=== PATIENT | female | born 1985 | race Caucasian/White ===

== ENCOUNTER 2019-04-17 22:33 | Inpatient (IN) | payer OTHER ==
[2019-04-17] MEDS ORDERED: SODIUM CHLORIDE 0.9% 500 ML 500 ML IV STA (22:44)
[2019-04-17] MEDS ORDERED: DILTIAZEM DRIP BOLUS FROM BAG 1 MG SOLN IV ONE (22:44)
[2019-04-17] MEDS ORDERED: MAGNESIUM SULFATE-D5W PMX 1 GM in DEXTROSE/WATER 1 100ML.BAG IVPB STA (22:44)
[2019-04-17] MEDS ORDERED: DILTIAZEM 125 MG in SODIUM CHLORIDE 0.9% 100 ML IV SCH (22:45)
[2019-04-17 23:13] LABS: Basophils # (A) 0.1 k/uL (0-0.2); Basophils % (A) 1 %; Eosinophils # (A) 0.2 k/uL (0-0.7); Eosinophils % (A) 2 %; HCT 44.7 % (34.0-46.0); HGB 15.6 gm/dL (11.4-16.0); Lymphocytes # (A) 3.2 k/uL (1.0-4.8); Lymphocytes % (A) 26 %; MCH 30.8 pg (25.0-35.0); MCHC 34.9 g/dL (31.0-37.0); MCV 88.2 fL (80.0-100.0); Monocytes # (A) 0.4 k/uL (0-1.0); Monocytes % (A) 4 %; Neutrophils # (A) 8.1 k/uL (1.3-7.7); Neutrophils % (A) 66 %; Platelet Count 169 k/uL (150-450); RBC 5.07 m/uL (3.80-5.40); RDW 13.5 % (11.5-15.5); WBC 12.4 k/uL (3.8-10.6)
[2019-04-17 23:22] LABS: INR 1.1 (<1.2); Prothrombin Time 11.4 sec (9.0-12.0)
[2019-04-17 23:33] LABS: ALT 58 U/L (9-52); AST 38 U/L (14-36); African American GFR (CKD) >90 (>60 ml/min/1.73 sqM); Albumin 4.4 g/dL (3.5-5.0); Alkaline Phosphatase 144 U/L (38-126); Anion Gap 12 mmol/L; Blood Urea Nitrogen 20 mg/dL (7-17); Calcium 9.7 mg/dL (8.4-10.2); Carbon Dioxide 19 mmol/L (22-30); Chloride 109 mmol/L (98-107); Glucose 122 mg/dL (74-99); Non-African American GFR(CKD) >90 (>60 ml/min/1.73 sqM); Potassium 4.6 mmol/L (3.5-5.1); Sodium 140 mmol/L (137-145); Total Bilirubin 0.9 mg/dL (0.2-1.3); Total Protein 7.5 g/dL (6.3-8.2)
--- NOTE | 2019-04-17 23:42 | XR ---
EXAM: XR Chest, 2 Views CLINICAL HISTORY: dysrhythmia TECHNIQUE: Frontal and lateral views of the chest. COMPARISON: 03/31/2019 FINDINGS: Lungs: Unremarkable. No consolidation. Pleural space: No significant pleural effusions or pneumothorax. Heart: Stable enlarged cardiomediastinal silhouette. Mediastinum: See above. Bones/joints: No acute osseous abnormality. Tubes, lines and devices: Telemetry leads overlie the patient. IMPRESSION: Stable enlarged cardiomediastinal silhouette. No consolidation, significant pleural effusions, or pneumothorax.
[2019-04-18] MEDS ORDERED: SODIUM CHLORIDE 0.9% 500 ML 500 ML IV ONE (01:15)
[2019-04-18] MEDS: SODIUM CHLORIDE 0.9% 1,000 ML IV SCH ×2 (02:24→20:12)
--- NOTE | 2019-04-18 03:51 | ED ---
Arrhythmia/Palpitations HPI - General Chief Complaint: Arrhythmia/Palpitations Stated Complaint: Chest Pain Time Seen by Provider: 04/17/19 22:40 Source: patient, EMS Mode of arrival: EMS Limitations: no limitations - History of Present Illness Initial Comments: The patient is a 33-year-old female presents emergency room with reported chest palpitations. She was recently seen in the emergency room earlier this month. She was diagnosed with new onset A. fib with RVR. She was also diagnosed with hypertrophic cardiomyopathy. She is discharged home on Eliquis and Toprol. States she's been taking the medications as directed. She was told to follow up with a cylinder block hole reliner out of [facility]. States that the earliest that she can be seen as an June. Prior to hospital discharge she did convert to normal sinus rhythm. States she's been asymptomatic until just prior to hospital arrival. States that she was sitting down when she had sudden onset of palpitations which made her short of breath. She also felt extremely dizzy. EMS was called. They did find the patient have a heart rate close to 180s. She did appear to be in A. fib. She was provided with 324 mg of chewable aspirin. She denies ripping or tearing sensation to her back. Denies cough or hemoptysis. No abdominal pain. No nausea or vomiting. There are no alleviating, precipitating or modifying factors - Related Data Home Medications Medication Instructions Recorded Confirmed Ergocalciferol [Vitamin D2 50,000 unit PO MO 03/31/19 04/17/19 (DRISDOL)] Sertraline [Zoloft] 100 mg PO DAILY 03/31/19 04/17/19 Previous Rx's Medication Instructions Recorded Apixaban [Eliquis] 5 mg PO BID #60 tab 04/03/19 Amiodarone [Cordarone] 200 mg PO BID #180 tab 04/20/19 Metoprolol Tartrate [Lopressor] 25 mg PO BID #0 tab 04/20/19 Allergies Allergy/AdvReac Type Severity Reaction Status Date / Time No Known Allergies Allergy Verified 04/17/19 22:53 Review of Systems ROS Statement: Those systems with pertinent positive or pertinent negative responses have been documented in the HPI. ROS Other: All systems not noted in ROS Statement are negative. Past Medical History Past Medical History: Atrial Fibrillation Additional Past Medical History / Comment(s): Depression History of Any Multi-Drug Resistant Organisms: None Reported Past Surgical History: Cholecystectomy Additional Past Surgical History / Comment(s): csection Past Anesthesia/Blood Transfusion Reactions: No Reported Reaction Past Psychological History: Depression Smoking Status: Never smoker Past Alcohol Use History: Rare Past Drug Use History: None Reported - Past Family History Father Family Medical History: Cancer, Diabetes Mellitus Additional Family Medical History / Comment(s): "heart problems" possible murmur Mother Family Medical History: Cancer Additional Family Medical History / Comment(s): Allerigies Sister(s) Additional Family Medical History / Comment(s): orthopedic surgery, "heart problems" General Exam Limitations: no limitations General appearance: alert, in distress Head exam: Present: atraumatic, normocephalic, normal inspection Eye exam: Present: normal appearance, PERRL, EOMI. Absent: scleral icterus, conjunctival injection, periorbital swelling ENT exam: Present: normal exam, mucous membranes moist Neck exam: Present: normal inspection. Absent: tenderness, meningismus, lymphadenopathy Respiratory exam: Present: normal lung sounds bilaterally. Absent: respiratory distress, wheezes, rales, rhonchi, stridor Cardiovascular Exam: Present: tachycardia, irregular rhythm, normal heart sounds. Absent: systolic murmur, diastolic murmur, rubs, gallop, clicks GI/Abdominal exam: Present: soft, normal bowel sounds. Absent: distended, tenderness, guarding, rebound, rigid Extremities exam: Present: normal inspection, full ROM, normal capillary refill. Absent: tenderness, pedal edema, joint swelling, calf tenderness Back exam: Present: normal inspection Neurological exam: Present: alert, oriented X3, CN II-XII intact Psychiatric exam: Present: normal affect, normal mood Skin exam: Present: warm, intact, normal color, diaphoretic. Absent: rash Course Vital Signs 04/17/19 04/17/19 04/17/19 22:34 23:00 23:59 Temperature 98.3 F Pulse Rate 147 H 79 107 H Pulse Rate [ Right] Respiratory 20 16 16 Rate Blood Pressure 114/99 113/81 102/67 Blood Pressure [Right Arm] O2 Sat by Pulse 98 97 96 Oximetry 04/18/19 04/18/19 04/18/19 00:45 01:00 02:00 Temperature 97.6 F 97.6 F Pulse Rate 106 H 107 H 89 Pulse Rate [ Right] Respiratory 16 16 16 Rate Blood Pressure 97/70 103/91 115/94 Blood Pressure [Right Arm] O2 Sat by Pulse 98 98 98 Oximetry 04/18/19 04/18/19 04/18/19 03:00 03:30 04:35 Temperature Pulse Rate 109 H 96 115 H Pulse Rate [ Right] Respiratory 18 18 18 Rate Blood Pressure 100/60 107/60 99/86 Blood Pressure [Right Arm] O2 Sat by Pulse 98 96 98 Oximetry 04/18/19 04:49 Temperature 97.7 F Pulse Rate Pulse Rate [ 62 Right] Respiratory 16 Rate Blood Pressure Blood Pressure 97/70 [Right Arm] O2 Sat by Pulse 99 Oximetry EKG Findings - EKG Comments: EKG Findings:: EKG performed at 2302 demonstrate a flutter with a variable AV block. Rate of 102. QRS 86. QTC 456. There is associated diffuse ST depression. EKG meet criteria for LVH. EKG performed at 2:28 AM demonstrates a flutter rate of 142. CA interval 0 QRS 92. QTC 498. Voltage criteria for LVH. Continued ST depression. Medical Decision Making - Medical Decision Making Upon arrival the patient is immediately placed in trauma bay 1. She is hooked up to continuous pulse ox and cardiac monitoring. 12-lead EKG is performed on the patient which demonstrates an irregular rhythm with a heart rate that is variable between 100-160. The patient's blood pressure does remain stable around 100 systolic. Peripheral IV had been established by EMS. They did give her a 500 mL bolus. I did provide the patient with an additional 500 mL. Laboratory studies were conducted and the patient was sent for chest x-ray. I did initiate the patient on Cardizem drip. She was given a 10 mg bolus and started on 5 mg per hour. She is continuously reevaluated and does demonstrate improvement in her heart rate. Her blood pressure does flucctuate which require continuous observation and titration of the cardizem drip. I did call and discuss the case with Dr. erickson and whether she should be [facility] to [facility] for further care. He did feel that the patient could be admitted to [facility] with him to consult. I discussed this with the patient. She did remain in stable condition with a heart rate between 85 and 110. Bridging orders were placed. The patient remained in stable condition and was transported to the floor - Differential Diagnosis afib with RVR, LVH, presyncope - Lab Data Result diagrams: 04/19/19 07:04 04/19/19 07:04 Lab Results 04/17/19 04/17/19 04/17/19 Range/Units 22:50 22:50 22:50 WBC 12.4 H (3.8-10.6) k/uL RBC 5.07 (3.80-5.40) m/uL Hgb 15.6 (11.4-16.0) gm/dL Hct 44.7 (34.0-46.0) % MCV 88.2 (80.0-100.0) fL MCH 30.8 (25.0-35.0) pg MCHC 34.9 (31.0-37.0) g/dL RDW 13.5 (11.5-15.5) % Plt Count 169 (150-450) k/uL Neutrophils % 66 % Lymphocytes % 26 % Monocytes % 4 % Eosinophils % 2 % Basophils % 1 % Neutrophils # 8.1 H (1.3-7.7) k/uL Lymphocytes # 3.2 (1.0-4.8) k/uL Monocytes # 0.4 (0-1.0) k/uL Eosinophils # 0.2 (0-0.7) k/uL Basophils # 0.1 (0-0.2) k/uL PT 11.4 (9.0-12.0) sec INR 1.1 (<1.2) APTT 26.0 (22.0-30.0) sec Sodium 140 (137-145) mmol/L Potassium 4.6 (3.5-5.1) mmol/L Chloride 109 H (98-107) mmol/L Carbon Dioxide 19 L (22-30) mmol/L Anion Gap 12 mmol/L BUN 20 H (7-17) mg/dL Creatinine 0.71 (0.52-1.04) mg/dL Est GFR (CKD-EPI)AfAm >90 (>60 ml/min/1.73 sqM) Est GFR (CKD-EPI)NonAf >90 (>60 ml/min/1.73 sqM) Glucose 122 H (74-99) mg/dL Calcium 9.7 (8.4-10.2) mg/dL Magnesium 2.0 (1.6-2.3) mg/dL Total Bilirubin 0.9 (0.2-1.3) mg/dL AST 38 H (14-36) U/L ALT 58 H (9-52) U/L Alkaline Phosphatase 144 H (38-126) U/L Troponin I (0.000-0.034) ng/mL Total Protein 7.5 (6.3-8.2) g/dL Albumin 4.4 (3.5-5.0) g/dL TSH 4.260 (0.465-4.680) mIU/L Urine HCG, Qual (Not Detectd) 04/17/19 04/18/19 Range/Units 22:50 00:45 WBC (3.8-10.6) k/uL RBC (3.80-5.40) m/uL Hgb (11.4-16.0) gm/dL Hct (34.0-46.0) % MCV (80.0-100.0) fL MCH (25.0-35.0) pg MCHC (31.0-37.0) g/dL RDW (11.5-15.5) % Plt Count (150-450) k/uL Neutrophils % % Lymphocytes % % Monocytes % % Eosinophils % % Basophils % % Neutrophils # (1.3-7.7) k/uL Lymphocytes # (1.0-4.8) k/uL Monocytes # (0-1.0) k/uL Eosinophils # (0-0.7) k/uL Basophils # (0-0.2) k/uL PT (9.0-12.0) sec INR (<1.2) APTT (22.0-30.0) sec Sodium (137-145) mmol/L Potassium (3.5-5.1) mmol/L Chloride (98-107) mmol/L Carbon Dioxide (22-30) mmol/L Anion Gap mmol/L BUN (7-17) mg/dL Creatinine (0.52-1.04) mg/dL Est GFR (CKD-EPI)AfAm (>60 ml/min/1.73 sqM) Est GFR (CKD-EPI)NonAf (>60 ml/min/1.73 sqM) Glucose (74-99) mg/dL Calcium (8.4-10.2) mg/dL Magnesium (1.6-2.3) mg/dL Total Bilirubin (0.2-1.3) mg/dL AST (14-36) U/L ALT (9-52) U/L Alkaline Phosphatase (38-126) U/L Troponin I <0.012 (0.000-0.034) ng/mL Total Protein (6.3-8.2) g/dL Albumin (3.5-5.0) g/dL TSH (0.465-4.680) mIU/L Urine HCG, Qual Not Detected (Not Detectd) Critical Care Time Critical Care Time: Yes Total Critical Care Time: 35 (minutes) Disposition Clinical Impression: Atrial fibrillation, Hypertrophic cardiomyopathy Disposition: ADMITTED IP TO THIS [facility] Condition: Serious Is patient prescribed a controlled substance at d/c from ED?: No Decision to Admit Reason: Admit from EC Decision Date: 04/18/19 Decision Time: 03:50
[2019-04-18] MEDS ORDERED: NALOXONE 0.4 MG/ML 1 ML VIAL IV PRN (03:53)
[2019-04-18] MEDS: APIXABAN 5 MG TAB PO SCH ×2 (08:50→20:12)
[2019-04-18] MEDS ORDERED: PROPAFENONE 150 MG TAB PO STA (10:22)
[2019-04-18] MEDS: METOPROLOL TARTRATE 50 MG TAB PO SCH ×2 (11:00→22:42)
--- NOTE | 2019-04-18 13:40 | CONS ---
CONSULTATION Mrs. Johnson is a 33-year-old female who presented with symptoms of palpitations. The patient was here in the hospital earlier this month with episode of palpitation. At that time was noted to be in atrial flutter. She was evaluated by Dr. Dumont and underwent an echocardiogram that revealed a preserved left ventricular size with a concentric left ventricular hypertrophy and mild global impairment of left ventricular systolic function, ejection fraction 50% to 55% with mild mitral regurgitation. The initial plan was to proceed with cardioversion, but the patient converted spontaneously to sinus mechanism. Subsequently to that she was sent home, evaluated by Dr. Dumont as an outpatient last week and was doing well. Yesterday while watching TV she felt a fast heartbeat and because of that came into the emergency room. She felt dizzy, had a tightness in the chest. She is in atrial flutter with a rapid ventricular response on presentation. Her breathing is stable. She has no peripheral edema. No syncope. No clear PND nor orthopnea. The episode 2 weeks ago was her first event. Her coronary risk factors are negative for smoking. She is nondiabetic. No documented history of hypertension. MEDICATIONS: Her medication at home include metoprolol tartrate 25 mg 3 times a day, Drisdol, Eliquis 5 mg twice a day, and sertraline. REVIEW OF SYSTEMS: RESPIRATORY SYSTEM: She has no recent wheezing. No cough. No history of documented obstructive lung disease. GI SYSTEM: No recent GI bleed. No peptic ulcer disease. SYSTEM: No dysuria or hematuria. NERVOUS SYSTEM: No stroke or seizure. PHYSICAL EXAMINATION: A 33-year-old female, alert, oriented, in no apparent distress. Blood pressure running in the low 100s, high 90s with the heart rate in the 80s. On presentation, her heart rate was 147. HEAD: Normocephalic. EYES: Sclerae anicteric. NECK: Good carotid upstroke. No bruit. No jugular venous distention. LUNGS: Clear to auscultation. HEART: Irregular, irregular. S1, S2. No S3 with a systolic murmur heard at the base, ejection type. No diastolic murmur. No rub. No clear change with Valsalva maneuver. ABDOMEN: Soft, obese, nontender. Positive bowel sounds. No organomegaly EXTREMITIES: No edema. LAB DATA: BUN and creatinine 20 and 0.71. Troponin less than 0.012. AST of 38, ALT of 58, TSH 4.26. EKG revealed atrial flutter with variable AV block and a rate of [address]- T wave changes. Her chest x-ray showed no evidence of infiltrate. IMPRESSION: 1. Recurrent atrial flutter in a patient that presented with the symptoms for the first time early this month. 2. Severe left ventricular hypertrophy of unclear etiology with dilated left atrium on her most recent echocardiogram. RECOMMENDATION: From the cardiac standpoint, I will increase the dose of beta boubacar and stop the IV Cardizem. We will give her a dose of Rythmol 600 mg to see if we can restore sinus mechanism. We will obtain an evaluation by Dr. Gottlieb for possible ablation. Patient will need to be evaluated for the etiology of her left ventricular hypertrophy including possibly cardiac MRI. I have discussed those finding with the patient and her family. Depending on the progress, further recommendation will be made. Thank you for this consult. We will follow with you. MMODL / IJN: [id number] /
[2019-04-18] MEDS ORDERED: ONDANSETRON 4 MG/2 ML VIAL IVP PRN (20:45)
--- NOTE | 2019-04-18 23:01 | P.HPIM ---
History of Present Illness H&P Date: 04/18/19 Chief Complaint: Palpitations Lan hassan is a 33-year-old female with a known history of recently diagnosed HOCM, atrial fibrillation and depression came to ER with complaints of heart racing of fast and palpitations. Patient was recently diagnosed with hypertrophic cardiomyopathy and atrial fibrillation. Patient was converted to sinus rhythm in the hospital for discharge. Patient is being continued on Eliquis and Toprol-XL. Patient has been taking her medications. Patient is supposed to follow with [facility] in June.States she's been asymptomatic until just prior to hospital arrival. States that she was sitting down when she had sudden onset of palpitations which made her short of breath. She also felt extremely dizzy. EMS was called. They did find the patient have a heart rate close to 180s. She denies ripping or tearing sensation to her back. Denies cough or hemoptysis. No abdominal pain. No nausea or vomiting. There are no allevi ating, precipitating or modifying factors Currently patient is on Cardizem drip. Review of Systems Constitutional: Patient denies any fever or chills . No generalized weakness or weight loss. Abdomen: Patient denied nausea vomiting and diarrhea and abdominal pain. Cardiovascular: Patient denies any chest pain or short of breath . Positive palpitations. Respiratory: patient denied any cough is from production. No shortness of breath Neurologic: Patient denied any numbness or tingling headache. Musculoskeletal: Patient denies any complaints of joint swelling or deformity. Skin: Negative Psychiatric: Negative Endocrine: No heat or cold intolerance. No recent weight gain. Genitourinary: No dysuria or hematuria. All other 14 point ROS negative except the above Past Medical History Past Medical History: Atrial Fibrillation Additional Past Medical History / Comment(s): Depression History of Any Multi-Drug Resistant Organisms: None Reported Past Surgical History: Cholecystectomy Additional Past Surgical History / Comment(s): csection Past Anesthesia/Blood Transfusion Reactions: No Reported Reaction Past Psychological History: Depression Smoking Status: Never smoker Past Alcohol Use History: Rare Past Drug Use History: None Reported - Past Family History Father Family Medical History: Cancer, Diabetes Mellitus Additional Family Medical History / Comment(s): "heart problems" possible murmur Mother Family Medical History: Cancer Additional Family Medical History / Comment(s): Allerigies Sister(s) Additional Family Medical History / Comment(s): orthopedic surgery, "heart problems" Medications and Allergies Home Medications Medication Instructions Recorded Confirmed Type Ergocalciferol [Vitamin D2 50,000 unit PO MO 03/31/19 04/17/19 History (DRISDOL)] Sertraline [Zoloft] 100 mg PO DAILY 03/31/19 04/17/19 History Apixaban [Eliquis] 5 mg PO BID #60 tab 04/03/19 04/17/19 Rx Metoprolol Tartrate [Lopressor] 25 mg PO TID #90 tab 04/03/19 04/17/19 Rx Allergies Allergy/AdvReac Type Severity Reaction Status Date / Time No Known Allergies Allergy Verified 04/17/19 22:53 Physical Exam Vitals: Vital Signs Temp Pulse Pulse Resp BP BP Pulse Ox 04/18/19 08:00 98.0 F 85 16 93/70 97 04/18/19 04:49 97.7 F 62 16 97/70 99 04/18/19 04:35 115 H 18 99/86 98 04/18/19 03:30 96 18 107/60 96 04/18/19 03:00 109 H 18 100/60 98 04/18/19 02:00 89 16 115/94 98 04/18/19 01:00 97.6 F 107 H 16 103/91 98 04/18/19 00:45 97.6 F 106 H 16 97/70 98 04/17/19 23:59 107 H 16 102/67 96 04/17/19 23:00 79 16 113/81 97 04/17/19 22:34 98.3 F 147 H 20 114/99 98 Intake and Output 04/17/19 04/18/19 04/18/19 22:59 06:59 14:59 Intake Total 9.500 Balance 9.500 Intake: Intake, IV Titration 9.500 Amount Diltiazem 125 mg In 9.500 Sodium Chloride 0.9% 100 ml @ 5 MG/HR 5 mls/hr IV .Q24H [facility] Rx#:[id number] Other: # Voids 1 Weight 86.183 kg 87.9 kg PHYSICAL EXAMINATION: Patient is lying in the bed comfortably, no acute distress, awake alert and oriented.. HEENT: Normocephalic. Neck is supple. Pupils reactive. Nostrils clear. Oral cavity is moist. Ears reveal no drainage. Neck reveals no JVD, carotid bruits, or thyromegaly. CHEST EXAMINATION: Trachea is central. Symmetrical expansion. Lung cueva clear to auscultation and percussion. CARDIAC: Normal S1, S2 with no gallops. No murmurs ABDOMEN: Soft. Bowel sounds normal. No organomegaly. No abdominal bruits. Extremities: reveal no edema. No clubbing or cyanosis Neurologically awake, alert, oriented x3 with well-coordinated movements. No focal deficits noted Skin: No rash or skin lesions. Psychiatric: Coperative. Nonsuicidal Musculoskeletal: No joint swelling or deformity. Normal range of motion. Results CBC & Chem 7: 04/17/19 22:50 04/17/19 22:50 Labs: Abnormal Lab Results - Last 24 Hours (Table) 04/17/19 04/17/19 Range/Units 22:50 22:50 WBC 12.4 H (3.8-10.6) k/uL Neutrophils # 8.1 H (1.3-7.7) k/uL Chloride 109 H (98-107) mmol/L Carbon Dioxide 19 L (22-30) mmol/L BUN 20 H (7-17) mg/dL Glucose 122 H (74-99) mg/dL AST 38 H (14-36) U/L ALT 58 H (9-52) U/L Alkaline Phosphatase 144 H (38-126) U/L Thrombosis Risk Factor Assmnt - DVT/VTE Prophylaxis DVT/VTE Prophylaxis: Pharmacologic Prophylaxis ordered - Choose All That Apply Any of the Below Risk Factors Present?: No Other Risk Factors: No Other congenital or acquired thrombophilia - If yes, enter type in comment: No Thrombosis Risk Factor Assessment Level: Very Low Risk Assessment and Plan Assessment: Atrial fibrillation with rapid ventricular rate Palpitations and dizziness Recently diagnosed hypertrophic cardiomyopathy with left ventricle of hypertrophy and left atrial dilation. Obesity with BMI 33.3 Depression Plan: Patient was continued on Cardizem drip. Currently heart rate is controlled. Patient was seen by cardiology and increased metoprolol dose. Continue with anticoagulation. Continue the telemetry monitoring. Further recommendations based on the clinical course. EP evaluation for possible ablation. Time with Patient: Greater than 30
[2019-04-19 07:31] LABS: Basophils # (A) 0.1 k/uL (0-0.2); Basophils % (A) 1 %; Eosinophils # (A) 0.2 k/uL (0-0.7); Eosinophils % (A) 2 %; HGB 14.4 gm/dL (11.4-16.0); Lymphocytes # (A) 3.6 k/uL (1.0-4.8); Lymphocytes % (A) 35 %; MCHC 32.8 g/dL (31.0-37.0); MCV 91.5 fL (80.0-100.0); Mean Platelet Volume 10.8; Monocytes # (A) 0.4 k/uL (0-1.0); Monocytes % (A) 4 %; Neutrophils # (A) 5.8 k/uL (1.3-7.7); Neutrophils % (A) 56 %; Platelet Count 140 k/uL (150-450); RBC 4.81 m/uL (3.80-5.40); RDW 13.6 % (11.5-15.5); WBC 10.3 k/uL (3.8-10.6)
[2019-04-19 07:43] LABS: Albumin 3.8 g/dL (3.5-5.0); Magnesium 1.9 mg/dL (1.6-2.3); Potassium 4.8 mmol/L (3.5-5.1); Total Protein 6.5 g/dL (6.3-8.2)
--- NOTE | 2019-04-19 08:04 | P.CRDCN ---
History of Present Illness History of present illness: This is Dr. Gottlieb dictating a consult on this patient The patient was interviewed and examined by me IMPRESSION / ASSESSMENT: Symptomatic paroxysmal atrial fibrillation with RVR associated with presyncope Recurrent Severe left ventricular hypertrophy on 2-D echo and abnormal ECG with ST depression and T-wave inversions which is quite diffuse with QRS fractionation the inferior leads Sinus bradycardia PLAN: Avoid class I antiarrhythmic drug therapy, avoid sotalol Amiodarone 400 mg by mouth daily for one month reduced to 200 mg by mouth daily. I would treat her temporarily with amiodarone Thereafter reduce the dose of metoprolol to 25 mg twice daily Cardiac MRI to assess for causes of severe left ventricular hypertrophy Further recommendations especially regarding A. fib ablation thereafter Patient should be anticoagulated for stroke prevention HPI Patient presented with recurrent dizzy spells and near syncope and was found to be in atrial fibrillation with RVR Was recently in the hospital with palpitations and atrial fibrillation She was also very tightness in the chest. These episodes occurred while she was sitting and she was fading in and out No history of smoking nondiabetic no hypertension ROS: No fever chills or rigors, no cough, phlegm or expectoration, no nausea, vomiting or diarrhea, no hematuria, dysuria, no musculoskeletal complaints, no strokes or seizures, no skin lesions. EXAMINATION: Blood pressure 102 60 mmHg and 98/68 mmHg pulse rate in the 50s and 60s afebrile 97.9F Carline lungs no rhonchi no crackles Heart sounds are soft and don't hear any murmurs No dynamic murmurs upon assuming upright position or with Valsalva Abdomen soft Extremities warm, no edema Increased BMI noted REVIEW OF LABS, ECG & MEDICAL DATA Hemoglobin 15, sodium and potassium normal, creatinine 0.7 Normal TSH 2-D echo done recently shows severe concentric hypertrophy of the left ventricle with low left ventricular ejection fraction of about 50% Twelve-lead ECG shows atrial fibrillation with RVR with organized atrial activity. This does not represent flutter Twelve-lead ECG sinus rhythm shows normal TX narrow QRS fractionated in the inferior leads and diffuse and significant ST depression with T-wave inversions consistent with the findings on 2-D echo Past Medical History Past Medical History: Atrial Fibrillation Additional Past Medical History / Comment(s): Depression History of Any Multi-Drug Resistant Organisms: None Reported Past Surgical History: Cholecystectomy Additional Past Surgical History / Comment(s): csection Past Anesthesia/Blood Transfusion Reactions: No Reported Reaction Past Psychological History: Depression Smoking Status: Never smoker Past Alcohol Use History: Rare Past Drug Use History: None Reported - Past Family History Father Family Medical History: Cancer, Diabetes Mellitus Additional Family Medical History / Comment(s): "heart problems" possible murmur Mother Family Medical History: Cancer Additional Family Medical History / Comment(s): Allerigies Sister(s) Additional Family Medical History / Comment(s): orthopedic surgery, "heart pro blems" Medications and Allergies Home Medications Medication Instructions Recorded Confirmed Type Ergocalciferol [Vitamin D2 50,000 unit PO MO 03/31/19 04/17/19 History (DRISDOL)] Sertraline [Zoloft] 100 mg PO DAILY 03/31/19 04/17/19 History Apixaban [Eliquis] 5 mg PO BID #60 tab 04/03/19 04/17/19 Rx Metoprolol Tartrate [Lopressor] 25 mg PO TID #90 tab 04/03/19 04/17/19 Rx Allergies Allergy/AdvReac Type Severity Reaction Status Date / Time No Known Allergies Allergy Verified 04/17/19 22:53 Physical Exam Vitals: Vital Signs Temp Pulse Resp BP Pulse Ox 04/19/19 03:53 97.9 F 56 L 16 98/68 98 04/18/19 23:56 98 F 62 16 102/69 98 04/18/19 19:59 98 F 58 L 16 111/78 96 04/18/19 16:00 101 H 04/18/19 14:59 98.2 F 101 H 16 95/69 95 04/18/19 12:00 75 04/18/19 10:56 75 16 102/71 97 Intake and Output 04/18/19 04/19/19 04/19/19 22:59 06:59 14:59 Intake Total 750 450 Balance 750 450 Intake: Intake, IV Titration 150 350 Amount Sodium Chloride 0.9% 1, 150 350 000 ml @ 50 mls/hr IV . Q20H GERALDINE Rx#:[id number] Oral 600 100 Other: # Voids 1 2 Weight 88.5 kg Results 04/19/19 07:04 04/19/19 07:04 Cardiac Enzymes 08/22/19 08/23/19 Range/Units 10:43 07:04 AST 38 H (14-36) U/L Troponin I 0.024 (0.000-0.034) ng/mL CBC 04/19/19 Range/Units 07:04 WBC 10.3 (3.8-10.6) k/uL RBC 4.81 (3.80-5.40) m/uL Hgb 14.4 (11.4-16.0) gm/dL Hct 44.0 (34.0-46.0) % Plt Count 140 L (150-450) k/uL Comprehensive Metabolic Panel 04/19/19 Range/Units 07:04 Sodium 139 (137-145) mmol/L Potassium 4.8 (3.5-5.1) mmol/L Chloride 107 (98-107) mmol/L Carbon Dioxide 21 L (22-30) mmol/L BUN 24 H (7-17) mg/dL Creatinine 1.09 H (0.52-1.04) mg/dL Glucose 99 (74-99) mg/dL Calcium 9.0 (8.4-10.2) mg/dL AST 38 H (14-36) U/L ALT 64 H (9-52) U/L Alkaline Phosphatase 99 (38-126) U/L Total Protein 6.5 (6.3-8.2) g/dL Albumin 3.8 (3.5-5.0) g/dL Current Medications Generic Name Dose Route Start Last Admin Trade Name Freq PRN Reason Stop Dose Admin Amiodarone HCl 200 mg 04/19/19 09:00 Cordarone PO BID GERALDINE Apixaban 5 mg 04/18/19 09:00 04/18/19 20:12 Eliquis PO 5 mg BID GERALDINE Administration Metoprolol Tartrate 25 mg 04/19/19 09:00 Lopressor PO BID GERALDINE Naloxone HCl 0.2 mg 04/18/19 03:53 Narcan IV Q2M PRN Opioid Reversal Intake and Output 04/18/19 04/19/19 04/19/19 22:59 06:59 14:59 Intake Total 750 450 Balance 750 450 Intake: Intake, IV Titration 150 350 Amount Sodium Chloride 0.9% 1, 150 350 000 ml @ 50 mls/hr IV . Q20H GERALDINE Rx#:[id number] Oral 600 100 Other: # Voids 1 2 Weight 88.5 kg 04/19/19 07:04 04/19/19 07:04
[2019-04-19] MEDS: AMIODARONE 200 MG TAB PO SCH ×2 (09:31→19:50)
[2019-04-19] MEDS: METOPROLOL TARTRATE 25 MG TAB PO SCH ×2 (09:31→21:55)
[2019-04-19] MEDS: APIXABAN 5 MG TAB PO SCH ×2 (09:31→19:50)
--- NOTE | 2019-04-19 12:33 | PN ---
PROGRESS NOTE Mrs. Johnson is a 33-year-old female who presented with palpitation, was noted to have atrial arrhythmia with possible atrial flutter or atrial fibrillation. She cardioverted to sinus mechanism yesterday. She is feeling well today. She is denying any chest pain. Her breathing has been stable. She denies any dizziness or palpitation. She was evaluated by Dr. Gottlieb who recommended the addition of amiodarone. He feels that the arrhythmia is most likely related to atrial fibrillation not atrial flutter. She was started on amiodarone 200 mg twice a day. She continued to be on Eliquis 5 mg twice a day and metoprolol 25 mg twice a day. PHYSICAL EXAMINATION: Blood pressure 102/60 with the heart rate in the 60s. LUNGS: Clear. HEART: Regular rate and rhythm. S1, S2. No S3. No rub. ABDOMEN: Soft, nontender. EXTREMITIES: No edema. LAB DATA: Lab data revealed BUN and creatinine 24 and 1.09. IMPRESSION: 1. Atrial fibrillation, back in sinus mechanism. 2. Left ventricular hypertrophy with cardiomyopathy of unclear etiology or duration. RECOMMENDATION: We will continue present therapy. We will observe for 24 hours for possible bradycardia. If she is stable, she should be able to be discharged home tomorrow and follow up at the [facility] as scheduled, probably undergo a cardiac MRI to evaluate the etiology of her cardiomyopathy and left ventricular hypertrophy and guide her treatment. Those findings and recommendation were discussed with the patient. The patient will be followed with Dr. Dumont. NATHALIE / WILLI: [id number] /
[2019-04-19 21:00] LABS: Glucose,Whole Blood 95 mg/dL (75-99)
[2019-04-20] MEDS: APIXABAN 5 MG TAB PO SCH (08:48)
[2019-04-20] MEDS: METOPROLOL TARTRATE 25 MG TAB PO SCH (08:48)
[2019-04-20] MEDS: AMIODARONE 200 MG TAB PO SCH (08:48)
--- NOTE | 2019-04-20 11:53 | P.PN ---
Subjective Progress Note Date: 04/20/19 This is a pleasant 33-year-old female patient who presented with palpitations and was noted to have atrial fibrillation with rapid ventricular response. She was recently found to have L VH with cardiomyopathy of unclear etiology for which she is set up to be seen at the [facility] on July 10. She was evaluated by Dr. Gottlieb who recommended amiodarone and she is maintaining sinus rhythm with heart rates in the 50s to 60s.. She continues on Toprol 25 mg by mouth twice a day and Eliquis 5 mg by mouth twice a day. Upon examination this morning, patient is resting currently embedded. Other than feeling tired she feels fairly well. Objective - Vital Signs Vital signs: Vital Signs Temp 97.7 F 04/20/19 08:00 Pulse 52 L 04/20/19 08:00 Resp 18 04/20/19 08:00 BP 115/68 04/20/19 08:00 Pulse Ox 96 04/20/19 08:00 Intake & Output 04/19/19 04/20/19 04/20/19 18:59 06:59 18:59 Intake Total 1020 360 Balance 1020 360 Weight 88 kg Intake: Oral 1020 360 Other: # Voids 1 - Exam PHYSICAL EXAMINATION: HEENT: Head is atraumatic, normocephalic. Pupils equal, round. Neck is supple. There is no elevated jugular venous pressure. HEART EXAMINATION: Heart sounds regular, S1 and S2 normal. No murmur or gallop heard. CHEST EXAMINATION: Lungs are clear to auscultation and precussion. No chest wall tenderness is noted on palpation or with deep breathing. ABDOMEN: Soft, nontender. Bowel sounds are heard. No organomegaly noted. EXTREMITIES: 2+ peripheral pulses with no evidence of peripheral edema and no calf tenderness noted. NEUROLOGIC patient is awake, alert and oriented x3. . - Labs CBC & Chem 7: 04/19/19 07:04 04/19/19 07:04 Assessment and Plan Assessment: #1 paroxysmal atrial fibrillation with rapid ventricular response, currently maintaining sinus rhythm #2 left ventricular hypertrophy with cardiomyopathy of unclear etiology or duration Plan: From cardiology's perspective, patient may be discharged home today. She'll be scheduled to follow-up with Dr. Love in the office next week at which time will likely be scheduled to undergo cardiac MRI at the [facility] prior to appointment scheduled there in June. [employer] note has been reviewed, I agree with a documented findings and plan of care. Patient was seen and examined.
[2019-04-20 14:32] VITALS: BP 115/69; PULSE 54; RESP 16; TEMP 98.1
--- NOTE | 2019-05-07 11:56 | P.PN ---
Subjective Progress Note Date: 04/19/19 Principal diagnosis: Symptomatic paroxysmal atrial fibrillation with RVR Patient is a 33-year-old female with a known history of recently diagnosed HOCM, atrial fibrillation and depression came to ER with complaints of heart racing of fast and palpitations. Patient was recently diagnosed with hypertrophic cardiomyopathy and atrial fibrillation. Patient was converted to sinus rhythm in the hospital for discharge. Patient is being continued on Eliquis and Toprol-XL. Patient has been taking her medications. Patient is supposed to follow with [facility] in June.States she's been asymptomatic until just prior to hospital arrival. States that she was sitting down when she had sudden onset of palpitations which made her short of breath. She also felt extremely dizzy. EMS was called. They did find the patient have a heart rate close to 180s. She denies ripping or tearing sensation to her back. Denies cough or hemoptysis. No abdominal pain. No nausea or vomiting. There are no alleviating, precipitating or modifying factors Currently patient is on Cardizem drip. 04/19/2019 Patient says that his palpitations are better. No complaints of chest pain or shortness of breath. No nausea vomiting or abdominal pain. Patient was seen by cardiology and recommended to start on amiodarone 400 mg by mouth for 1 month reduced to 200 mg by mouth daily. Temporarily with amiodarone. Patient was recommended to have cardiac MRI to assess for cause of severe left ventricular Hypertrophy. Further recommendations regarding atrial fibrillation ablation depending on prior tests. Patient is getting appointment at [facility]. Patient is being continued on anticoagulation. Current medications reviewed. n Objective - Vital Signs Vital signs: Vital Signs Temp 97.6 F 04/19/19 14:18 Pulse 50 L 04/19/19 14:18 Resp 16 04/19/19 14:18 BP 107/66 04/19/19 14:18 Pulse Ox 98 04/19/19 14:18 Intake & Output 04/18/19 04/19/19 04/19/19 18:59 06:59 18:59 Intake Total 125 1200 780 Output Total 400 Balance -275 1200 780 Weight 88.5 kg Intake: Intake, IV Titration 500 Amount Sodium Chloride 0.9% 1, 500 000 ml @ 50 mls/hr IV . Q20H GERALDINE Rx#:[id number] Oral 125 700 780 Output: Urine 400 Other: # Voids 2 - Exam PHYSICAL EXAMINATION: Patient is lying in the bed comfortably, no acute distress, awake alert and oriented.. HEENT: Normocephalic. Neck is supple. Pupils reactive. Nostrils clear. Oral cavity is moist. Ears reveal no drainage. Neck reveals no JVD, carotid bruits, or thyromegaly. CHEST EXAMINATION: Trachea is central. Symmetrical expansion. Lung cueva clear to auscultation and percussion. CARDIAC: Normal S1, S2 with no gallops. No murmurs ABDOMEN: Soft. Bowel sounds normal. No organomegaly. No abdominal bruits. Extremities: reveal no edema. No clubbing or cyanosis Neurologically awake, alert, oriented x3 with well-coordinated movements. No focal deficits noted Skin: No rash or skin lesions. Psychiatric: Coperative. Nonsuicidal Musculoskeletal: No joint swelling or deformity. Normal range of motion. - Labs CBC & Chem 7: 04/19/19 07:04 04/19/19 07:04 Labs: Abnormal Lab Results - Last 24 Hours (Table) 04/19/19 04/19/19 Range/Units 07:04 07:04 Plt Count 140 L (150-450) k/uL Carbon Dioxide 21 L (22-30) mmol/L BUN 24 H (7-17) mg/dL Creatinine 1.09 H (0.52-1.04) mg/dL AST 38 H (14-36) U/L ALT 64 H (9-52) U/L Assessment and Plan Assessment: Atrial fibrillation with rapid ventricular rate. Rate controlled now. Palpitations and dizziness secondary to above Recently diagnosed hypertrophic cardiomyopathy with left ventricle of hypertrophy and left atrial dilation. Obesity with BMI 33.3 Depression Plan: Patient was continued on Cardizem drip. Currently heart rate is controlled. Patient was seen by cardiology and increased metoprolol dose. Continue with anticoagulation. Patient was seen by EP and recommended stress test on amiodarone. Cardiac MRI and followed by evaluation for ablation thereafter. Continue the telemetry monitoring. Further recommendations based on the clinical course. Time with Patient: Greater than 30
--- NOTE | 2019-05-07 12:01 | P.DS ---
Providers Date of admission: 04/18/19 03:53 Expected date of discharge: 04/20/19 Attending physician: Lisa Simental Consults: 04/18/19 03:55 Consult Physician Urgent Consulting Provider: [facility] Consult Reason/Comments: afib with rvr, hypertrophic cardiomyopathy Do you want consulting provider notified?: Yes 04/18/19 10:23 Consult Physician Urgent Consulting Provider: Tim Gottlieb Consult Reason/Comments: atrial flutter Do you want consulting provider notified?: Already Contacted Primary care physician: [facility] Hospital Course: Discharge diagnosis Atrial fibrillation with rapid ventricular rate. Rate controlled now. Palpitations and dizziness secondary to above Recently diagnosed hypertrophic cardiomyopathy with left ventricle of hypertr ophy and left atrial dilation. Obesity with BMI 33.3 Depression Hospital course Patient is a 33-year-old female with a known history of recently diagnosed HOCM, atrial fibrillation and depression came to ER with complaints of heart racing of fast and palpitations. Patient was recently diagnosed with hypertrophic cardiomyopathy and atrial fibrillation. Patient was converted to sinus rhythm in the hospital for discharge. Patient is being continued on Eliquis and Toprol-XL. Patient has been taking her medications. Patient is supposed to follow with [facility] in June.States she's been asymptomatic until just prior to hospital arrival. States that she was sitting down when she had sudden onset of palpitations which made her short of breath. She also felt extremely dizzy. EMS was called. They did find the patient have a heart rate close to 180s. She denies ripping or tearing sensation to her back. Denies cough or hemoptysis. No abdominal pain. No nausea or vomiting. There are no alleviating, precipitating or modifying factors Currently patient is on Cardizem drip. 04/19/2019 Patient says that his palpitations are better. No complaints of chest pain or s hortness of breath. No nausea vomiting or abdominal pain. Patient was seen by cardiology and recommended to start on amiodarone 400 mg by mouth for 1 month reduced to 200 mg by mouth daily. Temporarily with amiodarone. Patient was recommended to have cardiac MRI to assess for cause of severe left ventricular Hypertrophy. Further recommendations regarding atrial fibrillation ablation depending on prior tests. Patient is getting appointment at [facility]. Patient is being continued on anticoagulation. 04/20/2019 Patient is symptomatically much improved today. No complaints of chest pain shortness of breath or palpitations or heart racing up fast. Patient will be continued on Toprol twice a day and Eliquis. Attending on amiodarone. Patient has an appointment with [facility] on July 10. Patient is cleared from cardiology standpoint for discharge. Improved symptomatically. PHYSICAL EXAMINATION: Patient is lying in the bed comfortably, no acute distress, awake alert and oriented.. HEENT: Normocephalic. Neck is supple. Pupils reactive. Nostrils clear. Oral cavity is moist. Ears reveal no drainage. Neck reveals no JVD, carotid bruits, or thyromegaly. CHEST EXAMINATION: Trachea is central. Symmetrical expansion. Lung cueva clear to auscultation and percussion. CARDIAC: Normal S1, S2 with no gallops. No murmurs ABDOMEN: Soft. Bowel sounds normal. No organomegaly. No abdominal bruits. Extremities: reveal no edema. No clubbing or cyanosis Neurologically awake, alert, oriented x3 with well-coordinated movements. No focal deficits noted Skin: No rash or skin lesions. Psychiatric: Coperative. Nonsuicidal Musculoskeletal: No joint swelling or deformity. Normal range of motion. Vital Signs Temp 97.7 F 04/20/19 08:00 Pulse 52 L 04/20/19 08:00 Resp 18 04/20/19 08:00 BP 115/68 04/20/19 08:00 Pulse Ox 96 04/20/19 08:00 Intake & Output 04/19/19 04/20/19 04/20/19 18:59 06:59 18:59 Intake Total 1020 360 Balance 1020 360 Weight 88 kg Intake: Oral 1020 360 Other: # Voids 1 Patient Condition at Discharge: Serious Plan - Discharge Summary Discharge Rx Participant: No New Discharge Prescriptions: New Amiodarone [Cordarone] 200 mg PO BID #180 tab Metoprolol Tartrate [Lopressor] 25 mg PO BID #0 tab Continue Sertraline [Zoloft] 100 mg PO DAILY Ergocalciferol [Vitamin D2 (DRISDOL)] 50,000 unit PO MO Apixaban [Eliquis] 5 mg PO BID #60 tab Discontinued Metoprolol Tartrate [Lopressor] 25 mg PO TID #90 tab Discharge Medication List Ergocalciferol [Vitamin D2 (DRISDOL)] 50,000 unit PO MO 03/31/19 [History] Sertraline [Zoloft] 100 mg PO DAILY 03/31/19 [History] Apixaban [Eliquis] 5 mg PO BID #60 tab 04/03/19 [Rx] Amiodarone [Cordarone] 200 mg PO BID #180 tab 04/20/19 [Rx] Metoprolol Tartrate [Lopressor] 25 mg PO BID #0 tab 04/20/19 [Rx] Follow up Appointment(s)/Referral(s): Valentino Dumont MD [STAFF PHYSICIAN] - 04/23/19 3:30 pm Tem[facility]ope Art DO [Primary Care Provider] - 1-2 days Patient Instructions/Handouts: A-fib (Atrial Fibrillation) (DC), Heart Healthy Diet (DC) Discharge Disposition: HOME SELF-CARE
== END 2019-04-20 16:01 | disposition home or self-care (01) | DRG 310 ==
LOC: EC 22:33 → MERGE 04-18 03:53 → 3SCARD 04-18 03:53
PROVIDERS: ADMIT Internal Medicine; ATTEND Internal Medicine
DX: I48.0 Paroxysmal atrial fibrillation (principal); I42.1 Obstructive hypertrophic cardiomyopathy; E66.9 Obesity, unspecified; F32.9 Major depressive disorder, single episode, unspecified; Z68.33 Body mass index [BMI] 33.0-33.9, adult; Z79.01 Long term (current) use of anticoagulants; Z79.899 Other long term (current) drug therapy; Z83.3 Family history of diabetes mellitus
CPT/HCPCS: 36415; 71046; 80053; 81025; 83735; 84443; 84484; 85025; 85610; 85730; 93005; 96365; 96366; 96368; 96376; 99285

== ENCOUNTER 2019-09-19 05:59 | Observation (INO) | payer OTHER ==
[2019-09-16 15:27] VITALS: BMI 32.5
[~2019-09-19 05:59] MED LIST: SODIUM CHLORIDE 0.9% 1,000 ML IV SCH
[2019-09-19 06:42] VITALS: RESP 18
[2019-09-19] MEDS ORDERED: ceFAZolin 1,000 MG in SODIUM CHLORIDE 0.9% IRRIGATIO 250 ML IRRIGATION ONE (07:00)
[2019-09-19] MEDS ORDERED: LIDOCAINE 1% INJ 10MG/ML (20 ML MDV) ONE (07:17)
[2019-09-19] MEDS ORDERED: PROPOFOL 10 MG/ML 20 ML VIAL IV ONE (07:22)
[2019-09-19] MEDS ORDERED: fentaNYL (PF) 50 MCG/ML 2 ML AMP ONE (07:22)
[2019-09-19] MEDS ORDERED: MIDAZOLAM 2 MG/2 ML VIAL ONE (07:22)
[2019-09-19] MEDS ORDERED: SODIUM CHLORIDE 0.9% 250 ML IV ONE (07:29)
[2019-09-19] MEDS ORDERED: IOPAMIDOL-370 50ML BTL INJ ONE ×2 (07:37)
[2019-09-19] MEDS ORDERED: LIDOCAINE 1% INJ 10MG/ML (20 ML MDV) SQ ONE ×2 (08:02→08:04)
[2019-09-19] MEDS ORDERED: HYDROcodone/APAP 5-325MG 1 EACH TAB PO PRN (09:19)
[2019-09-19] MEDS ORDERED: ACETAMINOPHEN IV (For NPO) 1,000 MG in EMPTY BAG 1 BAG IVPB ONE (11:00)
--- NOTE | 2019-09-19 11:00 | CE ---
CARDIAC ELECTROPHYSIOLOGY REPORT This is a 34-year-old female with a history of hypertrophic cardiomyopathy, abnormal cardiac MRI with delayed enhancement and scarring of the myocardium. She also has paroxysmal atrial fibrillation. She was brought in for dual-chamber ICD for primary prevention of sudden cardiac risk in the future. Patient was brought to the EP lab in a fasting state. Written informed consent was obtained prior to the procedure. The left shoulder area was prepped and draped as per protocol and 1% lidocaine was used for local anesthesia. A 4 cm incision was made parallel to the deltopectoral groove, about 1.5 cm medial to it the incision was carried down to the level of the pectoralis muscle. A subfascial pocket was made. Hemostasis was assured. The left axillary vein was accessed at 2 separate points under fluoroscopy and via appropriately-sized introducer sheaths two leads were positioned the right heart. The atrial lead was a screw-in lead [employer], model #2088TC, 52 cm in length and serial number [id number]. This was screwed in the right atrial appendage. However, this was quite an enlarged right atrium and right atrial appendage and the lead dislodged 3 times before it was secured to a different area in the right atrial appendage and it remained stable thereafter. Each time prior to lead dislodgement, there was excellent current of injury and excellent thresholds. However, at the end of the procedure, the lead position remained stable. There was a current of injury as well as good thresholds of 1.25 V at 0.5 milliseconds. Ten volt test negative. Pacing impedance 610 ohms. P waves 3.8 mV. The ICD lead in the right ventricle was single coil [employer], model #[id number] 10Q, serial number [id number]. This was positioned in the mid to low RV septum. R-waves 9.5 mV, pacing impedance 540 ohms, pacing threshold 0.75 V at 0.5 milliseconds. Ten volt test was negative. Both leads were secured to the underlying pectoralis fascia using 2 nonabsorbable sutures. Pocket was irrigated with antibiotic solution. Leads were connected to the generator ([employer], model #[id number], serial number [id number]. Leads and the generator were then placed in a subfascial pocket. The wound was closed in 3 layers and dressed per protocol. RESULTS: Successful dual-chamber ICD implantation for primary prevention of sudden cardiac in this young lady with hypertrophic cardiomyopathy with scarring of myocardium noted on cardiac MRI and history of paroxysmal atrial fibrillation and sick sinus syndrome. PLAN: 1. Maximize beta blockers now for management of hypertrophic cardiomyopathy. 2. Continue atrial pacing. 3. Consider atrial fibrillation ablation for symptomatic paroxysmal atrial fibrillation and discontinue amiodarone thereafter. MMODL / IJN: [id number] /
[2019-09-19] MEDS ORDERED: traMADol 50 MG TAB PO PRN (11:46)
[2019-09-19] MEDS: ACETAMINOPHEN TAB 325 MG TAB PO PRN (20:49)
[2019-09-19] MEDS: APIXABAN 5 MG TAB PO SCH (20:50)
[2019-09-19] MEDS ORDERED: HYDROmorphone 1 MG/ML 1 ML SYRINGE IVP PRN (21:25)
[2019-09-19] MEDS: ONDANSETRON 4 MG/2 ML VIAL IVP PRN (21:39)
[2019-09-20] MEDS: ONDANSETRON 4 MG/2 ML VIAL IVP PRN ×2 (02:52→10:55)
[2019-09-20] MEDS ORDERED: PROMETHAZINE 25 MG TAB PO ONE (04:09)
--- NOTE | 2019-09-20 06:33 | XR ---
EXAMINATION TYPE: XR chest 2V DATE OF EXAM: 09/20/2019 COMPARISON: Chest x-ray April 17, 2019 HISTORY: Lead placement check. TECHNIQUE: Frontal and lateral views of the chest are obtained. FINDINGS: New dual-lead pacemaker/AICD with leads projecting over right atrium and right ventricle. There is new patchy right greater than left bibasilar opacities. No pleural effusion or pneumothorax seen bilaterally. The cardiac silhouette size remains enlarged. Overlying EKG leads are redemonstr ated. Cholecystectomy clips again seen on lateral view. The osseous structures are intact. IMPRESSION: New dual-lead pacemaker/AICD with leads in right atrium and right ventricle. New patchy right greater than left bibasilar atelectasis and/or infiltrate on background cardiomegaly.
[2019-09-20] MEDS ORDERED: AMIODARONE 100 MG TAB PO SCH (09:00)
[2019-09-20] MEDS ORDERED: METOPROLOL SUCCINATE (ER) 50 MG TAB.ER.24H PO SCH ×2 (09:00)
[2019-09-20] MEDS: APIXABAN 5 MG TAB PO SCH (09:02)
[2019-09-20] MEDS: ACETAMINOPHEN TAB 325 MG TAB PO PRN (09:03)
[2019-09-20 11:08] VITALS: BP 137/80; PULSE 64; TEMP 97.7
--- NOTE | 2019-09-20 13:14 | P.DS ---
Providers Date of admission: 09/19/19 23:45 Attending physician: Tim Gottlieb Primary care physician: [facility] Course: Patient is doing well. Her ICD is functioning normally today. 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 Patient go home today Plan - Discharge Summary Discharge Rx Participant: Yes New Discharge Prescriptions: New Metoprolol Succinate (ER) [Toprol XL] 100 mg PO DAILY #90 tab Discontinued Metoprolol Succinate [Toprol XL] 50 mg PO DAILY No Action Apixaban [Eliquis] 5 mg PO BID #60 tab Cholecalciferol (Vitamin D3) [Vitamin D3] 1,000 unit PO DAILY Amiodarone [Cordarone] 100 mg PO DAILY Etonogestrel [Nexplanon] 1 implant SQ [id number] Discharge Medication List Apixaban [Eliquis] 5 mg PO BID #60 tab 04/03/19 [Rx] Amiodarone [Cordarone] 100 mg PO DAILY 09/16/19 [History] Cholecalciferol (Vitamin D3) [Vitamin D3] 1,000 unit PO DAILY 09/16/19 [History] Etonogestrel [Nexplanon] 1 implant SQ [id number] 09/16/19 [History] Metoprolol Succinate (ER) [Toprol XL] 100 mg PO DAILY #90 tab 09/19/19 [Rx] Follow up Appointment(s)/Referral(s): [facility] [Provider Group] - 09/25/19 3:00 pm (Device check appointment.) Tim Gottlieb MD [STAFF PHYSICIAN] - As Needed (Device clinic follow-up in 1 week Follow-up with Dr. Love/Chelle Ventura within one month) Valentino Dumont MD [STAFF PHYSICIAN] - 10/07/19 3:45 pm (Previous follow up for September 27 rescheduled.) Patient Instructions/Handouts: Pacemaker (DC) Activity/Diet/Wound Care/Special Instructions: PATIENT EDUCATION MATERIAL Instructions following a heart rhythm device implant. 1. Keep dressing DRY for 5 DAYS. You may cover the area with Saran or Cling Wrap, prior to a shower. 2. The dressing will be removed in the Device Clinic at [facility]. Absorbable sutures were used to close the wound. 3. Avoid raising the left arm above the shoulder level. 4 week restriction 4. Avoid arm movements, like backscratching, rubbing the head, or pulling on a cord. 4 weeks restriction 5. Gentle range of motion movements of the shoulder, closest to the incision should be performed to avoid a frozen shoulder. (Pendulum exercises of the shoulder) 6. The opposite arm may be used freely. 7. Avoid driving for 7 days. 8. Avoid activities such as golfing, swimming, weed whacking, lifting more than 10 pounds weight, bowling, gymnastics and weight training/lifting. (6 weeks restriction) 9. Activities such as wood chopping with an axe, pull-ups in the gymnasium, power lifting, arc-welding, being close to home induction cooktops will always be a problem. 10. Arm sling is only a reminder not to raise the arm above the head. You do not need to keep the arm completely immobilized. Your free to move the arm and use it and for normal activities. In case of any problems, please call [facility], Crystal Driscoll, @ [phone], Attention: Device Clinic Device clinic follow-up in 5 days Follow-up with Dr. Love in one month Increase metoprolol 200 mg by mouth daily.
== END 2019-09-20 14:55 | disposition home or self-care (01) ==
LOC: CATHEP 05:59 → 3SCARD 09:15 → CATHEP 23:38 → 3SCARD 23:45
PROVIDERS: ADMIT Internal Medicine Clinical Cardiac Electrophysiology; ATTEND Internal Medicine Clinical Cardiac Electrophysiology
DX: I42.2 Other hypertrophic cardiomyopathy (principal); I49.5 Sick sinus syndrome; I48.0 Paroxysmal atrial fibrillation; I50.32 Chronic diastolic (congestive) heart failure; R91.8 Other nonspecific abnormal finding of lung field; G43.909 Migraine, unspecified, not intractable, without status migrainosus; F32.9 Major depressive disorder, single episode, unspecified; Z79.899 Other long term (current) drug therapy; Z79.01 Long term (current) use of anticoagulants; Z82.49 Family history of ischemic heart disease and other diseases of the circulatory system; Z90.49 Acquired absence of other specified parts of digestive tract; Z98.890 Other specified postprocedural states; Z91.89 Other specified personal risk factors, not elsewhere classified; Z87.898 Personal history of other specified conditions
CPT/HCPCS: 93005; 33249; 81025; 71046; G0378; C1892 ×2; C1769 ×2; C1898; C1721; C1777; J2250; J0690 ×2; J2405 ×2; J2001; J3010; J1170; J0131; J2704; Q9967

== ENCOUNTER 2019-11-06 14:46 | Emergency (ER) | payer OTHER ==
--- NOTE | 2019-11-06 16:06 | ED ---
ENT HPI - General Chief complaint: ENT Stated complaint: sorethroat Time Seen by Provider: 11/06/19 15:04 Source: patient, RN notes reviewed, old records reviewed Mode of arrival: ambulatory Limitations: no limitations - History of Present Illness Initial comments: 34-year-old female presents with sore throat, fevers and minor cough for one day. Here with her has got a dry cough and fever today. Patient has had a history of HOCM and defibulator placement. She denies any severe shortness of breath. Patient states that she has no chest pain. Denies any travel history. She is a nonsmoker. - Related Data Home Medications Medication Instructions Recorded Confirmed Amiodarone [Cordarone] 100 mg PO DAILY 09/16/19 09/19/19 Cholecalciferol (Vitamin D3) 1,000 unit PO DAILY 09/16/19 09/19/19 [Vitamin D3] Etonogestrel [Nexplanon] 1 implant SQ [id number] 09/16/19 09/19/19 Previous Rx's Medication Instructions Recorded Apixaban [Eliquis] 5 mg PO BID #60 tab 04/03/19 Metoprolol Succinate (ER) [Toprol 100 mg PO DAILY #90 tab 09/19/19 XL] Azithromycin [Zithromax Z-pack] 0 mg PO DIRECTED #6 tab 11/06/19 methylPREDNISolone Dose Pack 4 mg PO DIRECTED #21 package 11/06/19 [Medrol Dose Pack] Allergies Allergy/AdvReac Type Severity Reaction Status Date / Time No Known Allergies Allergy Verified 11/06/19 14:55 Review of Systems ROS Statement: Those systems with pertinent positive or pertinent negative responses have been documented in the HPI. ROS Other: All systems not noted in ROS Statement are negative. Past Medical History Past Medical History: Atrial Fibrillation Additional Past Medical History / Comment(s): Depression, hypertropic cardiomyopathy History of Any Multi-Drug Resistant Organisms: None Reported Past Surgical History: Section, Cholecystectomy, Pacemaker Additional Past Surgical History / Comment(s): csection Past Anesthesia/Blood Transfusion Reactions: No Reported Reaction Past Psychological History: Depression Smoking Status: Never smoker Past Alcohol Use History: None Reported Past Drug Use History: None Reported - Past Family History Father Family Medical History: Cancer Additional Family Medical History / Comment(s): . Mother Family Medical History: Cancer Additional Family Medical History / Comment(s): . Sister(s) Additional Family Medical History / Comment(s): orthopedic surgery, "heart problems" General Exam - General Exam Comments Initial Comments: Alert and oriented 34-year-old female. No distress. Limitations: no limitations General appearance: alert, in no apparent distress Head exam: Present: atraumatic, normocephalic, normal inspection Eye exam: Present: normal appearance, PERRL, EOMI. Absent: scleral icterus, conjunctival injection, periorbital swelling ENT exam: Present: normal exam, other. Absent: normal oropharynx (Mildly erythematous oropharynx. No exudate.) Neck exam: Present: normal inspection. Absent: tenderness, meningismus, lymphadenopathy Respiratory exam: Present: normal lung sounds bilaterally. Absent: respiratory distress, wheezes, rales, rhonchi, stridor Cardiovascular Exam: Present: regular rate, normal rhythm, normal heart sounds. Absent: systolic murmur, diastolic murmur, rubs, gallop, clicks GI/Abdominal exam: Present: soft, normal bowel sounds. Absent: distended, tenderness, guarding, rebound, rigid Extremities exam: Present: normal inspection, full ROM, normal capillary refill. Absent: tenderness, pedal edema, joint swelling, calf tenderness Back exam: Present: normal inspection Neurological exam: Present: alert, oriented X3, CN II-XII intact Course Vital Signs 11/06/19 11/06/19 14:51 16:06 Temperature 97.5 F L 98.1 F Pulse Rate 51 L 52 L Respiratory 20 18 Rate Blood Pressure 139/88 119/81 O2 Sat by Pulse 99 98 Oximetry Medical Decision Making - Medical Decision Making 10-year-old female presents today for evaluation for sore throat. She said fever. Has been here for similar complaints. Her strep and influenza tests are negative. She appears in no distress. Discussed patient's symptoms are likely viral related. Discussed she needs to follow-up with her primary care doctor. The meantime treated with steroids, and discussed starting antibiotic if she starts to develop a productive cough. Patient is agreeable to treatment plan will comply. Return parameters were discussed. - Lab Data Lab Results 11/06/19 11/06/19 Range/Units 15:20 15:20 Influenza Type A RNA Not Detected (Not Detectd) Influenza Type B (PCR) Not Detected (Not Detectd) Group A Strep Rapid Negative (Negative) Disposition Clinical Impression: URI (upper respiratory infection) Disposition: HOME SELF-CARE Condition: Good Instructions (If sedation given, give patient instructions): Upper Respiratory Infection (ED) Additional Instructions: Increase fluids, complete steroids, and continuing Motrin or Tylenol for fever and aches. Using cough drops and decongestant medication to help with symptoms. If cough worsens or becomes productive start the antibiotic. Prescriptions: methylPREDNISolone Dose Pack [Medrol Dose Pack] 4 mg PO DIRECTED #21 package Azithromycin [Zithromax Z-pack] 0 mg PO DIRECTED #6 tab Is patient prescribed a controlled substance at d/c from ED?: No Referrals: Temitope Art DO [Primary Care Provider] - 1-2 days Time of Disposition: 16:04
[2019-11-06 16:07] VITALS: BP 119/81; PULSE 52; RESP 18; TEMP 98.1
== END 2019-11-06 16:10 | disposition home or self-care (01) ==
LOC: EC 14:46
DX: J06.9 Acute upper respiratory infection, unspecified (principal); I48.91 Unspecified atrial fibrillation; I42.2 Other hypertrophic cardiomyopathy; Z79.899 Other long term (current) drug therapy; Z95.0 Presence of cardiac pacemaker
CPT/HCPCS: 87081; 87430; 87502; 99283

== ENCOUNTER 2020-02-24 11:50 | Day surgery (SDC) | payer OTHER ==
[2020-02-20 12:21] VITALS: BMI 32.5
[~2020-02-24 11:50] MED LIST changes: +HYDROmorphone 0.5 MG/0.5 ML SYRINGE IVP PRN; +MIDAZOLAM 2 MG/2 ML VIAL IV PRN; +ONDANSETRON 4 MG/2 ML VIAL IVP ONE
[2020-02-24] MEDS ORDERED: SODIUM CHLORIDE 0.9% 1,000 ML IV ONE (12:45)
[2020-02-24 12:57] LABS: Basophils # (A) 0.1 k/uL (0-0.2); Basophils % (A) 2 %; Eosinophils # (A) 0.2 k/uL (0-0.7); Eosinophils % (A) 2 %; HCT 50.2 % (34.0-46.0); Lymphocytes # (A) 1.7 k/uL (1.0-4.8); Lymphocytes % (A) 20 %; MCH 29.6 pg (25.0-35.0); MCHC 31.9 g/dL (31.0-37.0); MCV 92.8 fL (80.0-100.0); Mean Platelet Volume 10.6; Monocytes # (A) 0.3 k/uL (0-1.0); Monocytes % (A) 3 %; Neutrophils # (A) 6.3 k/uL (1.3-7.7); Neutrophils % (A) 72 %; Platelet Count 192 k/uL (150-450); RDW 13.5 % (11.5-15.5); WBC 8.8 k/uL (3.8-10.6)
[2020-02-24 13:16] LABS: African American GFR (CKD) >90 (>60 ml/min/1.73 sqM); Anion Gap 10 mmol/L; Blood Urea Nitrogen 17 mg/dL (7-17); Calcium 9.6 mg/dL (8.4-10.2); Carbon Dioxide 17 mmol/L (22-30); Chloride 110 mmol/L (98-107); Glucose 121 mg/dL (74-99); Non-African American GFR(CKD) >90 (>60 ml/min/1.73 sqM); Sodium 137 mmol/L (137-145)
[2020-02-24 13:18] LABS: Potassium 5.1 mmol/L (3.5-5.1)
[2020-02-24] MEDS ORDERED: HYDROmorphone (PF) 1 MG/ML ONE (14:55)
[2020-02-24] MEDS ORDERED: HEPARIN SODIUM,PORCINE 5,000 UNIT/ML 1 ML VIAL ONE (14:55)
[2020-02-24] MEDS ORDERED: MIDAZOLAM 2 MG/2 ML VIAL ONE (14:55)
[2020-02-24] MEDS ORDERED: PROPOFOL 10 MG/ML 20 ML VIAL IV ONE (14:55)
[2020-02-24] MEDS ORDERED: SUCCINYLCHOLINE CHLORIDE 100 MG/5 ML SYR IV ONE (14:55)
[2020-02-24] MEDS ORDERED: PROTAMINE SULFATE 10 MG/ML 5 ML VIAL IV ONE (14:55)
[2020-02-24] MEDS ORDERED: fentaNYL (PF) 50 MCG/ML 2 ML AMP ONE (14:55)
[2020-02-24] MEDS ORDERED: LIDOCAINE 1% INJ 10MG/ML (20 ML MDV) ONE (15:18)
--- NOTE | 2020-02-24 15:33 | P.HPCAR ---
History of Present Illness This is Dr. Gottlieb dictating an H/P on this patient The patient was interviewed and examined IMPRESSION / ASSESSMENT: Paroxysmal symptomatic atrial fibrillation with RVR Recurrent episodes despite 100 mg oral amiodarone HCM Status post dual-chamber ICD implant PLAN: Proceed with cryoablation the pulmonary veins Continue anticoagulation lifelong HPI Patient continues to have palpitations repeatedly despite 100 mg of oral am iodarone She has paroxysmal atrial fibrillation with RVR No recent episodes of syncope or chest discomfort or any undue shortness of breath Denies orthopnea She has a dual-chamber ICD implanted for primary prevention of sudden cardiac She has known underlying hypertrophic cardio myopathy ROS: No fever chills or rigors, no cough, phlegm or expectoration, no nausea, vomiting or diarrhea, no hematuria, dysuria, no musculoskeletal complaints, no strokes or seizures, no skin lesions. EXAMINATION: Afebrile 98.4F blood pressure 133/92 mmHg ulcer to the 50s and 60s sinus rhythm Breath sounds are clear no rhonchi no crackles Heart sounds S1 and S2 are soft soft systolic murmur over the precordium Abdomen is soft Next 70s warm no edema REVIEW OF LABS, ECG & MEDICAL DATA White count 8.8 thousand, hemoglobin 16, platelet count 192,000 Sodium 137, potassium 5.1, BUN 17 and creatinine 0.71 2-D echo shows left ventricular hypertrophy consistent with HCM Physical Exam Vitals: Vital Signs Temp Pulse Resp BP Pulse Ox 02/24/20 13:10 98.4 F 59 L 16 133/92 97 Intake and Output 02/24/20 02/24/20 02/24/20 06:59 14:59 22:59 Intake Total 20 50 Balance 20 50 Intake: IV 20 50 Past Medical History Past Medical History: Atrial Fibrillation Additional Past Medical History / Comment(s): See Dr Gtotlieb H&P. Hypertropic cardiomyopathy. History of Any Multi-Drug Resistant Organisms: None Reported Past Surgical History: Section, Cholecystectomy, Pacemaker Additional Past Surgical History / Comment(s): Section X1. Past Anesthesia/Blood Transfusion Reactions: Motion Sickness, Postoperative Nausea & Vomiting (PONV) Type of Cardiac Device: Unknown Device Placement Date:: unknown Past Psychological History: Anxiety, Depression Smoking Status: Never smoker Past Alcohol Use History: None Reported Past Drug Use History: None Reported - Past Family History Father Family Medical History: Cancer Additional Family Medical History / Comment(s): . Mother Family Medical History: Cancer Additional Family Medical History / Comment(s): . Sister(s) Additional Family Medical History / Comment(s): orthopedic surgery, "heart problems" Physical Examination Vital Signs Temp Pulse Resp BP Pulse Ox 02/24/20 13:10 98.4 F 59 L 16 133/92 97 Intake and Output 02/24/20 02/24/20 02/24/20 06:59 14:59 22:59 Intake Total 20 50 Balance 20 50 Intake: IV 20 50 Results 02/24/20 12:30 02/24/20 12:30 CBC 02/24/20 Range/Units 12:30 WBC 8.8 (3.8-10.6) k/uL RBC 5.40 (3.80-5.40) m/uL Hgb 16.0 (11.4-16.0) gm/dL Hct 50.2 H (34.0-46.0) % Plt Count 192 (150-450) k/uL Comprehensive Metabolic Panel 02/24/20 Range/Units 12:30 Sodium 137 (137-145) mmol/L Potassium 5.1 (3.5-5.1) mmol/L Chloride 110 H (98-107) mmol/L Carbon Dioxide 17 L (22-30) mmol/L BUN 17 (7-17) mg/dL Creatinine 0.71 (0.52-1.04) mg/dL Glucose 121 H (74-99) mg/dL Calcium 9.6 (8.4-10.2) mg/dL Current Medications Generic Name Dose Route Start Last Admin Trade Name Freq PRN Reason Stop Dose Admin Hydromorphone HCl 0.5 mg 02/24/20 06:27 Dilaudid IVP 02/25/20 06:28 Q5M PRN Pain Control Sodium Chloride 1,000 mls @ 20 mls/hr 02/24/20 06:27 Saline 0.9% IV .Q24H GERALDINE Lactated Ringer's 1,000 mls @ 20 mls/hr 02/24/20 06:27 Lactated Ringers IV .Q24H GERALDINE Midazolam HCl 2 mg 02/24/20 06:27 Versed IV 02/25/20 06:28 ONCE PRN Anxiety Intake and Output 02/24/20 02/24/20 02/24/20 06:59 14:59 22:59 Intake Total 20 50 Balance 20 50 Intake: IV 20 50 02/24/20 12:30 02/24/20 12:30
[2020-02-24] MEDS ORDERED: LIDOCAINE 1% INJ 10MG/ML (20 ML MDV) SQ ONE (15:45)
[2020-02-24] MEDS ORDERED: HEPARIN SOD,PORK IN 0.45% NACL 25,000 UNIT in 0.45% NACL 1 250ML.BAG IV ONE (15:45)
[2020-02-24] MEDS ORDERED: IOPAMIDOL-370 100ML BTL INJ ONE (17:44)
--- NOTE | 2020-02-24 18:08 | P.PCN ---
Preoperative Diagnosis: Diagnosis Atrial fibrillation, symptomatic, refractory to therapy line paroxysmal, failed amiodarone Underlying hypertrophic cardio myopathy Result No left atrial appendage mass seen on intracardiac echo Successful pulmonary vein isolation of all veins using cryo-ablation Complete entrance block in all 4 veins confirmed as well as exit block in all veins No evidence for phrenic nerve injury Very large pulmonary veins Common left-sided vein Large right superior vein Esophageal deflection YES Electrical cardioversion with a synchronized shock across the chest NO Procedure details Patient was brought to the EP lab in a fasting state. Written informed consent was obtained prior to the procedure. Procedure performed under general anesthesia After initial muscle relaxant use, muscle relaxants were not given thereafter in order to assess phrenic nerve during procedure. Patient prepped and draped as per protocol Full cryo-set up with standard preparation of the cryoablation tools done. Femoral Venous access obtained on the right and left groins Venous and arterial Sheaths placed. Diagnostic catheters for the high right atrium, phrenic nerve stimulation and pacing, His bundle, RV and coronary sinus placed Intracardiac echo catheter placed. Long sheath placed in the right atrium Left and right transseptal catheterization performed under intracardiac echo guidance. Intravenous heparin with aCT above 300 Later, catheter positioning and balloon positioning in the left atrium, under intracardiac echo guidance Diagnostic EP study with Drug infusion Coronary sinus pacing and recording Baseline measurements Sinus cycle in 193, ID interval of 118, QRS 84, QT 461 AH 84 and HV interval 48 ms Atrial pacing performed from the high right atrium and the coronary sinus RV pacing Transseptal catheterization performed RA pressure 32/11/24 LA pressure 44/11/27 Transseptal catheterization performed with standard sheath. The cryoablation sheath was then placed with an over the wire exchange without any acute complications. All 4 pulmonary veins were isolated in the following sequence: Left superior followed by left inferior followed by right superior followed by right inferior The cryo-ablation balloon was placed at the os of each vein 1.5 mL of IV dye was injected to confirm an occluded vein Goal during cryoablation was to achieve complete occlusion of the pulmonary vein, achieve -30 degrees C at 30 seconds and achieve -40 degrees C at 60 seconds and a time to effect of less than 60-90 seconds, . If not the balloon was repositioned to obtain this result After completion of Cryoblation with durations from 180-240 seconds, entrance block was confirmed with the Attain circular catheter in a roving fashion around the antrum of the pulmonary veins Phrenic nerve pacing was performed from the SVC, right innominate vein area and diaphragm voltage was monitored. Diaphragmatic contractions were also monitored manually for strength of contraction. Parameter goals for each cryo freeze Complete occlusion of the appropriate vein -30 degrees C by 30 seconds -40 degrees C by 60 seconds Minimum between minus 40-55 degrees C Thaw time greater than 10 seconds Balloon visualized by intracardiac echo The esophagus was intubated. Esophageal Temperature monitoring with a CIRCA catheter formed. Esophageal deflection for hypothermia of the esophagus below 30 degrees C Left common pulmonary vein Complete isolation, entrance block and exit block Right superior pulmonary vein, during phrenic nerve pacing Complete isolation, entrance block and exit block Right inferior pulmonary vein, during phrenic nerve pacing Complete isolation, entrance block and exit block At the end of the procedure the Achieve catheter was once again used to check for entrance block Phrenic nerve stimulation was performed to confirm diaphragmatic stimulation the end of the procedure Cine fluoroscopy was performed at the very end of the procedure to confirm movement of both diaphragms with inspiration and expiration At the end of the procedure the patient was extubated Heparin was reversed Venous sheaths were removed and hemostasis assured Procedures performed (PVI - CRYO Ablation) Diagnostic EP study CS pacing and recording Left and right transseptal catheterization Catheter the mapping of the tachycardia (NOT 3D mapping) Intracardiac echocardiography Pulmonary vein isolation with transseptal and comprehensive EPS, [id number]
[2020-02-24] MEDS ORDERED: FUROSEMIDE 20 MG TAB PO PRN (18:10)
--- NOTE | 2020-02-24 18:10 | P.PRLE ---
RE: Portia Johnson Dear Temitope Patterson has hypertrophic cardiomyopathy with refractory atrial fibrillation, paroxysmal, despite amiodarone Previously she is undergone dual-chamber ICD implantation for primary prevention of sudden cardiac She underwent cryoablation with pulmonary vein isolation for management of paroxysmal atrial fibrillation She will continue ELIQUIS lifelong We will see her again in the office in about 1-2 weeks Thank you for entrusting me with the care of the patient Warm regards Sincerely Tim Gottlieb
[2020-02-24 19:58] VITALS: RESP 18
[2020-02-24] MEDS: APIXABAN 5 MG TAB PO SCH (23:04)
[2020-02-25] MEDS: LACTATED RINGERS 1,000 ML IV SCH ×2 (05:25→08:16)
--- NOTE | 2020-02-25 08:13 | P.PCN ---
Preoperative Diagnosis: Extended procedure This procedure was longer than usual Right and left atrium was significantly enlarged The standard transseptal needle appropriately shaped would not even reach the interatrial septum/fossa ovalis The heart was counterclockwise rotated BR K1 needle had to be used across the fossa ovalis Left pulmonary vein was a common vein and very large and required stepwise segmental isolation at the antral level for complete isolation This was achieved successfully with entrance and exit block The right-sided veins were also difficult. He should on account of a large size The right superior pulmonary vein was particularly large and had 2 large tributaries which were individually isolated with some effort The right inferior pulmonary vein also had 2 tubular degrees and were completely isolated with some effort She has a dual-chamber ICD This was interrogated to the procedure and reprogrammed to VVI 40 Tachycardia therapies were turned off This was re-interrogated at the end of the procedure and reprogrammed Appropriate antitachycardia pacing cardioversion and defibrillation AAI to DDD 50 PPM
[2020-02-25] MEDS ORDERED: METOPROLOL SUCCINATE (ER) 100 MG TAB.ER.24H PO SCH (09:00)
[2020-02-25] MEDS ORDERED: AMIODARONE 100 MG TAB PO SCH (09:00)
[2020-02-25 09:16] LABS: African American GFR (CKD) >90 (>60 ml/min/1.73 sqM); Anion Gap 9 mmol/L; Blood Urea Nitrogen 16 mg/dL (7-17); Calcium 9.2 mg/dL (8.4-10.2); Carbon Dioxide 22 mmol/L (22-30); Chloride 108 mmol/L (98-107); Glucose 128 mg/dL (74-99); Non-African American GFR(CKD) >90 (>60 ml/min/1.73 sqM); Potassium 4.5 mmol/L (3.5-5.1); Sodium 139 mmol/L (137-145)
[2020-02-25] MEDS: APIXABAN 5 MG TAB PO SCH (09:48)
[2020-02-25 12:56] VITALS: TEMP 97.9
[2020-02-25 13:28] LABS: Glucose,Whole Blood 77 mg/dL (75-99)
[2020-02-25 16:24] VITALS: BP 130/83; PULSE 58
== END 2020-02-25 18:15 | disposition home or self-care (01) ==
LOC: CATHEP 11:50 → 3SCARD 19:00 → CATHEP 02-25 18:15
PROVIDERS: ATTEND Internal Medicine Clinical Cardiac Electrophysiology
DX: I48.0 Paroxysmal atrial fibrillation (principal); I42.2 Other hypertrophic cardiomyopathy; Z95.810 Presence of automatic (implantable) cardiac defibrillator; Z90.49 Acquired absence of other specified parts of digestive tract; Z98.890 Other specified postprocedural states; F41.9 Anxiety disorder, unspecified; F32.9 Major depressive disorder, single episode, unspecified; Z79.01 Long term (current) use of anticoagulants; Z79.899 Other long term (current) drug therapy
CPT/HCPCS: 85347; 93623; 93662; 93609; 93656; 80048 ×2; 85025; 81025; C1769 ×4; C1894 ×2; C1730 ×2; C1759; C1893; C1733; C1766; J2250; J2720; J1644 ×2; J0690; J2405; J2001; J3010; J1170 ×2; J0330; J2704; Q9967

== ENCOUNTER 2020-03-07 19:14 | Emergency (ER) | payer OTHER ==
[2020-03-07 19:19] VITALS: TEMP 98.2
[2020-03-07] MEDS ORDERED: MORPHINE SULFATE 4 MG/ML SYRINGE IV STA (19:38)
[2020-03-07] MEDS ORDERED: METOCLOPRAMIDE 5 MG/ML 2 ML VIAL IVP STA (19:38)
[2020-03-07] MEDS ORDERED: diphenhydrAMINE 50 MG/ML 1 ML VIAL IVP STA ×2 (19:38→19:42)
[2020-03-07] MEDS ORDERED: SODIUM CHLORIDE 0.9% 1,000 ML IV STA (19:38)
--- NOTE | 2020-03-07 20:02 | CT ---
EXAMINATION TYPE: CT brain wo con DATE OF EXAM: 03/07/2020 COMPARISON: None HISTORY: HALL CT DLP: 1086.4 mGycm Automated exposure control for dose reduction was used. Ventricles and sulci appear normal. There is no mass effect nor midline shift. There is no sign of in tracranial hemorrhage. Calvarium is intact. There is no evidence of cerebral edema. Impression Negative unenhanced head CT scan.
[2020-03-07 20:09] VITALS: PULSE 60; RESP 18
--- NOTE | 2020-03-07 20:54 | ED ---
General Adult HPI - General Chief complaint: Headache Stated complaint: Headache Time Seen by Provider: 03/07/20 19:26 Source: patient, RN notes reviewed, old records reviewed Mode of arrival: ambulatory Limitations: no limitations - History of Present Illness Initial comments: 34-year-old female patient presents to ED for evaluation of headache. Reports that she does have regular headaches in the right side temporal region however they normally resolve after taking a nap. She reports that she has had a headache for about the last 6 hours. Denies any changes in vision loss of consciousness nausea and vomiting. Patient is a history of hypertrophic cardiomyopathy she was previously on old was over has been discontinued last 3 days. Denies any recent falls or trauma. Denies any other complaints. - Related Data Home Medications Medication Instructions Recorded Confirmed Amiodarone [Cordarone] 100 mg PO QAM 09/16/19 02/24/20 Cholecalciferol (Vitamin D3) 1,000 unit PO DAILY 09/16/19 02/24/20 [Vitamin D3] Etonogestrel [Nexplanon] 1 implant SQ [id number] 09/16/19 02/20/20 Metoprolol Succinate (ER) [Toprol 100 mg PO QAM 02/20/20 02/24/20 XL] Acetaminophen [Tylenol] 500 mg PO Q4-6H PRN 02/24/20 02/24/20 Furosemide [Lasix] 20 mg PO DAILY PRN 02/24/20 02/24/20 SUMAtriptan SUCCINATE [Imitrex] 50 mg PO ONCE PRN 02/24/20 02/24/20 Previous Rx's Medication Instructions Recorded Apixaban [Eliquis] 5 mg PO BID #60 tab 04/03/19 Allergies Allergy/AdvReac Type Severity Reaction Status Date / Time No Known Allergies Allergy Verified 02/20/20 12:05 Review of Systems ROS Statement: Those systems with pertinent positive or pertinent negative responses have been documented in the HPI. ROS Other: All systems not noted in ROS Statement are negative. Past Medical History Past Medical History: Atrial Fibrillation Additional Past Medical History / Comment(s): See Dr Gottlieb H&P. Hypertropic cardiomyopathy. History of Any Multi-Drug Resistant Organisms: None Reported Past Surgical History: Section, Cholecystectomy, Pacemaker Additional Past Surgical History / Comment(s): Section X1. cardiac ablation 02/24/20 Past Anesthesia/Blood Transfusion Reactions: Motion Sickness, Postoperative Nausea & Vomiting (PONV) Type of Cardiac Device: Unknown Device Placement Date:: unknown Past Psychological History: Anxiety, Depression Smoking Status: Never smoker Past Alcohol Use History: None Reported Past Drug Use History: None Reported - Past Family History Father Family Medical History: Cancer Additional Family Medical History / Comment(s): . Mother Family Medical History: Cancer Additional Family Medical History / Comment(s): . Sister(s) Additional Family Medical History / Comment(s): orthopedic surgery, "heart problems" General Exam - General Exam Comments Initial Comments: Constitutional: NAD, AOX3, Pt has pleasant affect. HEENT: NC/AT, trachea midline, neck supple, no lymphadenopathy. External ears appear normal, without discharge. Mucous membranes moist. Eyes PERRLA, EOM intact. There is no scleral icterus. No pallor noted. Cardiopulmonary: RRR, no murmurs, rubs or gallops, no JVD noted. Lungs CTAB in anterior and posterior cueva. No peripheral edema. Abdominal exam: Abdomen soft and non-distended. Abdomen non-tender to palpation in all 4 quadrants. Bowel sounds active in LLQ. No hepatosplenomegaly. No ecchymosis Neuro: CN II-XII intact. NIH 0. No nuchal rigidity. No raccon eyes, no farrell sign, no hemotympanum. No cervical spinal tenderness. MSK: Sensation intact in upper and lower extremities. Full active ROM in upper and lower extremities, 5/5 stregnth. Limitations: no limitations Course Vital Signs 03/07/20 03/07/20 19:15 20:08 Temperature 98.2 F Pulse Rate 62 60 Respiratory 16 18 Rate Blood Pressure 162/100 162/112 O2 Sat by Pulse 98 100 Oximetry Medical Decision Making - Medical Decision Making 34-year-old female patient presents a chief complaint of headache. Physical exam displayed intact neurologic exam. Patient headache significantly improved with medications. CT brain without contrast displayed no acute process. Patient discharged to follow up with primary care provider will return to ER if condition worsens. Case discussed with Dr. Urbina. Disposition Clinical Impression: Headache Disposition: HOME SELF-CARE Condition: Stable Instructions (If sedation given, give patient instructions): Acute Headache (ED) Additional Instructions: Follow-up with primary care provider tomorrow. Return to ER if condition worsens. Is patient prescribed a controlled substance at d/c from ED?: No Referrals: Temitope Art DO [Primary Care Provider] - 1-2 days
[2020-03-07 20:59] VITALS: BP 154/105
== END 2020-03-07 21:20 | disposition home or self-care (01) ==
LOC: EC 19:14
DX: R51 Headache (principal); I48.91 Unspecified atrial fibrillation; Z79.899 Other long term (current) drug therapy; Z95.0 Presence of cardiac pacemaker
CPT/HCPCS: 70450; 99284; 96374; 96375; 96361; J2270; J1200

== ENCOUNTER 2020-05-11 10:32 | Emergency (ER) | payer OTHER ==
[2020-05-11 10:37] VITALS: TEMP 98.2
[2020-05-11] MEDS ORDERED: SODIUM CHLORIDE 0.9% 1,000 ML IV STA (11:04)
[2020-05-11 11:44] LABS: Basophils # (A) 0.1 k/uL (0-0.2); Basophils % (A) 1 %; Eosinophils # (A) 0.1 k/uL (0-0.7); Eosinophils % (A) 1 %; HCT 46.3 % (34.0-46.0); HGB 15.4 gm/dL (11.4-16.0); Lymphocytes # (A) 1.5 k/uL (1.0-4.8); Lymphocytes % (A) 19 %; MCH 29.8 pg (25.0-35.0); MCHC 33.2 g/dL (31.0-37.0); MCV 89.7 fL (80.0-100.0); Mean Platelet Volume 10.2; Monocytes # (A) 0.4 k/uL (0-1.0); Monocytes % (A) 5 %; Neutrophils # (A) 5.6 k/uL (1.3-7.7); Neutrophils % (A) 72 %; Platelet Count 177 k/uL (150-450); RBC 5.16 m/uL (3.80-5.40); WBC 7.8 k/uL (3.8-10.6)
[2020-05-11 11:52] LABS: ALT 27 U/L (4-34); African American GFR (CKD) >90 (>60 ml/min/1.73 sqM); Albumin 4.4 g/dL (3.5-5.0); Anion Gap 10 mmol/L; Blood Urea Nitrogen 20 mg/dL (7-17); Calcium 9.4 mg/dL (8.4-10.2); Carbon Dioxide 21 mmol/L (22-30); Chloride 109 mmol/L (98-107); Glucose 101 mg/dL (74-99); Non-African American GFR(CKD) 89 (>60 ml/min/1.73 sqM); Sodium 140 mmol/L (137-145); Total Bilirubin 2.5 mg/dL (0.2-1.3); Total Protein 7.4 g/dL (6.3-8.2)
--- NOTE | 2020-05-11 11:58 | ED ---
General Adult HPI - General Chief complaint: Extremity Problem,Nontraumatic Stated complaint: Left arm swelling Time Seen by Provider: 05/11/20 10:41 Source: patient, RN notes reviewed, old records reviewed Mode of arrival: ambulatory Limitations: no limitations - History of Present Illness Initial comments: Patient is a 34-year-old female with a history of hypertrophic cardiomyopathy with a pacemaker. She presents emergency department today for left arm swelling this morning. She complains of pain in the upper arm. She does have a history of A. fib and is also maintained on I'll request. Patient states that she noticed her left foot was swollen. She denies any chest pain or shortness of breath. Shortness of the left foot swelling is went down today. - Related Data Home Medications Medication Instructions Recorded Confirmed Amiodarone [Cordarone] 100 mg PO QAM 09/16/19 05/11/20 Etonogestrel [Nexplanon] 1 implant SQ [id number] 09/16/19 05/11/20 Metoprolol Succinate (ER) [Toprol 100 mg PO QAM 02/20/20 05/11/20 XL] Acetaminophen [Tylenol] 1,000 mg PO ONCE PRN 02/24/20 05/11/20 Furosemide [Lasix] 20 mg PO DAILY PRN 02/24/20 05/11/20 SUMAtriptan succinate [Imitrex] 50 mg PO ONCE PRN 02/24/20 05/11/20 Galcanezumab-Gnlm [Emgality] 120 mg SQ Q28D 05/11/20 05/11/20 Previous Rx's Medication Instructions Recorded Apixaban [Eliquis] 5 mg PO BID #60 tab 04/03/19 Azithromycin [Zithromax Z-pack] 250 mg PO DIRECTED #6 tab 05/11/20 Allergies Allergy/AdvReac Type Severity Reaction Status Date / Time No Known Allergies Allergy Verified 05/11/20 12:49 Review of Systems ROS Statement: Those systems with pertinent positive or pertinent negative responses have been documented in the HPI. ROS Other: All systems not noted in ROS Statement are negative. Past Medical History Past Medical History: Atrial Fibrillation Additional Past Medical History / Comment(s): See Dr Gottlieb H&P. Hypertropic cardiomyopathy. History of Any Multi-Drug Resistant Organisms: None Reported Past Surgical History: Section, Cholecystectomy, Pacemaker Additional Past Surgical History / Comment(s): Section X1. cardiac ablation 02/24/20 Past Anesthesia/Blood Transfusion Reactions: Motion Sickness, Postoperative Nausea & Vomiting (PONV) Type of Cardiac Device: Unknown Device Placement Date:: unknown Past Psychological History: Anxiety, Depression Smoking Status: Never smoker Past Alcohol Use History: None Reported Past Drug Use History: None Reported - Past Family History Father Family Medical History: Cancer Additional Family Medical History / Comment(s): . Mother Family Medical History: Cancer Additional Family Medical History / Comment(s): . Sister(s) Additional Family Medical History / Comment(s): orthopedic surgery, "heart problems" General Exam - General Exam Comments Initial Comments: 34-year-old female. Alert and oriented. No significant distress. Limitations: no limitations General appearance: alert Head exam: Present: atraumatic, normocephalic, normal inspection Eye exam: Present: normal appearance, PERRL, EOMI. Absent: scleral icterus, conjunctival injection, periorbital swelling ENT exam: Present: normal exam Neck exam: Present: normal inspection. Absent: tenderness, meningismus, lymphadenopathy Respiratory exam: Present: normal lung sounds bilaterally Cardiovascular Exam: Present: regular rate, normal rhythm, normal heart sounds. Absent: systolic murmur, diastolic murmur, rubs, gallop, clicks GI/Abdominal exam: Present: soft, normal bowel sounds. Absent: distended, tenderness, guarding, rebound, rigid Extremities exam: Present: normal inspection, full ROM, normal capillary refill, other (minimal left arm swelling, normal pulse in bilateral upper andlower extremity. Full ROM noted. ). Absent: tenderness, pedal edema, joint swelling, calf tenderness Back exam: Present: normal inspection Neurological exam: Present: alert, oriented X3, CN II-XII intact Psychiatric exam: Present: normal affect, normal mood Skin exam: Present: warm, dry, intact, normal color. Absent: rash Course Vital Signs 05/11/20 05/11/20 05/11/20 10:35 12:19 13:35 Temperature 98.2 F Pulse Rate 64 57 L 63 Respiratory 18 16 16 Rate Blood Pressure 160/101 129/93 135/90 O2 Sat by Pulse 99 99 99 Oximetry 05/11/20 15:17 Temperature Pulse Rate 58 L Respiratory 16 Rate Blood Pressure 141/90 O2 Sat by Pulse 98 Oximetry EKG Findings - EKG Comments: EKG Findings:: EKG performed at 1120 shows sinus bradycardia, biatrial. Left ventricular hypertrophy and repolarization around. Abnormal EKG. General rate of 57 bpm. Verbal is 178 ms. QRS ration is 82 ms. QT QTc is 438/445 ms. Medical Decision Making - Medical Decision Making Pt is a 34 year old female with left arm swelling today. Patient has normal ROM and sensation and is neurovascularly intact. She denies chest pain or SOB. Patient has hx of HOCM Adn pshe does have swelling on Left arm. Patient was given US negative for DVT, CT chest shows no subclavian clot or masses or PE. Advised pt may need repeat US. CT did meantion starting developement of pneumo saba, and will start on azithromycin. - Lab Data Result diagrams: 05/11/20 11:28 05/11/20 11:28 Lab Results 05/11/20 05/11/20 05/11/20 Range/Units 11:28 11:28 11:28 WBC 7.8 (3.8-10.6) k/uL RBC 5.16 (3.80-5.40) m/uL Hgb 15.4 (11.4-16.0) gm/dL Hct 46.3 H (34.0-46.0) % MCV 89.7 (80.0-100.0) fL MCH 29.8 (25.0-35.0) pg MCHC 33.2 (31.0-37.0) g/dL RDW 15.0 (11.5-15.5) % Plt Count 177 (150-450) k/uL Neutrophils % 72 % Lymphocytes % 19 % Monocytes % 5 % Eosinophils % 1 % Basophils % 1 % Neutrophils # 5.6 (1.3-7.7) k/uL Lymphocytes # 1.5 (1.0-4.8) k/uL Monocytes # 0.4 (0-1.0) k/uL Eosinophils # 0.1 (0-0.7) k/uL Basophils # 0.1 (0-0.2) k/uL PT 11.3 (9.0-12.0) sec INR 1.1 (<1.2) APTT 22.9 (22.0-30.0) sec Sodium 140 (137-145) mmol/L Potassium 5.0 (3.5-5.1) mmol/L Chloride 109 H (98-107) mmol/L Carbon Dioxide 21 L (22-30) mmol/L Anion Gap 10 mmol/L BUN 20 H (7-17) mg/dL Creatinine 0.87 (0.52-1.04) mg/dL Est GFR (CKD-EPI)AfAm >90 (>60 ml/min/1.73 sqM) Est GFR (CKD-EPI)NonAf 89 (>60 ml/min/1.73 sqM) Glucose 101 H (74-99) mg/dL Calcium 9.4 (8.4-10.2) mg/dL Magnesium 1.7 (1.6-2.3) mg/dL Total Bilirubin 2.5 H (0.2-1.3) mg/dL AST 38 H (14-36) U/L ALT 27 (4-34) U/L Alkaline Phosphatase 121 (38-126) U/L Troponin I (0.000-0.034) ng/mL NT-Pro-B Natriuret Pep pg/mL Total Protein 7.4 (6.3-8.2) g/dL Albumin 4.4 (3.5-5.0) g/dL Coronavirus (PCR) (Not Detected) 05/11/20 05/11/20 05/11/20 Range/Units 11:28 11:28 15:04 WBC (3.8-10.6) k/uL RBC (3.80-5.40) m/uL Hgb (11.4-16.0) gm/dL Hct (34.0-46.0) % MCV (80.0-100.0) fL MCH (25.0-35.0) pg MCHC (31.0-37.0) g/dL RDW (11.5-15.5) % Plt Count (150-450) k/uL Neutrophils % % Lymphocytes % % Monocytes % % Eosinophils % % Basophils % % Neutrophils # (1.3-7.7) k/uL Lymphocytes # (1.0-4.8) k/uL Monocytes # (0-1.0) k/uL Eosinophils # (0-0.7) k/uL Basophils # (0-0.2) k/uL PT (9.0-12.0) sec INR (<1.2) APTT (22.0-30.0) sec Sodium (137-145) mmol/L Potassium (3.5-5.1) mmol/L Chloride (98-107) mmol/L Carbon Dioxide (22-30) mmol/L Anion Gap mmol/L BUN (7-17) mg/dL Creatinine (0.52-1.04) mg/dL Est GFR (CKD-EPI)AfAm (>60 ml/min/1.73 sqM) Est GFR (CKD-EPI)NonAf (>60 ml/min/1.73 sqM) Glucose (74-99) mg/dL Calcium (8.4-10.2) mg/dL Magnesium (1.6-2.3) mg/dL Total Bilirubin (0.2-1.3) mg/dL AST (14-36) U/L ALT (4-34) U/L Alkaline Phosphatase (38-126) U/L Troponin I <0.012 (0.000-0.034) ng/mL NT-Pro-B Natriuret Pep 5400 pg/mL Total Protein (6.3-8.2) g/dL Albumin (3.5-5.0) g/dL Coronavirus (PCR) Not Detected (Not Detected) - Radiology Data Radiology results: report reviewed No EVIDENCE FOR ACUTE DEEP OR SUPERFICIAL VENOUS THROMBUS IN THE LEFT UPPER EXTREMITY ON IMAGES SAVED. CT shows evidence of pulmonary embolism. Correlate for developing pneumonia in the right middle lobe or right lower lobe. Areas of pulmonary nodularity or nonspecific. Follow-up study in 3 months is advised. Disposition Clinical Impression: Pneumonia, Left arm swelling Disposition: HOME SELF-CARE Condition: Good Instructions (If sedation given, give patient instructions): Community Acquired Pneumonia (ED), Arm Pain (ED) Additional Instructions: Patient advised to to follow up with PCP in 2 days. Pt should take medication. Return to ED if any alarming signs or symptoms occur. and advised to follow-up to get possible re-ultrasound in the next few days if symptoms continue persist or worsen. Self quarantine until results of negative Covid swab. Prescriptions: Azithromycin [Zithromax Z-pack] 250 mg PO DIRECTED #6 tab Is patient prescribed a controlled substance at d/c from ED?: No Referrals: Temitope Art DO [Primary Care Provider] - 1-2 days Time of Disposition: 14:39
[2020-05-11 11:59] LABS: AST 38 U/L (14-36); Alkaline Phosphatase 121 U/L (38-126); Magnesium 1.7 mg/dL (1.6-2.3)
--- NOTE | 2020-05-11 12:01 | US ---
EXAMINATION TYPE: US venous doppler duplex UE LT DATE OF EXAM: 05/11/2020 COMPARISON: P CLINICAL HISTORY: afib, arm swelling. Pain SIDE PERFORMED: Left Left Arm: Negative for DVT Grayscale, color doppler, spectral doppler imaging performed of the deep veins of the left upper extr emity. There is normal flow, compressibility and vascular waveforms. IMPRESSION: No ultrasound evidence for acute deep or superficial venous thrombosis in the left upper extremity on the images saved.
[2020-05-11 12:04] LABS: INR 1.1 (<1.2); Partial Thromboplastin Time 22.9 sec (22.0-30.0); Prothrombin Time 11.3 sec (9.0-12.0)
--- NOTE | 2020-05-11 12:19 | XR ---
EXAMINATION TYPE: XR chest 2V DATE OF EXAM: 05/11/2020 COMPARISON: Chest x-ray September 20, 2019 HISTORY: Right arm swelling and chest pain. TECHNIQUE: Frontal and lateral views of the chest are obtained. FINDINGS: There is some chronic painful change with increased markings right lung base redemonstrate d, no new suspicious focal air space opacity, pleural effusion, or pneumothorax seen bilaterally. Th e cardiac silhouette size remains enlarged with dual lead pacemaker/AICD. Cholecystectomy clips are r edemonstrated. The osseous structures are intact. IMPRESSION: Chronic changes and cardiomegaly without suspicious new acute pulmonary process.
[2020-05-11 12:21] VITALS: RESP 16
--- NOTE | 2020-05-11 13:38 | CT ---
EXAMINATION TYPE: CT chest angio for PE DATE OF EXAM: 05/11/2020 COMPARISON: None HISTORY: left arm swelling, rule out PE CT DLP: 455.5 mGycm CONTRAST: CT chest with contrast and 3D reconstruction with MIP imaging is performed with IV Contrast, patient injected with 100 mL of Isovue 370. Contrast-enhanced CT of the chest was performed through the course of the pulmonary arteries with steve g and mediastinal window settings submitted. 3D reconstruction with MIP imaging was also performed. PULMONARY ARTERIES: The pulmonary arteries and their major tributaries are patent. I do not see alejo dence for sizable filling defect to suggest pulmonary embolic process. LUNGS: There is patchy infiltrate in the region of the right middle lobe and to a lesser extent the r ight lower lobe. Correlate for possible pneumonia. 8.4 mm well-circumscribed nodule left lower lobe. Additional nodule near the minor fissure measuring 8 mm. Pleural-based nodule right upper lobe measur ing 3 mm. Follow-up study is advised in 3 months. MEDIASTINUM: Thoracic aorta is of normal caliber,however, evaluation is limited given timing of the contrast bolus. If there is concern for thoracic aortic pathology consider BERNIE. Correlate clinicall y . The heart is enlarged. Pacer device is in place. No evidence for mediastinal mass. No mediastin al lymph nodes greater than 1cm. HILAR STRUCTURES: No evidence for mass. No hilar lymph nodes greater than 1 cm. UPPER ABDOMEN: No significant abnormality is seen. IMPRESSION: 1. No evidence for Pulmonary embolism at this time. 2. Correlate for developing pneumonia right middle lobe and right lower lobe. 3. Areas of pulmonary nodularity are nonspecific. Follow-up study in 3 months is advised.
[2020-05-11 15:18] VITALS: BP 141/90; PULSE 58
== END 2020-05-11 15:18 | disposition home or self-care (01) ==
LOC: EC 10:32
DX: R22.31 Localized swelling, mass and lump, right upper limb (principal); J18.9 Pneumonia, unspecified organism; I48.91 Unspecified atrial fibrillation; Z79.899 Other long term (current) drug therapy; Z95.0 Presence of cardiac pacemaker; Z20.828 Contact with and (suspected) exposure to other viral communicable diseases
CPT/HCPCS: 36415; 93005; 83880; 80053; 83735; 84484; 85025; 85610; 85730; 71046; 93971; 71275; 99284; 96360; 96361 ×3; U0003; Q9967

== ENCOUNTER 2020-06-09 08:28 | Day surgery (SDC) | payer OTHER ==
[2020-06-05 15:27] VITALS: BMI 32.5
[~2020-06-09 08:28] MED LIST changes: -HYDROmorphone 0.5 MG/0.5 ML SYRINGE IVP PRN; +LACTATED RINGERS 1,000 ML IV SCH; +LIDOCAINE 1% (10MG/ML) FOR IV START INTRADERMA PRN; -ONDANSETRON 4 MG/2 ML VIAL IVP ONE; -SODIUM CHLORIDE 0.9% 1,000 ML IV SCH
[2020-06-09 08:47] VITALS: TEMP 96.2
[2020-06-09] MEDS ORDERED: PROPOFOL 10 MG/ML 20 ML VIAL IV ONE (09:50)
[2020-06-09] MEDS ORDERED: LIDOCAINE 1% INJ 10MG/ML (20 ML MDV) ONE (09:50)
--- NOTE | 2020-06-09 10:08 | P.PCN ---
Date of Procedure: 06/09/20 Description of Procedure: BRIEF HISTORY: Patient is a 34-year-old female who presents for outpatient EGD for evaluation epigastric pain. She reports frequent episodes of epigastric pain. She reports worse with walking. She has tried PPI therapy and feels that there is no improvement. PROCEDURE PERFORMED: Esophagogastroduodenoscopy with biopsy. PREOPERATIVE DIAGNOSIS: Epigastric abdominal pain. ESTIMATED BLOOD LOSS: Minimal. IV sedation per anesthesia. PROCEDURE: After informed consent was obtained, the patient was brought into the endoscopy unit. IV sedation was administered by Anesthesia under continuous monitoring. Initially the Olympus GIF-190 video endoscope was inserted into the mouth. Esophagus intubated without any difficulty. It was gradually advanced into the stomach and duodenum and carefully examined. The bulb and the second part of the duodenum appeared normal, with biopsies taken to rule out celiac sprue. The scope at this time was withdrawn to the stomach, adequately insufflated with air, and upon careful examination, mucosa of the antrum, body, cardia and the fundus appeared normal, except for some mild scattered erythema in the antrum and body suggestive of mild gastritis with biopsies taken. The scope was then withdrawn into the esophagus. The GE junction was located at 39 cm from the incisors, with biopsies taken. The esophagus appeared normal. There were no erosions or ulcerations seen and the patient tolerated the procedure well. IMPRESSION: 1. Mild gastritis. 2. Biopsies of the antrum and body, GE junction and duodenum. RECOMMENDATIONS: The findings of this examination were discussed with the patient and her apollo d. Okay to resume diet. Okay to resume medications. Await pathology from biopsies. Continue current medical management.
[2020-06-09 10:12] VITALS: RESP 20
[2020-06-09 10:43] VITALS: BP 130/86; PULSE 58
== END 2020-06-09 11:19 | disposition home or self-care (01) ==
LOC: ORWHC2ENDO 08:28
PROVIDERS: ATTEND Internal Medicine
DX: K29.50 Unspecified chronic gastritis without bleeding (principal); K20.90 Esophagitis, unspecified without bleeding; I48.91 Unspecified atrial fibrillation; G43.909 Migraine, unspecified, not intractable, without status migrainosus; Z79.01 Long term (current) use of anticoagulants; Z79.899 Other long term (current) drug therapy; Z95.0 Presence of cardiac pacemaker; Z90.49 Acquired absence of other specified parts of digestive tract; Z98.890 Other specified postprocedural states
CPT/HCPCS: 81025; 88305; 43239; J2001; J2704

== ENCOUNTER → 2020-08-19 | Outpatient (CLI) | payer OTHER ==
--- NOTE | 2020-08-23 10:53 | CT ---
EXAMINATION TYPE: CT chest w con DATE OF EXAM: 08/19/2020 COMPARISON: CT PE 05/11/2020 HISTORY: 35-year-old female Pulmonary nodule, history of cardiomyopathy. TECHNIQUE: Contiguous axial scanning of the chest after the administration of 100ml mL of Isovue 300. Coronal/sagittal reconstructions performed. CT DLP: 472.7mGycm. Automatic exposure control utilized for a dose reduction. FINDINGS: Left anterior chest wall ICD generator with right atrial and right ventricular leads redemonstrated. Heart is mildly enlarged with prominent reflux of contrast into the hepatic veins, biatrial dilatatio n, and left ventricular wall thickening. Aorta normal caliber with a conventional arch vessel branching anatomy. Lower paratracheal lymphadenopathy measuring up to 1.6 cm is redemonstrated, not significantly change d in 3 months. Lower lung patchy groundglass and some mosaic attenuation along with some areas of groundglass nodula rity right middle lobe measuring up to 4 mm is unchanged. Larger 9 mm left basilar nodule is also unc hanged for 3 months. Foci of calcifications in the visualized pancreatic tail. Possible underlying cystic lesions measurin g 2.3 and 2.2 cm in the pancreatic tail, axial image 55 and 56 and coronal image 57. Cholecystectomy clips. Bones: No osseous destructive process. IMPRESSION: 1. Redemonstrated patchy groundglass in the right greater than left lung bases along with some ground glass nodularity measuring up to 4 mm on the right. Consider interstitial pneumonitis, atypical pneum onias, small airways disease, or sequela of chronic aspiration. 2. A 9 mm left basilar pulmonary nodule remains stable for 3 months as does lower paratracheal lympha denopathy measuring up to 1.6 cm. Continued follow-up recommended. Consider referral to [facility] for further evaluation. 3. Possible underlying cystic pancreatic tail lesions measuring up to 2.3 cm. Recommend further evalu ation with pancreas protocol CT. 3. Redemonstrated cardiomegaly. Elevated cardiac pressure suggested given contrast refluxing into the hepatic veins.
== END | disposition home or self-care (01) ==
LOC: RADCTMAIN 16:42
PROVIDERS: ATTEND Family Medicine
DX: R91.1 Solitary pulmonary nodule (principal); R59.9 Enlarged lymph nodes, unspecified; I51.7 Cardiomegaly
CPT/HCPCS: 71260; Q9967

== ENCOUNTER → 2020-09-03 | Outpatient (CLI) | payer OTHER ==
--- NOTE | 2020-09-03 21:43 | CT ---
EXAMINATION TYPE: CT abdomen w con DATE OF EXAM: 09/03/2020 COMPARISON: None INDICATION: Cyst of pancreas. Pt not reporting any symptoms except occasional stomach pain DLP: 1383.5 mGycm, Automated exposure control for dose reduction was used. CONTRAST: 100 mL of Isovue 370. Study performed without Oral Contrast TECHNIQUE: Axial images were obtained from above the diaphragm to the pubic rami in the axial plane a t 5 mm thick sections. Reconstructed images are reviewed on the computer in the coronal plane. FINDINGS: Limited CT sections are obtained the lung bases. There is some mild infiltrate at the right middle l obe lung base. This is nonspecific. Correlate for atypical pneumonia. Small nodules in the periphery of the right middle lobe measuring 0.6 cm. Series 6 image 16. Tiny nodule measures 0.3 cm in the ante rior right middle lobe. Series 6 image 9. There is a nodule above the left diaphragm measuring 1.0 cm . Series 6 image 37. Right lower lobe groundglass opacities are present.. Cardiomegaly is present. CT ABDOMEN: Liver: There is moderate fatty infiltration liver. May be a 1 cm hemangioma within the posterior righ t lobe liver. Series 7 image 54. Spleen: Normal Pancreas: There is some fatty infiltration through the pancreas. Tail of pancreas has several cystlik e areas scattered within the tail of pancreas. A larger areas measure up to 1.6 cm in diameter. Findi ngs are nonspecific. Benign and malignant cystic masses are within the differential. Recommend PET CT for additional evaluation. Adrenal glands: The adrenal glands are normal. Gallbladder: Surgically absent Kidneys: No masses are evident. No hydronephrosis is present. No cysts are present. Delayed images were obtained through the kidneys, which remain unremarkable. Aorta: Normal Inferior vena cava: Normal. Loops of bowel without oral contrast appear unremarkable. Fecal debris is in the ascending colon. IMPRESSIONS: 1. Multiple cystlike areas scattered within the heterogenous appearing tail of the pancreas. Malignan cy is not excluded. Additional workup is recommended. Consider PET CT for additional evaluation. 2. Several small nodules within the visualized lung bases. 3. Possible hemangioma posterior right mid lobe liver
== END | disposition home or self-care (01) ==
LOC: RADCTMAIN 16:24
PROVIDERS: ATTEND Nurse Practitioner
DX: K86.2 Cyst of pancreas (principal)
CPT/HCPCS: 74160; Q9967

== ENCOUNTER → 2020-09-11 | Outpatient (CLI) | payer OTHER ==
--- NOTE | 2020-09-11 13:43 | PE ---
Nuclear medicine PET/CT HISTORY: Cyst of pancreas, pancreatic carcinoma, initial Patient received 11.2 mCi F-18 FDG intravenously in delayed scanning was performed from the skull bas e to the mid thighs. Localization and attenuation correction CT scan was performed. Correlation to CT scan of the abdomen dated 09/03/2020, CT chest 08/16/2020 Chest and neck: There is no cervical or supraclavicular adenopathy. There is a generator in left pectoral region, leads are present in the right atrium and ventricle. Th e heart is enlarged. Shotty nodes are present within the mediastinum, no axillary or hilar adenopathy . No suspicious uptake. There is no pleural or pericardial effusion. Soft tissue nodules present lana g the left hemidiaphragm measuring approximately 1 cm as on prior exams. Some groundglass opacity pre sent within the lungs bilaterally with some basilar interstitial change. ABDOMEN: Patient is post cholecystectomy. There is no ascites. No pneumoperitoneum or retroperitoneal adenopathy. Patient is post cholecystectomy. Liver shows no mass. Pancreatic tail foci of low attenu ation are noted but show no associated hypermetabolic uptake. Spleen is stable. Adrenal glands and ki dneys are unremarkable. Uterus and adnexal structures are unremarkable. Osseous structures are normal. IMPRESSION: No suspicious hypermetabolic uptake. Follow-up could be performed to assess for stability a cystic pancreatic tail foci. Cardiomyopathy changes are noted incidentally.
== END | disposition home or self-care (01) ==
LOC: RADPETMAIN 07:31
PROVIDERS: ATTEND Family Medicine
DX: C25.8 Malignant neoplasm of overlapping sites of pancreas (principal)
CPT/HCPCS: 78815; A9552

== ENCOUNTER 2020-09-15 06:53 | Inpatient (IN) | payer OTHER ==
[2020-09-15] MEDS ORDERED: DILTIAZEM DRIP BOLUS FROM BAG 1 MG SOLN IV ONE (07:05)
--- NOTE | 2020-09-15 07:13 | ED ---
General Adult HPI - General Chief complaint: Arrhythmia/Palpitations Stated complaint: Palpitations Time Seen by Provider: 09/15/20 06:56 Source: patient, EMS Mode of arrival: EMS Limitations: no limitations - History of Present Illness Initial comments: Dictation was produced using [employer] dictation software. please excuse any grammatical, word or spelling errors. This patient was cared for during a federal and state declared state of emergency secondary to Covid 19 Chief Complaint: 35-year-old female past medical history of hypertrophic cardiomyopathy, H fibrillation, pacemaker/defibrillator History of Present Illness: 35-year-old female she has past medical history of hypertrophic cardiomyopathy on her paternal side, afibrillation, pacemaker/defibrillator. She is a patient Dr. Dumont. Patient states in January of last year she had an ablation procedure which mostly resolved her symptoms. Patient does take apixaban and metoprolol. Patient states she's been relatively asymptomatic from a cardiac standpoint since January of last year after the ablation procedure. She was told to expect that to return at some point. This morning she woke up with severe palpitations. She states she has not had these symptoms in over a year. Patient denies any chest pain or chest pressure. She does feel some mild nausea. Patient states last night she felt fine. Patient is . Her had vasectomy. She denies . The ROS documented in this emergency department record has been reviewed and confirmed by me. Those systems with pertinent positive or negative responses have been documented in the HPI. All other systems are other negative and/or noncontributory. PHYSICAL EXAM: General Impression: Alert and oriented x3, not in acute distress HEENT: Normocephalic atraumatic, extra-ocular movements intact, pupils equal and reactive to light bilaterally, mucous membranes moist. Cardiovascular: Irregularly irregular, tachycardic Chest: Able to complete full sentences, no retractions, no tachypnea Abdomen: abdomen soft, non-tender, non-distended, no organomegaly Musculoskeletal: Pulses present and equal in all extremities, no peripheral edema Motor: no focal deficits noted Neurological: CN II-XII grossly intact, no focal motor or sensory deficits noted Skin: Intact with no visualized rashes Psych: Normal affect and mood ED course: 35-year-old male with several comorbidities presents with clinical presentation consistent with atrial fibrillation with rapid ventricular rate. Vital signs upon arrival are within acceptable limits. EKG interpretation: Ventricular rate 1:30, a fibrillation with RVR, QRS 96, QTC 399. No TX prolongation, no QTC prolongation, . EKG compared to 05/01/2020 showing no changes. Overall, this EKG is unremarkable Repeat EKG was performed after Cardizem bolus with improvement of heart rate. There are no dynamic changes. Patient feels improved. EKG interpretation: Ventricular rate 97, a flutter with variable block, QRS 94, QTC 492. No TX prolongation, no QTC prolongation, no ST or T-wave changes noted. Laboratory evaluation obtained. CBC is unremarkable. Metabolic panel within acceptable limits. There is a component of dehydration with elevated BUN to creatinine ratio. Troponins negative. Case discussed with because no one was willing to accept patients care. Cardiology will be consulted. - Related Data Home Medications Medication Instructions Recorded Confirmed Metoprolol Succinate (ER) [Toprol 100 mg PO QAM 02/20/20 09/15/20 XL] SUMAtriptan succinate [Imitrex] 50 mg PO ONCE PRN 02/24/20 09/15/20 Ergocalciferol (Vitamin D2) 1,250 mcg PO HEALY 09/15/20 09/15/20 [Vitamin D2 (50,000 units)] Galcanezumab-Gnlm [Emgality] 120 mg SQ QMONTHLY 09/15/20 09/15/20 Omeprazole 40 mg PO DAILY 09/15/20 09/15/20 Previous Rx's Medication Instructions Recorded Apixaban [Eliquis] 5 mg PO BID #60 tab 04/03/19 Allergies Allergy/AdvReac Type Severity Reaction Status Date / Time No Known Allergies Allergy Verified 09/15/20 08:02 Review of Systems ROS Statement: Those systems with pertinent positive or pertinent negative responses have been documented in the HPI. ROS Other: All systems not noted in ROS Statement are negative. Past Medical History Past Medical History: Atrial Fibrillation Additional Past Medical History / Comment(s): HYPERTROPIC CARDIOMYOPATHY., PACEMAKER , IBS, STATES STOMACH PAINS AFTER EATING., MIGRAINES History of Any Multi-Drug Resistant Organisms: None Reported Past Surgical History: Section, Cholecystectomy, Pacemaker Additional Past Surgical History / Comment(s): Section X1. cardiac ablation 02/24/20, PACEMAKER [facility] (AUG 2019) Past Anesthesia/Blood Transfusion Reactions: Motion Sickness, Postoperative Nausea & Vomiting (PONV) Type of Cardiac Device: Permanent Pacemaker Device Placement Date:: 08/2019 Past Psychological History: Anxiety, Depression Smoking Status: Never smoker Past Alcohol Use History: None Reported Past Drug Use History: None Reported - Past Family History Father Family Medical History: Cancer Additional Family Medical History / Comment(s): . Mother Family Medical History: Cancer Additional Family Medical History / Comment(s): . Sister(s) Additional Family Medical History / Comment(s): "heart problems" General Exam Limitations: no limitations Course Vital Signs 09/15/20 09/15/20 09/15/20 06:54 07:22 07:24 Temperature 97.7 F Pulse Rate 92 120 H 96 Respiratory 20 16 16 Rate Blood Pressure 123/58 121/78 123/88 O2 Sat by Pulse 100 98 96 Oximetry 09/15/20 09/15/20 07:49 08:02 Temperature Pulse Rate 90 83 Respiratory 16 16 Rate Blood Pressure 103/57 93/82 O2 Sat by Pulse 98 98 Oximetry Medical Decision Making - Lab Data Result diagrams: 09/15/20 07:21 09/15/20 07:21 Lab Results 09/15/20 09/15/20 09/15/20 Range/Units 07:21 07:21 07:21 WBC 9.6 (3.8-10.6) k/uL RBC 5.22 (3.80-5.40) m/uL Hgb 16.3 H (11.4-16.0) gm/dL Hct 47.4 H (34.0-46.0) % MCV 90.8 (80.0-100.0) fL MCH 31.2 (25.0-35.0) pg MCHC 34.4 (31.0-37.0) g/dL RDW 13.4 (11.5-15.5) % Plt Count 190 (150-450) k/uL MPV 9.4 Neutrophils % 71 % Lymphocytes % 21 % Monocytes % 3 % Eosinophils % 2 % Basophils % 1 % Neutrophils # 6.8 (1.3-7.7) k/uL Lymphocytes # 2.0 (1.0-4.8) k/uL Monocytes # 0.3 (0-1.0) k/uL Eosinophils # 0.2 (0-0.7) k/uL Basophils # 0.1 (0-0.2) k/uL Sodium 137 (137-145) mmol/L Potassium 4.5 (3.5-5.1) mmol/L Chloride 108 H (98-107) mmol/L Carbon Dioxide 20 L (22-30) mmol/L Anion Gap 9 mmol/L BUN 23 H (7-17) mg/dL Creatinine 0.75 (0.52-1.04) mg/dL Est GFR (CKD-EPI)AfAm >90 (>60 ml/min/1.73 sqM) Est GFR (CKD-EPI)NonAf >90 (>60 ml/min/1.73 sqM) Glucose 192 H (74-99) mg/dL Calcium 9.2 (8.4-10.2) mg/dL Magnesium 1.8 (1.6-2.3) mg/dL Total Bilirubin 2.0 H (0.2-1.3) mg/dL AST 36 (14-36) U/L ALT 37 H (4-34) U/L Alkaline Phosphatase 134 H (38-126) U/L Troponin I <0.012 (0.000-0.034) ng/mL Total Protein 7.1 (6.3-8.2) g/dL Albumin 4.1 (3.5-5.0) g/dL Disposition Clinical Impression: Atrial fibrillation with RVR Disposition: ADMITTED IP TO THIS HOSP Condition: Fair Referrals: Temitope Art DO [Primary Care Provider] - 1-2 days Decision Time: 08:23
[2020-09-15] MEDS ORDERED: DILTIAZEM 125 MG in SODIUM CHLORIDE 0.9% 100 ML IV SCH (07:15)
[2020-09-15 07:38] LABS: Basophils # (A) 0.1 k/uL (0-0.2); Basophils % (A) 1 %; Eosinophils # (A) 0.2 k/uL (0-0.7); Eosinophils % (A) 2 %; HCT 47.4 % (34.0-46.0); HGB 16.3 gm/dL (11.4-16.0); Lymphocytes % (A) 21 %; MCH 31.2 pg (25.0-35.0); MCHC 34.4 g/dL (31.0-37.0); MCV 90.8 fL (80.0-100.0); Mean Platelet Volume 9.4; Monocytes # (A) 0.3 k/uL (0-1.0); Monocytes % (A) 3 %; Neutrophils # (A) 6.8 k/uL (1.3-7.7); Neutrophils % (A) 71 %; Platelet Count 190 k/uL (150-450); RBC 5.22 m/uL (3.80-5.40); RDW 13.4 % (11.5-15.5); WBC 9.6 k/uL (3.8-10.6)
[2020-09-15 07:40] LABS: ALT 37 U/L (4-34); AST 36 U/L (14-36); African American GFR (CKD) >90 (>60 ml/min/1.73 sqM); Albumin 4.1 g/dL (3.5-5.0); Alkaline Phosphatase 134 U/L (38-126); Anion Gap 9 mmol/L; Blood Urea Nitrogen 23 mg/dL (7-17); Calcium 9.2 mg/dL (8.4-10.2); Carbon Dioxide 20 mmol/L (22-30); Chloride 108 mmol/L (98-107); Glucose 192 mg/dL (74-99); Magnesium 1.8 mg/dL (1.6-2.3); Non-African American GFR(CKD) >90 (>60 ml/min/1.73 sqM); Potassium 4.5 mmol/L (3.5-5.1); Sodium 137 mmol/L (137-145); Total Protein 7.1 g/dL (6.3-8.2)
--- NOTE | 2020-09-15 07:58 | XR ---
EXAMINATION TYPE: XR chest 1V portable DATE OF EXAM: 09/15/2020 COMPARISON: Chest x-ray 05/11/2020 HISTORY: Palpitations TECHNIQUE: Single frontal view of the chest is obtained. FINDINGS: There is a generator in the left pectoral region, leads are present in the right atrium an d ventricle. Heart is enlarged. No evident pneumothorax or pleural effusion. Question some prominence of interstitium. Central vascularity appears prominently. IMPRESSION: Correlate for pulmonary venous hypertension and interstitial edema
[2020-09-15] MEDS ORDERED: SODIUM CHLORIDE 0.9% 1,000 ML IV STA (08:00)
[2020-09-15] MEDS ORDERED: NALOXONE 0.4 MG/ML 1 ML VIAL IV PRN (08:18)
[2020-09-15] MEDS ORDERED: METOPROLOL TARTRATE 50 MG TAB PO STA (08:37)
[2020-09-15] MEDS: SODIUM CHLORIDE 0.9% 1,000 ML IV SCH (08:42)
[2020-09-15] MEDS ORDERED: DEXTROSE 5% IN WATER 100 ML with AMIODARONE 150 MG IV ONE (10:04)
[2020-09-15] MEDS ORDERED: AMIODARONE 360 MG in DEXTROSE 5% IN WATER 200 ML IV ONE ×2 (10:04)
--- NOTE | 2020-09-15 10:37 | P.HPIM ---
History of Present Illness Patient is an 35-year-old female came in with complaints of palpitations found to be in atrial fibrillation was started on Cardizem. Patient denied any chest pain denied any shortness of breath. Patient does have history of hypertrophic cardiomyopathy history of atrial fibrillation does have a pacemaker patient underwent cardiac ablation in January of last year. Patient is also on anticoagulation with Eliquis patient takes metoprolol sustained release 100 mg daily. Patient blood pressure is significantly low because of which are Cardizem will be discontinued patient will be started on metoprolol but short- acting temporarily before she is transitioned to long-acting metoprolol. Patient denied any fever chills no signs or symptoms of sepsis. Patient is not dehydrated. It appears patient was started on amiodarone by cardiology Review of Systems REVIEW OF SYSTEMS: CONSTITUTIONAL: No fever, no malaise, no fatigue. HEENT: No recent visual problems or hearing problems. Denied any sore throat. CARDIOVASCULAR: No chest pain, orthopnea, PND, n no syncope. PULMONARY: No shortness of breath, no cough, no hemoptysis. GASTROINTESTINAL: No diarrhea, no nausea, no vomiting, no abdominal pain. NEUROLOGICAL: No headaches, no weakness, no numbness. HEMATOLOGICAL: Denies any bleeding or petechiae. GENITOURINARY: Denies any burning micturition, frequency, or urgency. MUSCULOSKELETAL/RHEUMATOLOGICAL: Denies any joint pain, swelling, or any muscle pain. ENDOCRINE: Denies any polyuria or polydipsia. The rest of the 14-point review of systems is negative. Past Medical History Past Medical History: Atrial Fibrillation Additional Past Medical History / Comment(s): HYPERTROPIC CARDIOMYOPATHY., PACEMAKER , IBS, STATES STOMACH PAINS AFTER EATING., MIGRAINES History of Any Multi-Drug Resistant Organisms: None Reported Past Surgical History: Section, Cholecystectomy, Pacemaker Additional Past Surgical History / Comment(s): Section X1. cardiac ablation 02/24/20, PACEMAKER [facility] (AUG 2019) Past Anesthesia/Blood Transfusion Reactions: Motion Sickness, Postoperative Nausea & Vomiting (PONV) Type of Cardiac Device: Permanent Pacemaker Device Placement Date:: 08/2019 Past Psychological History: Anxiety, Depression Smoking Status: Never smoker Past Alcohol Use History: None Reported Past Drug Use History: None Reported - Past Family History Father Family Medical History: Cancer Additional Family Medical History / Comment(s): . Mother Family Medical History: Cancer Additional Family Medical History / Comment(s): . Sister(s) Additional Family Medical History / Comment(s): "heart problems" Medications and Allergies Home Medications Medication Instructions Recorded Confirmed Type Apixaban [Eliquis] 5 mg PO BID #60 tab 04/03/19 09/15/20 Rx Metoprolol Succinate (ER) [Toprol 100 mg PO QAM 02/20/20 09/15/20 History XL] SUMAtriptan succinate [Imitrex] 50 mg PO ONCE PRN 02/24/20 09/15/20 History Ergocalciferol (Vitamin D2) 1,250 mcg PO HEALY 09/15/20 09/15/20 History [Vitamin D2 (50,000 units)] Galcanezumab-Gnlm [Emgality] 120 mg SQ QMONTHLY 09/15/20 09/15/20 History Omeprazole 40 mg PO DAILY 09/15/20 09/15/20 History Allergies Allergy/AdvReac Type Severity Reaction Status Date / Time No Known Allergies Allergy Verified 09/15/20 08:02 Physical Exam Vitals: Vital Signs Temp Pulse Pulse Resp BP BP Pulse Ox 09/15/20 10:30 104 H 16 113/71 98 09/15/20 10:20 144 H 16 119/72 99 09/15/20 09:52 142 H 20 105/84 100 09/15/20 09:41 109 H 16 113/78 100 09/15/20 09:00 85 16 111/72 98 09/15/20 08:37 81 16 120/71 100 09/15/20 08:02 83 16 93/82 98 09/15/20 07:49 90 16 103/57 98 09/15/20 07:24 96 16 123/88 96 09/15/20 07:22 97.7 F 120 H 16 121/78 98 09/15/20 06:54 92 20 123/58 100 Intake and Output 09/14/20 09/15/20 09/15/20 22:59 06:59 14:59 Intake Total 6.333 Balance 6.333 Intake: Intake, IV Titration 6.333 Amount Diltiazem 125 mg In 6.333 Sodium Chloride 0.9% 100 ml @ 10 MG/HR 10 mls/hr IV .[id number] [facility] Rx#: [id number] Other: Weight 90.718 kg PHYSICAL EXAMINATION: GENERAL: The patient is alert and oriented x3, not in any acute distress. Well developed, well nourished. HEENT: Pupils are round and equally reacting to light. EOMI. No scleral icterus. No conjunctival pallor. Normocephalic, atraumatic. No pharyngeal erythema. No thyromegaly. CARDIOVASCULAR: S1 and S2 present. No murmurs, rubs, or gallops. Irregularly irregular rhythm. PULMONARY: Chest is clear to auscultation, no wheezing or crackles. ABDOMEN: Soft, nontender, nondistended, normoactive bowel sounds. No palpable organomegaly. MUSCULOSKELETAL: No joint swelling or deformity. EXTREMITIES: No cyanosis, clubbing, or pedal edema. NEUROLOGICAL: Gross neurological examination did not reveal any focal deficits. SKIN: No rashes. Results CBC & Chem 7: 09/15/20 07:21 09/15/20 07:21 Labs: Abnormal Lab Results - Last 24 Hours (Table) 09/15/20 09/15/20 Range/Units 07:21 07:21 Hgb 16.3 H (11.4-16.0) gm/dL Hct 47.4 H (34.0-46.0) % Chloride 108 H (98-107) mmol/L Carbon Dioxide 20 L (22-30) mmol/L BUN 23 H (7-17) mg/dL Glucose 192 H (74-99) mg/dL Total Bilirubin 2.0 H (0.2-1.3) mg/dL ALT 37 H (4-34) U/L Alkaline Phosphatase 134 H (38-126) U/L Assessment and Plan Plan: -Atrial fibrillation with rapid ventricular rate: Patient was given a short ejection metoprolol and patient was started on amiodarone by cardiology and Cardizem will be discontinued continue with anticoagulation. -History of hypertrophic cardiomyopathy: Patient is presently not in heart failure exacerbation patient does have a pacemaker -Depression -History of migraine presently not active hold off on the as needed sumatriptan due to A.fib
[2020-09-15] MEDS ORDERED: ACETAMINOPHEN TAB 325 MG TAB PO PRN (13:28)
[2020-09-15] MEDS: ONDANSETRON 4 MG/2 ML VIAL IVP PRN ×2 (13:33→20:59)
--- NOTE | 2020-09-15 13:51 | P.CRDCN ---
History of Present Illness Consult date: 09/15/20 History of present illness: CHIEF COMPLAINT: A. fib HISTORY OF PRESENT ILLNESS: This is a 35-year-old female female with a past medical history significant for hypertrophic cardiomyopathy and atrial fibrillation. Patient follows in the office with Dr. Farias. We have been asked to see the patient in consultation for A. fib with RVR. Patient examined in the emergency room. Patient has a history of cardiac ablation in January 2020. She states she has been doing well since that time. Patient states she woke up this morning with palpitations. Upon evaluation in the emergency room, she was found to be in A. fib with RVR. She was started on a Cardizem drip. She became hypotensive and her Cardizem drip was discontinued. She did receive a dose of metoprolol this morning. At the time of examination her heart rate is slightly improved. DIAGNOSTICS: EKG reveals A. fib with RVR Chest xray correlate for pulmonary venous hypertension and interstitial edema Laboratory data: WBC 9.6. Hemoglobin 16.3. Platelet count 190. Sodium 137. Potassium 4.5. BUN 23. Creatinine 0.75. Troponin negative 1. Current home cardiac medications include Toprol-XL 100 mg daily, Eliquis 5 mg BID. REVIEW OF SYSTEMS: At the time of my exam: CONSTITUTIONAL: Denies fever or chills. HEENT: Denies blurred vision, vision changes, or eye pain. Denies hemoptysis CARDIOVASCULAR: Denies chest pain, orthopnea, PND or palpitations RESPIRATORY: No shortness of breath. GASTROINTESTINAL: Denies abdominal pain. Denies nausea or vomiting. HEMATOLOGIC: Denies bleeding disorders. GENITOURINARY: Denies any blood in urine. SKIN: Denies pruitis. Denies rash. PHYSICAL EXAM: VITAL SIGNS: Reviewed. GENERAL: Well-developed in no acute distress. HEENT: Head is normocephalic. Pupils are equal, round. Sclerae anicteric. Mucous membranes of the mouth are moist. Neck supple. No JVD or thyromegaly LUNGS: Respirations even and unlabored. Lungs essentially clear to auscultation bilaterally. HEART: Tachycardic. Irregular rate and rhythm. S1 and S2 heard. ABDOMEN: Soft. Nondistended. Nontender. EXTREMITIES: Normal range of motion. No clubbing or cyanosis. Peripheral pulses intact. No lower extremity edema NEUROLOGIC: Awake and alert. Oriented x 3. ASSESSMENT: Palpitations Paroxysmal atrial flutter/fibrillation with RVR Hypertrophic cardiomyopathy History of ablation, January 2020 History of dual-chamber ICD [place] History of cryoablation with pulmonary vein isolation PLAN: Resume home cardiac medications Begin amiodarone bolus and infusion per protocol Continue telemetry monitoring Will consult Dr. Gottlieb for further evaluation as he performed patients last ablation Further recommendations pending patient course Nurse practitioner note has been reviewed by physician. Signing provider agrees with the documented findings, assessment, and plan of care. Past Medical History Past Medical History: Atrial Fibrillation Additional Past Medical History / Comment(s): HYPERTROPIC CARDIOMYOPATHY., PACEMAKER , IBS, STATES STOMACH PAINS AFTER EATING., MIGRAINES History of Any Multi-Drug Resistant Organisms: None Reported Past Surgical History: Section, Cholecystectomy, Pacemaker Additional Past Surgical History / Comment(s): Section X1. cardiac ablation 02/24/20, PACEMAKER [facility] (AUG 2019) Past Anesthesia/Blood Transfusion Reactions: Motion Sickness, Postoperative Nausea & Vomiting (PONV) Type of Cardiac Device: Permanent Pacemaker Device Placement Date:: 08/2019 Past Psychological History: Anxiety, Depression Smoking Status: Never smoker Past Alcohol Use History: None Reported Past Drug Use History: None Reported - Past Family History Father Family Medical History: Cancer Additional Family Medical History / Comment(s): . Mother Family Medical History: Cancer Additional Family Medical History / Comment(s): . Sister(s) Additional Family Medical History / Comment(s): "heart problems" Medications and Allergies Home Medications Medication Instructions Recorded Confirmed Type Apixaban [Eliquis] 5 mg PO BID #60 tab 04/03/19 09/15/20 Rx Metoprolol Succinate (ER) [Toprol 100 mg PO QAM 02/20/20 09/15/20 History XL] SUMAtriptan succinate [Imitrex] 50 mg PO ONCE PRN 02/24/20 09/15/20 History Ergocalciferol (Vitamin D2) 1,250 mcg PO HEALY 09/15/20 09/15/20 History [Vitamin D2 (50,000 units)] Galcanezumab-Gnlm [Emgality] 120 mg SQ QMONTHLY 09/15/20 09/15/20 History Omeprazole 40 mg PO DAILY 09/15/20 09/15/20 History Allergies Allergy/AdvReac Type Severity Reaction Status Date / Time No Known Allergies Allergy Verified 09/15/20 08:02 Physical Exam Vitals: Vital Signs Temp Pulse Pulse Resp BP BP Pulse Ox 09/15/20 13:26 90 16 120/98 91 L 09/15/20 10:58 106 H 16 123/95 98 09/15/20 10:30 104 H 16 113/71 98 09/15/20 10:20 144 H 16 119/72 99 09/15/20 09:52 142 H 20 105/84 100 09/15/20 09:41 109 H 16 113/78 100 09/15/20 09:00 85 16 111/72 98 09/15/20 08:37 81 16 120/71 100 09/15/20 08:02 83 16 93/82 98 09/15/20 07:49 90 16 103/57 98 09/15/20 07:24 96 16 123/88 96 09/15/20 07:22 97.7 F 120 H 16 121/78 98 09/15/20 06:54 92 20 123/58 100 Intake and Output 09/14/20 09/15/20 09/15/20 22:59 06:59 14:59 Intake Total 6.333 Balance 6.333 Intake: Intake, IV Titration 6.333 Amount Diltiazem 125 mg In 6.333 Sodium Chloride 0.9% 100 ml @ 10 MG/HR 10 mls/hr IV .[id number] [facility] Rx#: [id number] Other: Weight 90.718 kg Results 09/15/20 07:21 09/15/20 07:21 Cardiac Enzymes 09/15/20 09/15/20 Range/Units 07:21 07:21 AST 36 (14-36) U/L Troponin I <0.012 (0.000-0.034) ng/mL CBC 09/15/20 Range/Units 07:21 WBC 9.6 (3.8-10.6) k/uL RBC 5.22 (3.80-5.40) m/uL Hgb 16.3 H (11.4-16.0) gm/dL Hct 47.4 H (34.0-46.0) % Plt Count 190 (150-450) k/uL Comprehensive Metabolic Panel 09/15/20 Range/Units 07:21 Sodium 137 (137-145) mmol/L Potassium 4.5 (3.5-5.1) mmol/L Chloride 108 H (98-107) mmol/L Carbon Dioxide 20 L (22-30) mmol/L BUN 23 H (7-17) mg/dL Creatinine 0.75 (0.52-1.04) mg/dL Glucose 192 H (74-99) mg/dL Calcium 9.2 (8.4-10.2) mg/dL AST 36 (14-36) U/L ALT 37 H (4-34) U/L Alkaline Phosphatase 134 H (38-126) U/L Total Protein 7.1 (6.3-8.2) g/dL Albumin 4.1 (3.5-5.0) g/dL Current Medications Generic Name Dose Route Start Last Admin Trade Name Freq PRN Reason Stop Dose Admin Acetaminophen 325 mg 09/15/20 13:28 09/15/20 13:33 Acetaminophen Tab 325 Mg Tab PO 325 mg Q4HR PRN Administration Fever and/ or Pain Apixaban 5 mg 09/15/20 21:00 Apixaban 5 Mg Tab PO BID GERALDINE Sodium Chloride 1,000 mls @ 100 mls/hr 09/15/20 08:30 09/15/20 08:42 Saline 0.9% IV 20 mls/hr .Q10H GERALDINE Administration Amiodarone HCl 450 mg/ 250 mls @ 16.667 mls/hr 09/15/20 16:04 Dextrose/Water IV 09/16/20 10:03 .Q15H GERALDINE Protocol 0.5 MG/MIN Amiodarone HCl 360 mg/ 200 mls @ 33.333 mls/hr 09/15/20 10:04 09/15/20 10:28 Dextrose/Water IV 09/15/20 16:03 1 mg/min .Q6H ONE 33.333 mls/hr Administration Protocol 1 MG/MIN Naloxone HCl 0.2 mg 09/15/20 08:18 Naloxone 0.4 Mg/Ml 1 Ml Vial IV Q2M PRN Opioid Reversal Ondansetron HCl 4 mg 09/15/20 13:28 09/15/20 13:33 Ondansetron 4 Mg/2 Ml Vial IVP 4 mg Q6HR PRN Administration Nausea And Vomiting Pantoprazole Sodium 40 mg 09/16/20 07:30 Pantoprazole 40 Mg Tablet PO [id number] [facility] Intake and Output 09/14/20 09/15/20 09/15/20 22:59 06:59 14:59 Intake Total 6.333 Balance 6.333 Intake: Intake, IV Titration 6.333 Amount Diltiazem 125 mg In 6.333 Sodium Chloride 0.9% 100 ml @ 10 MG/HR 10 mls/hr IV .[id number] [facility] Rx#: [id number] Other: Weight 90.718 kg 09/15/20 07:21 09/15/20 07:21
[2020-09-15] MEDS ORDERED: DIGOXIN 250 MCG/ML 2 ML AMP IVP ONE ×2 (14:41→20:45)
[2020-09-15 16:49] LABS: Glucose,Whole Blood 130 mg/dL (75-99)
[2020-09-15] MEDS: AMIODARONE 450 MG in DEXTROSE 5% IN WATER 250 ML IV SCH ×2 (17:30)
[2020-09-15] MEDS: APIXABAN 5 MG TAB PO SCH (20:59)
[2020-09-16] MEDS: PANTOPRAZOLE 40 MG TABLET PO SCH (06:57)
[2020-09-16] MEDS: AMIODARONE 450 MG in DEXTROSE 5% IN WATER 250 ML IV SCH ×2 (06:57)
[2020-09-16] MEDS: APIXABAN 5 MG TAB PO SCH ×2 (08:22→20:31)
[2020-09-16] MEDS ORDERED: METOPROLOL SUCCINATE (ER) 100 MG TAB.ER.24H PO SCH (09:00)
[2020-09-16] MEDS: METOPROLOL SUCCINATE (ER) 100 MG TAB.ER.24H PO SCH ×2 (09:25→20:31)
[2020-09-16] MEDS: AMIODARONE 200 MG TAB PO SCH ×2 (10:17→20:31)
[2020-09-16] MEDS ORDERED: SUMAtriptan succinate 50 MG TAB PO PRN (11:21)
[2020-09-16] MEDS: SODIUM CHLORIDE 0.9% 1,000 ML IV SCH (12:05)
--- NOTE | 2020-09-16 13:10 | P.PN ---
Subjective Progress Note Date: 09/16/20 CHIEF COMPLAINT: A. fib HISTORY OF PRESENT ILLNESS: 09/15/2020 This is a 35-year-old female female with a past medical history significant for hypertrophic cardiomyopathy and atrial fibrillation. Patient follows in the office with Dr. Dumont and Bull. We have been asked to see the patient in consultation for A. fib with RVR. Patient examined in the emergency room. Patient has a history of cardiac ablation in January 2020. She states she has been doing well since that time. Patient states she woke up this morning with palpitations. Upon evaluation in the emergency room, she was found to be in A. fib with RVR. She was started on a Cardizem drip. She became hypotensive and her Cardizem drip was discontinued. She did receive a dose of metoprolol this morning. At the time of examination her heart rate is slightly improved. 09/16/2020 Patient examined at the bedside. She remains in afib/flutter with uncontrolled rates. She reports palpitations. She reports nausea and vomiting overnight. She remains on IV amiodarone. Blood pressure 119/91. PHYSICAL EXAM: VITAL SIGNS: Reviewed. GENERAL: Well-developed in no acute distress. HEENT: Head is normocephalic. Pupils are equal, round. Sclerae anicteric. Mucous membranes of the mouth are moist. Neck supple. No JVD or thyromegaly LUNGS: Respirations even and unlabored. Lungs essentially clear to auscultation bilaterally. HEART: Tachycardic. Irregular rate and rhythm. S1 and S2 heard. ABDOMEN: Soft. Nondistended. Nontender. EXTREMITIES: Normal range of motion. No clubbing or cyanosis. Peripheral pulses intact. No lower extremity edema NEUROLOGIC: Awake and alert. Oriented x 3. ASSESSMENT: Palpitations Paroxysmal atrial flutter/fibrillation with RVR Hypertrophic cardiomyopathy History of ablation, January 2020 History of dual-chamber ICD in [place] History of cryoablation with pulmonary vein isolation PLAN: Transition patient to oral amiodarone after IV infusion is complete Increase metoprolol to 100 mg BID Continue telemetry monitoring Spoke with Dr. Gottlieb today who stated he would be in this evening to evaluate patient. Further recommendations pending his evaluation. Nurse practitioner note has been reviewed by physician. Signing provider agrees with the documented findings, assessment, and plan of care. Objective - Vital Signs Vital signs: Vital Signs Temp 97.4 F L 09/16/20 11:42 Pulse 135 H 09/16/20 11:42 Resp 20 09/16/20 11:42 BP 140/84 09/16/20 11:42 Pulse Ox 96 09/16/20 11:42 Intake & Output 09/15/20 09/16/20 09/16/20 18:59 06:59 18:59 Intake Total 246.333 224.171 180 Balance 246.333 224.171 180 Weight 90.718 kg 89.9 kg Intake: Intake, IV Titration 6.333 224.171 Amount Amiodarone 450 mg In 224.171 Dextrose 5% in Water 250 ml @ 0.5 MG/MIN 16.667 mls/hr IV .Q15H GERALDINE Rx#: [id number] Diltiazem 125 mg In 6.333 Sodium Chloride 0.9% 100 ml @ 10 MG/HR 10 mls/hr IV .[id number] GERALDINE Rx#: [id number] Oral 240 180 Other: Voiding Method Toilet # Voids 1 1 - Labs CBC & Chem 7: 09/15/20 07:21 09/15/20 07:21 Labs: Abnormal Lab Results - Last 24 Hours (Table) 09/15/20 Range/Units 16:47 POC Glucose (mg/dL) 130 H (75-99) mg/dL
--- NOTE | 2020-09-16 15:25 | P.PN ---
Subjective Progress Note Date: 09/16/20 Patient is a 35-year-old female came in with complaints of palpitations found to be in atrial fibrillation was started on Cardizem. Patient denied any chest pain denied any shortness of breath. Patient does have history of hypertrophic cardiomyopathy history of atrial fibrillation does have a pacemaker patient underwent cardiac ablation in January of last year. Patient is also on anticoagulation with Eliquis patient takes metoprolol sustained release 100 mg daily. Patient blood pressure is significantly low because of which are Cardizem will be discontinued patient will be started on metoprolol but short- acting temporarily before she is transitioned to long-acting metoprolol. Patient denied any fever chills no signs or symptoms of sepsis. Patient is not dehydrated. It appears patient was started on amiodarone by cardiology 09/16/2020 Patient is seen and evaluated and follow-up currently continued on amiodarone and will be transitioning to oral amiodarone. Metoprolol has been resumed and increased. Cardiology following closely. Patient remains on Eliquis and will continue. Patient recently underwent ablation with Dr. Gottlieb in January of this year and a consult has been placed and will await his report. Patient continues to have some nausea and Zofran as ordered. Review of systems: Constitutional: Reports fatigue, no fever, or chills Cardiovascular: No reports of chest pain, reports continued palpitations Respiratory: No reports of shortness of breath or cough GI: Reports intermittent nausea, no vomiting, or diarrhea : No reports of dysuria or retention Neurovascular: No reports of weakness or numbness All medications have been reviewed Objective - Vital Signs Vital signs: Vital Signs Temp 96.0 F L 09/16/20 07:58 Pulse 101 H 09/16/20 08:30 Resp 18 09/16/20 07:58 BP 119/91 09/16/20 07:58 Pulse Ox 96 09/16/20 04:00 Intake & Output 09/15/20 09/16/20 09/16/20 18:59 06:59 18:59 Intake Total 246.333 224.171 180 Balance 246.333 224.171 180 Weight 90.718 kg 89.9 kg Intake: Intake, IV Titration 6.333 224.171 Amount Amiodarone 450 mg In 224.171 Dextrose 5% in Water 250 ml @ 0.5 MG/MIN 16.667 mls/hr IV .Q15H GERALDINE Rx#: [id number] Diltiazem 125 mg In 6.333 Sodium Chloride 0.9% 100 ml @ 10 MG/HR 10 mls/hr IV .[id number] GERALDINE Rx#: [id number] Oral 240 180 Other: Voiding Method Toilet # Voids 1 1 - Exam GENERAL: The patient is alert and oriented x3, not in any acute distress. Well developed, well nourished. HEENT: Pupils are round and equally reacting to light. EOMI. No scleral icterus. No conjunctival pallor. Normocephalic, atraumatic. No pharyngeal erythema. No thyromegaly. CARDIOVASCULAR: S1 and S2 present. No murmurs, rubs, or gallops. Irregularly irregular rhythm. PULMONARY: Chest is clear to auscultation, no wheezing or crackles. ABDOMEN: Soft, nontender, nondistended, normoactive bowel sounds. No palpable organomegaly. MUSCULOSKELETAL: No joint swelling or deformity. EXTREMITIES: No cyanosis, clubbing, or pedal edema. NEUROLOGICAL: Gross neurological examination did not reveal any focal deficits. SKIN: No rashes. - Labs CBC & Chem 7: 09/15/20 07:21 09/15/20 07:21 Labs: Abnormal Lab Results - Last 24 Hours (Table) 09/15/20 Range/Units 16:47 POC Glucose (mg/dL) 130 H (75-99) mg/dL Assessment and Plan Assessment: -Atrial fibrillation with rapid ventricular rate: Patient is maintained on amiodarone by cardiology and metoprolol increased, continue with antico agulation. -History of hypertrophic cardiomyopathy: Patient is presently not in heart failure exacerbation patient does have a pacemaker, recent history of ablation in January [address] Gottlieb and awaiting consult. Cardiology is following -Depression -History of migraine Plan: Continue with current medications. Cardiology following closely. Awaiting consult with Dr. Gottlieb as patient underwent ablation in January 2020 with him. Labs within normal limits. Will continue to follow closely and monitor vital signs. Further recommendations to follow based on the clinical course of the patient.
[2020-09-16] MEDS: ONDANSETRON 4 MG/2 ML VIAL IVP PRN (20:31)
[2020-09-17] MEDS: PANTOPRAZOLE 40 MG TABLET PO SCH (07:02)
[2020-09-17] MEDS: METOPROLOL SUCCINATE (ER) 100 MG TAB.ER.24H PO SCH (08:27)
[2020-09-17] MEDS: APIXABAN 5 MG TAB PO SCH (08:27)
[2020-09-17] MEDS ORDERED: AMIODARONE 200 MG TAB PO SCH (09:00)
--- NOTE | 2020-09-17 10:24 | P.EPCON ---
Electrophysiology Consult - EP Consult Electrophysiology Consult: This is Dr. Gottlieb dictating a consult on this patient The patient was interviewed and examined IMPRESSION / ASSESSMENT: Paroxysmal atrial fibrillation/atrial tachycardia, Recurrence following cryoablation of the pulmonary veins in January 2020 Successful isolation of all 4 pulmonary veins Hypertrophic cardio myopathy Status post dual-chamber ICD implant PLAN: EP study and radiofrequency ablation next week Stop amiodarone completely Do not stop ELIQUIS Do not stop metoprolol Discussed with the nurse practitioner HPI Patient presented to the hospital with palpitation shortness of breath and feeling weak She was found to be in an atrial tachycardia with RVR Biphasic P waves in V1, upright in the inferior leads Atrial Cycle length 220 ms ROS: No fever chills or rigors, no cough, phlegm or expectoration, no nausea, vomiting or diarrhea, no hematuria, dysuria, no musculoskeletal complaints, no strokes or seizures, no skin lesions. EXAMINATION: Blood pressure 120/84 mmHg, pulse rate in the 50s, afebrile 98.1F Breath sounds are clear no rhonchi no crackles Soft systolic murmur the precordium Abdomen soft Extremities warm no edema REVIEW OF LABS, ECG & MEDICAL DATA I reviewed the ablation record from 02/24/2020 She had failed amiodarone 100 mg by mouth daily and she is brought in for cryoablation of the pulmonary veins Complete isolation was performed She had a common left-sided vein and a very large right superior pulmonary vein The common left vein was segmentally isolate the complete isolation The right superior vein had to tributaries that the isolated individually The right inferior vein also had 2 tributaries that were isolated individually This is a long procedure because of significant right and left atrial enlargement, a counterclockwise to rotated heart BRK 1 needle had to be used across the fossa ovalis
[2020-09-17 10:50] VITALS: RESP 16
[2020-09-17 13:06] VITALS: BP 116/72; PULSE 56; TEMP 97.4
--- NOTE | 2020-09-17 13:14 | P.PN ---
Subjective Progress Note Date: 09/17/20 CHIEF COMPLAINT: A. fib HISTORY OF PRESENT ILLNESS: 09/15/2020 This is a 35-year-old female female with a past medical history significant for hypertrophic cardiomyopathy and atrial fibrillation. Patient follows in the office with Dr. Dumont and Bull. We have been asked to see the patient in consultation for A. fib with RVR. Patient examined in the emergency room. Patient has a history of cardiac ablation in January 2020. She states she has been doing well since that time. Patient states she woke up this morning with palpitations. Upon evaluation in the emergency room, she was found to be in A. fib with RVR. She was started on a Cardizem drip. She became hypotensive and her Cardizem drip was discontinued. She did receive a dose of metoprolol this morning. At the time of examination her heart rate is slightly improved. 09/16/2020 Patient examined at the bedside. She remains in afib/flutter with uncontrolled rates. She reports palpitations. She reports nausea and vomiting overnight. She remains on IV amiodarone. Blood pressure 119/91. 09/17/2020 Patient examined at the bedside. She has converted to sinus mechanism with heart rate in the 50s. Patient was evaluated by Dr. Gottlieb this morning and is scheduled for EP study and radiofrequency ablation next , 09/24/2020. PHYSICAL EXAM: VITAL SIGNS: Reviewed. GENERAL: Well-developed in no acute distress. HEENT: Head is normocephalic. Pupils are equal, round. Sclerae anicteric. Mucous membranes of the mouth are moist. Neck supple. No JVD or thyromegaly LUNGS: Respirations even and unlabored. Lungs essentially clear to auscultation bilaterally. HEART: Regular rate and rhythm. S1 and S2 heard. EXTREMITIES: Normal range of motion. No clubbing or cyanosis. Peripheral pulses intact. No lower extremity edema ASSESSMENT: Palpitations Paroxysmal atrial flutter/fibrillation with RVR Hypertrophic cardiomyopathy History of ablation, January 2020 History of dual-chamber ICD implantation History of cryoablation with pulmonary vein isolation PLAN: Patient scheduled for EP study and radiofrequency ablation next , 09/24/2020 Continue current dose of metoprolol Discontinue amiodarone Patient is stable for discharge home today from a cardiac perspective Nurse practitioner note has been reviewed by physician. Signing provider agrees with the documented findings, assessment, and plan of care. Objective - Vital Signs Vital signs: Vital Signs Temp 97.4 F L 09/17/20 12:00 Pulse 56 L 09/17/20 12:00 Resp 16 09/17/20 12:00 BP 116/72 09/17/20 12:00 Pulse Ox 95 09/17/20 12:00 Intake & Output 09/16/20 09/17/20 09/17/20 18:59 06:59 18:59 Intake Total 960 640 Output Total 600 Balance 960 40 Weight 91.7 kg Intake: Oral 960 640 Output: Urine 600 Other: Voiding Method Toilet Toilet # Voids 1 1 - Labs CBC & Chem 7: 09/15/20 07:21 09/15/20 07:21
--- NOTE | 2020-09-17 15:49 | P.DS ---
Providers Date of admission: 09/15/20 08:19 Expected date of discharge: 09/17/20 Attending physician: Lisa Simental Consults: 09/15/20 07:35 Consult Physician Routine Consulting Provider: Valentino Dumont Consult Reason/Comments: afib, hx of hocm Do you want consulting provider notified?: Yes 09/15/20 11:51 Consult Physician Routine Consulting Provider: Tim Gottlieb Consult Reason/Comments: aflutter, previous ablation Do you want consulting provider notified?: Already Contacted Primary care physician: Temitope Gardner Hospital Course: Final diagnosis -Atrial fibrillation with rapid ventricular rate -History of hypertrophic cardiomyopathy: Patient is presently not in heart failure exacerbation patient does have a pacemaker, recent history of ablation in January 2020 -Depression -History of migraine Discharge disposition Patient is being discharged in a stable condition with guarded prognosis to home. Patient will continue with home care in the outpatient setting. Patient will follow-up with Dr. Gardner upon discharge. Patient to follow-up with Dr. Gottlieb in the outpatient setting. Total time taken is greater than 35 minutes. Hospital course This is a 35-year-old female who was recently admitted with atrial fibrillation with rapid ventricular rate and was being closely monitored. Patient was initiated on Cardizem drip although blood pressure dropped and was discontinued. Patient was then started on amiodarone and was being followed closely by cardiology. Patient has a history of cardiac ablation with Dr. Gottlieb back in January 2020 and was seen and evaluated by him during this hospitalization. Patient was resumed on metoprolol and will increase the dose 200 mg twice daily and continue with Eliquis as she was on previously. Patient will follow-up with cardiology in the outpatient setting in 1 week as discussed and scheduled. Patient also instructed to follow-up with primary care provider upon discharge. she states she is feeling much better and would like to go home today. Currently no reports of chest pain, shortness of breath, or palpitations. Patient is afebrile. No reports of nausea or vomiting and patient is tolerating diet. Guarded prognosis. On exam vital signs are stable. Temp is 97.4F, pulse is 56, respirations are 16, blood pressure is 116/72, oxygen saturation is 95% on room air. Cardio S1, S2 are muffled. Respiratory shows diminished breath sounds at the bases with no wheezing or rhonchi noted. Abdomen is soft and nontender. Nervous system shows no focal deficits. Please refer to medication reconciliation sheet for a list of medications. Patient Condition at Discharge: Fair Plan - Discharge Summary Discharge Rx Participant: No New Discharge Prescriptions: New Metoprolol Succinate (ER) [Toprol XL] 100 mg PO BID 30 Days #60 tab.er.24h Continue Apixaban [Eliquis] 5 mg PO BID #60 tab SUMAtriptan succinate [Imitrex] 50 mg PO ONCE PRN PRN Reason: Headache Omeprazole 40 mg PO DAILY Ergocalciferol (Vitamin D2) [Vitamin D2 (50,000 Iu)] 1,250 mcg PO HEALY Galcanezumab-Gnlm [Emgality Pen] 120 mg SQ QMONTHLY Discontinued Metoprolol Succinate (ER) [Toprol XL] 100 mg PO QAM Discharge Medication List Apixaban [Eliquis] 5 mg PO BID #60 tab 04/03/19 [Rx] SUMAtriptan succinate [Imitrex] 50 mg PO ONCE PRN 02/24/20 [History] Ergocalciferol (Vitamin D2) [Vitamin D2 (50,000 Iu)] 1,250 mcg PO HEALY 09/15/20 [History] Galcanezumab-Gnlm [Emgality Pen] 120 mg SQ QMONTHLY 09/15/20 [History] Omeprazole 40 mg PO DAILY 09/15/20 [History] Metoprolol Succinate (ER) [Toprol XL] 100 mg PO BID 30 Days #60 tab.er.24h 09/17/20 [Rx] Follow up Appointment(s)/Referral(s): Tim Gottlieb MD [STAFF PHYSICIAN] - 09/23/20 12:00 pm Temitope Gardner DO [Primary Care Provider] - 09/22/20 11:00 am Patient Instructions/Handouts: A-fib (Atrial Fibrillation) (DC) Activity/Diet/Wound Care/Special Instructions: Activity Limited until follow-up Follow-up with primary care provider upon discharge Follow-up with cardiology Dr. Gottlieb in one week Continue current diet Discharge Disposition: HOME SELF-CARE
[2020-09-20] MEDS ORDERED: ERGOCALCIFEROL 1,250 MCG (50,000 IU) CAPSULE PO SCH (09:00)
== END 2020-09-17 13:59 | disposition home or self-care (01) | DRG 310 ==
LOC: EC 06:53 → 3SCARD 08:19
PROVIDERS: ADMIT Internal Medicine; ATTEND Internal Medicine
DX: I48.0 Paroxysmal atrial fibrillation (principal); I42.2 Other hypertrophic cardiomyopathy; I48.92 Unspecified atrial flutter; F32.9 Major depressive disorder, single episode, unspecified; G43.909 Migraine, unspecified, not intractable, without status migrainosus; K58.9 Irritable bowel syndrome, unspecified; F41.9 Anxiety disorder, unspecified; E86.0 Dehydration; I95.9 Hypotension, unspecified; R11.2 Nausea with vomiting, unspecified; R94.4 Abnormal results of kidney function studies; Z79.01 Long term (current) use of anticoagulants; Z95.810 Presence of automatic (implantable) cardiac defibrillator; Z90.49 Acquired absence of other specified parts of digestive tract; Z80.9 Family history of malignant neoplasm, unspecified; Z82.49 Family history of ischemic heart disease and other diseases of the circulatory system; Z79.899 Other long term (current) drug therapy
CPT/HCPCS: 36415; 71045; 80053; 81025; 83735; 84484; 85025; 93005; 96361; 96365; 96366; 96367; 96375; 96376; 99285

== ENCOUNTER 2020-09-24 09:55 | Inpatient (IN) | payer OTHER ==
[2020-09-21 11:07] VITALS: BMI 34.3
[~2020-09-24 09:55] MED LIST changes: -MIDAZOLAM 2 MG/2 ML VIAL IV PRN
[2020-09-24] MEDS ORDERED: DEXAMETHASONE SOD PHOSPHATE 4 MG/ML 1 ML VIAL IV STA (10:23)
[2020-09-24] MEDS: SODIUM CHLORIDE 0.9% 1,000 ML IV SCH (10:29)
[2020-09-24] MEDS ORDERED: LIDOCAINE 1% INJ 10MG/ML (20 ML MDV) ONE ×2 (13:16→13:27)
[2020-09-24] MEDS ORDERED: ePHEDrine SULFATE/0.9% NACL/PF 50 MG/5 ML SYRINGE IV ONE (13:27)
[2020-09-24] MEDS ORDERED: SUCCINYLCHOLINE CHLORIDE 100 MG/5 ML SYR IV ONE (13:27)
[2020-09-24] MEDS ORDERED: ceFAZolin 1,000 MG VIAL ONE (13:27)
[2020-09-24] MEDS ORDERED: HYDROmorphone (PF) 1 MG/ML ONE (13:27)
[2020-09-24] MEDS ORDERED: MIDAZOLAM 2 MG/2 ML VIAL ONE (13:27)
[2020-09-24] MEDS ORDERED: EPINEPHrine 10 ML SYRINGE (0.1 MG/ML) ONE (13:27)
[2020-09-24] MEDS ORDERED: WATER FOR INJECTION, STERILE 10 ML VIAL IV ONE (13:27)
[2020-09-24] MEDS ORDERED: HEPARIN SODIUM,PORCINE 10,000 UNIT/ML 1 ML VIAL ONE (13:27)
[2020-09-24] MEDS ORDERED: FUROSEMIDE 10 MG/ML 2 ML VIAL ONE (13:27)
[2020-09-24] MEDS ORDERED: ROCURONIUM 10 MG/ML (10 ML VIAL) IV ONE (13:27)
[2020-09-24] MEDS ORDERED: PROPOFOL 10 MG/ML 20 ML VIAL IV ONE (13:27)
[2020-09-24] MEDS ORDERED: fentaNYL (PF) 50 MCG/ML 2 ML AMP ONE (13:27)
[2020-09-24] MEDS ORDERED: ISOPROTERENOL 250 MCG/1.25 ML SYR IV ONE (13:27)
[2020-09-24] MEDS ORDERED: HEPARIN SODIUM,PORCINE 5,000 UNIT/ML 1 ML VIAL ONE (13:27)
[2020-09-24] MEDS ORDERED: LIDOCAINE 1% INJ 10MG/ML (20 ML MDV) SQ ONE (14:22)
[2020-09-24] MEDS ORDERED: HEPARIN SOD,PORK IN 0.45% NACL 25,000 UNIT in 0.45% NACL 1 250ML.BAG IV ONE (15:30)
[2020-09-24] MEDS ORDERED: HEPARIN SODIUM (1,000 UNIT/ML) 1,000 UNIT in SODIUM CHLORIDE 0.9% 1,000 ML IRRIGATION ONE (15:30)
[2020-09-24] MEDS ORDERED: LACTATED RINGERS 1,000 ML IV ONE (17:38)
[2020-09-24 17:46] LABS: Allen Test Performed? Yes
[2020-09-24 17:49] LABS: ABG Base Excess -12.2 mmol/L; ABG HCO3 17 mmol/L (21-25); ABG Oxygen Saturation 99.3 % (94-97); ABG PCO2 50 mmHg (35-45); ABG PO2 232 mmHg (83-108)
[2020-09-24 17:51] LABS: Basophils # (A) 0.1 k/uL (0-0.2); Basophils % (A) 1 %; Eosinophils # (A) 0.1 k/uL (0-0.7); Eosinophils % (A) 0 %; HCT 47.6 % (34.0-46.0); HGB 15.7 gm/dL (11.4-16.0); Hypochromasia Slight; Lymphocytes # (A) 0.9 k/uL (1.0-4.8); Lymphocytes % (A) 7 %; MCH 31.3 pg (25.0-35.0); Mean Platelet Volume 10.4; Monocytes # (A) 0.3 k/uL (0-1.0); Monocytes % (A) 2 %; Neutrophils # (A) 11.5 k/uL (1.3-7.7); Neutrophils % (A) 89 %; Platelet Count 178 k/uL (150-450); Poikilocytosis Slight; RDW 14.5 % (11.5-15.5); WBC 12.9 k/uL (3.8-10.6)
[2020-09-24 17:52] LABS: ABG PH 7.15 (7.35-7.45)
[2020-09-24 18:07] LABS: Calcium 8.1 mg/dL (8.4-10.2); Potassium 4.6 mmol/L (3.5-5.1)
[2020-09-24 18:23] LABS: ABG HCO3 18 mmol/L (21-25); ABG Oxygen Saturation 99.4 % (94-97); ABG PCO2 43 mmHg (35-45); ABG PH 7.24 (7.35-7.45); ABG PO2 216 mmHg (83-108)
[2020-09-24 18:24] LABS: Allen Test Performed? Yes
--- NOTE | 2020-09-24 18:51 | P.PCN ---
Preoperative Diagnosis: Patient underwent ablation for atrial fibrillation This is a long procedure primarily on account of a very difficult transseptal with a 2 to an enlarged right atrium and enlarged left atrium Left atrial mapping was difficult on account of the large size of the left atrium and a VIZIGO sheath was used. Excellent contact force was obtained. Linear ablation in the left atrium septum, left atrial roof and the ridge between the left atrial appendage and the left-sided veins
[2020-09-24] MEDS ORDERED: NALOXONE 0.4 MG/ML 1 ML VIAL IV PRN (18:57)
[2020-09-24] MEDS ORDERED: propofoL 100 ML IV ONE (19:08)
[2020-09-24 19:11] LABS: ABG Base Excess -6.1 mmol/L; ABG HCO3 20 mmol/L (21-25); ABG PCO2 43 mmHg (35-45); ABG PH 7.29 (7.35-7.45); ABG PO2 244 mmHg (83-108); ABG TCO2 22 mmol/L (19-24); Allen Test Performed? Yes
[2020-09-24 19:18] LABS: Glucose,Whole Blood 150 mg/dL (75-99)
[2020-09-24 19:58] LABS: Glucose,Whole Blood 166 mg/dL (75-99)
[2020-09-24 20:10] LABS: HCT 44.2 % (34.0-46.0); HGB 14.6 gm/dL (11.4-16.0); Hypochromasia Slight; MCH 30.8 pg (25.0-35.0); MCHC 33.2 g/dL (31.0-37.0); Mean Platelet Volume 10.2; Platelet Count 177 k/uL (150-450); Poikilocytosis Slight; RBC 4.75 m/uL (3.80-5.40); RDW 14.6 % (11.5-15.5); WBC 17.1 k/uL (3.8-10.6)
--- NOTE | 2020-09-24 20:16 | XR ---
EXAMINATION: XR chest 1V DATE AND TIME: 09/24/2020 7:27 PM CLINICAL INDICATION: PHH; tube placement TECHNIQUE: AP portable supine COMPARISON: Preintubation 09/15/2020 chest radiograph FINDINGS: ET tube tip superimposed over the mid trachea. Cardiac pacemaker noted; EKG leads. The lungs are predominantly clear. Supine, relatively low lung inflation radiograph limits evaluation . The pleural spaces appear to be negative. The cardiac silhouette is enlarged, unchanged. The remainder of the mediastinal silhouette is unremarkable. The skeletal structures and soft tissues are negative for acute findings. Limitation: No evident abnormal gas or fluid collections are seen, but supine radiography has limited sensitivity for these gravity-dependent findings. IMPRESSION: Post intubation supine radiograph.
--- NOTE | 2020-09-24 20:22 | CE ---
CARDIAC ELECTROPHYSIOLOGY REPORT Portia Johnson is a 35-year-old female who has atrial fibrillation. She was admitted with rapid atrial tachycardia/atrial fibrillation. She has had cryoablation of the pulmonary veins in the past. She has a significantly dilated left atrium. She has hypertrophic cardiomyopathy with a dual-chamber ICD. She was recently admitted with an episode of atrial fibrillation with RVR, very symptomatic, and today she was brought in for an EP study and ablation. Patient was brought to the EP lab in a fasting state. Written informed consent was obtained prior to the procedure. She was given IV antibiotics prior to the procedure. The ICD was interrogated and tachy therapies were turned off. Back-up VVI pacing at 40 beats per minute was provided. Venous sheaths were placed in the right and left femoral veins. Via these, diagnostic mapping and ablation catheters were placed. Intracardiac echocardiography revealed absence of any pericardial effusion, left ventricular hypertrophy consistent with a diagnosis of HCM, and normal LV systolic function. The interatrial septum was identified. She had a very large atrium. She had a very large left common pulmonary venous os and large right-sided veins. The left atrium, however, was significantly enlarged. Transseptal catheterization was performed. RA pressure 29/18/23 mmHg. LA pressure 41/14 mmHg. This was once again a difficult transseptal, as expected. A BRK 1 needle was used. The septum was successfully crossed after multiple attempts under fluoroscopic guidance as well as intracardiac echo guidance. A long sheath was placed in the left atrium. Heparin was already started. A PentaRay catheter was used to map the left atrium. A voltage map was performed. Pulmonary veins were completely isolated. The left atrial volume was significantly enlarged and greater than 50 mL. It was noted that when the catheter was moved in the roof of the atrium she would go into a slow atrial fibrillation. This would also occur in the bear in between the right-sided veins. Since the left atrium was significantly dilated, a Vizigo sheath was used. RF ablation catheter was placed in the left atrium. Linear ablation was performed in the septum and a complete line of block was made. Later, noncapture was proven along the line, and a voltage map proved this was a complete line. The roof outside the right superior pulmonary vein was connected to the right inferior pulmonary vein with this RF line. Next, a roof line was made. A complete line of block was made, and this was proven again with high-output pacing as well as with the voltage mapping. Once this was made, with catheter manipulation there was no further induction of atrial fibrillation. There was a wide space ridge between the left atrial appendage and the left-sided common vein. Linear ablation was performed along this ridge, taking care that we did not encroach the area of the mitral anulus or the mitral isthmus. Repeat 3D electroanatomic mapping was performed, and the lines were interrogated with high-output pacing. These were complete RF lines. Following that, coronary sinus pacing was performed to look for any other inducible arrhythmias. The patient was started on Isuprel wide open for a minute and then at 2 mcg. Within a minute she went into ventricular fibrillation. Of note, she had received ephedrine for blood pressure support a few minutes prior to starting Isuprel. ACLS protocol was followed, and within 5 minutes we were able to resuscitate her. She was quite a large lady, and finally her ICD internal shock was successfully defibrillated to sinus rhythm. CPR was performed at that time. Epinephrine was given. Following that, intracardiac echocardiography revealed normal LV function, no pericardial effusion. Her first ABG showed a pH of 7.15, but her second ABG showed a pH of 7.24 with good oxygenation. A 5-Malagasy sheath was placed in the right femoral vein for hemodynamic monitoring prior to sending her to the ICU. Her blood pressure was stable once she was resuscitated and remained stable thereafter. The oxygenation was stable on mechanical ventilation. The sheaths were sutured she was transferred to the ICU. The device re-interrogated. Tachy therapies were turned on and atrial pacing with rate responsiveness was provided. Low-dose metoprolol was started. Eliquis was resumed. IMPRESSION: Successful ablation for atrial fibrillation with linear ablation in the left atrial septum, left atrial roof, which is the likely culprit of her atrial tachycardia, and linear ablation in the ridge between the left atrial appendage and the left-sided veins. Intracardiac echo at the end of the procedure revealed preserved LV systolic function, LVH and no pericardial effusion. MMODL / IJN: [id number] /
[2020-09-24 20:31] LABS: ALT 37 U/L (4-34); AST 49 U/L (14-36); African American GFR (CKD) >90 (>60 ml/min/1.73 sqM); Albumin 3.8 g/dL (3.5-5.0); Alkaline Phosphatase 117 U/L (38-126); Anion Gap 12 mmol/L; Blood Urea Nitrogen 19 mg/dL (7-17); Calcium 8.3 mg/dL (8.4-10.2); Carbon Dioxide 20 mmol/L (22-30); Chloride 106 mmol/L (98-107); Glucose 160 mg/dL (74-99); Non-African American GFR(CKD) 90 (>60 ml/min/1.73 sqM); Potassium 5.4 mmol/L (3.5-5.1); Sodium 138 mmol/L (137-145); Total Bilirubin 2.1 mg/dL (0.2-1.3)
[2020-09-24 21:44] LABS: Appearance,Urine Clear (Clear); Bilirubin,Urine Negative (Negative); Blood,Urine Negative (Negative); Color,Urine Light Yellow; Glucose,Urine (UA) Negative (Negative); Ketones,Urine Negative (Negative); Leukocyte Esterase,Urine Negative (Negative); Nitrite,Urine Negative (Negative); Protein,Urine Negative (Negative); Specific Gravity,Urine 1.006 (1.001-1.035); Urobilinogen,Urine <2.0 mg/dL (<2.0)
--- NOTE | 2020-09-24 23:07 | XR ---
EXAMINATION TYPE: XR chest 1V portable DATE OF EXAM: 09/24/2020 COMPARISON: Today HISTORY: Respiratory failure. Tube placement. TECHNIQUE: FINDINGS: There is endotracheal tube is 7 mm from the bear. There is nasogastric tube in the stomac h. There is left axillary pacemaker. There is some mild atelectasis in both lower lobes. Heart is enl arged. IMPRESSION: There is increased atelectasis in the lower lobes compared to exam 3 hours ago. Endotrach eal tube is low and should BE pulled back 3 cm. Cardiomegaly unchanged.
[2020-09-24] MEDS: CHLORHEXIDINE GLUCONATE 15 ML CUP MUCOUS MEM SCH (23:28)
[2020-09-24] MEDS: METOPROLOL TARTRATE 25 MG TAB PO SCH (23:28)
[2020-09-24] MEDS: APIXABAN 5 MG TAB PO SCH (23:28)
[2020-09-25 04:38] LABS: Glucose,Whole Blood 126 mg/dL (75-99)
[2020-09-25 04:42] LABS: Basophils % (A) 0 %; Eosinophils # (A) 0.1 k/uL (0-0.7); Eosinophils % (A) 1 %; HCT 42.8 % (34.0-46.0); HGB 14.3 gm/dL (11.4-16.0); Hypochromasia Slight; Lymphocytes # (A) 0.9 k/uL (1.0-4.8); Lymphocytes % (A) 9 %; MCH 31.1 pg (25.0-35.0); MCHC 33.6 g/dL (31.0-37.0); MCV 92.7 fL (80.0-100.0); Mean Platelet Volume 10.8; Monocytes # (A) 0.4 k/uL (0-1.0); Monocytes % (A) 4 %; Neutrophils # (A) 8.5 k/uL (1.3-7.7); Neutrophils % (A) 85 %; Platelet Count 151 k/uL (150-450); Poikilocytosis Slight; RBC 4.61 m/uL (3.80-5.40); RDW 14.7 % (11.5-15.5)
[2020-09-25 04:59] LABS: African American GFR (CKD) >90 (>60 ml/min/1.73 sqM); Anion Gap 9 mmol/L; Blood Urea Nitrogen 15 mg/dL (7-17); Calcium 8.8 mg/dL (8.4-10.2); Carbon Dioxide 21 mmol/L (22-30); Chloride 106 mmol/L (98-107); Glucose 129 mg/dL (74-99); Magnesium 1.8 mg/dL (1.6-2.3); Non-African American GFR(CKD) >90 (>60 ml/min/1.73 sqM); Phosphorus 4.4 mg/dL (2.5-4.5); Potassium 4.4 mmol/L (3.5-5.1); Sodium 136 mmol/L (137-145)
[2020-09-25 05:12] LABS: ABG Base Excess -1.7 mmol/L; ABG HCO3 22 mmol/L (21-25); ABG Oxygen Saturation 99.8 % (94-97); ABG PCO2 31 mmHg (35-45); ABG PH 7.46 (7.35-7.45); ABG PO2 133 mmHg (83-108); ABG TCO2 23 mmol/L (19-24); Allen Test Performed? Yes
[2020-09-25] MEDS: MAGNESIUM SULFATE-D5W PMX 1 GM in DEXTROSE/WATER 1 100ML.BAG IVPB SCH ×2 (05:33→06:44)
[2020-09-25] MEDS: SODIUM CHLORIDE 0.9% 1,000 ML IV SCH (06:44)
--- NOTE | 2020-09-25 07:29 | XR ---
EXAMINATION TYPE: XR chest 1V portable DATE OF EXAM: 09/25/2020 COMPARISON: 09/24/2020 HISTORY: SOB, Follow Up FINDINGS: Indwelling tubes and catheters are unchanged. Mild patchy basilar infiltrates noted. Persistent cardiomegaly. IMPRESSION: 1. Stable portable chest. Clinical correlation and follow up until resolution is recommended.
[2020-09-25] MEDS: CHLORHEXIDINE GLUCONATE 15 ML CUP MUCOUS MEM SCH ×2 (08:19→22:13)
[2020-09-25] MEDS: METOPROLOL TARTRATE 25 MG TAB PO SCH ×2 (08:19→22:12)
[2020-09-25] MEDS: APIXABAN 5 MG TAB PO SCH ×2 (08:19→22:12)
[2020-09-25] MEDS ORDERED: ATROPINE SULFATE 0.1 MG/ML 10ML SYRINGE ONE (09:51)
--- NOTE | 2020-09-25 10:44 | PN ---
PROGRESS NOTE Portia is a 35-year-old female who has hypertrophic cardiomyopathy and very symptomatic atrial fibrillation. She has previously undergone cryoablation of the pulmonary veins last year. She came back with an irregular atrial tachycardia suggestive for left atrial roof tachycardia. She underwent 3D electroanatomic mapping of the left atrium. She has a very significantly enlarged left atrium. The pulmonary veins were all completely isolated from her previous ablation. The left atrial roof and the septum of the left atrium appeared arrhythmogenic with catheter manipulation. She underwent a linear ablation in the septum, linear ablation in the roof as well as showed linear ablation in the ridge between the in the ridge between the left atrial appendage and left pulmonary veins. Following that, there was no atrial fibrillation with catheter manipulation. Subsequently she was tested on Isuprel with atrial pacing. However, she also received for blood pressure support and she went into ventricular fibrillation. She was successfully resuscitated. She has been stable every since. Heart rate in the 50s and 60s. Her blood pressure is in the normal range. Lungs are clear on auscultation. Heart sounds S1, S2. Abdomen is soft. Yesterday, the left groin sheaths were removed. She still has the right femoral artery line and right femoral venous line on the right side. From a cardiac standpoint, she may be extubated today. She looks quite stable. She has done well overnight. She is on Eliquis 5 mg twice daily, which needs to continue for stroke prevention. She is on a low dose of metoprolol at this time, but I plan to go back to her usual dose of at least 100 mg p.o. daily. I recently increased to 100 mg twice daily because she had atrial tachycardia with RVR, but now she will go back to 100 mg once daily upon discharge. Hopefully, she will be extubated today this morning. The sheaths will be removed. A Fernandez catheter will be discontinued. We will continue Eliquis and metoprolol and if all goes well, then hopefully by tomorrow she would be discharged home and will follow up with Dr. Dumont. NATHALIE / WILLI: [id number] /
[2020-09-25] MEDS ORDERED: propofoL 50 ML IV ONE ×2 (10:47→10:49)
--- NOTE | 2020-09-25 13:06 | P.CNPUL ---
History of Present Illness Consult date: 09/25/20 Requesting physician: Tim Gottlieb Reason for consult: other (Cardiac arrest requiring CPR and intubation in the cardiac cardiac cath technician.) Chief complaint: Cardiac arrest History of present illness: This is a 35-year-old female with known history of cardiomyopathy, LV dysfunction, previous AICD placement, history of chronic atrial fibrillation, patient underwent ablation yesterday. During the infusion of Isuprel, patient had ventricular fibrillation, her AICD fired few times, patient went into PEA, had CPR for few minutes, and there was shortly after return of spontaneous circulation. In the meantime the patient was intubated, mechanically ventilated, transferred to the ICU, and I was asked to see her on consultation. Patient remains in the ICU on mechanical ventilation. And she is on assist control rate of 12 tidal volume is 500 FiO2 is 50% PEEP of 5. Patient is on propofol at 55 mcg/kg/m, she is still sedated, not quite ready to be weaned and extubated, however I plan to hold propofol, awaken the patient, assess mental status, and assess weaning parameters, and if reasonable would proceed to weaning and extubation in the next few hours. ABG this morning showed a pO2 of 133 pCO2 of 31 pH of 7.46. CBC was normal. Electrolytes were noted to be normal. Renal profile was normal. Chest x-ray showed minimal bibasilar atelectasis, and cardiomegaly. Review of Systems ROS unobtainable: due to endotracheal tube Past Medical History Past Medical History: Atrial Fibrillation Additional Past Medical History / Comment(s): See Dr Gottlieb H&P, IBS, Migraines History of Any Multi-Drug Resistant Organisms: None Reported Past Surgical History: Section, Cholecystectomy, Pacemaker Additional Past Surgical History / Comment(s): Section X1. cardiac ablation 02/24/20, [facility] (AUG 2019) Past Anesthesia/Blood Transfusion Reactions: Motion Sickness, Postoperative Nausea & Vomiting (PONV) Type of Cardiac Device: Permanent Pacemaker Device Placement Date:: 08/2019 Past Psychological History: Anxiety, Depression Smoking Status: Never smoker Past Alcohol Use History: None Reported Past Drug Use History: None Reported - Past Family History Father Family Medical History: Cancer Additional Family Medical History / Comment(s): . Mother Family Medical History: Cancer Additional Family Medical History / Comment(s): . Sister(s) Additional Family Medical History / Comment(s): "heart problems" Medications and Allergies Home Medications Medication Instructions Recorded Confirmed Type Apixaban [Eliquis] 5 mg PO BID #60 tab 04/03/19 09/24/20 Rx SUMAtriptan succinate [Imitrex] 50 mg PO ONCE PRN 02/24/20 09/24/20 History Ergocalciferol (Vitamin D2) 1,250 mcg PO HEALY 09/15/20 09/24/20 History [Vitamin D2 (50,000 Iu)] Galcanezumab-Gnlm [Emgality Pen] 120 mg SQ QMONTHLY 09/15/20 09/24/20 History Omeprazole 40 mg PO DAILY 09/15/20 09/24/20 History Metoprolol Succinate (ER) [Toprol 100 mg PO BID 30 Days #60 09/17/20 09/24/20 Rx XL] tab.er.24h Allergies Allergy/AdvReac Type Severity Reaction Status Date / Time No Known Allergies Allergy Verified 09/24/20 10:12 Physical Exam Vitals: Vital Signs Temp Pulse Resp BP Pulse Ox 09/25/20 08:00 98.0 F 50 L 18 115/80 97 09/25/20 07:00 49 L 20 127/81 97 09/25/20 06:00 50 L 20 144/99 98 09/25/20 05:00 49 L 22 117/84 96 09/25/20 04:00 97.9 F 51 L 21 118/80 96 09/25/20 03:00 51 L 19 123/82 96 09/25/20 02:00 51 L 17 113/66 98 09/25/20 01:00 52 L 17 120/70 96 09/25/20 00:00 97.8 F 52 L 21 127/83 97 09/24/20 23:00 54 L 20 123/83 96 09/24/20 22:00 60 21 119/72 98 09/24/20 21:45 60 20 112/65 95 09/24/20 21:30 54 L 18 117/67 95 09/24/20 21:15 54 L 18 111/73 96 09/24/20 21:00 54 L 18 118/70 96 09/24/20 20:45 54 L 34 H 107/71 97 09/24/20 20:30 54 L 33 H 115/70 96 09/24/20 20:15 53 L 23 108/65 98 09/24/20 20:00 97.6 F 54 L 26 H 114/67 98 09/24/20 19:45 54 L 21 116/66 98 09/24/20 19:40 54 L 24 116/66 98 09/24/20 19:30 55 L 20 111/67 98 09/24/20 19:20 60 20 111/67 99 09/24/20 19:10 60 14 116/66 99 Intake and Output 09/24/20 09/25/20 09/25/20 22:59 06:59 14:59 Intake Total 1588.714 591.947 204.824 Output Total 1375 855 210 Balance 213.714 -263.053 -5.176 Intake: IV 1544.67 424 159 Sodium Chloride 0.9% 1, 200 400 150 000 ml @ 50 mls/hr IV . Q20H [facility] Rx#:[id number] a-[facility] 9 24 9 Intake, IV Titration 44.044 167.947 45.824 Amount propofoL 1,000 mg In 44.044 167.947 16.11 Empty Bag 1 bag @ Titrate IV .Q0M [facility] Rx#: [id number] propofoL 500 mg In Empty 29.714 Bag 1 bag @ Titrate IV . Q0M [facility] Rx#:[id number] Output: Urine 1375 855 210 Other: Voiding Method Indwelling Catheter Indwelling Catheter Weight 90.718 kg 89.5 kg ABP, PAP, CO, CI - Last 8 Hours Arterial Blood Pressure 159/78 Physical Exam: Revealed 35-year-old female, obese, in no distress. Intubated and mechanically ventilated. Head: Atraumatic, normocephalic. HEENT:[Neck is supple.] [No neck masses.] [No thyromegaly.] [No JVD.] E ndotracheal tube and orogastric tubes are intact. Chest: [Clear throughout, no crackles, no rhonchi, no wheezes.] Cardiac Exam: [Normal S1 and S2, no S3 gallop, no murmur.] Abdomen: [Obese, Soft, nontender, no megaly, no rebound, no guarding, normal bowel sounds.] Extremities: [No clubbing, no edema, no cyanosis.] Vascular sheath noted in the right groin. Neurological Exam: Could not assess, patient is on propofol at present. Psychiatric: Could not assess. Skin: No rashes. Results - Laboratory Findings CBC and BMP: 09/25/20 04:30 09/25/20 04:30 ABG ABG pH 7.46 (7.35-7.45) H 09/25/20 05:08 ABG pCO2 31 mmHg (35-45) L 09/25/20 05:08 ABG pO2 133 mmHg (83-108) H 09/25/20 05:08 ABG O2 Saturation 99.8 % (94-97) H 09/25/20 05:08 Abnormal lab findings: Abnormal Labs 09/24/20 09/24/20 09/24/20 17:37 17:37 17:37 WBC 12.9 H Hct 47.6 H Neutrophils # 11.5 H Lymphocytes # 0.9 L ABG pH 7.15 L* ABG pCO2 50 H ABG pO2 232 H ABG HCO3 17 L ABG O2 Saturation 99.3 H Sodium Potassium Carbon Dioxide 21 L BUN 19 H Creatinine 1.16 H Glucose 195 H POC Glucose (mg/dL) Calcium 8.1 L Total Bilirubin AST ALT Troponin I 09/24/20 09/24/20 09/24/20 17:57 19:07 19:17 WBC Hct Neutrophils # Lymphocytes # ABG pH 7.24 L 7.29 L ABG pCO2 ABG pO2 216 H 244 H ABG HCO3 18 L 20 L ABG O2 Saturation 99.4 H 100.0 H Sodium Potassium Carbon Dioxide BUN Creatinine Glucose POC Glucose (mg/dL) 150 H Calcium Total Bilirubin AST ALT Troponin I 09/24/20 09/24/20 09/24/20 19:55 19:57 19:57 WBC 17.1 H Hct Neutrophils # Lymphocytes # ABG pH ABG pCO2 ABG pO2 ABG HCO3 ABG O2 Saturation Sodium Potassium 5.4 H Carbon Dioxide 20 L BUN 19 H Creatinine Glucose 160 H POC Glucose (mg/dL) 166 H Calcium 8.3 L Total Bilirubin 2.1 H AST 49 H ALT 37 H Troponin I 09/24/20 09/25/20 09/25/20 19:57 04:30 04:30 WBC Hct Neutrophils # 8.5 H Lymphocytes # 0.9 L ABG pH ABG pCO2 ABG pO2 ABG HCO3 ABG O2 Saturation Sodium 136 L Potassium Carbon Dioxide 21 L BUN Creatinine Glucose 129 H POC Glucose (mg/dL) Calcium Total Bilirubin AST ALT Troponin I 0.054 H* 09/25/20 09/25/20 09/25/20 04:30 04:35 05:08 WBC Hct Neutrophils # Lymphocytes # ABG pH 7.46 H ABG pCO2 31 L ABG pO2 133 H ABG HCO3 ABG O2 Saturation 99.8 H Sodium Potassium Carbon Dioxide BUN Creatinine Glucose POC Glucose (mg/dL) 126 H Calcium Total Bilirubin AST ALT Troponin I 0.141 H* - Diagnostic Findings Chest x-ray: image reviewed (As noted in HPI.) Assessment and Plan Assessment: Impression: Cardiac arrest secondary to cardiac arrhythmia/ventricular fibrillation, requiring CPR, supposedly 4-5 minutes. Acute hypoxic respiratory failure secondary to cardiac arrest requiring intubation and mechanical ventilation. History of hypertrophic cardiomyopathy Chronic atrial fibrillation. Previous history of cryoablation of the pulmonary veins last year. History of dual-chamber ICD implantation. Recommendation: Patient will be kept on mechanical ventilation for now. Will discontinue propofol, awaken the patient, assess mental status. Assess weaning after assessment of mental status. Patient could be placed on pressure support of 8 and CPAP if weaning parameters are adequate. Will likely extubate today assuming her mental status is intact and assuming the patient did not develop any anoxic brain injury.. Weaning was delayed mostly because of removal of the vascular sheath from the right groin. This was done by cardiology We'll continue to follow Time with Patient: Greater than 30
[2020-09-25] MEDS: ACETAMINOPHEN TAB 325 MG TAB PO PRN (22:11)
[2020-09-25] MEDS: MELATONIN 3 MG TABLET PO SCH (22:12)
[2020-09-26] MEDS: SODIUM CHLORIDE 0.9% 1,000 ML IV SCH ×2 (00:27→20:14)
[2020-09-26] MEDS ORDERED: SODIUM CHLORIDE 0.9% 500 ML 500 ML IV ONE (00:40)
[2020-09-26 03:37] LABS: Basophils # (A) 0.1 k/uL (0-0.2); Basophils % (A) 1 %; Eosinophils % (A) 0 %; HCT 42.3 % (34.0-46.0); HGB 13.6 gm/dL (11.4-16.0); Hypochromasia Slight; Lymphocytes # (A) 1.6 k/uL (1.0-4.8); Lymphocytes % (A) 14 %; MCH 30.2 pg (25.0-35.0); MCHC 32.1 g/dL (31.0-37.0); MCV 94.3 fL (80.0-100.0); Mean Platelet Volume 10.4; Monocytes # (A) 0.6 k/uL (0-1.0); Monocytes % (A) 5 %; Neutrophils # (A) 9.1 k/uL (1.3-7.7); Neutrophils % (A) 78 %; Platelet Count 168 k/uL (150-450); Poikilocytosis Slight; RBC 4.48 m/uL (3.80-5.40); RDW 15.1 % (11.5-15.5); WBC 11.6 k/uL (3.8-10.6)
[2020-09-26 03:55] LABS: African American GFR (CKD) >90 (>60 ml/min/1.73 sqM); Anion Gap 9 mmol/L; Blood Urea Nitrogen 17 mg/dL (7-17); Calcium 8.6 mg/dL (8.4-10.2); Carbon Dioxide 24 mmol/L (22-30); Chloride 106 mmol/L (98-107); Glucose 126 mg/dL (74-99); Magnesium 2.1 mg/dL (1.6-2.3); Non-African American GFR(CKD) 87 (>60 ml/min/1.73 sqM); Potassium 4.2 mmol/L (3.5-5.1); Sodium 139 mmol/L (137-145)
--- NOTE | 2020-09-26 07:38 | XR ---
EXAMINATION TYPE: XR chest 1V portable DATE OF EXAM: 09/26/2020 COMPARISON: Chest x-ray 09/25/2020 HISTORY: Extubated, abnormal chest x-ray TECHNIQUE: Single frontal view of the chest is obtained. FINDINGS: Interval removal of the endotracheal tube, NG tube. Defibrillator is stable. Heart remains enlarged. No evident pneumothorax or pleural effusion. Patchy basilar density is noted. IMPRESSION: Interval extubation. Correlate for pneumonia, edema, atelectasis. Cardiomegaly persists.
[2020-09-26] MEDS ORDERED: FUROSEMIDE 10 MG/ML 4 ML VIAL IV STA (08:11)
[2020-09-26] MEDS: APIXABAN 5 MG TAB PO SCH ×2 (09:02→20:14)
[2020-09-26] MEDS: METOPROLOL TARTRATE 50 MG TAB PO SCH ×2 (09:07→20:14)
--- NOTE | 2020-09-26 09:17 | P.PN ---
Subjective Progress Note Date: 09/26/20 This is a very pleasant 35-year-old female patient with hypertrophic obstructive cardiomyopathy and paroxysmal atrial fibrillation and status post AICD who underwent 2 days ago successful atrial fibrillation ablation complicated by cardiac arrest with V. fib. The patient associated for 4 minutes and initially she was intubated and extubated. She was seen this morning. She is doing well from the cardiovascular standpoint of view. She is awake and alert and oriented 3. She is hemodynamically stable going to increase the dose of metoprolol to 50 mg by mouth twice a day and from a cardiovascular standpoint of view, patient can be transferred to the third floor Objective - Vital Signs Vital signs: Vital Signs Temp 98.3 F 09/26/20 04:00 Pulse 63 09/26/20 07:00 Resp 19 09/26/20 07:00 BP 126/83 09/26/20 07:00 Pulse Ox 96 09/26/20 07:00 Intake & Output 09/25/20 09/26/20 09/26/20 18:59 06:59 18:59 Intake Total 594.906 0412 50 Output Total 1165 420 45 Balance -410.636 630 5 Weight 94.4 kg Intake: IV 662 1050 50 Sodium Chloride 0.9% 1, 650 550 50 000 ml @ 50 mls/hr IV . Q[facility]H [facility] Rx#:[id number] Sodium Chloride 0.9% 500 500 ml 500 ml @ 999 mls/hr IV .Q31M [facility] Rx#:[id number] a-line 12 Intake, IV Titration 92.364 Amount propofoL 1,000 mg In 16.11 Empty Bag 1 bag @ Titrate IV .Q0M [facility] Rx#: [id number] propofoL 500 mg In Empty 76.254 Bag 1 bag @ Titrate IV . Q0M [facility] Rx#:[id number] Output: Urine 1165 420 45 Other: Voiding Method Indwelling Catheter Indwelling Catheter ABP, PAP, CO, CI - Last Documented Arterial Blood Pressure 159/78 - Constitutional General appearance: Present: no acute distress - Respiratory Respiratory: bilateral: CTA - Cardiovascular Rhythm: regular Heart sounds: normal: S1, S2 Abnormal Heart Sounds: Present: systolic murmur - Labs CBC & Chem 7: 09/26/20 03:24 09/26/20 03:24 Labs: Abnormal Lab Results - Last 24 Hours (Table) 09/26/20 09/26/20 Range/Units 03:24 03:24 WBC 11.6 H (3.8-10.6) k/uL Neutrophils # 9.1 H (1.3-7.7) k/uL Glucose 126 H (74-99) mg/dL Assessment and Plan Assessment: Assessment #1 status post atrial fibrillation ablation #2 cardiopulmonary arrest #3 paroxysmal atrial fibrillation #4 hypertrophic cardiomyopathy Plan #1 increase the dose of metoprolol #2 the patient can be transferred to the floor
[2020-09-26] MEDS: ACETAMINOPHEN TAB 325 MG TAB PO PRN (09:20)
--- NOTE | 2020-09-26 12:00 | P.PN ---
Subjective Progress Note Date: 09/26/20 Principal diagnosis: Cardiac arrest, ventricular fibrillation This is a 35-year-old female with known history of cardiomyopathy, LV dysfunction, previous AICD placement, history of chronic atrial fibrillation, patient underwent ablation yesterday. During the infusion of Isuprel, patient had ventricular fibrillation, her AICD fired few times, patient went into PEA, had CPR for few minutes, and there was shortly after return of spontaneous circulation. In the meantime the patient was intubated, mechanically ventilated, transferred to the ICU, and I was asked to see her on consultation. Patient remains in the ICU on mechanical ventilation. And she is on assist control rate of 12 tidal volume is 500 FiO2 is 50% PEEP of 5. Patient is on propofol at 55 mcg/kg/m, she is still sedated, not quite ready to be weaned and extubated, however I plan to hold propofol, awaken the patient, assess mental status, and assess weaning parameters, and if reasonable would proceed to weaning and extubation in the next few hours. ABG this morning showed a pO2 of 133 pCO2 of 31 pH of 7.46. CBC was normal. Electrolytes were noted to be normal. Renal profile was normal. Chest x-ray showed minimal bibasilar atelectasis, and cardiomegaly. Patient was reevaluated today on 09/26/2020, remains in the ICU, patient had uneventful extubation yesterday. Patient feels sore, and achy, otherwise she denies any shortness of breath, no cough, no fever, chills, she is maintained on 2 L nasal cannula, and she is doing great. Patient had marginal urine output in spite of fluid boluses last night, hence I recommended a dose of Lasix to be given today 140 mg IV push. After evaluating the patient, I recommended that she could be transferred out of the ICU to a monitor bed on . Patient will be seen and cleared by cardiology also CBC is normal electrolytes are normal, renal profile is normal. Chest x-ray is also normal except for cardiomegaly. No evidence of CHF Objective - Vital Signs Vital signs: Vital Signs Temp 98.0 F 09/26/20 08:00 Pulse 54 L 09/26/20 10:00 Resp 14 09/26/20 10:00 BP 136/80 09/26/20 10:00 Pulse Ox 98 09/26/20 10:00 Intake & Output 09/25/20 09/26/20 09/26/20 18:59 06:59 18:59 Intake Total 317.485 6840 150 Output Total 1165 420 105 Balance -410.636 630 45 Weight 94.4 kg Intake: IV 662 1050 150 Sodium Chloride 0.9% 1, 650 550 150 000 ml @ 50 mls/hr IV . Q20H [facility] Rx#:[id number] Sodium Chloride 0.9% 500 500 ml 500 ml @ 999 mls/hr IV .Q31M [facility] Rx#:[id number] a-line 12 Intake, IV Titration 92.364 Amount propofoL 1,000 mg In 16.11 Empty Bag 1 bag @ Titrate IV .Q0M [facility] Rx#: [id number] propofoL 500 mg In Empty 76.254 Bag 1 bag @ Titrate IV . Q0M [facility] Rx#:[id number] Output: Urine 1165 420 105 Other: Voiding Method Indwelling Catheter Indwelling Catheter ABP, PAP, CO, CI - Last Documented Arterial Blood Pressure 159/78 - Exam Physical Exam: Revealed 35-year-old female, obese, in no distress. On 2 L nasal cannula. Head: Atraumatic, normocephalic. HEENT:[Neck is supple.] [No neck masses.] [No thyromegaly.] [No JVD.] Chest: [Clear throughout, no crackles, no rhonchi, no wheezes.] Cardiac Exam: [Normal S1 and S2, no S3 gallop, no murmur.] Abdomen: [Obese, Soft, nontender, no megaly, no rebound, no guarding, normal bowel sounds.] Extremities: [No clubbing, no edema, no cyanosis.] Vascular sheath noted in the right groin. Neurological Exam: Alert and oriented 3 focal deficits. Psychiatric: Normal mood, affect and normal mental status examination. Skin: No rashes. - Labs CBC & Chem 7: 09/26/20 03:24 09/26/20 03:24 Labs: Abnormal Lab Results - Last 24 Hours (Table) 09/26/20 09/26/20 Range/Units 03:24 03:24 WBC 11.6 H (3.8-10.6) k/uL Neutrophils # 9.1 H (1.3-7.7) k/uL Glucose 126 H (74-99) mg/dL Assessment and Plan Assessment: Impression: Cardiac arrest secondary to cardiac arrhythmia/ventricular fibrillation, requiring CPR, supposedly 4-5 minutes. Acute hypoxic respiratory failure secondary to cardiac arrest requiring intubation and mechanical ventilation. History of hypertrophic cardiomyopathy Chronic atrial fibrillation. Previous history of cryoablation of the pulmonary veins last year. History of dual-chamber ICD implantation. Recommendation: Continue present treatment plan, 1 dose of Lasix was given for low urine output. Will transfer patient out of the ICU to a monitor bed on selective. Cardiology to decide on discharge planning in the next 24-48 hours. We'll continue to follow as needed. Time with Patient: Less than 30
[2020-09-26] MEDS: MELATONIN 3 MG TABLET PO SCH (20:14)
[2020-09-26 20:41] VITALS: RESP 18
[2020-09-27] MEDS: ACETAMINOPHEN TAB 325 MG TAB PO PRN (04:58)
[2020-09-27 07:53] LABS: Basophils # (A) 0.1 k/uL (0-0.2); Basophils % (A) 1 %; Eosinophils # (A) 0.1 k/uL (0-0.7); Eosinophils % (A) 1 %; HCT 44.3 % (34.0-46.0); HGB 14.8 gm/dL (11.4-16.0); Hypochromasia Slight; Lymphocytes % (A) 19 %; MCH 31.2 pg (25.0-35.0); MCHC 33.3 g/dL (31.0-37.0); MCV 93.5 fL (80.0-100.0); Mean Platelet Volume 9.9; Monocytes # (A) 0.7 k/uL (0-1.0); Monocytes % (A) 7 %; Neutrophils # (A) 7.6 k/uL (1.3-7.7); Neutrophils % (A) 72 %; Platelet Count 149 k/uL (150-450); Poikilocytosis Slight; RBC 4.74 m/uL (3.80-5.40); RDW 14.6 % (11.5-15.5); WBC 10.6 k/uL (3.8-10.6)
[2020-09-27] MEDS: APIXABAN 5 MG TAB PO SCH (08:11)
[2020-09-27] MEDS: METOPROLOL TARTRATE 50 MG TAB PO SCH (08:11)
[2020-09-27 08:17] LABS: African American GFR (CKD) >90 (>60 ml/min/1.73 sqM); Anion Gap 7 mmol/L; Blood Urea Nitrogen 14 mg/dL (7-17); Calcium 8.9 mg/dL (8.4-10.2); Carbon Dioxide 27 mmol/L (22-30); Chloride 101 mmol/L (98-107); Glucose 102 mg/dL (74-99); Non-African American GFR(CKD) >90 (>60 ml/min/1.73 sqM); Potassium 3.7 mmol/L (3.5-5.1); Sodium 135 mmol/L (137-145)
[2020-09-27] MEDS ORDERED: METOPROLOL SUCCINATE (ER) 100 MG TAB.ER.24H PO SCH (09:00)
--- NOTE | 2020-09-27 11:11 | P.PN ---
Subjective Progress Note Date: 09/27/20 This is a pleasant 35-year-old female with documented history of hypertrophic obstructive cardiomyopathy, LV dysfunction, prior AICD implantation, chronic atrial fibrillation who underwent an ablation procedure on arrival here. Patient went into ventricular fibrillation, her AICD discharged a few times, she went into PEA, required CPR for a few minutes and shortly thereafter return of spontaneous circulation. In the meantime the patient was intubated and mechanically ventilated, transferred to the intensive care unit. She was seen and examined today on the telemetry unit. She feels well, denies any palpitations, no chest discomfort, no dizziness or lightheadedness. Blood pressure 115/60 with a heart rate of 6097% on room air. White blood cell count 10.6, hemoglobin 14.8, platelet count 149. Sodium 135, potassium 3.7, BUN 14, creatinine 0.8. She is in a normal sinus rhythm. Objective - Vital Signs Vital signs: Vital Signs Temp 97.7 F 09/27/20 08:05 Pulse 66 09/27/20 08:05 Resp 18 09/27/20 08:05 BP 115/61 09/27/20 08:05 Pulse Ox 97 09/27/20 08:05 Intake & Output 09/26/20 09/27/20 09/27/20 18:59 06:59 18:59 Intake Total 500 240 Output Total 3875 450 Balance -3375 -450 240 Weight 90 kg Intake: IV 500 Sodium Chloride 0.9% 1, 500 000 ml @ 50 mls/hr IV . Q20H [facility] Rx#:[id number] Oral 240 Output: Urine 3875 450 Other: Voiding Method Indwelling Catheter Toilet ABP, PAP, CO, CI - Last Documented Arterial Blood Pressure 159/78 - Exam Physical Exam: Revealed 35-year-old female, obese, in no distress. On 2 L nasal cannula. Head: Atraumatic, normocephalic. HEENT:[Neck is supple.] [No neck masses.] [No thyromegaly.] [No JVD.] Chest: [Clear throughout, no crackles, no rhonchi, no wheezes.] Cardiac Exam: [Normal S1 and S2, no S3 gallop, no murmur.] Abdomen: [Obese, Soft, nontender, no megaly, no rebound, no guarding, normal bowel sounds.] Extremities: [No clubbing, no edema, no cyanosis.] Vascular sheath noted in the right groin. Neurological Exam: Alert and oriented 3 focal deficits. Psychiatric: Normal mood, affect and normal mental status examination. Skin: No rashes. - Labs CBC & Chem 7: 09/27/20 07:12 09/27/20 07:12 Labs: Abnormal Lab Results - Last 24 Hours (Table) 09/27/20 09/27/20 Range/Units 07:12 07:12 Plt Count 149 L (150-450) k/uL Sodium 135 L (137-145) mmol/L Glucose 102 H (74-99) mg/dL Assessment and Plan Plan: Assessment and plan #1Cardiac arrest secondary to cardiac arrhythmia/ventricular fibrillation, r equiring CPR, supposedly 4-5 minutes. #2Acute hypoxic respiratory failure secondary to cardiac arrest requiring intubation and mechanical ventilation. #3History of hypertrophic cardiomyopathy #4Chronic atrial fibrillation. #5Previous history of cryoablation of the pulmonary veins last year. #6History of dual-chamber ICD implantation. Plan We will discontinue the metoprolol today and start the patient on Toprol-XL. She may be able to be discharged home from our perspective. We will make her a follow-up appointment to see Dr. Love in the office post discharge. DNP note has been reviewed, I agree with a documented findings and plan of care. Patient was seen and examined.
[2020-09-27 12:39] VITALS: BP 128/76; PULSE 60; TEMP 97.4
[2020-09-27] MEDS: SODIUM CHLORIDE 0.9% 1,000 ML IV SCH (14:22)
--- NOTE | 2020-09-29 15:26 | CDI ---
Documentation Clarification Form Date: 09/29/2020 03:24:00 PM From: Fabiola Lamas CCS Phone: If you have a question about this query, please contact Lakia Avendano [employer] Machine Operator at [phone] between 8am and 5pm Admit Date: 09/24/2020 06:05:00 PM Patient Name: Portia Johnson Visit Number: [id number] Discharge Date: 09/27/2020 03:36:00 PM ATTENTION: The Clinical Documentation Specialists (CDI) and [facility] Coding Staff appreciate your assistance in clarifying documentation. Please respond to the clarification below the line at the bottom and electronically sign. The CDI & [facility] Coding staff will review the response and follow-up if needed. Please note: Queries are made part of the Legal Health Record. If you have any questions, please contact the author of this message via ITS. Dr. Tim Gottlieb Successful atrial fibrillation ablation complicated by cardiac arrest with V. fib.is documented in the 09/26 PN. Procedure note documents: The patient was started on Isuprel wide open for a minute and then at 2 mcg. Within a minute she went into ventricular fibrillation.Of note, she had received ephedrine for blood pressure support a few minutes prior to starting Isuprel. ACLS protocol was followed, and within 5 minutes we were able to resuscitate her.She was quite a large lady, and finally her ICD internal shock was successfully defibrillated to sinus rhythm.CPR was performed at that time. Patient underwent ablation for atrial fibrillation This is a long procedure primarily on account of a very difficult transseptal with a 2 to an enlarged right atrium and enlarged left atrium Patients Admitting Diagnosis: Atrial Fibrillation Post-Operative Diagnosis: Same Procedure performed: EPS Ablation History/Risk Factors: Atrial Fibrillation, ICD status, Obstructive CMP Clinical Indicators: VFIB, Cardiac Arrest, Acute Resp Failure Treatment: CPR, Epinephrine, Vent In order to accurately reflect this patients severity of illness, please clarify if cardiac arrest is the result of the surgical procedure? Cardiac arrest is a complication of the procedure Cardiac arrest as a result of (not due to procedure) Other, please specify Unable to determine Patient went into cardiac arrest after successful and uncomplicated completion of the A. fib ablation and was related to underlying hypertrophic cardio myopathy and medications given post ablation for testing including ephedrine and Isuprel MTDD
== END 2020-09-27 15:36 | disposition home or self-care (01) | DRG 273 ==
LOC: CATHEP 09:55 → 2SICU 18:05 → 3SCARD 09-26 18:50
PROVIDERS: ADMIT Internal Medicine Clinical Cardiac Electrophysiology; ATTEND Internal Medicine Clinical Cardiac Electrophysiology
PROC: 02583ZZ Destruction of Conduction Mechanism, Percutaneous Approach (ICD-10-PCS; principal; 2020-09-24 12:10)
PROC: 4A023FZ Measurement of Cardiac Rhythm, Percutaneous Approach (ICD-10-PCS; 2020-09-24 12:10)
PROC: 4A0234Z Measurement of Cardiac Electrical Activity, Percutaneous Approach (ICD-10-PCS; 2020-09-24 12:10)
PROC: 5A12012 Performance of Cardiac Output, Single, Manual (ICD-10-PCS; 2020-09-24 12:10)
PROC: 5A1935Z Respiratory Ventilation, Less than 24 Consecutive Hours (ICD-10-PCS; 2020-09-25)
DX: I48.0 Paroxysmal atrial fibrillation (principal); J96.01 Acute respiratory failure with hypoxia; I46.2 Cardiac arrest due to underlying cardiac condition; I47.1 Supraventricular tachycardia; I49.01 Ventricular fibrillation; I42.1 Obstructive hypertrophic cardiomyopathy; G43.909 Migraine, unspecified, not intractable, without status migrainosus; K58.9 Irritable bowel syndrome, unspecified; T44.995A Adverse effect of other drug primarily affecting the autonomic nervous system, initial encounter; T48.6X5A Adverse effect of antiasthmatics, initial encounter; F32.9 Major depressive disorder, single episode, unspecified; F41.9 Anxiety disorder, unspecified; Z79.01 Long term (current) use of anticoagulants; Z79.899 Other long term (current) drug therapy; Z90.49 Acquired absence of other specified parts of digestive tract; Z95.810 Presence of automatic (implantable) cardiac defibrillator; Z80.9 Family history of malignant neoplasm, unspecified
CPT/HCPCS: 71045; 80048; 80053; 81003; 81025; 82805; 83735; 83880; 84100; 84484; 85025; 85027; 85347; 93613; 93623; 93656; 93657; 93662; 94002; 94003

== ENCOUNTER 2020-12-19 10:37 | Emergency (ER) | payer OTHER ==
[2020-12-19 10:44] VITALS: TEMP 97.8
--- NOTE | 2020-12-19 11:04 | ED ---
Arrhythmia/Palpitations HPI - General Chief Complaint: Arrhythmia/Palpitations Stated Complaint: AFIB Time Seen by Provider: 12/19/20 10:47 Source: patient Mode of arrival: ambulatory Limitations: no limitations - History of Present Illness Initial Comments: 35-year-old female with history of A. fib, cardiomyopathy presents to the emergency department with a chief complaint of palpitations. Patient reports this occurred about 9 AM while she was eating cereal. Patient reports a sudden onset of chest palpitations and also developed some cold sweats. Patient also reports a brief period of shortness of breath. Patient states this whole phenomena lasted for about 10-15 minutes and resolved spontaneously by the time the paramedics arrived. Patient reports she has history of these episodes and typically is admitted to the hospital because the arrhythmia continues for prolonged periods of time. She sees for cardiology. Currently on meto prolol and eliquis. - Related Data Home Medications Medication Instructions Recorded Confirmed SUMAtriptan succinate [Imitrex] 50 mg PO DAILY PRN 02/24/20 12/19/20 Galcanezumab-Gnlm [Emgality Pen] 120 mg SQ QMONTHLY 09/15/20 12/19/20 Omeprazole 40 mg PO DAILY 09/15/20 12/19/20 Cholecalciferol (Vitamin D3) 125 mcg PO DAILY 12/19/20 12/19/20 [Vitamin D3 (5000 Iu)] Previous Rx's Medication Instructions Recorded Apixaban [Eliquis] 5 mg PO BID #60 tab 04/03/19 Metoprolol Succinate (ER) [Toprol 100 mg PO BID 30 Days #60 09/17/20 XL] tab.er.24h Allergies Allergy/AdvReac Type Severity Reaction Status Date / Time No Known Allergies Allergy Verified 12/19/20 11:20 Review of Systems ROS Statement: Those systems with pertinent positive or pertinent negative responses have been documented in the HPI. ROS Other: All systems not noted in ROS Statement are negative. Past Medical History Past Medical History: Atrial Fibrillation Additional Past Medical History / Comment(s): See Dr Gottlieb H&P, IBS, Migraines History of Any Multi-Drug Resistant Organisms: None Reported Past Surgical History: Section, Cholecystectomy, Pacemaker Additional Past Surgical History / Comment(s): Section X1. cardiac ablation 02/24/20, PAC[facility]AK[facility] (AUG 2019) Past Anesthesia/Blood Transfusion Reactions: Motion Sickness, Postoperative Naus ea & Vomiting (PONV) Type of Cardiac Device: Permanent Pacemaker Device Placement Date:: 08/2019 Past Psychological History: Anxiety, Depression Smoking Status: Never smoker Past Alcohol Use History: None Reported Past Drug Use History: None Reported - Past Family History Father Family Medical History: Cancer Additional Family Medical History / Comment(s): . Mother Family Medical History: Cancer Additional Family Medical History / Comment(s): . Sister(s) Additional Family Medical History / Comment(s): "heart problems" General Exam Limitations: no limitations General appearance: alert, in no apparent distress, obese Head exam: Present: atraumatic, normocephalic, normal inspection Eye exam: Present: normal appearance, PERRL, EOMI Pupils: Present: normal accommodation ENT exam: Present: normal exam, normal oropharynx, mucous membranes moist, TM's normal bilaterally, normal external ear exam Neck exam: Present: normal inspection, full ROM. Absent: tenderness Respiratory exam: Present: normal lung sounds bilaterally. Absent: respiratory distress, wheezes, rales, rhonchi, stridor, chest wall tenderness, accessory muscle use Cardiovascular Exam: Present: regular rate, normal rhythm, normal heart sounds. Absent: bradycardia, systolic murmur, diastolic murmur GI/Abdominal exam: Present: soft. Absent: distended, tenderness, guarding, rebound Extremities exam: Present: normal inspection, full ROM, normal capillary refill. Absent: tenderness, pedal edema, joint swelling Back exam: Present: normal inspection, full ROM. Absent: tenderness, CVA tender ness (R), CVA tenderness (L) Neurological exam: Present: alert, oriented X3 Psychiatric exam: Present: normal affect, normal mood Skin exam: Present: warm, dry, intact, normal color Course Vital Signs 12/19/20 10:41 Temperature 97.8 F Pulse Rate 60 Respiratory 18 Rate Blood Pressure 118/82 O2 Sat by Pulse 100 Oximetry EKG Findings - EKG Comments: EKG Findings:: Atrial pacemaker with left sided ventricular hypertrophy. Ventricular rate 69, OH 198, QRS 78, QTC 462. Medical Decision Making - Medical Decision Making 35-year-old female with history of A. fib, cardiomyopathy presents to the emergency department with a chief complaint of palpitations. Physical examination is unremarkable. Patient does not have any symptoms while she was in the emergency department. Chest x-ray reveals stable cardiomegaly. CBC reveals some hemoconcentration. Coags within normal limits. Troponin is negative. CMP reveals BUN of 18. Possibly mild dehydration. I reviewed the medical record, patient has been previous similar for A. fib with RVR. This time she maintained a stable rhythm. Patient has recommended an appointment with a insurance underwriter sales on Monday. Stable vital signs. Strict return parameters were thoroughly discussed with patient who is understandable and agreeable. Case discussed with Dr. Boucher. - Lab Data Result diagrams: 12/19/20 11:05 12/19/20 11:05 Lab Results 12/19/20 12/19/20 12/19/20 Range/Units 11:05 11:05 11:05 WBC 9.8 (3.8-10.6) k/uL RBC 6.11 H (3.80-5.40) m/uL Hgb 19.0 H (11.4-16.0) gm/dL Hct 54.9 H (34.0-46.0) % MCV 89.8 (80.0-100.0) fL MCH 31.0 (25.0-35.0) pg MCHC 34.5 (31.0-37.0) g/dL RDW 13.7 (11.5-15.5) % Plt Count 191 (150-450) k/uL MPV 10.2 Neutrophils % 79 % Lymphocytes % 13 % Monocytes % 5 % Eosinophils % 1 % Basophils % 1 % Neutrophils # 7.8 H (1.3-7.7) k/uL Lymphocytes # 1.3 (1.0-4.8) k/uL Monocytes # 0.4 (0-1.0) k/uL Eosinophils # 0.1 (0-0.7) k/uL Basophils # 0.1 (0-0.2) k/uL PT 11.8 (9.0-12.0) sec INR 1.1 (<1.2) APTT 26.5 (22.0-30.0) sec Sodium 140 (137-145) mmol/L Potassium 4.4 (3.5-5.1) mmol/L Chloride 105 (98-107) mmol/L Carbon Dioxide 24 (22-30) mmol/L Anion Gap 11 mmol/L BUN 18 H (7-17) mg/dL Creatinine 0.82 (0.52-1.04) mg/dL Est GFR (CKD-EPI)AfAm >90 (>60 ml/min/1.73 sqM) Est GFR (CKD-EPI)NonAf >90 (>60 ml/min/1.73 sqM) Glucose 133 H (74-99) mg/dL Calcium 9.9 (8.4-10.2) mg/dL Magnesium 2.0 (1.6-2.3) mg/dL Total Bilirubin 2.1 H (0.2-1.3) mg/dL AST 56 H (14-36) U/L ALT 57 H (4-34) U/L Alkaline Phosphatase 139 H (38-126) U/L Troponin I (0.000-0.034) ng/mL Total Protein 8.2 (6.3-8.2) g/dL Albumin 4.8 (3.5-5.0) g/dL 12/19/20 Range/Units 11:05 WBC (3.8-10.6) k/uL RBC (3.80-5.40) m/uL Hgb (11.4-16.0) gm/dL Hct (34.0-46.0) % MCV (80.0-100.0) fL MCH (25.0-35.0) pg MCHC (31.0-37.0) g/dL RDW (11.5-15.5) % Plt Count (150-450) k/uL MPV Neutrophils % % Lymphocytes % % Monocytes % % Eosinophils % % Basophils % % Neutrophils # (1.3-7.7) k/uL Lymphocytes # (1.0-4.8) k/uL Monocytes # (0-1.0) k/uL Eosinophils # (0-0.7) k/uL Basophils # (0-0.2) k/uL PT (9.0-12.0) sec INR (<1.2) APTT (22.0-30.0) sec Sodium (137-145) mmol/L Potassium (3.5-5.1) mmol/L Chloride (98-107) mmol/L Carbon Dioxide (22-30) mmol/L Anion Gap mmol/L BUN (7-17) mg/dL Creatinine (0.52-1.04) mg/dL Est GFR (CKD-EPI)AfAm (>60 ml/min/1.73 sqM) Est GFR (CKD-EPI)NonAf (>60 ml/min/1.73 sqM) Glucose (74-99) mg/dL Calcium (8.4-10.2) mg/dL Magnesium (1.6-2.3) mg/dL Total Bilirubin (0.2-1.3) mg/dL AST (14-36) U/L ALT (4-34) U/L Alkaline Phosphatase (38-126) U/L Troponin I <0.012 (0.000-0.034) ng/mL Total Protein (6.3-8.2) g/dL Albumin (3.5-5.0) g/dL Disposition Clinical Impression: Heart palpitations Disposition: HOME SELF-CARE Condition: Stable Instructions (If sedation given, give patient instructions): Heart Palpitations (ED) Additional Instructions: Please return to the Emergency Department if symptoms worsen or any other concerns. Is patient prescribed a controlled substance at d/c from ED?: No Referrals: Temitope Art DO [Primary Care Provider] - 1-2 days Time of Disposition: 12:38
[2020-12-19 11:27] LABS: Basophils # (A) 0.1 k/uL (0-0.2); Basophils % (A) 1 %; Eosinophils # (A) 0.1 k/uL (0-0.7); Eosinophils % (A) 1 %; HCT 54.9 % (34.0-46.0); Lymphocytes # (A) 1.3 k/uL (1.0-4.8); Lymphocytes % (A) 13 %; MCHC 34.5 g/dL (31.0-37.0); MCV 89.8 fL (80.0-100.0); Mean Platelet Volume 10.2; Monocytes # (A) 0.4 k/uL (0-1.0); Monocytes % (A) 5 %; Neutrophils # (A) 7.8 k/uL (1.3-7.7); Neutrophils % (A) 79 %; Platelet Count 191 k/uL (150-450); RBC 6.11 m/uL (3.80-5.40); RDW 13.7 % (11.5-15.5); WBC 9.8 k/uL (3.8-10.6)
[2020-12-19 11:33] LABS: ALT 57 U/L (4-34); AST 56 U/L (14-36); African American GFR (CKD) >90 (>60 ml/min/1.73 sqM); Albumin 4.8 g/dL (3.5-5.0); Alkaline Phosphatase 139 U/L (38-126); Anion Gap 11 mmol/L; Blood Urea Nitrogen 18 mg/dL (7-17); Calcium 9.9 mg/dL (8.4-10.2); Carbon Dioxide 24 mmol/L (22-30); Chloride 105 mmol/L (98-107); Glucose 133 mg/dL (74-99); Non-African American GFR(CKD) >90 (>60 ml/min/1.73 sqM); Potassium 4.4 mmol/L (3.5-5.1); Sodium 140 mmol/L (137-145); Total Bilirubin 2.1 mg/dL (0.2-1.3); Total Protein 8.2 g/dL (6.3-8.2)
[2020-12-19 11:36] LABS: INR 1.1 (<1.2); Partial Thromboplastin Time 26.5 sec (22.0-30.0); Prothrombin Time 11.8 sec (9.0-12.0)
--- NOTE | 2020-12-19 12:26 | XR ---
EXAMINATION TYPE: XR chest 2V DATE OF EXAM: 12/19/2020 COMPARISON: Chest x-ray 10/08/2020 HISTORY: Respiratory failure, abnormal chest x-ray TECHNIQUE: Frontal and lateral views of the chest are obtained. FINDINGS: Intracardiac defibrillator leads are stable, heart remains enlarged. No evident pneumothor ax or pleural effusion. Bones are stable. Surgical clips in the upper abdomen. IMPRESSION: Stable cardiomegaly.
[2020-12-19 12:57] VITALS: BP 114/79; PULSE 59; RESP 16
== END 2020-12-19 12:56 | disposition home or self-care (01) ==
LOC: EC 10:37
DX: R00.2 Palpitations (principal); R06.02 Shortness of breath; I48.91 Unspecified atrial fibrillation; G43.909 Migraine, unspecified, not intractable, without status migrainosus; F41.9 Anxiety disorder, unspecified; F32.9 Major depressive disorder, single episode, unspecified; Z79.01 Long term (current) use of anticoagulants; Z79.899 Other long term (current) drug therapy; Z95.0 Presence of cardiac pacemaker
CPT/HCPCS: 36415; 71046; 80053; 83735; 84484; 85025; 85610; 85730; 93005; 99285

== ENCOUNTER → 2021-03-26 | Outpatient (CLI) | payer OTHER | END | disposition home or self-care (01) | LOC: RADCTMAIN 08:02 | PROVIDERS: ATTEND Internal Medicine Critical Care Medicine | DX: Z53.9 Procedure and treatment not carried out, unspecified reason (principal) ==

== ENCOUNTER → 2021-03-26 | Outpatient (CLI) | payer OTHER ==
--- NOTE | 2021-03-26 11:45 | CT ---
EXAMINATION TYPE: CT chest abdomen w con DATE OF EXAM: 03/26/2021 COMPARISON: PET/CT 09/11/[address] 09/01/2020 HISTORY: 35-year-old female Lung nodule, pancreatic cyst. K86.2, R91.1 TECHNIQUE: Contiguous axial scanning of the chest and abdomen following administration of 100 ml Isov ue 300 IV contrast. Delayed images through the kidneys and coronal/sagittal reconstructions performe d. CT DLP: 1164.7 mGycm Automated exposure control for dose reduction was used. FINDINGS: CHEST: Left anterior chest wall ICD generator with right atrial and ventricular leads. Heart remains enlarged. Left ventricular wall hypertrophy and left atrial dilatation. Aorta normal caliber with the medullary vessel branching anatomy. Borderline enlarged 1 cm precarinal lymph node is unchanged. 6 mm left midlung pulmonary nodule, axial image 25 is unchanged. 1 cm left basilar pulmonary nodule, axial image 43 is unchanged. Bibasilar groundglass changes are also redemonstrated. No pleural effusion. ABDOMEN: Liver normal size. No biliary ductal dilatation. Cholecystectomy clips. Distention of the hepatic vei ns. Portal venous system is patent. Adrenal glands, spleen, kidneys within normal limits. There appear to be 2-3 cystic lesions of the pancreatic tail. These are lobulated measuring up to 4.0 cm and appearing bulkier than previous. A second bilobed cystic lesion at the junction of the pancre atic tail and body measures 3.6 x 1.7 cm versus 3.0 x 1.3 cm, previously. No dilated small bowel, free fluid, free air. No mesenteric or retroperitoneal lymphadenopathy. Mild overall stool burden. The pelvis is not imaged. BONES: No osseous destructive process. IMPRESSION: 1. INCREASING BULK OF THE CYSTIC PANCREATIC TAIL LESIONS. FOR EXAMPLE, THE LESION AT THE JUNCTION OF THE PANCREATIC BODY AND TAIL MEASURES 3.6 X 1.7 CM (VERSUS 3.0 X 1.3 CM, PREVIOUSLY). THE LESION AT T HE TAIL MEASURES 4.0 CM AND APPEARED TO REPRESENT 2 SEPARATE CYSTIC AREAS, PREVIOUSLY. RECOMMEND FURT HER CHARACTERIZATION WITH PANCREAS MRI WITH CONTRAST ALONG WITH MRCP TO ASSESS FOR ANY COMMUNICATION WITH THE MAIN PANCREATIC DUCT. WHILE SEQUELA OF PRIOR PANCREATITIS IS POSSIBLE, CYSTIC PANCREATIC CORBY PLASM SUCH MUCINOUS CYSTADENOMA OR SIDEBRANCH IPMN's ARE IN THE DIFFERENTIAL AT THIS TIME. 2. REDEMONSTRATED CARDIOMYOPATHY CHANGES. 3. BIBASILAR GROUNDGLASS COULD BE A PRODUCT OF INTERSTITIAL PNEUMONITIS OR PREVIOUS ASPIRATION/INFECT IOUS SEQUELA. THE COUPLE PULMONARY NODULES ON THE LEFT MEASURING UP TO 1 CM REMAIN UNCHANGED SUGGESTI NG A BENIGN ETIOLOGY.
== END | disposition home or self-care (01) ==
LOC: RADCTMAIN 07:57
PROVIDERS: ATTEND Family Medicine
DX: R91.8 Other nonspecific abnormal finding of lung field (principal); K86.2 Cyst of pancreas; I42.9 Cardiomyopathy, unspecified
CPT/HCPCS: 71260; 74160; Q9967

== ENCOUNTER 2021-03-31 04:21 | Inpatient (IN) | payer OTHER ==
[2021-03-31] MEDS ORDERED: SODIUM CHLORIDE 0.9% 1,000 ML IV STA (04:48)
[2021-03-31] MEDS ORDERED: DILTIAZEM DRIP BOLUS FROM BAG 1 MG SOLN IV STA (04:48)
[2021-03-31] MEDS ORDERED: METOPROLOL TARTRATE 5 MG/5 ML VIAL IVP STA (04:48)
--- NOTE | 2021-03-31 04:49 | ED ---
Arrhythmia/Palpitations HPI - General Chief Complaint: Arrhythmia/Palpitations Stated Complaint: Palpitations Time Seen by Provider: 03/31/21 04:40 Source: patient, EMS, RN notes reviewed, old records reviewed Mode of arrival: EMS Limitations: no limitations - History of Present Illness Initial Comments: This is a 35-year-old female DF for evaluation. Patient also for cardiology group regards history of hypertrophic cardiomyopathy. Patient coming in for severe tachycardia elevated heart rate shortness of breath. Sweating. Patient has strong history of heart disease prior history of significant arrhythmia with cardioversion, patient has needed to be shocked in the past. Patient's been tugging all medications as prescribed with no other significant medical illness or history no recent fevers nausea vomiting or diarrhea MD Complaint: rapid heart beat, "heart racing", irregular heart beat -: hour(s) Context: occurred during rest Arrhythmia History: SVT Associated Symptoms: denies other symptoms - Related Data Home Medications Medication Instructions Recorded Confirmed SUMAtriptan succinate [Imitrex] 50 mg PO DAILY PRN 02/24/20 12/19/20 Galcanezumab-Gnlm [Emgality Pen] 120 mg SQ QMONTHLY 09/15/20 12/19/20 Omeprazole 40 mg PO DAILY 09/15/20 12/19/20 Cholecalciferol (Vitamin D3) 125 mcg PO DAILY 12/19/20 12/19/20 [Vitamin D3 (5000 Iu)] Previous Rx's Medication Instructions Recorded Apixaban [Eliquis] 5 mg PO BID #60 tab 04/03/19 Metoprolol Succinate (ER) [Toprol 100 mg PO BID 30 Days #60 09/17/20 XL] tab.er.24h Allergies Allergy/AdvReac Type Severity Reaction Status Date / Time No Known Allergies Allergy Verified 12/19/20 11:20 Review of Systems ROS Statement: Those systems with pertinent positive or pertinent negative responses have been documented in the HPI. ROS Other: All systems not noted in ROS Statement are negative. Past Medical History Past Medical History: Atrial Fibrillation Additional Past Medical History / Comment(s): See Dr Gottlieb H&P, IBS, Migraines History of Any Multi-Drug Resistant Organisms: None Reported Past Surgical History: Section, Cholecystectomy, Pacemaker Additional Past Surgical History / Comment(s): Section X1. cardiac ablation 02/24/20, PACEMAK[facility] (AUG 2019) Past Anesthesia/Blood Transfusion Reactions: Motion Sickness, Postoperative Nausea & Vomiting (PONV) Type of Cardiac Device: Permanent Pacemaker Device Placement Date:: 08/2019 Past Psychological History: Anxiety, Depression Smoking Status: Never smoker Past Alcohol Use History: None Reported Past Drug Use History: None Reported - Past Family History Father Family Medical History: Cancer Additional Family Medical History / Comment(s): . Mother Family Medical History: Cancer Additional Family Medical History / Comment(s): . Sister(s) Additional Family Medical History / Comment(s): "heart problems" General Exam Limitations: no limitations General appearance: alert, in no apparent distress, anxious Head exam: Present: atraumatic, normocephalic, normal inspection Eye exam: Present: normal appearance, PERRL, EOMI. Absent: scleral icterus, conjunctival injection, periorbital swelling ENT exam: Present: normal exam, mucous membranes moist Neck exam: Present: normal inspection. Absent: tenderness, meningismus, lymphadenopathy Respiratory exam: Present: normal lung sounds bilaterally. Absent: respiratory distress, wheezes, rales, rhonchi, stridor Cardiovascular Exam: Present: tachycardia, irregular rhythm, normal heart sounds. Absent: systolic murmur, diastolic murmur, rubs, gallop, clicks GI/Abdominal exam: Present: soft, normal bowel sounds. Absent: distended, tenderness, guarding, rebound, rigid Extremities exam: Present: normal inspection, full ROM, normal capillary refill. Absent: tenderness, pedal edema, joint swelling, calf tenderness Back exam: Present: normal inspection Neurological exam: Present: alert, oriented X3, CN II-XII intact Psychiatric exam: Present: normal affect, normal mood Skin exam: Present: warm, dry, intact, normal color. Absent: rash Course Vital Signs 03/31/21 03/31/21 03/31/21 04:27 05:00 05:13 Temperature 97.9 F Pulse Rate 158 H 174 H 174 H Pulse Rate [ Hematology Nurse Educator ] Respiratory 18 18 18 Rate Blood Pressure 98/76 101/79 84/71 O2 Sat by Pulse 100 100 100 Oximetry 03/31/21 03/31/21 03/31/21 05:22 05:23 05:25 Temperature Pulse Rate 154 H 156 H Pulse Rate [ 174 H Hematology Nurse Educator ] Respiratory 18 18 Rate Blood Pressure 108/66 90/58 O2 Sat by Pulse 100 99 Oximetry 03/31/21 03/31/21 03/31/21 05:30 05:45 06:00 Temperature Pulse Rate 174 H 154 H 158 H Pulse Rate [ Hematology Nurse Educator ] Respiratory 18 18 18 Rate Blood Pressure 88/63 102/63 72/50 O2 Sat by Pulse 100 100 98 Oximetry 03/31/21 03/31/21 03/31/21 06:02 06:15 06:30 Temperature Pulse Rate Pulse Rate [ Hematology Nurse Educator ] Respiratory 18 16 Rate Blood Pressure 81/45 105/90 89/67 O2 Sat by Pulse 100 100 100 Oximetry 03/31/21 06:34 Temperature Pulse Rate 135 H Pulse Rate [ Hematology Nurse Educator ] Respiratory 16 Rate Blood Pressure 72/49 O2 Sat by Pulse 100 Oximetry - Reevaluation(s) Reevaluation #1: 03/31/21 06:58 Record is reviewed - Consultations Consultation #1: Spoke with Dr. Solano for cardiology, Dr. Gottlieb will see this patient for cardioversion today EKG Findings - EKG Comments: EKG Findings:: EKG is a flutter 150 QRS 94 QTC 505 Medical Decision Making - Medical Decision Making 35 female with history of hypertrophic cardiomyopathy coming in with SVT A. fib a flutter hypotension. Patient will be admitted for cardioversion - Lab Data Result diagrams: 03/31/21 04:58 03/31/21 04:58 Lab Results 03/31/21 03/31/21 03/31/21 Range/Units 04:58 04:58 04:58 WBC 11.9 H (3.8-10.6) k/uL RBC 5.46 H (3.80-5.40) m/uL Hgb 17.5 H (11.4-16.0) gm/dL Hct 49.9 H (34.0-46.0) % MCV 91.5 (80.0-100.0) fL MCH 32.0 (25.0-35.0) pg MCHC 35.0 (31.0-37.0) g/dL RDW 12.4 (11.5-15.5) % Plt Count 230 (150-450) k/uL MPV 10.6 Neutrophils % 67 % Lymphocytes % 24 % Monocytes % 5 % Eosinophils % 0 % Basophils % 1 % Neutrophils # 7.9 H (1.3-7.7) k/uL Lymphocytes # 2.9 (1.0-4.8) k/uL Monocytes # 0.6 (0-1.0) k/uL Eosinophils # 0.1 (0-0.7) k/uL Basophils # 0.1 (0-0.2) k/uL PT 11.3 (9.0-12.0) sec INR 1.1 (<1.2) APTT 25.6 (22.0-30.0) sec Sodium 138 (137-145) mmol/L Potassium 4.5 (3.5-5.1) mmol/L Chloride 109 H (98-107) mmol/L Carbon Dioxide 17 L (22-30) mmol/L Anion Gap 12 mmol/L BUN 19 H (7-17) mg/dL Creatinine 0.52 (0.52-1.04) mg/dL Est GFR (CKD-EPI)AfAm >90 (>60 ml/min/1.73 sqM) Est GFR (CKD-EPI)NonAf >90 (>60 ml/min/1.73 sqM) Glucose 147 H (74-99) mg/dL Calcium 9.9 (8.4-10.2) mg/dL Magnesium 1.9 (1.6-2.3) mg/dL Total Bilirubin 1.7 H (0.2-1.3) mg/dL AST 70 H (14-36) U/L ALT 102 H (4-34) U/L Alkaline Phosphatase 178 H (38-126) U/L Creatine Kinase 69 (30-135) U/L Troponin I (0.000-0.034) ng/mL Total Protein 7.2 (6.3-8.2) g/dL Albumin 4.2 (3.5-5.0) g/dL TSH <0.015 L (0.465-4.680) mIU/L 03/31/21 Range/Units 04:58 WBC (3.8-10.6) k/uL RBC (3.80-5.40) m/uL Hgb (11.4-16.0) gm/dL Hct (34.0-46.0) % MCV (80.0-100.0) fL MCH (25.0-35.0) pg MCHC (31.0-37.0) g/dL RDW (11.5-15.5) % Plt Count (150-450) k/uL MPV Neutrophils % % Lymphocytes % % Monocytes % % Eosinophils % % Basophils % % Neutrophils # (1.3-7.7) k/uL Lymphocytes # (1.0-4.8) k/uL Monocytes # (0-1.0) k/uL Eosinophils # (0-0.7) k/uL Basophils # (0-0.2) k/uL PT (9.0-12.0) sec INR (<1.2) APTT (22.0-30.0) sec Sodium (137-145) mmol/L Potassium (3.5-5.1) mmol/L Chloride (98-107) mmol/L Carbon Dioxide (22-30) mmol/L Anion Gap mmol/L BUN (7-17) mg/dL Creatinine (0.52-1.04) mg/dL Est GFR (CKD-EPI)AfAm (>60 ml/min/1.73 sqM) Est GFR (CKD-EPI)NonAf (>60 ml/min/1.73 sqM) Glucose (74-99) mg/dL Calcium (8.4-10.2) mg/dL Magnesium (1.6-2.3) mg/dL Total Bilirubin (0.2-1.3) mg/dL AST (14-36) U/L ALT (4-34) U/L Alkaline Phosphatase (38-126) U/L Creatine Kinase (30-135) U/L Troponin I 0.019 (0.000-0.034) ng/mL Total Protein (6.3-8.2) g/dL Albumin (3.5-5.0) g/dL TSH (0.465-4.680) mIU/L Critical Care Time Critical Care Time: Yes Total Critical Care Time: 31 Disposition Clinical Impression: Hypertrophic cardiomyopathy, Atrial flutter, Atrial fibrillation with RVR, Tachycardia, Atrial fibrillation Disposition: ADMITTED IP TO THIS [facility] Condition: Serious Instructions (If sedation given, give patient instructions): Heart Palpitations (ED) Is patient prescribed a controlled substance at d/c from ED?: No Referrals: Temitope Art DO [Primary Care Provider] - 1-2 days
[2021-03-31] MEDS ORDERED: DILTIAZEM 125 MG in SODIUM CHLORIDE 0.9% 100 ML IV SCH (05:00)
[2021-03-31 05:08] LABS: Basophils # (A) 0.1 k/uL (0-0.2); Basophils % (A) 1 %; Eosinophils # (A) 0.1 k/uL (0-0.7); Eosinophils % (A) 0 %; HCT 49.9 % (34.0-46.0); HGB 17.5 gm/dL (11.4-16.0); Lymphocytes # (A) 2.9 k/uL (1.0-4.8); Lymphocytes % (A) 24 %; MCV 91.5 fL (80.0-100.0); Mean Platelet Volume 10.6; Monocytes # (A) 0.6 k/uL (0-1.0); Monocytes % (A) 5 %; Neutrophils # (A) 7.9 k/uL (1.3-7.7); Neutrophils % (A) 67 %; Platelet Count 230 k/uL (150-450); RBC 5.46 m/uL (3.80-5.40); RDW 12.4 % (11.5-15.5); WBC 11.9 k/uL (3.8-10.6)
[2021-03-31 05:17] LABS: ALT 102 U/L (4-34); AST 70 U/L (14-36); African American GFR (CKD) >90 (>60 ml/min/1.73 sqM); Albumin 4.2 g/dL (3.5-5.0); Alkaline Phosphatase 178 U/L (38-126); Anion Gap 12 mmol/L; Blood Urea Nitrogen 19 mg/dL (7-17); Calcium 9.9 mg/dL (8.4-10.2); Carbon Dioxide 17 mmol/L (22-30); Chloride 109 mmol/L (98-107); Creatine Kinase 69 U/L (30-135); Glucose 147 mg/dL (74-99); Magnesium 1.9 mg/dL (1.6-2.3); Non-African American GFR(CKD) >90 (>60 ml/min/1.73 sqM); Sodium 138 mmol/L (137-145); Total Bilirubin 1.7 mg/dL (0.2-1.3); Total Protein 7.2 g/dL (6.3-8.2)
[2021-03-31 05:19] LABS: INR 1.1 (<1.2); Partial Thromboplastin Time 25.6 sec (22.0-30.0); Prothrombin Time 11.3 sec (9.0-12.0)
[2021-03-31 05:41] LABS: Potassium 4.5 mmol/L (3.5-5.1)
[2021-03-31] MEDS ORDERED: DILTIAZEM 5 MG/ML 5 ML VIAL IVP STA (06:30)
[2021-03-31] MEDS ORDERED: APIXABAN 5 MG TAB PO STA (06:46)
[2021-03-31] MEDS ORDERED: MORPHINE SULFATE 4 MG/ML SYRINGE IV PRN (06:52)
[2021-03-31] MEDS ORDERED: NITROGLYCERIN SL TABS 0.4 MG TAB SUBLINGUAL PRN (06:52)
[2021-03-31] MEDS ORDERED: DEXTROSE 5% IN WATER 250 ML with AMIODARONE 300 MG IV ONE (07:00)
[2021-03-31] MEDS ORDERED: MAGNESIUM SULFATE-D5W PMX 1 GM in DEXTROSE/WATER 1 100ML.BAG IVPB ONE (07:04)
--- NOTE | 2021-03-31 07:11 | XR ---
EXAMINATION TYPE: XR chest 1V portable DATE OF EXAM: 03/31/2021 COMPARISON: 12/19/2020 INDICATION: Chest pain TECHNIQUE: Single frontal view of the chest is obtained. FINDINGS: The heart size is enlarged. The pulmonary vasculature is normal. Mild right lower lobe infiltrate is present. Pacemaker overlies left chest. IMPRESSION: 1. Mild right lower lobe infiltrate. Correlate for atelectasis and pneumonia. 2. Cardiomegaly
[2021-03-31] MEDS ORDERED: AMIODARONE 360 MG in DEXTROSE 5% IN WATER 200 ML IV ONE ×2 (08:00)
[2021-03-31 09:41] LABS: T4, Free (Free Thyroxine) 4.81 ng/dL (0.78-2.19)
[2021-03-31] MEDS: methIMAzole 5 MG TAB PO SCH (11:11)
[2021-03-31] MEDS: PANTOPRAZOLE 40 MG TABLET PO SCH (11:11)
--- NOTE | 2021-03-31 11:54 | P.HPIM ---
History of Present Illness Patient is a pleasant 35-year-old female came in because of palpitations and some shortness of breath found to be in tachycardia patient was in atrial fibrillation was started on amiodarone patient does have history of hypertrophic obstructive cardiomyopathy and patient had history of for cardiopulmonary arrest in the past patient had ablation twice in the past. Patient appears to have hypothyroidism with her extremely low TSH and elevated T4. Patient will be started on methimazole. Patient has some acidosis as well secondary to hyperchloremia patient does have leukocytosis chest x-ray showed some infiltrate, which appears mostly volume overload but no clinical evidence of pneumonia. Patient does have a leukocytosis. REVIEW OF SYSTEMS: CONSTITUTIONAL: No fever, no malaise, no fatigue. HEENT: No recent visual problems or hearing problems. Denied any sore throat. CARDIOVASCULAR: No chest pain, orthopnea, PND, no syncope. PULMONARY: no hemoptysis. GASTROINTESTINAL: No diarrhea, no nausea, no vomiting, no abdominal pain. NEUROLOGICAL: No headaches, no weakness, no numbness. HEMATOLOGICAL: Denies any bleeding or petechiae. GENITOURINARY: Denies any burning micturition, frequency, or urgency. MUSCULOSKELETAL/RHEUMATOLOGICAL: Denies any joint pain, swelling, or any muscle pain. ENDOCRINE: Denies any polyuria or polydipsia. The rest of the 14-point review of systems is negative. PHYSICAL EXAMINATION: GENERAL: The patient is alert and oriented x3, not in any acute distress. Well developed, well nourished. HEENT: Pupils are round and equally reacting to light. EOMI. No scleral icterus. No conjunctival pallor. Normocephalic, atraumatic. No pharyngeal erythema. No thyromegaly. CARDIOVASCULAR: S1 and S2 present. No murmurs, rubs, or gallops. Tachycardic irregularly irregular rhythm PULMONARY: Chest is clear to auscultation, no wheezing or crackles. ABDOMEN: Soft, nontender, nondistended, normoactive bowel sounds. No palpable organomegaly. MUSCULOSKELETAL: No joint swelling or deformity. EXTREMITIES: No cyanosis, clubbing, or pedal edema. NEUROLOGICAL: Gross neurological examination did not reveal any focal deficits. SKIN: No rashes. Assessment and plan -Atrial fibrillation with rapid ventricular rate patient is presently on amiodarone, which will be continued electrophysiology will evaluate the patient cardiology evaluated the patient -Mildly elevated liver enzymes/transaminitis can be related to amiodarone we'll repeat liver enzymes again tomorrow, can be related to mild volume overload. -History of for hypertrophic obstructive cardiomyopathy, patient had cardio pu lmonary arrest in the past patient has an AICD in place. As per the chest x-ray patient appears to have some pulmonary edema no evidence of pneumonia although patient clinically doesn't have any JVD or pedal edema will obtain a BNP. -Noniron gap metabolic acidosis secondary to hyperchloremia -Depression -Primary hypothyroidism: Patient was started on methimazole further workup can be done as an outpatient DVT prophylaxis: Patient is on anticoagulation at this time Past Medical History Past Medical History: Atrial Fibrillation Additional Past Medical History / Comment(s): See Dr Gottlieb H&P, IBS, Migraines History of Any Multi-Drug Resistant Organisms: None Reported Past Surgical History: Section, Cholecystectomy, Pacemaker Additional Past Surgical History / Comment(s): Section X1. cardiac ablation 02/24/20, [facility] (AUG 2019) Past Anesthesia/Blood Transfusion Reactions: Motion Sickness, Postoperative Nausea & Vomiting (PONV) Type of Cardiac Device: Permanent Pacemaker Device Placement Date:: 08/2019 Past Psychological History: Anxiety, Depression Smoking Status: Never smoker Past Alcohol Use History: None Reported Past Drug Use History: None Reported - Past Family History Father Family Medical History: Cancer Additional Family Medical History / Comment(s): . Mother Family Medical History: Cancer Additional Family Medical History / Comment(s): . Sister(s) Additional Family Medical History / Comment(s): "heart problems" Medications and Allergies Home Medications Medication Instructions Recorded Confirmed Type Apixaban [Eliquis] 5 mg PO BID #60 tab 04/03/19 03/31/21 Rx SUMAtriptan succinate [Imitrex] 50 mg PO DAILY PRN 02/24/20 03/31/21 History Galcanezumab-Gnlm [Emgality Pen] 120 mg SQ QMONTHLY 09/15/20 03/31/21 History Omeprazole 40 mg PO DAILY 09/15/20 03/31/21 History Metoprolol Succinate (ER) [Toprol 100 mg PO BID 30 Days #60 09/17/20 03/31/21 Rx XL] tab.er.24h Bumetanide [Bumex] 1 mg PO DAILY 03/31/21 03/31/21 History Allergies Allergy/AdvReac Type Severity Reaction Status Date / Time egg AdvReac HEADACHE Verified 03/31/21 07:28 Physical Exam Vitals: Vital Signs Temp Pulse Pulse Resp BP Pulse Ox 03/31/21 11:13 105 H 18 106/93 99 03/31/21 09:01 110 H 18 107/94 03/31/21 08:21 100 18 84/62 100 03/31/21 07:42 126 H 18 111/54 100 03/31/21 07:28 140 H 18 89/57 100 03/31/21 07:00 158 H 18 104/79 100 03/31/21 06:34 135 H 16 72/49 100 03/31/21 06:30 16 89/67 100 03/31/21 06:15 105/90 100 03/31/21 06:02 18 81/45 100 03/31/21 06:00 158 H 18 72/50 98 03/31/21 05:45 154 H 18 102/63 100 03/31/21 05:30 174 H 18 88/63 100 03/31/21 05:25 156 H 18 90/58 99 03/31/21 05:23 174 H 03/31/21 05:22 154 H 18 108/66 100 03/31/21 05:13 174 H 18 84/71 100 03/31/21 05:00 174 H 18 101/79 100 03/31/21 04:27 97.9 F 158 H 18 98/76 100 Intake and Output 03/30/21 03/31/21 03/31/21 22:59 06:59 14:59 Other: Weight 90.718 kg Results CBC & Chem 7: 03/31/21 04:58 03/31/21 04:58 Labs: Abnormal Lab Results - Last 24 Hours (Table) 03/31/21 03/31/21 Range/Units 04:58 04:58 WBC 11.9 H (3.8-10.6) k/uL RBC 5.46 H (3.80-5.40) m/uL Hgb 17.5 H (11.4-16.0) gm/dL Hct 49.9 H (34.0-46.0) % Neutrophils # 7.9 H (1.3-7.7) k/uL Chloride 109 H (98-107) mmol/L Carbon Dioxide 17 L (22-30) mmol/L BUN 19 H (7-17) mg/dL Glucose 147 H (74-99) mg/dL Total Bilirubin 1.7 H (0.2-1.3) mg/dL AST 70 H (14-36) U/L ALT 102 H (4-34) U/L Alkaline Phosphatase 178 H (38-126) U/L TSH <0.015 L (0.465-4.680) mIU/L Free T4 4.81 H (0.78-2.19) ng/dL
--- NOTE | 2021-03-31 12:35 | P.CRDCN ---
History of Present Illness History of present illness: HISTORY OF PRESENT ILLNESS: This is a 35-year-old female female with a past m edical history significant for hypertrophic cardiomyopathy s/p dual chamber ICD implantation, paroxysmal atrial fibrillation status post ablation most recently in August 2020. Patient follows in the office with Dr. Dumont and Bull. We have been asked to see the patient in consultation for atrial flutter. Patient examined in the emergency room, she appears short of breath. Patient states that she's been having palpitations and shortness of breath. States that she's been feeling "winded". She presented to the emergency department. EKG revealed atrial flutter heart rate in the 150s. Patient has a history of cardiac ablation in January 2020 and most recently in September 24, 2020. She was started on IV amiodarone, she was given IV magnesium and metoprolol tartrate 5 mg IV push. DIAGNOSTICS: Chest xray mild right lower lobe infiltrate. Cardiomegaly. Laboratory data: WBC 11.9, hemoglobin 17.5, platelets 230, sodium 138, potassium 4.5, BUN 19, serum creatinine 0.5, magnesium 1.9, AST 70, ALT 102, alkaline phosphatase 178, troponin negative 2, proBNP 7950 TSH drawn free T4 4 0.8 Most recent echocardiogram 09/2020 revealed EF is 65-70%, severe left ventricular hypertrophy, severely dilated left atrium, mild mitral regurgitation, mild tricuspid regurgitation REVIEW OF SYSTEMS: At the time of my exam: CONSTITUTIONAL: Denies fever or chills. HEENT: Denies blurred vision, vision changes, or eye pain. Denies hemoptysis CARDIOVASCULAR: +palpitations Denies chest pain, orthopnea, PND RESPIRATORY: + shortness of breath. GASTROINTESTINAL: Denies abdominal pain. Denies nausea or vomiting. HEMATOLOGIC: Denies bleeding disorders. GENITOURINARY: Denies any blood in urine. SKIN: Denies pruitis. Denies rash. PHYSICAL EXAM: VITAL SIGNS: Reviewed. GENERAL: Well-developed in no acute distress. HEENT: Head is normocephalic. Pupils are equal, round. Sclerae anicteric. Mucous membranes of the mouth are moist. Neck supple. No JVD or thyromegaly LUNGS: Respirations even and unlabored. Lungs essentially clear to auscultation bilaterally. HEART: Tachycardic. Irregular rate and rhythm. S1 and S2 heard. ABDOMEN: Soft. Nondistended. Nontender. EXTREMITIES: Normal range of motion. No clubbing or cyanosis. Peripheral pulses intact. Left lower extremity mild edema NEUROLOGIC: Awake and alert. Oriented x 3. ASSESSMENT: Palpitations Paroxysmal atrial fibrillation with RVR Typical atrial flutter Hyperthyroidism Hypertrophic cardiomyopathy History of ablation, January 2020 [place] History of cryoablation with pulmonary vein isolation PLAN: Patient started on methimazole Continue amiodarone at this time Continue home cardiac medications We will discuss with patient's primary door and arrival attendant Dr. Dmuont Plan for cardioversion with Dr. Dumont today. I have discussed the risks, benefits and alternative therapies for the above- mentioned procedure and for both sedation/analgesia, as they pertain to this patient. The patient has indicated understanding and acceptance of the risks and procedures discussed. Questions have been answered appropriately and he is agreeable to move forward with the above-stated procedure. Further recommendations pending patient course Nurse practitioner note has been reviewed by physician. Signing provider agrees with the documented findings, assessment, and plan of care. Past Medical History Past Medical History: Atrial Fibrillation Additional Past Medical History / Comment(s): See Dr Gottlieb H&P, IBS, Migraines History of Any Multi-Drug Resistant Organisms: None Reported Past Surgical History: Section, Cholecystectomy, Pacemaker Additional Past Surgical History / Comment(s): Section X1. cardiac ablation 02/24/20, [facility] (AUG 2019) Past Anesthesia/Blood Transfusion Reactions: Motion Sickness, Postoperative Nausea & Vomiting (PONV) Type of Cardiac Device: Permanent Pacemaker Device Placement Date:: 08/2019 Past Psychological History: Anxiety, Depression Smoking Status: Never smoker Past Alcohol Use History: None Reported Past Drug Use History: None Reported - Past Family History Father Family Medical History: Cancer Additional Family Medical History / Comment(s): . Mother Family Medical History: Cancer Additional Family Medical History / Comment(s): . Sister(s) Additional Family Medical History / Comment(s): "heart problems" Medications and Allergies Home Medications Medication Instructions Recorded Confirmed Type Apixaban [Eliquis] 5 mg PO BID #60 tab 04/03/19 03/31/21 Rx SUMAtriptan succinate [Imitrex] 50 mg PO DAILY PRN 02/24/20 03/31/21 History Galcanezumab-Gnlm [Emgality Pen] 120 mg SQ QMONTHLY 09/15/20 03/31/21 History Omeprazole 40 mg PO DAILY 09/15/20 03/31/21 History Metoprolol Succinate (ER) [Toprol 100 mg PO BID 30 Days #60 09/17/20 03/31/21 Rx XL] tab.er.24h Bumetanide [Bumex] 1 mg PO DAILY 03/31/21 03/31/21 History Allergies Allergy/AdvReac Type Severity Reaction Status Date / Time egg AdvReac HEADACHE Verified 03/31/21 07:28 Physical Exam Vitals: Vital Signs Temp Pulse Pulse Resp BP Pulse Ox 03/31/21 07:42 126 H 18 111/54 100 03/31/21 07:28 140 H 18 89/57 100 03/31/21 07:00 158 H 18 104/79 100 03/31/21 06:34 135 H 16 72/49 100 03/31/21 06:30 16 89/67 100 03/31/21 06:15 105/90 100 03/31/21 06:02 18 81/45 100 03/31/21 06:00 158 H 18 72/50 98 03/31/21 05:45 154 H 18 102/63 100 03/31/21 05:30 174 H 18 88/63 100 03/31/21 05:25 156 H 18 90/58 99 03/31/21 05:23 174 H 03/31/21 05:22 154 H 18 108/66 100 03/31/21 05:13 174 H 18 84/71 100 03/31/21 05:00 174 H 18 101/79 100 03/31/21 04:27 97.9 F 158 H 18 98/76 100 Intake and Output 03/30/21 03/31/21 03/31/21 22:59 06:59 14:59 Other: Weight 90.718 kg Results 03/31/21 04:58 03/31/21 04:58 Cardiac Enzymes 03/31/21 03/31/21 Range/Units 04:58 04:58 AST 70 H (14-36) U/L Troponin I 0.019 (0.000-0.034) ng/mL Coagulation 03/31/21 Range/Units 04:58 PT 11.3 (9.0-12.0) sec APTT 25.6 (22.0-30.0) sec CBC 03/31/21 Range/Units 04:58 WBC 11.9 H (3.8-10.6) k/uL RBC 5.46 H (3.80-5.40) m/uL Hgb 17.5 H (11.4-16.0) gm/dL Hct 49.9 H (34.0-46.0) % Plt Count 230 (150-450) k/uL Comprehensive Metabolic Panel 03/31/21 Range/Units 04:58 Sodium 138 (137-145) mmol/L Potassium 4.5 (3.5-5.1) mmol/L Chloride 109 H (98-107) mmol/L Carbon Dioxide 17 L (22-30) mmol/L BUN 19 H (7-17) mg/dL Creatinine 0.52 (0.52-1.04) mg/dL Glucose 147 H (74-99) mg/dL Calcium 9.9 (8.4-10.2) mg/dL AST 70 H (14-36) U/L ALT 102 H (4-34) U/L Alkaline Phosphatase 178 H (38-126) U/L Total Protein 7.2 (6.3-8.2) g/dL Albumin 4.2 (3.5-5.0) g/dL Current Medications Generic Name Dose Route Start Last Admin Trade Name Freq PRN Reason Stop Dose Admin Aspirin 325 mg 04/01/21 09:00 Aspirin 325 Mg Tab PO DAILY GERALDINE Amiodarone HCl 300 mg/ 256 mls @ 256 mls/hr 03/31/21 07:00 03/31/21 07:12 Dextrose/Water IV 03/31/21 07:59 256 mls/hr .Q1H ONE Administration Amiodarone HCl 360 mg/ 200 mls @ 33.333 mls/hr 03/31/21 08:00 Dextrose/Water IV 03/31/21 13:59 .Q6H ONE Protocol 1 MG/MIN Amiodarone HCl 450 mg/ 250 mls @ 16.667 mls/hr 03/31/21 14:00 Dextrose/Water IV 04/01/21 07:59 .Q15H GERALDINE Protocol 0.5 MG/MIN Magnesium Sulfate/Dextrose 1 100 mls @ 100 mls/hr 03/31/21 07:04 03/31/21 07:26 gm/ IV Solution IVPB 03/31/21 08:03 100 mls/hr ONCE ONE Administration Morphine Sulfate 4 mg 03/31/21 06:52 Morphine Sulfate 4 Mg/Ml Syringe IV Q4HR PRN Chest Pain Nitroglycerin 0.4 mg 03/31/21 06:52 Nitroglycerin Sl Tabs 0.4 Mg Tab SUBLINGUAL Q5M PRN Chest Pain Intake and Output 03/30/21 03/31/21 03/31/21 22:59 06:59 14:59 Other: Weight 90.718 kg 03/31/21 04:58 03/31/21 04:58
[2021-03-31] MEDS ORDERED: SODIUM CHLORIDE 0.9% 1,000 ML IV SCH (12:45)
[2021-03-31] MEDS: AMIODARONE 450 MG in DEXTROSE 5% IN WATER 250 ML IV SCH ×2 (15:31)
[2021-03-31] MEDS: APIXABAN 5 MG TAB PO SCH (20:04)
[2021-03-31] MEDS: AMIODARONE 200 MG TAB PO SCH (21:48)
[2021-04-01] MEDS: AMIODARONE 450 MG in DEXTROSE 5% IN WATER 250 ML IV SCH ×2 (05:00)
[2021-04-01 08:36] VITALS: RESP 20
[2021-04-01] MEDS: APIXABAN 5 MG TAB PO SCH (08:41)
[2021-04-01] MEDS: AMIODARONE 200 MG TAB PO SCH (08:41)
[2021-04-01] MEDS: methIMAzole 5 MG TAB PO SCH (08:41)
[2021-04-01] MEDS: PANTOPRAZOLE 40 MG TABLET PO SCH (08:41)
[2021-04-01] MEDS ORDERED: ASPIRIN 325 MG TAB PO SCH (09:00)
[2021-04-01 09:18] LABS: HCT 44.3 % (34.0-46.0); HGB 15.4 gm/dL (11.4-16.0); MCH 32.6 pg (25.0-35.0); MCHC 34.8 g/dL (31.0-37.0); MCV 93.7 fL (80.0-100.0); Mean Platelet Volume 11.2; Platelet Count 164 k/uL (150-450); RBC 4.73 m/uL (3.80-5.40); RDW 12.6 % (11.5-15.5); WBC 9.1 k/uL (3.8-10.6)
[2021-04-01 09:34] LABS: ALT 80 U/L (4-34); AST 68 U/L (14-36); African American GFR (CKD) >90 (>60 ml/min/1.73 sqM); Albumin 3.5 g/dL (3.5-5.0); Alkaline Phosphatase 118 U/L (38-126); Anion Gap 9 mmol/L; Blood Urea Nitrogen 16 mg/dL (7-17); Calcium 9.5 mg/dL (8.4-10.2); Carbon Dioxide 19 mmol/L (22-30); Chloride 109 mmol/L (98-107); Glucose 118 mg/dL (74-99); Non-African American GFR(CKD) >90 (>60 ml/min/1.73 sqM); Potassium 4.3 mmol/L (3.5-5.1); Sodium 137 mmol/L (137-145); Total Bilirubin 2.6 mg/dL (0.2-1.3); Total Protein 6.3 g/dL (6.3-8.2)
[2021-04-01] MEDS ORDERED: AMIODARONE 200 MG TAB PO STA (10:07)
--- NOTE | 2021-04-01 11:36 | P.PN ---
Subjective This is a 35-year-old female female with a past medical history significant for hypertrophic cardiomyopathy s/p dual chamber ICD implantation, paroxysmal atrial fibrillation status post ablation most recently in August 2020. Patient follows in the office with Dr. Dumont and Bull. We have been asked to see the patient in consultation for atrial flutter. EKG revealed atrial flutter heart rate in the 150s. Patient has a history of cardiac ablation in January 2020 and most recently in September 24, 2020. She was started on IV amiodarone, she was given IV magnesium and metoprolol tartrate 5 mg IV push. Most recent echocardiogram 09/2020 revealed EF is 65-70%, severe left ventricular hypertrophy, severely dilated left atrium, mild mitral regurgitation, mild tricuspid regurgitation 03/31/2021 patient was scheduled to go for cardioversion with Dr. Dumont, however when patient arrived to the recovery room patient spontaneously converted to sinus rhythm in the cardioversion was canceled. 04/01/2021: Patient seen and examined at bedside, no acute distress. She denies any chest pain, shortness of breath, Lantus, dizziness, palpitations. Patient is currently maintaining sinus mechanism heart rate 60 to 70s. She's currently maintained on amiodarone 20 mg twice a day, Eliquis 5 mg twice a day. Blood pressure 108/67, heart rate 66, afebrile, maintaining oxygen saturations 96% on room air. PHYSICAL EXAM: VITAL SIGNS: Reviewed. GENERAL: Well-developed in no acute distress. HEENT: Neck supple. No JVD or thyromegaly LUNGS: Respirations even and unlabored. Lungs essentially clear to auscultation bilaterally. HEART: Tachycardic. Regular rate and rhythm. S1 and S2 heard. ABDOMEN: Soft. Nondistended. Nontender. EXTREMITIES: Normal range of motion. No clubbing or cyanosis. Peripheral pul ses intact. Left lower extremity mild edema NEUROLOGIC: Awake and alert. Oriented x 3. ASSESSMENT: Palpitations Paroxysmal atrial fibrillation with RVR on Eliquis- currently in sinus mechanism Typical atrial flutter Hyperthyroidism Hypertrophic cardiomyopathy History of ablation, January 2020 [place] History of cryoablation with pulmonary vein isolation PLAN: Increase amiodarone to 400mg BID Continue eliquis for thromboembolism protection Continue home cardiac medications Patient started on methimazole From cardiology perspective, patient is stable to be discharged home. Will continue amiodarone taper as an outpatient, and further adjustment per her primary crane mechanic Dr. Dumont Patient to follow up with Dr. Dumont on discharge. Nurse practitioner note has been reviewed by physician. Signing provider agrees with the documented findings, assessment, and plan of care. Objective - Vital Signs Vital signs: Vital Signs Temp 97.5 F L 04/01/21 08:00 Pulse 63 04/01/21 08:00 Resp 20 04/01/21 08:00 BP 108/67 04/01/21 08:00 Pulse Ox 96 04/01/21 08:00 Intake & Output 03/31/21 04/01/21 04/01/21 18:59 06:59 18:59 Intake Total 810 440 236 Balance 810 440 236 Weight 89.5 kg 95.7 kg Intake: IV 10 20 Invasive Line 2 10 20 Intake, IV Titration 200 120 Amount Amiodarone 360 mg In 200 Dextrose 5% in Water 200 ml @ 1 MG/MIN 33.333 mls/ hr IV .Q6H ONE Rx#: [id number] Sodium Chloride 0.9% 1, 120 000 ml @ 20 mls/hr IV . Q24H GERALDINE Rx#:[id number] Oral 600 300 236 Other: # Voids 1 3 - Labs CBC & Chem 7: 04/01/21 08:37 04/01/21 08:37 Labs: Abnormal Lab Results - Last 24 Hours (Table) 03/31/21 04/01/21 Range/Units 10:47 08:37 Chloride 109 H (98-107) mmol/L Carbon Dioxide 19 L (22-30) mmol/L Glucose 118 H (74-99) mg/dL Total Bilirubin 2.6 H (0.2-1.3) mg/dL AST 68 H (14-36) U/L ALT 80 H (4-34) U/L Troponin I 0.050 H* (0.000-0.034) ng/mL
[2021-04-01 11:59] VITALS: BP 103/66; PULSE 64; TEMP 97.7
[2021-04-01 17:35] LABS: Chol/HDL Ratio 4.19; Cholesterol 88 mg/dL (0-200)
[2021-04-01] MEDS ORDERED: AMIODARONE 200 MG TAB PO SCH (21:00)
--- NOTE | 2021-04-02 03:28 | P.DS ---
Providers Date of admission: 03/31/21 06:52 Expected date of discharge: 04/01/21 Attending physician: Sherley Casillas Consults: 03/31/21 06:52 Consult Physician Urgent Consulting Provider: Tim Gottlieb Consult Reason/Comments: afib Do you want consulting provider notified?: Yes Primary care physician: Temitope Smith Hospital Course: Final Diagnosis -Atrial fibrillation with rapid ventricular rate -Mildly elevated liver enzymes/transaminitis can be related to amiodarone or mild volume overload -History of for hypertrophic obstructive cardiomyopathy, patient had cardio pulmonary arrest in the past patient has an AICD in place. -pulmonary edema noted on cxr with no evidence of pneumonia, most likely mild volume overload -Non-anion gap metabolic acidosis secondary to hyperchloremia -Depression -Primary hyperthyroidism: Patient was started on methimazole further workup can be done as an outpatient DVT prophylaxis Discharge disposition Patient is being discharged in a stable condition with guarded prognosis to home. Patient will follow-up with Dr. Smith in the outpatient setting upon discharge. Patient will also follow up with cardiogy outpatient. Patient to continue with Amiodarone taper per cardiology recommendations. Total time taken is greater than 35 minutes. Hospital course Patient is a pleasant 35-year-old female came in because of palpitations and some shortness of breath found to be in tachycardia patient was in atrial fibrillation was started on amiodarone patient does have history of hypertrophic obstructive cardiomyopathy and patient had history of for cardiopulmonary arrest in the past patient had ablation twice in the past. Patient appears to have hypothyroidism with her extremely low TSH and elevated T4. Patient will be star [place] on methimazole. Patient has some acidosis as well secondary to hyperchloremia patient does have leukocytosis chest x-ray showed some infiltrate, which appears mostly volume overload but no clinical evidence of pneumonia. Patient does have a leukocytosis. 04/01/2021 Patient is seen in follow-up with no acute overnight issues noted. Patient was on amiodarone drip and started on Amiodarone 400mg BID and given instructions on taper and continue on rest of current home medications. Patient also started on Methimazole and will continue for hyperthyroid and will refer patient outpatient to endocrine DR. Lopez for further workup and will need follow up TSH labs in 6 weeks. Patient is eager to go home. Currently no reports of chest pain, shortness of breath, or palpitations. Patient is afebrile. No reports of nausea or vomiting and patient is tolerating diet. Patient will be discharged home. On exam vital signs are stable. Cardio S1, S2 are muffled. Respiratory system shows diminished breath sounds at the bases with no wheezing or rhonchi noted. Abdomen is soft and nontender. Nervous system shows no focal deficits. Please refer to medication reconciliation sheet for a list of medications Patient Condition at Discharge: Stable Plan - Discharge Summary Discharge Rx Participant: No New Discharge Prescriptions: New Amiodarone [Cordarone] See Taper PO BID 60 Days #180 tab methIMAzole [Tapazole] 10 mg PO DAILY #60 tab Continue Apixaban [Eliquis] 5 mg PO BID #60 tab SUMAtriptan succinate [Imitrex] 50 mg PO DAILY PRN PRN Reason: Headache Omeprazole 40 mg PO DAILY Galcanezumab-Gnlm [Emgality Pen] 120 mg SQ QMONTHLY Metoprolol Succinate (ER) [Toprol XL] 100 mg PO BID 30 Days #60 tab.er.24h Bumetanide [BUMEX] 1 mg PO DAILY Discharge Medication List Apixaban [Eliquis] 5 mg PO BID #60 tab 04/03/19 [Rx] SUMAtriptan succinate [Imitrex] 50 mg PO DAILY PRN 02/24/20 [History] Galcanezumab-Gnlm [Emgality Pen] 120 mg SQ QMONTHLY 09/15/20 [History] Omeprazole 40 mg PO DAILY 09/15/20 [History] Metoprolol Succinate (ER) [Toprol XL] 100 mg PO BID 30 Days #60 tab.er.24h 09/17/20 [Rx] Bumetanide [BUMEX] 1 mg PO DAILY 03/31/21 [History] Amiodarone [Cordarone] See Taper PO BID 60 Days #180 tab 04/01/21 [Rx] methIMAzole [Tapazole] 10 mg PO DAILY #60 tab 04/01/21 [Rx] Follow up Appointment(s)/Referral(s): Valentino Dumont MD [STAFF PHYSICIAN] - 04/13/21 3:00 pm ([facility]) Ciaran Lopez MD [REFERRING] - 1 Week Temitope Smith DO [Primary Care Provider] - 04/09/21 11:20 am Patient Instructions/Handouts: Amiodarone (By mouth), Heart Palpitations (ED), Heart Healthy Diet (DC) Activity/Diet/Wound Care/Special Instructions: New Medication: Amiodarone Tapering Instructions: Take 400mg Twice a day for 7 days (04/01/21- 04/07/21) Then decrease and Take 200mg Twice a day for 7 days (starting 04/08/21- 04/14/21) Then decrease and Take 200mg daily (starting 04/15/21) Further adjustments per your Ground Transportation Operator Dr. Dumont in the outpatient office Please call the office if you have questions or concerns. Activity Limited until follow-up Need follow-up with endocrinology Take medications as prescribed continue heart healthy diet Discharge Disposition: HOME SELF-CARE
[2021-04-09] MEDS ORDERED: NON FORMULARY DRUG (Galcanezumab-Gnlm [Emgality Pen] 120 MG/ML Pen.Injctr) SQ SCH (09:00)
== END 2021-04-01 17:49 | disposition home or self-care (01) | DRG 309 ==
LOC: EC 04:21 → 3SCARD 06:52
PROVIDERS: ADMIT Hospitalist; ATTEND Hospitalist
DX: I48.0 Paroxysmal atrial fibrillation (principal); E87.2 Acidosis; J81.1 Chronic pulmonary edema; F41.9 Anxiety disorder, unspecified; I42.1 Obstructive hypertrophic cardiomyopathy; I42.2 Other hypertrophic cardiomyopathy; I48.3 Typical atrial flutter; F32.9 Major depressive disorder, single episode, unspecified; E87.8 Other disorders of electrolyte and fluid balance, not elsewhere classified; E87.70 Fluid overload, unspecified; E05.90 Thyrotoxicosis, unspecified without thyrotoxic crisis or storm; E03.9 Hypothyroidism, unspecified; D72.829 Elevated white blood cell count, unspecified; Z79.01 Long term (current) use of anticoagulants; Z79.899 Other long term (current) drug therapy; Z86.74 Personal history of sudden cardiac arrest; Z95.810 Presence of automatic (implantable) cardiac defibrillator; I95.9 Hypotension, unspecified; G43.909 Migraine, unspecified, not intractable, without status migrainosus; K58.9 Irritable bowel syndrome, unspecified
CPT/HCPCS: 36415; 71045; 80053; 80061; 82550; 83735; 83880; 84439; 84443; 84484; 85025; 85027; 85610; 85730; 93005; 96361; 96374; 99291

== ENCOUNTER 2021-05-07 11:06 | Emergency (ER) | payer OTHER ==
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
[2021-05-07 11:45] VITALS: PULSE 60; TEMP 98.1
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
[2021-05-07 13:39] VITALS: BP 103/75; RESP 18
== END 2021-05-07 13:39 | disposition home or self-care (01) ==
LOC: EC 11:06
DX: M54.2 Cervicalgia (principal); I48.91 Unspecified atrial fibrillation; F41.9 Anxiety disorder, unspecified; F32.9 Major depressive disorder, single episode, unspecified; Z79.01 Long term (current) use of anticoagulants; Z90.49 Acquired absence of other specified parts of digestive tract; Z95.0 Presence of cardiac pacemaker
CPT/HCPCS: 70450; 71046; 72125; 99285

== ENCOUNTER 2021-11-19 19:04 | Emergency (ER) | payer SELFPAY ==
[2021-11-19 19:35] VITALS: BP 129/89; PULSE 60; RESP 18; TEMP 97.1
[2021-11-19 20:03] LABS: Basophils # (A) 0.1 k/uL (0-0.2); Basophils % (A) 1 %; Eosinophils # (A) 0.1 k/uL (0-0.7); Eosinophils % (A) 1 %; HCT 46.9 % (34.0-46.0); HGB 15.9 gm/dL (11.4-16.0); Lymphocytes # (A) 1.7 k/uL (1.0-4.8); Lymphocytes % (A) 19 %; MCH 32.2 pg (25.0-35.0); MCHC 33.9 g/dL (31.0-37.0); Mean Platelet Volume 10.3; Monocytes # (A) 0.3 k/uL (0-1.0); Monocytes % (A) 4 %; Neutrophils # (A) 6.6 k/uL (1.3-7.7); Neutrophils % (A) 75 %; Platelet Count 179 k/uL (150-450); RBC 4.94 m/uL (3.80-5.40); RDW 12.4 % (11.5-15.5); WBC 8.8 k/uL (3.8-10.6)
[2021-11-19 20:12] LABS: ALT 41 U/L (4-34); AST 37 U/L (14-36); African American GFR (CKD) >90 (>60 ml/min/1.73 sqM); Albumin 4.4 g/dL (3.5-5.0); Alkaline Phosphatase 183 U/L (38-126); Anion Gap 8 mmol/L; Blood Urea Nitrogen 14 mg/dL (7-17); Calcium 9.3 mg/dL (8.4-10.2); Carbon Dioxide 27 mmol/L (22-30); Chloride 103 mmol/L (98-107); Glucose 110 mg/dL (74-99); Non-African American GFR(CKD) 87 (>60 ml/min/1.73 sqM); Sodium 138 mmol/L (137-145); Total Bilirubin 1.6 mg/dL (0.2-1.3); Total Protein 7.7 g/dL (6.3-8.2)
[2021-11-19 20:27] LABS: INR 1.1 (<1.2); Partial Thromboplastin Time 27.6 sec (22.0-30.0); Prothrombin Time 11.7 sec (9.0-12.0)
[2021-11-19 20:29] LABS: Potassium 3.9 mmol/L (3.5-5.1)
== END 2021-11-19 22:26 ==
LOC: EC 19:04
DX: Z53.21 Procedure and treatment not carried out due to patient leaving prior to being seen by health care provider (principal); R51.9 Headache, unspecified
CPT/HCPCS: 36415; 80053; 84484; 85025; 85610; 85730; 93005; 99499

== ENCOUNTER 2022-08-31 22:12 | Emergency (ER) | payer OTHER ==
[2022-08-31 22:24] VITALS: RESP 16
[2022-08-31] MEDS ORDERED: SODIUM CHLORIDE 0.9% 500 ML 500 ML IV STA (22:31)
[2022-08-31] MEDS ORDERED: SODIUM CHLORIDE 0.9% 1,000 ML IV STA (22:31)
[2022-08-31] MEDS ORDERED: DILTIAZEM DRIP BOLUS FROM BAG 1 MG SOLN IV ONE (22:31)
--- NOTE | 2022-08-31 22:44 | ED ---
Arrhythmia/Palpitations HPI - General Chief Complaint: Arrhythmia/Palpitations Stated Complaint: Afib Time Seen by Provider: 08/31/22 22:13 Source: EMS, RN notes reviewed, old records reviewed Mode of arrival: EMS Limitations: no limitations - History of Present Illness Initial Comments: This is a 37-year-old female DF for evaluation patient Dese for evaluation regards to abnormal heart rate elevated heart rate tachycardia palpitations no chest pain no shortness of breath history of H a fibrillation feels like she is in nature fibrillation. Patient has been taking all medications as prescribed, feels well MD Complaint: rapid heart beat, "skipped beats", palpitations -: hour(s) Context: occurred during rest Arrhythmia History: atrial fibrillation Associated Symptoms: denies other symptoms Treatments Prior to Arrival: calcium channel boubacar - Related Data Home Medications Medication Instructions Recorded Confirmed SUMAtriptan succinate [Imitrex] 50 mg PO DAILY PRN 02/24/20 08/31/22 Bumetanide [BUMEX] 1 mg PO DAILY PRN 03/31/21 08/31/22 Metoprolol Succinate (ER) [Toprol 100 mg PO DAILY 08/31/22 08/31/22 XL] Spironolactone [Aldactone] 25 mg PO DAILY 08/31/22 08/31/22 dilTIAZem HCL [dilTIAZem HCL 24Hr 180 mg PO DAILY 08/31/22 08/31/22 ER (CD)] Previous Rx's Medication Instructions Recorded Apixaban [Eliquis] 5 mg PO BID #60 tab 04/03/19 Allergies Allergy/AdvReac Type Severity Reaction Status Date / Time egg AdvReac HEADACHE Verified 08/31/22 23:22 Review of Systems ROS Statement: Those systems with pertinent positive or pertinent negative responses have been documented in the HPI. ROS Other: All systems not noted in ROS Statement are negative. Past Medical History Past Medical History: Atrial Fibrillation Additional Past Medical History / Comment(s): See Dr Gottlieb H&P, IBS, Migraines History of Any Multi-Drug Resistant Organisms: None Reported Past Surgical History: Section, Cholecystectomy, Pacemaker Additional Past Surgical History / Comment(s): Section X1. cardiac ablation 02/24/20, PACEMAKER [facility] (AUG 2019) Past Anesthesia/Blood Transfusion Reactions: Motion Sickness, Postoperative Nausea & Vomiting (PONV) Type of Cardiac Device: Permanent Pacemaker Device Placement Date:: 08/2019 Past Psychological History: Anxiety, Depression Smoking Status: Never smoker Past Alcohol Use History: None Reported Past Drug Use History: None Reported - Past Family History Father Family Medical History: Cancer Additional Family Medical History / Comment(s): . Mother Family Medical History: Cancer Additional Family Medical History / Comment(s): . Sister(s) Additional Family Medical History / Comment(s): "heart problems" General Exam Limitations: no limitations General appearance: alert, in no apparent distress, anxious Head exam: Present: atraumatic, normocephalic, normal inspection Eye exam: Present: normal appearance, PERRL, EOMI. Absent: scleral icterus, co njunctival injection, periorbital swelling ENT exam: Present: normal exam, mucous membranes moist Neck exam: Present: normal inspection. Absent: tenderness, meningismus, lymphadenopathy Respiratory exam: Present: normal lung sounds bilaterally. Absent: respiratory distress, wheezes, rales, rhonchi, stridor Cardiovascular Exam: Present: tachycardia, irregular rhythm, normal heart sounds. Absent: systolic murmur, diastolic murmur, rubs, gallop, clicks GI/Abdominal exam: Present: soft, normal bowel sounds. Absent: distended, tenderness, guarding, rebound, rigid Extremities exam: Present: normal inspection, full ROM, normal capillary refill. Absent: tenderness, pedal edema, joint swelling, calf tenderness Back exam: Present: normal inspection Neurological exam: Present: alert, oriented X3, CN II-XII intact Psychiatric exam: Present: normal affect, normal mood Skin exam: Present: warm, dry, intact, normal color. Absent: rash Course Vital Signs 08/31/22 08/31/22 22:21 22:24 Temperature 98.4 F Pulse Rate 130 H 128 H Respiratory 16 Rate Blood Pressure 99/76 O2 Sat by Pulse 99 Oximetry - Reevaluation(s) Reevaluation #1: 09/01/22 00:02 Medical record is reviewed Reevaluation #2: 09/01/22 00:02 Patient feels better no longer in A. fib Reevaluation #3: 09/01/22 00:02 Patient informed results and questions answered Reevaluation #4: 09/01/22 00:02 Differential Chest Pain: Stable Angina, Unstable Angina, STEMI, NSTEMI Aortic Dissection, Pneumothorax, Musculoskeletal, Esophageal Spasm GERD, Cholecystitis, Pancreatitis, Zoster, this is not meant to be an all-inclusive list. Reevaluation #5: 09/01/22 00:02 Was pt. sent in by a medical professional or institution? @ -no Did you speak to anyone other than the patient for history? @ -no Did you review nursing and triage notes? @ -agree Were old charts reviewed? @ -no Differential Diagnosis? @ -no EKG interpreted by me (3pts min.)? @ -yes X-rays interpreted by me (1pt min.)? @ -yes CT interpreted by me (1pt min.)? @ -[none] U/S interpreted by me (1pt. min.)? @ -[none] What testing was considered but not performed? (CT, X-rays, U/S, labs)? Why? @ no What meds were considered but not given? Why? @ -[none] Did you discuss the management of the patient with other professionals? @ -no Did you reconcile home meds? @ -[none] Was smoking cessation discussed for >3mins.? @ -[none] Was critical care preformed (if so, how long)? @ -[none] Were there social determinants of health that impacted care today? How? (Homelessness, low income, unemployed, alcoholism, drug addiction, transportation, low edu. Level, literacy, decrease access to med. care, fpc, rehab)? @ -no Was there de-escalation of care discussed even if they declined? (Discuss DNR or withdrawal of care, Hospice)? @ -no What co-morbidities impacted this encounter? (DM, HTN, Smoking, COPD, CAD, Cancer, CVA, Hep., AIDS, mental health diagnosis, sleep apnea, morbid obesity)? @ -no Was patient admitted / discharged? @ -dc Undiagnosed new problem with uncertain prognosis? @ -[none] Drug Therapy requiring intensive monitoring for toxicity (Heparin, Nitro, Insulin, Cardizem)? @ -[none] Were any procedures done? @ -[none] Diagnosis/symptom? @ -[default] Acute, or Chronic, or Acute on Chronic? @ -chronic Uncomplicated (without systemic symptoms) or Complicated (systemic symptoms)? @ -[default] Side effects of treatment? @ -[none] Exacerbation, Progression, or Severe Exacerbation] @ -[no] Poses a threat to life or bodily function? @ -[no] EKG Findings - EKG Comments: EKG Findings:: EKG interpreted by me shows A. fib 120 QRS 150 QTC 410 Medical Decision Making - Medical Decision Making 37 female to the ER today for evaluation of patient fibrillation with RVR. Symptoms resolved here in the ER with Cardizem patient feels well and can be discharged home - Lab Data Result diagrams: 08/31/22 22:15 Lab Results 08/31/22 08/31/22 Range/Units 22:15 22:15 WBC 9.8 (3.8-10.6) k/uL RBC 4.28 (3.80-5.40) m/uL Hgb 13.9 (11.4-16.0) gm/dL Hct 39.8 (34.0-46.0) % MCV 92.9 (80.0-100.0) fL MCH 32.4 (25.0-35.0) pg MCHC 34.9 (31.0-37.0) g/dL RDW 12.5 (11.5-15.5) % Plt Count 163 (150-450) k/uL MPV 12.6 Neutrophils % 63 % Lymphocytes % 28 % Monocytes % 4 % Eosinophils % 1 % Basophils % 1 % Neutrophils # 6.2 (1.3-7.7) k/uL Lymphocytes # 2.8 (1.0-4.8) k/uL Monocytes # 0.4 (0-1.0) k/uL Eosinophils # 0.1 (0-0.7) k/uL Basophils # 0.1 (0-0.2) k/uL PT 11.4 (9.0-12.0) sec INR 1.1 (<1.2) APTT 26.8 (22.0-30.0) sec - EKG Data -: EKG Interpreted by Me (Repeat EKG is sinus bradycardia 54 [place] 216 QRS 93 QTc 466) EKG shows normal: sinus rhythm (Patient has converted out of A. fib) - Radiology Data Radiology results: report reviewed (Chest x-rays negative for acute disease), image reviewed Disposition Clinical Impression: Tachycardia, Atrial fibrillation with RVR, Atrial fibrillation Disposition: HOME SELF-CARE Condition: Good Instructions (If sedation given, give patient instructions): A-fib (Atrial Fibrillation) (ED) Is patient prescribed a controlled substance at d/c from ED?: No Referrals: None,Stated [REFERRING] - 1-2 days Time of Disposition: 00:00
[2022-08-31] MEDS ORDERED: DILTIAZEM 125 MG in SODIUM CHLORIDE 0.9% 100 ML IV SCH (22:45)
--- NOTE | 2022-08-31 22:52 | XR ---
EXAMINATION TYPE: XR chest 1V portable DATE OF EXAM: 08/31/2022 COMPARISON: 10/14/2021 HISTORY: Chest pain TECHNIQUE: FINDINGS: There are some pulmonary airspace edema. Heart is enlarged. There is left axillary pacemaker. No pleu ral effusion. IMPRESSION: There is some pulmonary edema which is mostly new compared to old exam and suggestive of acute congestive heart failure.
[2022-08-31 23:36] LABS: Basophils # (A) 0.1 k/uL (0-0.2); Basophils % (A) 1 %; Eosinophils # (A) 0.1 k/uL (0-0.7); Eosinophils % (A) 1 %; HCT 39.8 % (34.0-46.0); HGB 13.9 gm/dL (11.4-16.0); Lymphocytes # (A) 2.8 k/uL (1.0-4.8); Lymphocytes % (A) 28 %; MCH 32.4 pg (25.0-35.0); MCHC 34.9 g/dL (31.0-37.0); MCV 92.9 fL (80.0-100.0); Mean Platelet Volume 12.6; Monocytes # (A) 0.4 k/uL (0-1.0); Monocytes % (A) 4 %; Neutrophils # (A) 6.2 k/uL (1.3-7.7); Neutrophils % (A) 63 %; Platelet Count 163 k/uL (150-450); RBC 4.28 m/uL (3.80-5.40); RDW 12.5 % (11.5-15.5); WBC 9.8 k/uL (3.8-10.6)
[2022-08-31 23:44] LABS: INR 1.1 (<1.2); Partial Thromboplastin Time 26.8 sec (22.0-30.0); Prothrombin Time 11.4 sec (9.0-12.0)
[2022-09-01 00:40] LABS: ALT 28 U/L (4-34); African American GFR (CKD) >90 (>60 ml/min/1.73 sqM); Albumin 3.1 g/dL (3.5-5.0); Anion Gap 5 mmol/L; Blood Urea Nitrogen 16 mg/dL (7-17); Calcium 7.1 mg/dL (8.4-10.2); Carbon Dioxide 16 mmol/L (22-30); Chloride 116 mmol/L (98-107); Glucose 149 mg/dL (74-99); Non-African American GFR(CKD) >90 (>60 ml/min/1.73 sqM); Sodium 137 mmol/L (137-145); Total Protein 5.8 g/dL (6.3-8.2)
[2022-09-01 00:59] VITALS: BP 100/60; PULSE 68; TEMP 98.4
[2022-09-01 01:10] LABS: AST 38 U/L (14-36); Magnesium 1.6 mg/dL (1.6-2.3); Phosphorus 2.8 mg/dL (2.5-4.5); Potassium 3.5 mmol/L (3.5-5.1)
[2022-09-01 01:11] LABS: Alkaline Phosphatase 97 U/L (38-126)
== END 2022-09-01 01:00 | disposition home or self-care (01) ==
LOC: EC 22:12
DX: R00.0 Tachycardia, unspecified (principal); I48.20 Chronic atrial fibrillation, unspecified; F41.9 Anxiety disorder, unspecified; F32.A Depression, unspecified; Z91.012 Allergy to eggs; Z79.899 Other long term (current) drug therapy
CPT/HCPCS: 36415; 71045; 80053; 83735; 83880; 84100; 84443; 84484; 85025; 85610; 85730; 93005; 96361; 96365; 96376; 99285

== ENCOUNTER 2022-11-26 17:39 | Emergency (ER) | payer OTHER ==
[2022-11-26 17:49] VITALS: PULSE 100; RESP 18; TEMP 97.4
[2022-11-26] MEDS ORDERED: SODIUM CHLORIDE 0.9% 500 ML 500 ML IV STA (17:49)
[2022-11-26 18:12] LABS: ALT 36 U/L (4-34); AST 27 U/L (14-36); African American GFR (CKD) >90 (>60 ml/min/1.73 sqM); Albumin 3.9 g/dL (3.5-5.0); Alkaline Phosphatase 129 U/L (38-126); Anion Gap 7 mmol/L; Blood Urea Nitrogen 18 mg/dL (7-17); Calcium 8.7 mg/dL (8.4-10.2); Carbon Dioxide 24 mmol/L (22-30); Chloride 106 mmol/L (98-107); Glucose 111 mg/dL (74-99); Magnesium 1.8 mg/dL (1.6-2.3); Non-African American GFR(CKD) >90 (>60 ml/min/1.73 sqM); Sodium 137 mmol/L (137-145); Total Protein 6.9 g/dL (6.3-8.2)
[2022-11-26 18:17] LABS: Potassium 4.1 mmol/L (3.5-5.1)
[2022-11-26 18:19] LABS: Basophils # (A) 0.1 k/uL (0-0.2); Basophils % (A) 1 %; Eosinophils # (A) 0.1 k/uL (0-0.7); Eosinophils % (A) 1 %; HCT 43.6 % (34.0-46.0); HGB 15.4 gm/dL (11.4-16.0); INR 1.1 (<1.2); Lymphocytes % (A) 17 %; MCH 32.7 pg (25.0-35.0); MCHC 35.4 g/dL (31.0-37.0); MCV 92.4 fL (80.0-100.0); Mean Platelet Volume 11.9; Monocytes # (A) 0.4 k/uL (0-1.0); Monocytes % (A) 3 %; Neutrophils # (A) 9.4 k/uL (1.3-7.7); Neutrophils % (A) 77 %; Partial Thromboplastin Time 26.8 sec (22.0-30.0); Prothrombin Time 11.1 sec (9.0-12.0); RBC 4.71 m/uL (3.80-5.40); RDW 13.1 % (11.5-15.5); WBC 12.2 k/uL (3.8-10.6)
[2022-11-26 18:37] LABS: Platelet Count 171 k/uL (150-450)
--- NOTE | 2022-11-26 18:49 | XR ---
EXAMINATION TYPE: XR chest 2V DATE OF EXAM: 11/26/2022 6:42 PM COMPARISON: Chest radiographs from 08/31/2022 TECHNIQUE: XR chest 2V Frontal and lateral views of the chest. CLINICAL INDICATION:Female, 37 years old with history of dysrhythmia; FINDINGS: Lungs/Pleura: There is no evidence of pleural effusion, focal consolidation, or pneumothorax. Pulmonary vascularity: Similar pulmonary vascular congestion Heart/mediastinum: Cardiomediastinal silhouette is enlarged and stable. Two lead cardiac conduction d evice overlying the left hemithorax with lead tips projecting over the right ventricle and right atri um. Musculoskeletal: No acute osseous pathology. IMPRESSION: 1. Similar mild vascular congestion from prior. 2. Stable cardiomegaly.
--- NOTE | 2022-11-26 19:10 | ED ---
General Adult HPI - General Chief complaint: Arrhythmia/Palpitations Stated complaint: Afib Time Seen by Provider: 11/26/22 17:47 Source: patient, EMS, RN notes reviewed, old records reviewed Mode of arrival: EMS - History of Present Illness Initial comments: Patient is a 37-year-old female with past medical history remarkable for hypertrophic cardiomyopathy following up with an outpatient spa assistant manager, as well as an AICD, paroxysmal A. fib, on Cardizem, metoprolol, Eliquis who presents to the emergency Department when of heart palpitations. Began 2 hours prior to arrival. States she was bending down when she felt her heart began to beat fast. States is typical when her A. fib kicks in. States she felt some dizziness initially but that all resolved. Also endorses minor shortness breath initially but that resolved. Denies chest pain. Denies any other acute comp laints including abdominal pain, nausea, vomiting, fevers, chills, cough. Patient is compliant with medications. His no other acute complaints at this time. Does have chronically edematous left lower extremity. Since her further evaluation. Typically presents in RVR, however heart rates since arrival have been between 80 and 110. Hemodynamically stable otherwise. - Related Data Home Medications Medication Instructions Recorded Confirmed SUMAtriptan succinate [Imitrex] 50 mg PO DAILY PRN 02/24/20 11/26/22 Metoprolol Succinate (ER) [Toprol 100 mg PO DAILY 08/31/22 11/26/22 XL] Spironolactone [Aldactone] 25 mg PO DAILY 08/31/22 11/26/22 dilTIAZem HCL [dilTIAZem HCL 24Hr 240 mg PO DAILY 11/26/22 11/26/22 ER (Xr)] hydrOXYzine HCL [Atarax] 50 mg PO QID PRN 11/26/22 11/26/22 Previous Rx's Medication Instructions Recorded Apixaban [Eliquis] 5 mg PO BID #60 tab 04/03/19 Allergies Allergy/AdvReac Type Severity Reaction Status Date / Time egg AdvReac HEADACHE Verified 11/26/22 20:56 Review of Systems ROS Statement: Those systems with pertinent positive or pertinent negative responses have been documented in the HPI. Review of Systems: CONST: Denies fever EYES: Denies blurry vision ENT: Denies nasal congestion C/V: Endorses heart palpitations RESP: Denies shortness of breath GI: Denies abdominal pain : Denies dysuria SKIN: Denies rash. MSK: Denies joint pain. NEURO: Denies headache ROS Other: All systems not noted in ROS Statement are negative. Past Medical History Past Medical History: Atrial Fibrillation Additional Past Medical History / Comment(s): See Dr Gottlieb H&P, IBS, Migraines History of Any Multi-Drug Resistant Organisms: None Reported Past Surgical History: Section, Cholecystectomy, Pacemaker Additional Past Surgical History / Comment(s): Section X1. cardiac ablation 02/24/20, [facility] (AUG 2019) Past Anesthesia/Blood Transfusion Reactions: Motion Sickness, Postoperative Nausea & Vomiting (PONV) Type of Cardiac Device: Permanent Pacemaker Device Placement Date:: 08/2019 Past Psychological History: Anxiety, Depression Smoking Status: Never smoker Past Alcohol Use History: None Reported Past Drug Use History: None Reported - Past Family History Father Family Medical History: Cancer Additional Family Medical History / Comment(s): . Mother Family Medical History: Cancer Additional Family Medical History / Comment(s): . Sister(s) Additional Family Medical History / Comment(s): "heart problems" General Exam - General Exam Comments Initial Comments: General: Appears in no acute distress. HEAD: Normal with no signs of head trauma. EYES: PERRLA, EOMI, conjunctiva normal, no discharge. ENT: Hearing grossly intact, normal oropharynx. RESPIRATORY: Clear breath sounds bilaterally. No wheezes, rales, or rhonchi. C/V: Irregular rate and rhythm.. S1 and S2 auscultated, left lower extremity pitting edema, mild and worse when compared to the right., peripheral pulses 2+ and intact throughout ABD: Abd is soft, nontender, nondistended EXT: Normal range of motion, no obvious deformity SKIN: No rashes or lesions observed on exposed skin. NEURO: Alert and oriented 4. Course Vital Signs 11/26/22 11/26/22 11/26/22 17:43 19:49 21:07 Temperature 97.4 F L Pulse Rate 100 100 100 Respiratory 18 18 18 Rate Blood Pressure 106/80 100/76 102/78 O2 Sat by Pulse 97 98 97 Oximetry Medical Decision Making - Medical Decision Making Was pt. sent in by a medical professional or institution (Dr., PA, DIGITAL PHOTOGRAPHIC PRINTER, urgent care, hospital, or longterm...) When possible be specific @ -No Did you speak to anyone other than the patient for history (EMS, parent, family, police, friend...)? What history was obtained from this source @ -No Did you review nursing and triage notes (agree or disagree)? Why? @ -I reviewed and agree with nursing and triage notes Were old charts reviewed (outside hosp., previous admission, EMS record, old EKG, old radiological studies, urgent care reports/EKG's, longterm records)? Report findings @ -Old EKG and charts reviewed from 08/31/2022. Differential Diagnosis (chest pain, altered mental status, abdominal pain women, abdominal pain men, vaginal bleeding, weakness, fever, dyspnea, syncope, headache, dizziness, GI bleed, back pain, seizure, CVA, palpatations, mental health, musculoskeletal)? @ -Differential Palpitations Ventricular arrhythmias, atrial arrhythmias, myocardial infarction, anemia, thyrotoxicosis, electrolyte imbalance, hypokalemia, pulmonary embolism, pulmonary disease, drugs, alcohol, anxiety, stress.... This is not meant to be an all-inclusive list. EKG interpreted by me (3pts min.). @ -As above X-rays interpreted by me (1pt min.). @ -Chest x-ray shows no obvious acute cardio pulmonary process. CT interpreted by me (1pt min.). @ None done U/S interpreted by me (1pt. min.). @ -DVT ultrasound negative for left lower extremity DVT, as interpreted by radiology What testing was considered but not performed or refused? (CT, X-rays, U/S, labs)? Why? @ No What meds were considered but not given or refused? Why? @ Non Did you discuss the management of the patient with other professionals (professionals i.e. YAMINI Bragg, DIGITAL PHOTOGRAPHIC PRINTER, lab, RT, psych nurse, director social welfare, learning center coordinator, teacher, public health service officer, counter caser)? Give summary @ No Was smoking cessation discussed for >3mins.? @ No Was critical care preformed (if so, how long)? @ No Were there social determinants of health that impacted care today? How? (Homele ssness, low income, unemployed, alcoholism, drug addiction, transportation, low edu. Level, literacy, decrease access to med. care, [facility], rehab)? @ No Was there de-escalation of care discussed even if they declined (Discuss DNR or withdrawal of care, Hospice)? DNR status @ No What co-morbidities impacted this encounter? (DM, HTN, Smoking, COPD, CAD, Cancer, CVA, ARF, Chemo, Hep., AIDS, mental health diagnosis, sleep apnea, morbid obesity)? @ -paroxysmal afib Was patient admitted / discharged? Hospital course, mention meds given and route, prescriptions, significant lab abnormalities, going to OR and other pertinent info. @ -Based on the patient's presentation and physical exam, I'm concerned for her paroxysmal A. fib starting. Has no acute complaints at this time. Patient is in A. fib at this time, with rates ranging between 80 and 110 bpm. Has no other acute complaints at this time. Presents for further evaluation at this time. We will obtain cardiopulmonary labs, left lower extremity duplex, screening chest x-ray and EKG. She was in agreement this plan. Vital signs within acceptable limits. If she remains asymptomatic otherwise, hemodynamically stable and rate controlled she'll be discharged home. She was in agreement this plan. Patient's EKG shows rate controlled A. fib with no acute changes. Imaging unremarkable. Labs within acceptable limits. Troponin undetectable. No other findings. We did discuss her workup. She is feeling improved at this time. Orthostatic vital signs are within normal limits. I did discuss admission versus discharge, however we both decided the patient is stable for discharge home. She'll follow-up with her PCP and spa assistant manager next week. Strict return precautions discussed. Patient has remained rate controlled throughout her stay. Vital signs within acceptable limits. I instructed the patient to follow up with their PCP in the next 1-3 days. I explained that the patient should return to the emergency department if they experience any worsening symptoms. Strict return precautions were discussed with the patient. The patient expressed understanding of these instructions. I answered all questions that the patient had. The patient was discharged home in [good] condition with their prescriptions and follow up information. Undiagnosed new problem with uncertain prognosis? @ No Drug Therapy requiring intensive monitoring for toxicity (Heparin, Nitro, Insulin, Cardizem)? @ No Were any procedures done? @ No Diagnosis/symptom? @ - Atrial fibrillation, paroxysmal Acute, or Chronic, or Acute on Chronic? @ -Acute on chronic Uncomplicated (without systemic symptoms) or Complicated (systemic symptoms)? @ -Uncomplicated Side effects of treatment? @ No Exacerbation, Progression, or Severe Exacerbation? @ No Poses a threat to life or bodily function? How? (Chest pain, [place], PR, pneumonia, PE, COPD, DKA, ARF, appy, cholecystitis, CVA, Diverticulitis, Homicidal, Suicidal, threat to staff... and all critical care pts) @ Yes, if uncontrolled can cause increased morbidity and mortality. Diagnosis/symptom? @ -History of hypertrophic cardiomyopathy with AICD Acute, or Chronic, or Acute on Chronic? @ -Chronic Uncomplicated (without systemic symptoms) or Complicated (systemic symptoms)? @ -Complicated Side effects of treatment? @ -none Exacerbation, Progression, or Severe Exacerbation] @ -no Poses a threat to life or bodily function? @ -Yes - Lab Data Result diagrams: 11/26/22 17:50 11/26/22 17:50 Lab Results 11/26/22 11/26/22 11/26/22 Range/Units 17:50 17:50 17:50 WBC 12.2 H (3.8-10.6) k/uL RBC 4.71 (3.80-5.40) m/uL Hgb 15.4 (11.4-16.0) gm/dL Hct 43.6 (34.0-46.0) % MCV 92.4 (80.0-100.0) fL MCH 32.7 (25.0-35.0) pg MCHC 35.4 (31.0-37.0) g/dL RDW 13.1 (11.5-15.5) % Plt Count 171 (150-450) k/uL MPV 11.9 Neutrophils % 77 % Lymphocytes % 17 % Monocytes % 3 % Eosinophils % 1 % Basophils % 1 % Neutrophils # 9.4 H (1.3-7.7) k/uL Lymphocytes # 2.0 (1.0-4.8) k/uL Monocytes # 0.4 (0-1.0) k/uL Eosinophils # 0.1 (0-0.7) k/uL Basophils # 0.1 (0-0.2) k/uL Manual Slide Review Performed PT 11.1 (9.0-12.0) sec INR 1.1 (<1.2) APTT 26.8 (22.0-30.0) sec Sodium 137 (137-145) mmol/L Potassium 4.1 (3.5-5.1) mmol/L Chloride 106 (98-107) mmol/L Carbon Dioxide 24 (22-30) mmol/L Anion Gap 7 mmol/L BUN 18 H (7-17) mg/dL Creatinine 0.70 (0.52-1.04) mg/dL Est GFR (CKD-EPI)AfAm >90 (>60 ml/min/1.73 sqM) Est GFR (CKD-EPI)NonAf >90 (>60 ml/min/1.73 sqM) Glucose 111 H (74-99) mg/dL Calcium 8.7 (8.4-10.2) mg/dL Magnesium 1.8 (1.6-2.3) mg/dL Total Bilirubin 1.0 (0.2-1.3) mg/dL AST 27 (14-36) U/L ALT 36 H (4-34) U/L Alkaline Phosphatase 129 H (38-126) U/L Troponin I (0.000-0.034) ng/mL Total Protein 6.9 (6.3-8.2) g/dL Albumin 3.9 (3.5-5.0) g/dL Urine Color Urine Appearance (Clear) Urine pH (5.0-8.0) Ur Specific [place] (1.001-1.035) Urine Protein (Negative) Urine Glucose (UA) (Negative) Urine Ketones (Negative) Urine Blood (Negative) Urine Nitrite (Negative) Urine Bilirubin (Negative) Urine Urobilinogen (<2.0) mg/dL Ur Leukocyte Esterase (Negative) Urine RBC (0-5) /hpf Urine WBC (0-5) /hpf Urine WBC Clumps (None) /hpf Ur Squamous Epith Cells (0-4) /hpf Urine Bacteria (None) /hpf Urine Mucus (None) /hpf 11/26/22 11/26/22 Range/Units 17:50 20:09 WBC (3.8-10.6) k/uL RBC (3.80-5.40) m/uL Hgb (11.4-16.0) gm/dL Hct (34.0-46.0) % MCV (80.0-100.0) fL MCH (25.0-35.0) pg MCHC (31.0-37.0) g/dL RDW (11.5-15.5) % Plt Count (150-450) k/uL MPV Neutrophils % % Lymphocytes % % Monocytes % % Eosinophils % % Basophils % % Neutrophils # (1.3-7.7) k/uL Lymphocytes # (1.0-4.8) k/uL Monocytes # (0-1.0) k/uL Eosinophils # (0-0.7) k/uL Basophils # (0-0.2) k/uL Manual Slide Review PT (9.0-12.0) sec INR (<1.2) APTT (22.0-30.0) sec Sodium (137-145) mmol/L Potassium (3.5-5.1) mmol/L Chloride (98-107) mmol/L Carbon Dioxide (22-30) mmol/L Anion Gap mmol/L BUN (7-17) mg/dL Creatinine (0.52-1.04) mg/dL Est GFR (CKD-EPI)AfAm (>60 ml/min/1.73 sqM) Est GFR (CKD-EPI)NonAf (>60 ml/min/1.73 sqM) Glucose (74-99) mg/dL Calcium (8.4-10.2) mg/dL Magnesium (1.6-2.3) mg/dL Total Bilirubin (0.2-1.3) mg/dL AST (14-36) U/L ALT (4-34) U/L Alkaline Phosphatase (38-126) U/L Troponin I <0.012 (0.000-0.034) ng/mL Total Protein (6.3-8.2) g/dL Albumin (3.5-5.0) g/dL Urine Color Light Yellow Urine Appearance Clear (Clear) Urine pH 5.0 (5.0-8.0) Ur Specific [place] 1.008 (1.001-1.035) Urine Protein Negative (Negative) Urine Glucose (UA) Negative (Negative) Urine Ketones Negative (Negative) Urine Blood Trace H (Negative) Urine Nitrite Negative (Negative) Urine Bilirubin Negative (Negative) Urine Urobilinogen <2.0 (<2.0) mg/dL Ur Leukocyte Esterase Small H (Negative) Urine RBC 1 (0-5) /hpf Urine WBC 11 H (0-5) /hpf Urine WBC Clumps Rare H (None) /hpf Ur Squamous Epith Cells 1 (0-4) /hpf Urine Bacteria Occasional H (None) /hpf Urine Mucus Rare H (None) /hpf - EKG Data -: EKG Interpreted by Me EKG Comments: 12-lead Electrocardiogram Interpretation Note EKG was reviewed and interpreted by myself. 12-lead ECG performed at 1742 is interpreted by me as revealing atrial fibrillation at a rate of 98 beats per minute. [place] is normal. QRS duration is 93 ms, QTc is 421 ms.. There were no acute ST or T wave abnormalities to suggest myocardial ischemia or injury. Chronic T wave abnormalities seen in III, aVF which are inversions, as well as the lateral precordial leads seen on prior EKGs in August 2022 when the patient was in A. fib. R wave progression across the precordium was satisfactory. By my interpretation this EKG is non-diagnostic for acute ischemia. When compared with EKG from August 2022, no significant change. Disposition Clinical Impression: Atrial fibrillation, Hypertrophic cardiomyopathy Disposition: HOME SELF-CARE Condition: Good Instructions (If sedation given, give patient instructions): Heart Palpitations (ED) Is patient prescribed a controlled substance at d/c from ED?: No Referrals: Juan J Tidwell DO [Primary Care Provider] - 1-2 days Time of Disposition: 09:02
--- NOTE | 2022-11-26 19:25 | US ---
EXAMINATION TYPE: US venous doppler duplex LE LT DATE OF EXAM: 11/26/2022 6:21 PM COMPARISON: NONE CLINICAL HISTORY: swelling, eval for dvt. Left leg swelling, patient on blood thinners SIDE PERFORMED: Left TECHNIQUE: The lower extremity deep venous system is examined utilizing real time linear array sonog talia with graded compression, doppler sonography and color-flow sonography. VESSELS IMAGED: Common Femoral Vein Deep Femoral Vein Greater Saphenous Vein * Femoral Vein Popliteal Vein Small Saphenous Vein * Proximal Calf Veins (* superficial vessels) Left Leg: Appears negative for DVT , Grayscale, color doppler, spectral doppler imaging performed of the deep veins of the lower extremities. There is normal flow, compressibility, vascular waveforms. IMPRESSION: No evidence for deep vein thrombosis of the left lower extremity.
[2022-11-26 20:36] LABS: Appearance,Urine Clear (Clear); Bacteria,Urine Occasional /hpf; Bilirubin,Urine Negative (Negative); Blood,Urine Trace (Negative); Color,Urine Light Yellow; Glucose,Urine (UA) Negative (Negative); Ketones,Urine Negative (Negative); Leukocyte Esterase,Urine Small (Negative); Mucus,Urine Rare /hpf; Nitrite,Urine Negative (Negative); Protein,Urine Negative (Negative); RBC,Urine 1 /hpf (0-5); Specific Gravity,Urine 1.008 (1.001-1.035); Squamous Epithelial Cell,Urine 1 /hpf (0-4); Urobilinogen,Urine <2.0 mg/dL (<2.0); WBC,Urine 11 /hpf (0-5)
[2022-11-26 21:09] VITALS: BP 102/78
== END 2022-11-26 21:16 | disposition home or self-care (01) ==
LOC: EC 17:39
DX: I48.91 Unspecified atrial fibrillation (principal); I42.2 Other hypertrophic cardiomyopathy; F41.9 Anxiety disorder, unspecified; F32.A Depression, unspecified; Z91.012 Allergy to eggs; Z79.899 Other long term (current) drug therapy
CPT/HCPCS: 36415; 71046; 80053; 81001; 83735; 84484; 85025; 85610; 85730; 87077; 87086; 87186; 93005; 99285

== ENCOUNTER 2023-02-08 14:11 | Observation (INO) | payer OTHER ==
[2023-02-08] MEDS ORDERED: SODIUM CHLORIDE 0.9% 1,000 ML IV STA ×2 (14:45→16:05)
[2023-02-08] MEDS ORDERED: PANTOPRAZOLE 40 MG/10 ML VIAL IVP STA (14:46)
[2023-02-08] MEDS ORDERED: ONDANSETRON 4 MG/2 ML VIAL IVP STA (14:46)
[2023-02-08] MEDS ORDERED: DILTIAZEM DRIP BOLUS FROM BAG 1 MG SOLN IV ONE (15:11)
[2023-02-08 15:17] LABS: Basophils # (A) 0.1 k/uL (0-0.2); Basophils % (A) 1 %; Eosinophils # (A) 0.2 k/uL (0-0.7); Eosinophils % (A) 1 %; HCT 50.3 % (34.0-46.0); HGB 17.3 gm/dL (11.4-16.0); Lymphocytes # (A) 1.6 k/uL (1.0-4.8); Lymphocytes % (A) 13 %; MCH 31.8 pg (25.0-35.0); MCHC 34.4 g/dL (31.0-37.0); MCV 92.5 fL (80.0-100.0); Mean Platelet Volume 11.6; Monocytes # (A) 0.5 k/uL (0-1.0); Monocytes % (A) 4 %; Neutrophils # (A) 10.1 k/uL (1.3-7.7); Neutrophils % (A) 81 %; Platelet Count 222 k/uL (150-450); RBC 5.44 m/uL (3.80-5.40); RDW 12.6 % (11.5-15.5); WBC 12.5 k/uL (3.8-10.6)
--- NOTE | 2023-02-08 15:18 | ED ---
Weakness HPI - General Chief complaint: Weakness Stated complaint: Afib Time Seen by Provider: 02/08/23 14:40 Source: patient Mode of arrival: wheelchair Limitations: no limitations - History of Present Illness Initial comments: Patient is a 37-year-old female with a past medical history significant for hypertrophic cardiomyopathy with dual-chamber ICD implantation, paroxysmal atrial fibrillation with multiple ablations most recently in August 2020 pr esenting for weakness. Patient states she has felt weak with palpitations and mild shortness of breath since yesterday. She has had several episodes of vomiting, nonbloody. Patient feels that she is in atrial fibrillation. She denies chest pain. She follows with Bull Gomez, and Dr. Quick at [facility]. She takes lisinopril, diltiazem, Eliquis denies missing any doses. - Related Data Home Medications Medication Instructions Recorded Confirmed SUMAtriptan succinate [Imitrex] 50 mg PO DAILY PRN 02/24/20 02/08/23 Metoprolol Succinate (ER) [Toprol 100 mg PO DAILY 08/31/22 02/08/23 XL] Spironolactone [Aldactone] 25 mg PO DAILY 08/31/22 02/08/23 dilTIAZem HCL [dilTIAZem HCL 24Hr 240 mg PO DAILY 11/26/22 02/08/23 ER (Xr)] Bumetanide [Bumex] 1 mg PO DAILY PRN 02/08/23 02/08/23 dilTIAZem HCL 30 mg PO Q6H PRN 02/08/23 02/08/23 Previous Rx's Medication Instructions Recorded Apixaban [Eliquis] 5 mg PO BID #60 tab 04/03/19 Allergies Allergy/AdvReac Type Severity Reaction Status Date / Time egg AdvReac HEADACHE Verified 02/08/23 17:15 Review of Systems ROS Statement: Those systems with pertinent positive or pertinent negative responses have been documented in the HPI. ROS Other: All systems not noted in ROS Statement are negative. Past Medical History Past Medical History: Atrial Fibrillation Additional Past Medical History / Comment(s): See Dr Gottlieb H&P, IBS, Migraines History of Any Multi-Drug Resistant Organisms: None Reported Past Surgical History: Section, Cholecystectomy, Pacemaker Additional Past Surgical History / Comment(s): Section X1. cardiac ablation 02/24/20, PACEMAK[facility] (AUG 2019) Past Anesthesia/Blood Transfusion Reactions: Motion Sickness, Postoperative Nausea & Vomiting (PONV) Type of Cardiac Device: Permanent Pacemaker Device Placement Date:: 08/2019 Past Psychological History: Anxiety, Depression Smoking Status: Never smoker Past Alcohol Use History: None Reported Past Drug Use History: None Reported - Past Family History Father Family Medical History: Cancer Additional Family Medical History / Comment(s): . Mother Family Medical History: Cancer Additional Family Medical History / Comment(s): . Sister(s) Additional Family Medical History / Comment(s): "heart problems" General Exam Limitations: no limitations General appearance: alert, other (Short of breath) Eye exam: Present: normal appearance, PERRL, EOMI. Absent: scleral icterus, conjunctival injection, periorbital swelling Respiratory exam: Present: normal lung sounds bilaterally. Absent: respiratory distress, wheezes, rales, rhonchi, stridor Cardiovascular Exam: Present: tachycardia, irregular rhythm, normal heart sounds. Absent: regular rate, normal rhythm, systolic murmur, diastolic murmur, rubs, gallop, clicks, JVD, S3, S4 GI/Abdominal exam: Present: soft, normal bowel sounds. Absent: distended, tenderness, guarding, rebound, rigid Neurological exam: Present: alert, oriented X3, CN II-XII intact Psychiatric exam: Present: normal affect, normal mood Skin exam: Present: warm, dry, intact, normal color. Absent: rash Course Vital Signs 02/08/23 02/08/23 02/08/23 14:15 14:26 15:00 Temperature 98 F Pulse Rate 98 70 126 H Respiratory 18 20 19 Rate Blood Pressure 138/80 O2 Sat by Pulse 97 95 95 Oximetry 02/08/23 02/08/23 02/08/23 15:15 15:30 15:35 Temperature Pulse Rate 141 H 129 H Respiratory 16 18 18 Rate Blood Pressure 107/86 O2 Sat by Pulse 97 98 Oximetry 02/08/23 02/08/23 02/08/23 15:45 16:00 16:09 Temperature Pulse Rate 130 H 134 H Respiratory 20 20 20 Rate Blood Pressure 109/95 95/81 O2 Sat by Pulse 96 96 Oximetry 06/14/23 06/14/23 06/14/23 16:15 16:30 16:45 Temperature Pulse Rate 129 H 109 H 111 H Respiratory 21 18 16 Rate Blood Pressure 112/54 96/80 91/68 O2 Sat by Pulse 96 98 96 Oximetry 02/08/23 17:09 Temperature Pulse Rate 85 Respiratory 18 Rate Blood Pressure 115/84 O2 Sat by Pulse 99 Oximetry Medical Decision Making - Medical Decision Making EKG taken at 14:52, interpreted by myself Atrial fibrillation with RVR, no significant ST elevation or T-wave abnormality Ventricular rate 141, QRS duration 104, QTc 416 Was pt. sent in by a medical professional or institution (, PA, AMBULETTE DRIVER, urgent care, hospital, or fpc...) When possible be specific @ -No Did you speak to anyone other than the patient for history (EMS, parent, family, police, friend...)? What history was obtained from this source @ -No Did you review nursing and triage notes (agree or disagree)? Why? @ -I reviewed and agree with nursing and triage notes Were old charts reviewed (outside hosp., previous admission, EMS record, old EKG, old radiological studies, urgent care reports/EKG's, fpc records)? Report findings @ -No old charts were reviewed Differential Diagnosis (chest pain, altered mental status, abdominal pain women, abdominal pain men, vaginal bleeding, weakness, fever, dyspnea, syncope, headache, dizziness, GI bleed, back pain, seizure, CVA, palpatations, mental health)? @ -Differential Dyspnea: Coronary syndrome, arrhythmia, tamponade, asthma, COPD, pulmonary embolism, pneumonia, pneumothorax, pulmonary effusion, anaphylaxis, diabetic ketoacidosis, flailed chest, pulmonary contusion, diaphragmatic rupture, anemia, neuromuscular, this is not meant to be an all-inclusive list. EKG interpreted by me (3pts min.). @ -As above X-rays interpreted by me (1pt min.). @ -None done CT interpreted by me (1pt min.). @ -None done U/S interpreted by me (1pt. min.). @ -None done] What testing was considered but not performed or refused? (CT, X-rays, U/S, labs)? Why? @ -None What meds were considered but not given or refused? Why? @ -None Did you discuss the management of the patient with other professionals (pro fessionals i.e. , PA, AMBULETTE DRIVER, lab, RT, psych nurse, social media content manager, home health care worker, teacher, safety and security officer, case manager specialist)? Give summary @ -No Was smoking cessation discussed for >3mins.? @ -No Was critical care preformed (if so, how long)? @ -No Were there social determinants of health that impacted care today? How? (Homelessness, low income, unemployed, alcoholism, drug addiction, transporta tion, low edu. Level, literacy, decrease access to med. care, assisted, rehab)? @ -No Was there de-escalation of care discussed even if they declined (Discuss DNR or withdrawal of care, Hospice)? DNR status @ -No What co-morbidities impacted this encounter? (DM, HTN, Smoking, COPD, CAD, Cancer, CVA, ARF, Chemo, Hep., AIDS, mental health diagnosis, sleep apnea, morbid obesity)? @ -Hypertrophic cardiomyopathy, atrial fibrillation Was patient admitted / discharged? Hospital course, mention meds given and route, prescriptions, significant lab abnormalities, going to OR and other pertinent info. @ -Admitted. Patient presents in atrial fibrillation with RVR at 141. Blood pressure stable at 138/80. Patient a little short of breath otherwise well- appearing. Cardizem initiated. Ventricular rate did improve to the 90s-110s. Dr. James spoke with Dr. Maxwell patient will likely have cardioversion in the morning. She is NPO at midnight. Case is discussed with Hien from [facility] who accepts admission cardiology is on consult Undiagnosed new problem with uncertain prognosis? @ -No Drug Therapy requiring intensive monitoring for toxicity (Heparin, Nitro, Insulin, Cardizem)? @ -Yes Were any procedures done? @ -No Diagnosis/symptom? @ -Atrial fibrillation with RVR Acute, or Chronic, or Acute on Chronic? @ -acute on chronic Uncomplicated (without systemic symptoms) or Complicated (systemic symptoms)? @ -uncomplicated Side effects of treatment? @ -No Exacerbation, Progression, or Severe Exacerbation? @ -No Poses a threat to life or bodily function? How? (Chest pain, [place], [place], pneumonia, PE, COPD, DKA, ARF, appy, cholecystitis, CVA, Diverticulitis, Homicidal, Suicidal, threat to staff... and all critical care pts) @ -Yes Dr. James is my attending - Lab Data Result diagrams: 02/08/23 14:56 02/08/23 16:51 Lab Results 02/08/23 02/08/23 02/08/23 Range/Units 14:56 14:56 14:56 WBC 12.5 H (3.8-10.6) k/uL RBC 5.44 H (3.80-5.40) m/uL Hgb 17.3 H (11.4-16.0) gm/dL Hct 50.3 H (34.0-46.0) % MCV 92.5 (80.0-100.0) fL MCH 31.8 (25.0-35.0) pg MCHC 34.4 (31.0-37.0) g/dL RDW 12.6 (11.5-15.5) % Plt Count 222 (150-450) k/uL MPV 11.6 Neutrophils % 81 % Lymphocytes % 13 % Monocytes % 4 % Eosinophils % 1 % Basophils % 1 % Neutrophils # 10.1 H (1.3-7.7) k/uL Lymphocytes # 1.6 (1.0-4.8) k/uL Monocytes # 0.5 (0-1.0) k/uL Eosinophils # 0.2 (0-0.7) k/uL Basophils # 0.1 (0-0.2) k/uL PT 12.3 H (9.0-12.0) sec INR 1.2 H (<1.2) APTT 27.1 (22.0-30.0) sec Sodium 136 L (137-145) mmol/L Potassium 5.2 H (3.5-5.1) mmol/L Chloride 104 (98-107) mmol/L Carbon Dioxide 17 L (22-30) mmol/L Anion Gap 15 mmol/L BUN 22 H (7-17) mg/dL Creatinine 0.78 (0.52-1.04) mg/dL Est GFR (CKD-EPI)AfAm >90 (>60 ml/min/1.73 sqM) Est GFR (CKD-EPI)NonAf >90 (>60 ml/min/1.73 sqM) Glucose 126 H (74-99) mg/dL Plasma Lactic Acid Earl (0.7-2.0) mmol/L Calcium 9.6 (8.4-10.2) mg/dL Magnesium 1.8 (1.6-2.3) mg/dL Total Bilirubin 2.0 H (0.2-1.3) mg/dL AST 61 H (14-36) U/L ALT 59 H (4-34) U/L Alkaline Phosphatase 100 (38-126) U/L Troponin I (0.000-0.034) ng/mL Total Protein 8.7 H (6.3-8.2) g/dL Albumin 5.0 (3.5-5.0) g/dL TSH 1.890 (0.465-4.680) mIU/L 02/08/23 02/08/23 02/08/23 Range/Units 14:56 14:56 16:51 WBC (3.8-10.6) k/uL RBC (3.80-5.40) m/uL Hgb (11.4-16.0) gm/dL Hct (34.0-46.0) % MCV (80.0-100.0) fL MCH (25.0-35.0) pg MCHC (31.0-37.0) g/dL RDW (11.5-15.5) % Plt Count (150-450) k/uL MPV Neutrophils % % Lymphocytes % % Monocytes % % Eosinophils % % Basophils % % Neutrophils # (1.3-7.7) k/uL Lymphocytes # (1.0-4.8) k/uL Monocytes # (0-1.0) k/uL Eosinophils # (0-0.7) k/uL Basophils # (0-0.2) k/uL PT (9.0-12.0) sec INR (<1.2) APTT (22.0-30.0) sec Sodium (137-145) mmol/L Potassium 5.9 H (3.5-5.1) mmol/L Chloride (98-107) mmol/L Carbon Dioxide (22-30) mmol/L Anion Gap mmol/L BUN (7-17) mg/dL Creatinine (0.52-1.04) mg/dL Est GFR (CKD-EPI)AfAm (>60 ml/min/1.73 sqM) Est GFR (CKD-EPI)NonAf (>60 ml/min/1.73 sqM) Glucose (74-99) mg/dL Plasma Lactic Acid Earl 1.8 (0.7-2.0) mmol/L Calcium (8.4-10.2) mg/dL Magnesium (1.6-2.3) mg/dL Total Bilirubin (0.2-1.3) mg/dL AST (14-36) U/L ALT (4-34) U/L Alkaline Phosphatase (38-126) U/L Troponin I 0.020 (0.000-0.034) ng/mL Total Protein (6.3-8.2) g/dL Albumin (3.5-5.0) g/dL TSH (0.465-4.680) mIU/L Disposition Clinical Impression: Atrial fibrillation with rapid ventricular response Disposition: ADMITTED IP TO THIS HOSP Condition: Stable
[2023-02-08 15:28] LABS: INR 1.2 (<1.2); Partial Thromboplastin Time 27.1 sec (22.0-30.0); Prothrombin Time 12.3 sec (9.0-12.0)
--- NOTE | 2023-02-08 15:39 | XR ---
EXAMINATION TYPE: XR chest 2V DATE OF EXAM: 02/08/2023 COMPARISON: 11/26/2022 INDICATION: Short of breath TECHNIQUE: Single frontal view of the chest is obtained. FINDINGS: The heart size is enlarged. The pulmonary vasculature is normal. The lungs are clear. Electronic device overlies the left chest. IMPRESSION: 1. Cardiomegaly.
[2023-02-08 15:47] LABS: ALT 59 U/L (4-34); AST 61 U/L (14-36); African American GFR (CKD) >90 (>60 ml/min/1.73 sqM); Alkaline Phosphatase 100 U/L (38-126); Anion Gap 15 mmol/L; Blood Urea Nitrogen 22 mg/dL (7-17); Calcium 9.6 mg/dL (8.4-10.2); Carbon Dioxide 17 mmol/L (22-30); Chloride 104 mmol/L (98-107); Glucose 126 mg/dL (74-99); Magnesium 1.8 mg/dL (1.6-2.3); Non-African American GFR(CKD) >90 (>60 ml/min/1.73 sqM); Sodium 136 mmol/L (137-145); Total Protein 8.7 g/dL (6.3-8.2)
[2023-02-08 15:52] LABS: Potassium 5.2 mmol/L (3.5-5.1)
[2023-02-08] MEDS: DILTIAZEM 125 MG in SODIUM CHLORIDE 0.9% 100 ML IV SCH (15:52)
[2023-02-08] MEDS ORDERED: NALOXONE 0.4 MG/ML 1 ML VIAL IV PRN (17:12)
[2023-02-08] MEDS ORDERED: ONDANSETRON 4 MG/2 ML VIAL IVP PRN (17:12)
[2023-02-08] MEDS: SODIUM CHLORIDE 0.9% 1,000 ML IV SCH (18:40)
[2023-02-08] MEDS ORDERED: SUMAtriptan succinate 50 MG TAB PO PRN (20:08)
[2023-02-08] MEDS ORDERED: ACETAMINOPHEN TAB 500 MG TAB PO PRN (20:09)
[2023-02-08] MEDS: APIXABAN 5 MG TAB PO SCH (20:35)
[2023-02-09] MEDS: SODIUM CHLORIDE 0.9% 1,000 ML IV SCH ×2 (03:08→05:54)
[2023-02-09 08:03] LABS: ALT 45 U/L (4-34); African American GFR (CKD) >90 (>60 ml/min/1.73 sqM); Anion Gap 14 mmol/L; Blood Urea Nitrogen 18 mg/dL (7-17); Calcium 8.8 mg/dL (8.4-10.2); Carbon Dioxide 14 mmol/L (22-30); Chloride 111 mmol/L (98-107); Glucose 147 mg/dL (74-99); Non-African American GFR(CKD) >90 (>60 ml/min/1.73 sqM); Sodium 139 mmol/L (137-145)
[2023-02-09 08:13] LABS: AST 46 U/L (14-36); Albumin 4.1 g/dL (3.5-5.0); Alkaline Phosphatase 89 U/L (38-126); Potassium 4.7 mmol/L (3.5-5.1)
[2023-02-09] MEDS: APIXABAN 5 MG TAB PO SCH ×2 (09:10→20:27)
[2023-02-09 09:12] VITALS: RESP 16
[2023-02-09] MEDS: METOPROLOL SUCCINATE (ER) 100 MG TAB.ER.24H PO SCH (10:08)
--- NOTE | 2023-02-09 12:50 | P.CRDCN ---
History of Present Illness History of present illness: HISTORY OF PRESENT ILLNESS: This is a 37-year-old female with a past medical history significant for hypertrophic cardiomyopathy, paroxysmal atrial fibrillation, AICD implantation, and thyroid disorder. Patient follows with a operations developer at [facility], Dr. Quick. However she used to see Dr. Love and last saw him in December 2021.. We have been asked to see the patient in consultation for A. fib with RVR. Patient examined at the bedside. In initially presented to the [facility] yesterday was found to be in A. fib with RVR. Per the patient's , and they were told there would be a weight of at least 12 hours before the patient would receive a bed assignment. So they decided to leave it and came to [facility] for further evaluation. The patient was found to be in A. fib with RVR when she arrived to the hospital. She was started on IV Cardizem. She remains in atrial fibrillation with heart rate ranging between [id number]. She de nies any chest pain or pressure. She denies any shortness of breath. She does report having a history of 2 ablations in the past. She states that she has never had a cardioversion. She states in the past she was scheduled for a cardioversion twice in both time she spontaneously converted to sinus mechanism prior to having the cardioversion performed. * EKG reveals A. fib with RVR * Chest xray cardiomegaly * Laboratory data: W BC 12.5. Hemoglobin 17.3. Platelet count 222. Sodium 139. Potassium 4.7. BUN 18. Creatinine 0.76. Troponin negative 2. TSH 1.890. * Current home cardiac medications include Aldactone 25 mg daily, metoprolol succinate 100 mg daily, Bumex 1 mg daily as needed, Cardizem 240 mg daily, and Eliquis 5mg BID * Most recent echocardiogram obtained in March 2019 revealed ejection fraction 50-55%, mild MR REVIEW OF SYSTEMS: At the time of my exam: CONSTITUTIONAL: Denies fever or chills. HEENT: Denies blurred vision, vision changes, or eye pain. Denies hemoptysis CARDIOVASCULAR: Denies chest pain. Denies orthopnea. Denies PND. Denies palpitations RESPIRATORY: Denies shortness of breath. GASTROINTESTINAL: Denies abdominal pain. Denies nausea or vomiting. HEMATOLOGIC: Denies bleeding disorders. GENITOURINARY: Denies any blood in urine. SKIN: Denies pruitis. Denies rash. PHYSICAL EXAM: VITAL SIGNS: Reviewed. GENERAL: Well-developed in no acute distress. HEENT: Head is normocephalic. Pupils are equal, round. Sclerae anicteric. Mucous membranes of the mouth are moist. Neck supple. No JVD or thyromegaly LUNGS: Respirations even and unlabored. Lungs essentially clear to auscultation bilaterally. HEART: Tachycardic. Irregular rate and rhythm. S1 and S2 heard. ABDOMEN: Soft. Nondistended. Nontender. EXTREMITIES: Normal range of motion. No clubbing or cyanosis. Peripheral pulses intact. No lower extremity edema NEUROLOGIC: Awake and alert. Oriented x 3. ASSESSMENT: Palpitations Paroxysmal atrial fibrillation with RVR History of previous ablation, 2 History of hypertrophic cardiomyopathy History of AICD implantation History of thyroid disorder PLAN: Continue oral anticoagulation Resume patient's home dose of metoprolol succinate Continue IV Cardizem. Patient's oral Cardizem remains on hold secondary to IV infusion Nothing by mouth at midnight Patient to undergo cardioversion tomorrow with Dr. Dumont Further recommendations but he patient course Nurse practitioner note has been reviewed by physician. Signing provider agrees with the documented findings, assessment, and plan of care. Past Medical History Past Medical History: Atrial Fibrillation Additional Past Medical History / Comment(s): See Dr Gottlieb H&P, IBS, Migraines History of Any Multi-Drug Resistant Organisms: None Reported Past Surgical History: Section, Cholecystectomy, Pacemaker Additional Past Surgical History / Comment(s): Section X1. cardiac ablation 02/24/20, PACEMAK[facility] (AUG 2019) Past Anesthesia/Blood Transfusion Reactions: Motion Sickness, Postoperative Nausea & Vomiting (PONV) Type of Cardiac Device: Permanent Pacemaker Device Placement Date:: 08/2019 Past Psychological History: Anxiety, Depression Smoking Status: Never smoker Past Alcohol Use History: None Reported Past Drug Use History: None Reported - Past Family History Father Family Medical History: Cancer Additional Family Medical History / Comment(s): . Mother Family Medical History: Cancer Additional Family Medical History / Comment(s): . Sister(s) Additional Family Medical History / Comment(s): "heart problems" Medications and Allergies Home Medications Medication Instructions Recorded Confirmed Type Apixaban [Eliquis] 5 mg PO BID #60 tab 04/03/19 02/08/23 Rx SUMAtriptan succinate [Imitrex] 50 mg PO DAILY PRN 02/24/20 02/08/23 History Metoprolol Succinate (ER) [Toprol 100 mg PO DAILY 08/31/22 02/08/23 History XL] Spironolactone [Aldactone] 25 mg PO DAILY 08/31/22 02/08/23 History dilTIAZem HCL [dilTIAZem HCL 24Hr 240 mg PO DAILY 11/26/22 02/08/23 History ER (Xr)] Bumetanide [Bumex] 1 mg PO DAILY PRN 02/08/23 02/08/23 History dilTIAZem HCL 30 mg PO Q6H PRN 02/08/23 02/08/23 History Allergies Allergy/AdvReac Type Severity Reaction Status Date / Time egg AdvReac HEADACHE Verified 02/08/23 17:15 Physical Exam Vitals: Vital Signs Temp Pulse Pulse Resp BP BP Pulse Ox 02/09/23 12:01 77 16 105/68 95 02/09/23 08:18 95 02/09/23 08:00 110 H 16 95/65 95 02/09/23 02:00 98 18 118/86 98 02/08/23 22:30 98.3 F 94 18 108/77 96 02/08/23 21:56 91 18 103/77 95 02/08/23 19:43 105 H 18 102/85 99 02/08/23 18:05 81 18 106/61 96 02/08/23 17:09 85 18 115/84 99 02/08/23 16:45 111 H 16 91/68 96 02/08/23 16:30 109 H 18 96/80 98 02/08/23 16:15 129 H 21 112/54 96 02/08/23 16:09 20 02/08/23 16:00 134 H 20 95/81 96 02/08/23 15:45 130 H 20 109/95 96 02/08/23 15:35 18 02/08/23 15:30 129 H 18 107/86 98 02/08/23 15:15 141 H 16 97 02/08/23 15:00 126 H 19 95 02/08/23 14:26 70 20 95 02/08/23 14:15 98 F 98 18 138/80 97 FiO2 02/09/23 12:01 02/09/23 08:18 21 02/09/23 08:00 02/09/23 02:00 02/08/23 22:30 02/08/23 21:56 02/08/23 19:43 02/08/23 18:05 02/08/23 17:09 02/08/23 16:45 02/08/23 16:30 02/08/23 16:15 02/08/23 16:09 02/08/23 16:00 02/08/23 15:45 02/08/23 15:35 02/08/23 15:30 02/08/23 15:15 02/08/23 15:00 02/08/23 14:26 02/08/23 14:15 Intake and Output 02/08/23 02/09/23 02/09/23 22:59 06:59 14:59 Other: Voiding Method Toilet Toilet Toilet # Voids 0 2 Weight 94.347 kg Results 02/08/23 14:56 02/09/23 06:56 Cardiac Enzymes 02/08/23 02/08/23 02/08/23 Range/Units 14:56 14:56 18:32 AST 61 H (14-36) U/L Troponin I 0.020 <0.012 (0.000-0.034) ng/mL 02/08/23 02/09/23 Range/Units 21:23 06:56 AST 46 H (14-36) U/L Troponin I <0.012 (0.000-0.034) ng/mL Coagulation 02/08/23 Range/Units 14:56 PT 12.3 H (9.0-12.0) sec APTT 27.1 (22.0-30.0) sec CBC 02/08/23 Range/Units 14:56 WBC 12.5 H (3.8-10.6) k/uL RBC 5.44 H (3.80-5.40) m/uL Hgb 17.3 H (11.4-16.0) gm/dL Hct 50.3 H (34.0-46.0) % Plt Count 222 (150-450) k/uL Comprehensive Metabolic Panel 02/08/23 02/08/2323 Range/Units 14:56 16:51 18:30 Sodium 136 L (137-145) mmol/L Potassium 5.2 H 5.9 H 2.7 L* (3.5-5.1) mmol/L Chloride 104 (98-107) mmol/L Carbon Dioxide 17 L (22-30) mmol/L BUN 22 H (7-17) mg/dL Creatinine 0.78 (0.52-1.04) mg/dL Glucose 126 H (74-99) mg/dL Calcium 9.6 (8.4-10.2) mg/dL AST 61 H (14-36) U/L ALT 59 H (4-34) U/L Alkaline Phosphatase 100 (38-126) U/L Total Protein 8.7 H (6.3-8.2) g/dL Albumin 5.0 (3.5-5.0) g/dL 02/08/23 02/09/23 Range/Units 18:30 06:56 Sodium 139 (137-145) mmol/L Potassium 4.3 4.7 (3.5-5.1) mmol/L Chloride 111 H (98-107) mmol/L Carbon Dioxide 14 L (22-30) mmol/L BUN 18 H (7-17) mg/dL Creatinine 0.76 (0.52-1.04) mg/dL Glucose 147 H (74-99) mg/dL Calcium 8.8 (8.4-10.2) mg/dL AST 46 H (14-36) U/L ALT 45 H (4-34) U/L Alkaline Phosphatase 89 (38-126) U/L Total Protein 7.0 (6.3-8.2) g/dL Albumin 4.1 (3.5-5.0) g/dL Current Medications Generic Name Dose Route Start Last Admin Trade Name Freq PRN Reason Stop Dose Admin Acetaminophen 500 mg 02/08/23 20:09 Acetaminophen Tab 500 Mg Tab PO Q6HR PRN Fever and/ or Pain Apixaban 5 mg 02/08/23 21:00 02/09/23 09:10 Apixaban 5 Mg Tab PO 5 mg BID GERALDINE Administration Protocol Diltiazem HCl 125 mg/ Sodium 125 mls @ 5 mls/hr 02/08/23 15:15 02/08/23 15:52 Chloride IV 5 mg/hr .Q24H GERALDINE 5 mls/hr Administration 5 MG/HR Sodium Chloride 1,000 mls @ 75 mls/hr 02/08/23 17:15 02/09/23 05:54 Saline 0.9% IV 130 mls/hr .[id number] GERALDINE Administration Sodium Chloride 1,000 mls @ 20 mls/hr 02/09/23 10:45 Saline 0.9% IV .Q24H GERALDINE Metoprolol Succinate 100 mg 02/09/23 10:00 02/09/23 10:08 Metoprolol Succinate (Er) 100 Mg Tab.Er.24h PO 100 mg DAILY GERALDINE Administration Naloxone HCl 0.2 mg 02/08/23 17:12 Naloxone 0.4 Mg/Ml 1 Ml Vial IV Q2M PRN Opioid Reversal Ondansetron HCl 4 mg 02/08/23 17:12 02/09/23 03:00 Ondansetron 4 Mg/2 Ml Vial IVP 4 mg Q8HR PRN Administration Nausea And Vomiting Sumatriptan Succinate 50 mg 02/08/23 20:08 Sumatriptan Succinate 50 Mg Tab PO DAILY PRN Headache Intake and Output 02/08/23 02/09/23 02/09/23 22:59 06:59 14:59 Other: Voiding Method Toilet Toilet Toilet # Voids 0 2 Weight 94.347 kg 02/08/23 14:56 02/09/23 06:56
--- NOTE | 2023-02-09 13:13 | P.HPIM ---
History of Present Illness Vital female with history of hypertrophic obstructive cardiomyopathy and proximal atrial fibrillation came in with the Mac pack with rapid ventricular rate. Patient rate is well controlled at this time on Cardizem cardiology evaluated the patient is recommending cardioversion tomorrow. Patient had aberrations twice in the past and also has an AICD. Patient is on anti- correlation at this time. Patient came in with symptoms of palpitations or lightheadedness. REVIEW OF SYSTEMS: CONSTITUTIONAL: No fever, no malaise, no fatigue. HEENT: No recent visual problems or hearing problems. Denied any sore throat. CARDIOVASCULAR: As mentioned in HPI PULMONARY: No shortness of breath, no cough, no hemoptysis. GASTROINTESTINAL: No diarrhea, no nausea, no vomiting, no abdominal pain. NEUROLOGICAL: No headaches, no weakness, no numbness. HEMATOLOGICAL: Denies any bleeding or petechiae. GENITOURINARY: Denies any burning micturition, frequency, or urgency. MUSCULOSKELETAL/RHEUMATOLOGICAL: Denies any joint pain, swelling, or any muscle pain. ENDOCRINE: Denies any polyuria or polydipsia. The rest of the 14-point review of systems is negative. PHYSICAL EXAMINATION: GENERAL: The patient is alert and oriented x3, not in any acute distress. Well developed, well nourished. HEENT: Pupils are round and equally reacting to light. EOMI. No scleral icterus. No conjunctival pallor. Normocephalic, atraumatic. No pharyngeal erythema. No thyromegaly. CARDIOVASCULAR: S1 and S2 present. No murmurs, rubs, or gallops. PULMONARY: Chest is clear to auscultation, no wheezing or crackles. ABDOMEN: Soft, nontender, nondistended, normoactive bowel sounds. No palpable organomegaly. MUSCULOSKELETAL: No joint swelling or deformity. EXTREMITIES: No cyanosis, clubbing, or pedal edema. NEUROLOGICAL: Gross neurological examination did not reveal any focal deficits. SKIN: No rashes. Assessment and plan -Proximal atrial fibrillation, patient is being treated for rapid and regular rate, patient is presently rate controlled soon ASantos pack will undergo cardioversion tomorrow -History of hypertrophic obstructive cardiomyopathy -Hypothyroidism -Non-anion gap metabolic acidosis secondary to hyperchloremia IV fluids will be discontinued - leukocytosis secondary is reactive without any evidence of infection at this time-mild transaminitis no further intervention is a sitter at this time DVT prophylaxis: Continue with anticoagulation Past Medical History Past Medical History: Atrial Fibrillation Additional Past Medical History / Comment(s): See Dr Gottlieb H&P, IBS, Migraines History of Any Multi-Drug Resistant Organisms: None Reported Past Surgical History: Section, Cholecystectomy, Pacemaker Additional Past Surgical History / Comment(s): Section X1. cardiac a blation 02/24/20, PACEMAK[facility] (AUG 2019) Past Anesthesia/Blood Transfusion Reactions: Motion Sickness, Postoperative Nausea & Vomiting (PONV) Type of Cardiac Device: Permanent Pacemaker Device Placement Date:: 08/2019 Past Psychological History: Anxiety, Depression Smoking Status: Never smoker Past Alcohol Use History: None Reported Past Drug Use History: None Reported - Past Family History Father Family Medical History: Cancer Additional Family Medical History / Comment(s): . Mother Family Medical History: Cancer Additional Family Medical History / Comment(s): . Sister(s) Additional Family Medical History / Comment(s): "heart problems" Medications and Allergies Home Medications Medication Instructions Recorded Confirmed Type Apixaban [Eliquis] 5 mg PO BID #60 tab 04/03/19 02/08/23 Rx SUMAtriptan succinate [Imitrex] 50 mg PO DAILY PRN 02/24/20 02/08/23 History Metoprolol Succinate (ER) [Toprol 100 mg PO DAILY 08/31/22 02/08/23 History XL] Spironolactone [Aldactone] 25 mg PO DAILY 08/31/22 02/08/23 History dilTIAZem HCL [dilTIAZem HCL 24Hr 240 mg PO DAILY 11/26/22 02/08/23 History ER (Xr)] Bumetanide [Bumex] 1 mg PO DAILY PRN 02/08/23 02/08/23 History dilTIAZem HCL 30 mg PO Q6H PRN 02/08/23 02/08/23 History Allergies Allergy/AdvReac Type Severity Reaction Status Date / Time egg AdvReac HEADACHE Verified 02/08/23 17:15 Physical Exam Vitals: Vital Signs Temp Pulse Pulse Resp BP BP Pulse Ox 02/09/23 12:01 77 16 105/68 95 02/09/23 08:18 95 02/09/23 08:00 110 H 16 95/65 95 02/09/23 02:00 98 18 118/86 98 02/08/23 22:30 98.3 F 94 18 108/77 96 02/08/23 21:56 91 18 103/77 95 02/08/23 19:43 105 H 18 102/85 99 02/08/23 18:05 81 18 106/61 96 02/08/23 17:09 85 18 115/84 99 02/08/23 16:45 111 H 16 91/68 96 02/08/23 16:30 109 H 18 96/80 98 02/08/23 16:15 129 H 21 112/54 96 02/08/23 16:09 20 02/08/23 16:00 134 H 20 95/81 96 02/08/23 15:45 130 H 20 109/95 96 02/08/23 15:35 18 02/08/23 15:30 129 H 18 107/86 98 02/08/23 15:15 141 H 16 97 02/08/23 15:00 126 H 19 95 02/08/23 14:26 70 20 95 02/08/23 14:15 98 F 98 18 138/80 97 FiO2 02/09/23 12:01 02/09/23 08:18 21 02/09/23 08:00 02/09/23 02:00 02/08/23 22:30 02/08/23 21:56 02/08/23 19:43 02/08/23 18:05 02/08/23 17:09 02/08/23 16:45 02/08/23 16:30 02/08/23 16:15 02/08/23 16:09 02/08/23 16:00 02/08/23 15:45 02/08/23 15:35 02/08/23 15:30 02/08/23 15:15 02/08/23 15:00 02/08/23 14:26 02/08/23 14:15 Intake and Output 02/08/23 02/09/23 02/09/23 22:59 06:59 14:59 Other: Voiding Method Toilet Toilet Toilet # Voids 0 2 Weight 94.347 kg Results CBC & Chem 7: 02/08/23 14:56 02/09/23 06:56 Labs: Abnormal Lab Results - Last 24 Hours (Table) 0602/08/23 02/08/23 Range/Units 14:56 14:56 14:56 WBC 12.5 H (3.8-10.6) k/uL RBC 5.44 H (3.80-5.40) m/uL Hgb 17.3 H (11.4-16.0) gm/dL Hct 50.3 H (34.0-46.0) % Neutrophils # 10.1 H (1.3-7.7) k/uL PT 12.3 H (9.0-12.0) sec INR 1.2 H (<1.2) Sodium 136 L (137-145) mmol/L Potassium 5.2 H (3.5-5.1) mmol/L Chloride (98-107) mmol/L Carbon Dioxide 17 L (22-30) mmol/L BUN 22 H (7-17) mg/dL Glucose 126 H (74-99) mg/dL Total Bilirubin 2.0 H (0.2-1.3) mg/dL AST 61 H (14-36) U/L ALT 59 H (4-34) U/L Total Protein 8.7 H (6.3-8.2) g/dL 02/08/23 02/08/23 02/09/23 Range/Units 16:51 18:30 06:56 WBC (3.8-10.6) k/uL RBC (3.80-5.40) m/uL Hgb (11.4-16.0) gm/dL Hct (34.0-46.0) % Neutrophils # (1.3-7.7) k/uL PT (9.0-12.0) sec INR (<1.2) Sodium (137-145) mmol/L Potassium 5.9 H 2.7 L* (3.5-5.1) mmol/L Chloride 111 H (98-107) mmol/L Carbon Dioxide 14 L (22-30) mmol/L BUN 18 H (7-17) mg/dL Glucose 147 H (74-99) mg/dL Total Bilirubin 2.0 H (0.2-1.3) mg/dL AST 46 H (14-36) U/L ALT 45 H (4-34) U/L Total Protein (6.3-8.2) g/dL Thrombosis Risk Factor Assmnt - Choose All That Apply Any of the Below Risk Factors Present?: Yes Each Factor Represents 1 point: Obesity (BMI >25) Thrombosis Risk Factor Assessment Total Risk Factor Score: 1 Thrombosis Risk Factor Assessment Level: Low Risk
[2023-02-10] MEDS: DILTIAZEM 125 MG in SODIUM CHLORIDE 0.9% 100 ML IV SCH (04:10)
[2023-02-10] MEDS: SODIUM CHLORIDE 0.9% 1,000 ML IV SCH ×2 (05:42→05:43)
[2023-02-10 08:02] VITALS: TEMP 97.8
[2023-02-10] MEDS: APIXABAN 5 MG TAB PO SCH (08:29)
[2023-02-10] MEDS: METOPROLOL SUCCINATE (ER) 100 MG TAB.ER.24H PO SCH (08:29)
[2023-02-10] MEDS ORDERED: DILTIAZEM CD 240 MG CAP.ER.24H PO SCH (09:00)
[2023-02-10 10:30] VITALS: BP 102/62; PULSE 62
--- NOTE | 2023-02-10 13:14 | P.PN ---
Subjective HISTORY OF PRESENT ILLNESS: This is a 37-year-old female with a past medical history significant for hypertrophic cardiomyopathy, paroxysmal atrial fibrillation, AICD implantation, and thyroid disorder. Patient follows with a furnace and wash equipment operator at [facility], Dr. Quick. However she used to see Dr. Love and last saw him in December 2021.. We have been asked to see the patient in consultation for A. fib with RVR. Patient examined at the bedside. In initially presented to the [facility] yesterday was found to be in A. fib with RVR. Per the patient's , and they were told there would be a weight of at least 12 hours before the patient would receive a bed assignment. So they decided to leave it and came to [facility] for further evaluation. The patient was found to be in A. fib with RVR when she arrived to the hospital. She was started on IV Cardizem. She remains in atrial fibrillation with heart rate ranging between [id number]. She denies any chest pain or pressure. She denies any shortness of breath. She does report having a history of 2 ablations in the past. She states that she has never had a cardioversion. She states in the past she was scheduled for a cardioversion twice in both time she spontaneously converted to sinus mechanism prior to having the cardioversion performed. * EKG reveals A. fib with RVR * Chest xray cardiomegaly * Laboratory data: W BC 12.5. Hemoglobin 17.3. Platelet count 222. Sodium 139. Potassium 4.7. BUN 18. Creatinine 0.76. Troponin negative 2. TSH 1.890. * Current home cardiac medications include Aldactone 25 mg daily, metoprolol succinate 100 mg daily, Bumex 1 mg daily as needed, Cardizem 240 mg daily, and Eliquis 5mg BID * Most recent echocardiogram obtained in March 2019 revealed ejection fraction 50-55%, mild MR 02/10/2023 Patient examined this morning at the bedside. Patient was scheduled for cardioversion today. However she converted to sinus mechanism with IV Cardizem. She is maintained sinus mechanism as morning the time of examination. She denies chest pain or pressure. Denies shortness of breath. Vital signs are stable. PHYSICAL EXAM: VITAL SIGNS: Reviewed. GENERAL: Well-developed in no acute distress. HEENT: Head is normocephalic. Pupils are equal, round. Sclerae anicteric. Mucous membranes of the mouth are moist. Neck supple. No JVD or thyromegaly LUNGS: Respirations even and unlabored. Lungs essentially clear to auscultation bilaterally. HEART: Tachycardic. Irregular rate and rhythm. S1 and S2 heard. ABDOMEN: Soft. Nondistended. Nontender. EXTREMITIES: Normal range of motion. No clubbing or cyanosis. Peripheral pulses intact. No lower extremity edema NEUROLOGIC: Awake and alert. Oriented x 3. ASSESSMENT: Palpitations Paroxysmal atrial fibrillation with RVR History of previous ablation, 2 History of hypertrophic cardiomyopathy History of AICD implantation History of thyroid disorder PLAN: IV Cardizem discontinued Resume patient's home dose of oral Cardizem Continue current dose of metoprolol Patient may be discharged home today from a cardiac stand point and follow up with her primary furnace and wash equipment operator Nurse practitioner note has been reviewed by physician. Signing provider agrees with the documented findings, assessment, and plan of care. Objective - Vital Signs Vital signs: Vital Signs Temp 97.8 F 02/10/23 08:02 Pulse 62 02/10/23 10:29 Resp 16 02/10/23 10:29 BP 102/62 02/10/23 10:29 Pulse Ox 93 L 02/10/23 10:29 FiO2 21 02/09/23 08:18 Intake & Output 02/09/23 02/10/23 02/10/23 18:59 06:59 18:59 Intake Total 1125 194.167 Balance 1125 194.167 Intake: Intake, IV Titration 765 14.167 Amount Diltiazem 125 mg In 165 14.167 Sodium Chloride 0.9% 100 ml @ 5 MG/HR 5 mls/hr IV .Q24H GERALDINE Rx#:[id number] Sodium Chloride 0.9% 1, 600 000 ml @ 75 mls/hr IV . [id number] GERALDINE Rx#:[id number] Oral 360 180 Other: Voiding Method Toilet Toilet Toilet # Voids 2 - Labs CBC & Chem 7: 02/08/23 14:56 02/09/23 06:56
--- NOTE | 2023-02-11 22:50 | P.DS ---
Providers Date of admission: 02/08/23 17:15 Attending physician: Sherley Casillas Consults: 02/08/23 17:12 Consult Physician Routine Consulting Provider: Carlos Maxwell Consult Reason/Comments: Afib with RVR Do you want consulting provider notified?: Already Contacted Primary care physician: Juan J Tidwell DO Hospital Course: Final Diagnosis -Paroxysmal atrial fibrillation with rapid ventricular rate converted to normal sinus rhythm with IV cardizem. -History of hypertrophic obstructive cardiomyopathy -Hypothyroidism -Non-anion gap metabolic acidosis secondary to hyperchloremia from IV fluids -Leukocytosis is reactive without any evidence of infection at this time -mild transaminitis no further intervention is a sitter at this time -History of atrial fibrillation currently anticoagulated Discharge Disposition Patient is stable for discharge has been cleared by cardiology and recommended to follow up with own ecmo specialist from [facility] on discharge as well as Dr Dumont/Dr Gottlieb. Patient to continue on same home medications had converted to normal sinus rhythm prior to cardioversion. Recommend outpatient A1C testing patient had blood glucose elevated at 126 and 147. Recommend to follow up CMP for monitoring of the mildly elevated transaminases. Hospital Course This is a 37 year rold female with history of hypertrophic obstructive cardiomyopathy and paroxysmal atrial fibrillation came in with the A. fib with rapid ventricular rate. Patient was started on IV Cardizem cardiology evaluated the patient was recommending cardioversion. Patient has had similar admission with conversion to sinus rhythm. Patient had cardioversions twice in the past and also has an AICD. Patient is on anti-cooagulation at this time. Patient came in with symptoms of palpitations and lightheadedness. Patient was evaluated overnight and prior to cardioversion patient had spontaneously converted. Was resumed on home medication. TSH is normal. Had mild white count of 12.5 on admission and also had mildly elevated transaminases. No abdominal pain, no fever and no signs of infection. Troponin level was negative. Currently denying chest pain no shortness of breath no nausea vomiting or diarrhea. No dizziness or lightheadedness no palpitations Lungs are clear S1 S2 auscultated with regular rate and rhythm. Patient is cleared for discharge home. Please see medication reconciliation for a list of current medication. Thank you for allowing us to participate in the care of this patient. The impression and plan of care has been dictated by Hien Wu, Nurse Practitioner as directed. Dr. Kamille MD I have performed a history and physical examination and medical decision making of this patient, discussed the same with the dictator, and agree with the dictators assessment and plan as written, documented as a scribe. Based on total visit time, I have performed more than 50% of this visit. Patient Condition at Discharge: Stable Plan - Discharge Summary Discharge Rx Participant: No New Discharge Prescriptions: Continue Apixaban [Eliquis] 5 mg PO BID #60 tab SUMAtriptan succinate [Imitrex] 50 mg PO DAILY PRN PRN Reason: Headache Metoprolol Succinate (ER) [Toprol XL] 100 mg PO DAILY dilTIAZem HCL 30 mg PO Q6H PRN PRN Reason: Blood Pressure - High dilTIAZem HCL [dilTIAZem HCL 24Hr ER (Xr)] 240 mg PO DAILY Bumetanide [BUMEX] 1 mg PO DAILY PRN PRN Reason: Edema Discontinued Spironolactone [Aldactone] 25 mg PO DAILY Discharge Medication List Apixaban [Eliquis] 5 mg PO BID #60 tab 04/03/19 [Rx] SUMAtriptan succinate [Imitrex] 50 mg PO DAILY PRN 02/24/20 [History] Metoprolol Succinate (ER) [Toprol XL] 100 mg PO DAILY 08/31/22 [History] dilTIAZem HCL [dilTIAZem HCL 24Hr ER (Xr)] 240 mg PO DAILY 11/26/22 [History] Bumetanide [BUMEX] 1 mg PO DAILY PRN 02/08/23 [History] dilTIAZem HCL 30 mg PO Q6H PRN 02/08/23 [History] Follow up Appointment(s)/Referral(s): Damon Quick MD [REFERRING] - 1 Week (Spoke to administrative assistant receptionist. They will call you with an appointment time) Juan J Tidwell DO [Primary Care Provider] - 1-2 days (Office is closed. Please call to schedule appointment) Ambulatory/Diagnostic Orders: Basic Metabolic Panel [LAB.AMB] Time Frame: 3 Days, Location: None Selected Patient Instructions/Handouts: A-fib (Atrial Fibrillation) (DC) Activity/Diet/Wound Care/Special Instructions: Follow up with your ecmo specialist on discharge and follow up with PCP in 1 to 2 days Recommend to repeat labs in 2 to 3 days Recommend to follow up with primary care provider regarding the hyperglycemia and close monitoring. Discharge Disposition: HOME SELF-CARE
== END 2023-02-10 14:33 | disposition home or self-care (01) ==
LOC: EC 14:11 → 6NMEDSUR 17:15 → 3SCARD 20:00
PROVIDERS: ADMIT Hospitalist; ATTEND Hospitalist
DX: I48.0 Paroxysmal atrial fibrillation (principal); I42.1 Obstructive hypertrophic cardiomyopathy; E87.20 Acidosis, unspecified; E03.9 Hypothyroidism, unspecified; G43.909 Migraine, unspecified, not intractable, without status migrainosus; K58.9 Irritable bowel syndrome, unspecified; I51.7 Cardiomegaly; D72.829 Elevated white blood cell count, unspecified; R74.01 Elevation of levels of liver transaminase levels; E87.8 Other disorders of electrolyte and fluid balance, not elsewhere classified; E66.9 Obesity, unspecified; Z68.35 Body mass index [BMI] 35.0-35.9, adult; F32.A Depression, unspecified; F41.9 Anxiety disorder, unspecified; Z79.01 Long term (current) use of anticoagulants; Z79.899 Other long term (current) drug therapy; Z91.012 Allergy to eggs; Z90.49 Acquired absence of other specified parts of digestive tract; Z98.891 History of uterine scar from previous surgery; Z95.810 Presence of automatic (implantable) cardiac defibrillator; Z98.890 Other specified postprocedural states; Z82.49 Family history of ischemic heart disease and other diseases of the circulatory system; Z80.9 Family history of malignant neoplasm, unspecified
CPT/HCPCS: 96376 ×2; 96366 ×4; 96365; 96375; 99285; 36415; 94760; 93005; 80053 ×2; 84443; 83605; 83735; 84132; 84484; 85025; 85610; 85730; 71046; G0378 ×4; J2405 ×2; C9113

== ENCOUNTER 2023-02-13 07:18 | Observation (INO) | payer OTHER ==
[2023-02-13] MEDS ORDERED: DILTIAZEM DRIP BOLUS FROM BAG 1 MG SOLN IV ONE (07:56)
[2023-02-13] MEDS ORDERED: SODIUM CHLORIDE 0.9% 500 ML 500 ML IV ONE (07:56)
--- NOTE | 2023-02-13 08:02 | ED ---
General Adult HPI - General Chief complaint: Arrhythmia/Palpitations Stated complaint: AFib Time Seen by Provider: 02/13/23 07:34 Source: patient, family, RN notes reviewed, old records reviewed Mode of arrival: wheelchair Limitations: no limitations - History of Present Illness Initial comments: 37-year-old female with history of hypertrophic cardiomyopathy and atrial fibrillation presenting with palpitations. Patient has pacemaker defibrillator. She states she woke this morning and had used the restroom, following that she developed palpitations and a racing heart sensation. She denied associated chest pain. Mild dyspnea. She took diltiazem and Eliquis this morning. She typically takes metoprolol at night which she states she did take last night. She states she was recently admitted and there was the possibility of cardioversion however he did not require this because she had returned to sinus rhythm. - Related Data Home Medications Medication Instructions Recorded Confirmed SUMAtriptan succinate [Imitrex] 50 mg PO DAILY PRN 02/24/20 02/08/23 Metoprolol Succinate (ER) [Toprol 100 mg PO DAILY 08/31/22 02/08/23 XL] dilTIAZem HCL [dilTIAZem HCL 24Hr 240 mg PO DAILY 11/26/22 02/08/23 ER (Xr)] Bumetanide [BUMEX] 1 mg PO DAILY PRN 02/08/23 02/08/23 dilTIAZem HCL 30 mg PO Q6H PRN 02/08/23 02/08/23 Previous Rx's Medication Instructions Recorded Apixaban [Eliquis] 5 mg PO BID #60 tab 04/03/19 Allergies Allergy/AdvReac Type Severity Reaction Status Date / Time egg AdvReac HEADACHE Verified 02/13/23 07:36 Review of Systems ROS Statement: Those systems with pertinent positive or pertinent negative responses have been documented in the HPI. ROS Other: All systems not noted in ROS Statement are negative. Past Medical History Past Medical History: Atrial Fibrillation Additional Past Medical History / Comment(s): See Dr Bull Mora&P, IBS, Migraines History of Any Multi-Drug Resistant Organisms: None Reported Past Surgical History: Section, Cholecystectomy, Pacemaker Additional Past Surgical History / Comment(s): Section X1. cardiac ablation 02/24/20, [facility] (AUG 2019) Past Anesthesia/Blood Transfusion Reactions: Motion Sickness, Postoperative Nausea & Vomiting (PONV) Type of Cardiac Device: Permanent Pacemaker Device Placement Date:: 08/2019 Past Psychological History: Anxiety, Depression Smoking Status: Never smoker Past Alcohol Use History: None Reported Past Drug Use History: None Reported - Past Family History Father Family Medical History: Cancer Additional Family Medical History / Comment(s): . Mother Family Medical History: Cancer Additional Family Medical History / Comment(s): . Sister(s) Additional Family Medical History / Comment(s): "heart problems" General Exam Limitations: no limitations General appearance: alert, in no apparent distress Head exam: Present: atraumatic, normocephalic Eye exam: Present: normal appearance, PERRL ENT exam: Present: normal exam Neck exam: Present: normal inspection. Absent: tenderness, meningismus Respiratory exam: Present: normal lung sounds bilaterally. Absent: respiratory distress, wheezes Cardiovascular Exam: Present: tachycardia, irregular rhythm GI/Abdominal exam: Present: soft. Absent: distended, tenderness, guarding Extremities exam: Present: normal inspection Neurological exam: Present: alert, oriented X3 Psychiatric exam: Present: normal affect, normal mood Skin exam: Present: warm, dry, intact. Absent: cyanosis, diaphoretic Course Vital Signs 02/13/23 02/13/23 07:31 08:20 Temperature 97.4 F L Pulse Rate 125 H 128 H Respiratory 18 18 Rate Blood Pressure 111/82 129/92 O2 Sat by Pulse 98 97 Oximetry Medical Decision Making - Medical Decision Making Was pt. sent in by a medical professional or institution (, PA, OTR DRIVER, urgent care, hospital, or retirement...) When possible be specific @ -No Did you speak to anyone other than the patient for history (EMS, parent, family, police, friend...)? What history was obtained from this source @ -No Did you review nursing and triage notes (agree or disagree)? Why? @ -I reviewed and agree with nursing and triage notes Were old charts reviewed (outside hosp., previous admission, EMS record, old EKG, old radiological studies, urgent care reports/EKG's, retirement records)? Report findings @ -[Recent EKG, recent cardiology consultation Differential Diagnosis (chest pain, altered mental status, abdominal pain women, abdominal pain men, vaginal bleeding, weakness, fever, dyspnea, syncope, headache, dizziness, GI bleed, back pain, seizure, CVA, palpatations, mental health, musculoskeletal)? @ -Differential Palpitations Ventricular arrhythmias, atrial arrhythmias, myocardial infarction, anemia, thyrotoxicosis, electrolyte imbalance, hypokalemia, pulmonary embolism, pulmonary disease, drugs, alcohol, anxiety, stress.... This is not meant to be an all-inclusive list. EKG interpreted by me (3pts min.). @ -Underlying atrial fibrillation with a rate of 108 with intermittent ventricular paced rhythm QRS duration 94, QTC [address] segment elevation although the baseline has significant artifact X-rays interpreted by me (1pt min.). @ -None done CT interpreted by me (1pt min.). @ -None done U/S interpreted by me (1pt. min.). @ -None done What testing was considered but not performed or refused? (CT, X-rays, U/S, labs)? Why? @ -None What meds were considered but not given or refused? Why? @ -None Did you discuss the management of the patient with other professionals (professionals i.e. , PA, OTR DRIVER, lab, RT, psych nurse, social studies department chair, beauty specialist, teacher, chief risk officer, case folder)? Give summary @ [facility] Was smoking cessation discussed for >3mins.? @ -No Was critical care preformed (if so, how long)? @ -[yes, 35 minutes Were there social determinants of health that impacted care today? How? (Homelessness, low income, unemployed, alcoholism, drug addiction, tr ansportation, low edu. Level, literacy, decrease access to med. care, long term, rehab)? @ -No Was there de-escalation of care discussed even if they declined (Discuss DNR or withdrawal of care, Hospice)? DNR status @ -No What co-morbidities impacted this encounter? (DM, HTN, Smoking, COPD, CAD, Cancer, CVA, ARF, Chemo, Hep., AIDS, mental health diagnosis, sleep apnea, morbid obesity)? @ -[A fibrillation Was patient admitted / discharged? Hospital course, mention meds given and route, prescriptions, significant lab abnormalities, going to OR and other pertinent info. @ -37-year-old female presenting with palpitations, found to be in atrial fibrillation with RVR rate up to 150. Patient started on Cardizem, laboratory studies obtained, mild leukocytosis, normal x-rays, negative troponin. Patient will be admitted for rate control, telemetry, cardiology consultation. Undiagnosed new problem with uncertain prognosis? @ -No Drug Therapy requiring intensive monitoring for toxicity (Heparin, Nitro, Insuli n, Cardizem)? @ -No Were any procedures done? @ -No Diagnosis/symptom? @ -[Atrial fibrillation with RVR Acute, or Chronic, or Acute on Chronic? @ -[Acute Uncomplicated (without systemic symptoms) or Complicated (systemic symptoms)? @ -[Complicated Side effects of treatment? @ -No Exacerbation, Progression, or Severe Exacerbation? @ -No Poses a threat to life or bodily function? How? (Chest pain, USA, CA, pneumonia, PE, COPD, DKA, ARF, appy, cholecystitis, CVA, Diverticulitis, Homicidal, Suicidal, threat to staff... and all critical care pts) @ -[Yes, arrhythmia - Lab Data Result diagrams: 02/13/23 08:09 02/13/23 08:09 Lab Results 02/13/23 02/13/23 02/13/23 Range/Units 08:09 08:09 08:09 WBC 11.0 H (3.8-10.6) k/uL RBC 4.76 (3.80-5.40) m/uL Hgb 15.1 (11.4-16.0) gm/dL Hct 44.5 (34.0-46.0) % MCV 93.5 (80.0-100.0) fL MCH 31.8 (25.0-35.0) pg MCHC 34.0 (31.0-37.0) g/dL RDW 13.2 (11.5-15.5) % Plt Count 174 (150-450) k/uL MPV 12.1 Neutrophils % 81 % Lymphocytes % 12 % Monocytes % 4 % Eosinophils % 1 % Basophils % 1 % Neutrophils # 8.9 H (1.3-7.7) k/uL Lymphocytes # 1.4 (1.0-4.8) k/uL Monocytes # 0.5 (0-1.0) k/uL Eosinophils # 0.1 (0-0.7) k/uL Basophils # 0.1 (0-0.2) k/uL PT 11.6 (9.0-12.0) sec INR 1.1 (<1.2) APTT 27.9 (22.0-30.0) sec Sodium 136 L (137-145) mmol/L Potassium 3.8 (3.5-5.1) mmol/L Chloride 103 (98-107) mmol/L Carbon Dioxide 23 (22-30) mmol/L Anion Gap 10 mmol/L BUN 15 (7-17) mg/dL Creatinine 0.65 (0.52-1.04) mg/dL Est GFR (CKD-EPI)AfAm >90 (>60 ml/min/1.73 sqM) Est GFR (CKD-EPI)NonAf >90 (>60 ml/min/1.73 sqM) Glucose 147 H (74-99) mg/dL Calcium 8.8 (8.4-10.2) mg/dL Magnesium 1.6 (1.6-2.3) mg/dL Total Bilirubin 1.7 H (0.2-1.3) mg/dL AST 39 H (14-36) U/L ALT 52 H (4-34) U/L Alkaline Phosphatase 135 H (38-126) U/L Troponin I (0.000-0.034) ng/mL Total Protein 6.9 (6.3-8.2) g/dL Albumin 4.1 (3.5-5.0) g/dL 02/13/23 Range/Units 08:09 WBC (3.8-10.6) k/uL RBC (3.80-5.40) m/uL Hgb (11.4-16.0) gm/dL Hct (34.0-46.0) % MCV (80.0-100.0) fL MCH (25.0-35.0) pg MCHC (31.0-37.0) g/dL RDW (11.5-15.5) % Plt Count (150-450) k/uL MPV Neutrophils % % Lymphocytes % % Monocytes % % Eosinophils % % Basophils % % Neutrophils # (1.3-7.7) k/uL Lymphocytes # (1.0-4.8) k/uL Monocytes # (0-1.0) k/uL Eosinophils # (0-0.7) k/uL Basophils # (0-0.2) k/uL PT (9.0-12.0) sec INR (<1.2) APTT (22.0-30.0) sec Sodium (137-145) mmol/L Potassium (3.5-5.1) mmol/L Chloride (98-107) mmol/L Carbon Dioxide (22-30) mmol/L Anion Gap mmol/L BUN (7-17) mg/dL Creatinine (0.52-1.04) mg/dL Est GFR (CKD-EPI)AfAm (>60 ml/min/1.73 sqM) Est GFR (CKD-EPI)NonAf (>60 ml/min/1.73 sqM) Glucose (74-99) mg/dL Calcium (8.4-10.2) mg/dL Magnesium (1.6-2.3) mg/dL Total Bilirubin (0.2-1.3) mg/dL AST (14-36) U/L ALT (4-34) U/L Alkaline Phosphatase (38-126) U/L Troponin I <0.012 (0.000-0.034) ng/mL Total Protein (6.3-8.2) g/dL Albumin (3.5-5.0) g/dL Critical Care Time Critical Care Time: Yes Total Critical Care Time: 35 Disposition Clinical Impression: Atrial fibrillation with RVR Disposition: ADMITTED IP TO THIS HOSP Condition: Stable Is patient prescribed a controlled substance at d/c from ED?: No Referrals: Juan J Tidwell DO [Primary Care Provider] - 1-2 days Time of Disposition: 09:00
[2023-02-13] MEDS: DILTIAZEM 125 MG in SODIUM CHLORIDE 0.9% 100 ML IV SCH (08:21)
[2023-02-13 08:31] LABS: Basophils # (A) 0.1 k/uL (0-0.2); Basophils % (A) 1 %; Eosinophils # (A) 0.1 k/uL (0-0.7); Eosinophils % (A) 1 %; HCT 44.5 % (34.0-46.0); HGB 15.1 gm/dL (11.4-16.0); Lymphocytes # (A) 1.4 k/uL (1.0-4.8); Lymphocytes % (A) 12 %; MCH 31.8 pg (25.0-35.0); MCV 93.5 fL (80.0-100.0); Mean Platelet Volume 12.1; Monocytes # (A) 0.5 k/uL (0-1.0); Monocytes % (A) 4 %; Neutrophils # (A) 8.9 k/uL (1.3-7.7); Neutrophils % (A) 81 %; Platelet Count 174 k/uL (150-450); RBC 4.76 m/uL (3.80-5.40); RDW 13.2 % (11.5-15.5)
[2023-02-13 08:35] LABS: INR 1.1 (<1.2); Partial Thromboplastin Time 27.9 sec (22.0-30.0); Prothrombin Time 11.6 sec (9.0-12.0)
[2023-02-13 08:36] LABS: ALT 52 U/L (4-34); AST 39 U/L (14-36); African American GFR (CKD) >90 (>60 ml/min/1.73 sqM); Albumin 4.1 g/dL (3.5-5.0); Alkaline Phosphatase 135 U/L (38-126); Anion Gap 10 mmol/L; Blood Urea Nitrogen 15 mg/dL (7-17); Calcium 8.8 mg/dL (8.4-10.2); Carbon Dioxide 23 mmol/L (22-30); Chloride 103 mmol/L (98-107); Glucose 147 mg/dL (74-99); Magnesium 1.6 mg/dL (1.6-2.3); Non-African American GFR(CKD) >90 (>60 ml/min/1.73 sqM); Potassium 3.8 mmol/L (3.5-5.1); Sodium 136 mmol/L (137-145); Total Bilirubin 1.7 mg/dL (0.2-1.3); Total Protein 6.9 g/dL (6.3-8.2)
[2023-02-13] MEDS ORDERED: NALOXONE 0.4 MG/ML 1 ML VIAL IV PRN (08:57)
[2023-02-13] MEDS ORDERED: SODIUM CHLORIDE 0.9% 1,000 ML IV ONE (09:35)
[2023-02-13] MEDS: SODIUM CHLORIDE 0.9% 1,000 ML IV SCH ×2 (10:44→23:30)
--- NOTE | 2023-02-13 13:21 | HP ---
HISTORY AND PHYSICAL CHIEF COMPLAINT: Palpitations. HISTORY OF PRESENT ILLNESS: This is a 37-year-old woman with a past medical history of multiple episodes of atrial fibrillation and ablations, was complaining of palpitation. The patient was found in atrial fibrillation , started on Cardizem drip. There is no history of any fever, rigors, chills, chest pain, or palpitation. PAST MEDICAL HISTORY: Reviewed include atrial fibrillation, rest of the history and rest of the chart is also reviewed. HOME MEDICATIONS: Reviewed include sumatriptan, dose and rest of the medications noted. ALLERGIES: Negative. FAMILY HISTORY: History of cancer in the family. SOCIAL HISTORY: No history of smoking or alcohol. REVIEW OF SYSTEMS: A 14-point review is negative except as mentioned earlier. PHYSICAL EXAMINATION: VITAL SIGNS: Pulse is 87, blood pressure 94/70, and respirations 16. HEENT: Conjunctivae normal. NECK: No jugular venous distention. CARDIOVASCULAR: S1, S2 irregular. RESPIRATIONS: Clear to auscultation. ABDOMEN: Soft. NERVOUS SYSTEM: No focal deficit. SKIN: No ulcers or rashes. JOINTS: No active deforming arthropathy. LABORATORY DATA: Sodium 136. ASSESSMENT: 1. Atrial fibrillation with fast ventricular rate. 2. Elevated AST, ALT, and bilirubin. 3. History of cholecystectomy. 4. Anxiety, depression. RECOMMENDATIONS AND DISCUSSION: This 37-year-old woman presented with multiple complex medical issues, we will monitor the patient closely. Continue the Cardizem. Follow closely with Cardiology, otherwise resume the home medications. Repeat labs. Further recommendations to follow. Continue the Cardizem. Monitor heart rate closely. MMODL / IJN: [id number] / [facility] CENTERDeepika
[2023-02-13] MEDS: APIXABAN 5 MG TAB PO SCH (20:05)
[2023-02-14] MEDS: DILTIAZEM 125 MG in SODIUM CHLORIDE 0.9% 100 ML IV SCH (02:21)
[2023-02-14] MEDS ORDERED: DILTIAZEM DRIP BOLUS FROM BAG 1 MG SOLN IV ONE (03:10)
[2023-02-14] MEDS ORDERED: ONDANSETRON 4 MG/2 ML VIAL IVP STA (03:18)
[2023-02-14 03:36] VITALS: RESP 16
[2023-02-14 08:45] LABS: Basophils % (A) 1 %; Eosinophils # (A) 0.1 k/uL (0-0.7); Eosinophils % (A) 1 %; HCT 41.6 % (34.0-46.0); HGB 13.9 gm/dL (11.4-16.0); Lymphocytes # (A) 1.2 k/uL (1.0-4.8); Lymphocytes % (A) 14 %; MCH 31.9 pg (25.0-35.0); MCHC 33.6 g/dL (31.0-37.0); MCV 95.1 fL (80.0-100.0); Mean Platelet Volume 11.7; Monocytes # (A) 0.4 k/uL (0-1.0); Monocytes % (A) 5 %; Neutrophils % (A) 79 %; Platelet Count 149 k/uL (150-450); RBC 4.37 m/uL (3.80-5.40); RDW 13.5 % (11.5-15.5); WBC 8.9 k/uL (3.8-10.6)
[2023-02-14] MEDS ORDERED: BUMETANIDE 1 MG TAB PO PRN (09:00)
[2023-02-14] MEDS ORDERED: METOPROLOL SUCCINATE (ER) 100 MG TAB.ER.24H PO SCH (09:00)
[2023-02-14 09:18] LABS: ALT 45 U/L (4-34); AST 31 U/L (14-36); African American GFR (CKD) >90 (>60 ml/min/1.73 sqM); Albumin 3.6 g/dL (3.5-5.0); Alkaline Phosphatase 98 U/L (38-126); Anion Gap 9 mmol/L; Blood Urea Nitrogen 11 mg/dL (7-17); Calcium 8.4 mg/dL (8.4-10.2); Carbon Dioxide 22 mmol/L (22-30); Chloride 107 mmol/L (98-107); Glucose 146 mg/dL (74-99); Non-African American GFR(CKD) >90 (>60 ml/min/1.73 sqM); Sodium 138 mmol/L (137-145); Total Bilirubin 1.7 mg/dL (0.2-1.3); Total Protein 6.2 g/dL (6.3-8.2)
[2023-02-14] MEDS: APIXABAN 5 MG TAB PO SCH (09:24)
[2023-02-14] MEDS ORDERED: DILTIAZEM CD 240 MG CAP.ER.24H PO SCH (09:45)
[2023-02-14 10:21] VITALS: TEMP 98
[2023-02-14 12:12] VITALS: BP 112/67; PULSE 63
[2023-02-14] MEDS: SODIUM CHLORIDE 0.9% 1,000 ML IV SCH (12:34)
--- NOTE | 2023-02-14 12:37 | P.CRDCN ---
History of Present Illness Consult date: 02/14/23 Consult reason: atrial fibrillation (With RVR) History of present illness: HISTORY OF PRESENT ILLNESS: This is a 37-year-old female with a past medical history significant for hypertrophic cardiomyopathy, paroxysmal atrial fibrillation, AICD implantation, and thyroid disorder. Patient follows with a chief dispatcher service at [facility], Dr. Quick. However she used to see Dr. Dumont and last saw him in December 2021 and previously underwent ablation with Dr. Gottlieb. We have been asked to see the patient in consultation for A. fib with RVR. She states in the past she was scheduled for a cardioversion twice in both times she spontaneously c onverted to sinus mechanism prior to having the cardioversion performed. [facility] is planning to schedule her for an ablation. Patient states she woke up and had A. fib with RVR, palpitations and racing heart. She also had mild dyspnea. She has been taking all of her medications as directed. She was initially started on Cardizem drip and has converted to sinus rhythm. Patient is now in sinus rhythm rate controlled. EKG reveals A. fib with RVR WBC 8.9, hemoglobin 13.9, platelet count 149. Electrolytes are normal. BUN 11 and creatinine 0.67. Total bilirubin 1.7, AST 31, ALT 45, alkaline phosphatase 98. Troponin negative 1. TSH obtained on 02/08 was 1.890. Current home cardiac medications include Eliquis 5mg BID, Bumex 1 mg daily as needed, Cardizem 240 mg daily and 30 mg every 6 hours as needed, Toprol-XL 100 mg daily Most recent echocardiogram obtained in March 2019 revealed ejection fraction 50-55%, mild MR REVIEW OF SYSTEMS: At the time of my exam: CONSTITUTIONAL: Denies fever or chills. HEENT: Denies blurred vision, vision changes, or eye pain. Denies hemoptysis CARDIOVASCULAR: Denies chest pain. Denies orthopnea. Denies PND. Denies palpitations RESPIRATORY: Denies shortness of breath. GASTROINTESTINAL: Denies abdominal pain. Denies nausea or vomiting. HEMATOLOGIC: Denies bleeding disorders. GENITOURINARY: Denies any blood in urine. SKIN: Denies pruitis. Denies rash. PHYSICAL EXAM: VITAL SIGNS: Reviewed. GENERAL: Well-developed in no acute distress. HEENT: Head is normocephalic. Pupils are equal, round. Sclerae anicteric. Mucous membranes of the mouth are moist. Neck supple. No JVD or thyromegaly LUNGS: Respirations even and unlabored. Lungs essentially clear to auscultation bilaterally. HEART: Regular rate and rhythm. S1 and S2 heard. ABDOMEN: Soft. Nondistended. Nontender. EXTREMITIES: Normal range of motion. No clubbing or cyanosis. Peripheral pulses intact. No lower extremity edema NEUROLOGIC: Awake and alert. Oriented x 3. ASSESSMENT: Paroxysmal atrial fibrillation with RVR converted to sinus rhythm History of previous ablation, 2 History of hypertrophic cardiomyopathy History of AICD implantation History of thyroid disorder PLAN: Continue current cardiac medications Patient is cleared from cardiology for discharge home may follow-up with her primary chief dispatcher service in the next week. Nurse practitioner note has been reviewed by physician. Signing provider agrees with the documented findings, assessment, and plan of care. Past Medical History Past Medical History: Atrial Fibrillation Additional Past Medical History / Comment(s): See Dr Gottlieb H&P, IBS, Migraines History of Any Multi-Drug Resistant Organisms: None Reported Past Surgical History: Section, Cholecystectomy, Pacemaker Additional Past Surgical History / Comment(s): Section X1. cardiac ablation 02/24/20, [facility] (AUG 2019) Past Anesthesia/Blood Transfusion Reactions: Motion Sickness, Postoperative Nausea & Vomiting (PONV) Type of Cardiac Device: Permanent Pacemaker Device Placement Date:: 08/2019 Smoking Status: Never smoker - Past Family History Father Family Medical History: Cancer Additional Family Medical History / Comment(s): . Mother Family Medical History: Cancer Additional Family Medical History / Comment(s): . Sister(s) Additional Family Medical History / Comment(s): "heart problems" Medications and Allergies Home Medications Medication Instructions Recorded Confirmed Type Apixaban [Eliquis] 5 mg PO BID #60 tab 04/03/19 02/13/23 Rx SUMAtriptan succinate [Imitrex] 50 mg PO DAILY PRN 02/24/20 02/13/23 History Metoprolol Succinate (ER) [Toprol 100 mg PO DAILY 08/31/22 02/13/23 History XL] dilTIAZem HCL [dilTIAZem HCL 24Hr 240 mg PO DAILY 11/26/22 02/13/23 History ER (Xr)] Bumetanide [BUMEX] 1 mg PO DAILY PRN 02/08/23 02/13/23 History dilTIAZem HCL 30 mg PO Q6H PRN 02/08/23 02/13/23 History Allergies Allergy/AdvReac Type Severity Reaction Status Date / Time egg AdvReac HEADACHE Verified 02/13/23 09:26 Physical Exam Vitals: Vital Signs Temp Pulse Pulse Resp BP BP Pulse Ox 02/14/23 03:35 98.1 F 130 H 16 98/57 93 L 02/14/23 02:24 100 109/57 02/13/23 23:56 97.6 F 109 H 14 105/73 96 02/13/23 20:00 97.9 F 81 16 108/69 98 02/13/23 18:30 102/70 02/13/23 16:05 97.9 F 94 16 104/68 98 02/13/23 13:40 90 102/70 98 02/13/23 12:05 97.4 F L 100 16 116/84 96 02/13/23 11:47 86 16 95/79 98 02/13/23 11:15 87 16 94/73 95 02/13/23 10:30 92 18 109/70 98 02/13/23 09:45 101 H 18 103/78 96 02/13/23 09:35 90 16 88/70 96 02/13/23 09:15 103 H 18 114/86 95 02/13/23 09:00 112 H 18 116/60 95 02/13/23 08:45 84 16 106/66 95 02/13/23 08:20 128 H 18 129/92 97 Intake and Output 02/13/23 02/14/23 02/14/23 22:59 06:59 14:59 Intake Total 500 94.667 Balance 500 94.667 Intake: Intake, IV Titration 94.667 Amount Diltiazem 125 mg In 94.667 Sodium Chloride 0.9% 100 ml @ 5 MG/HR 5 mls/hr IV .Q24H [facility] Rx#:[id number] Oral 500 Other: Voiding Method Toilet Toilet # Voids 2 Results 02/14/23 08:33 02/14/23 08:33 Cardiac Enzymes 02/13/23 02/13/23 Range/Units 08:09 08:09 AST 39 H (14-36) U/L Troponin I <0.012 (0.000-0.034) ng/mL Coagulation 02/13/23 Range/Units 08:09 PT 11.6 (9.0-12.0) sec APTT 27.9 (22.0-30.0) sec CBC 02/13/23 Range/Units 08:09 WBC 11.0 H (3.8-10.6) k/uL RBC 4.76 (3.80-5.40) m/uL Hgb 15.1 (11.4-16.0) gm/dL Hct 44.5 (34.0-46.0) % Plt Count 174 (150-450) k/uL Comprehensive Metabolic Panel 02/13/23 Range/Units 08:09 Sodium 136 L (137-145) mmol/L Potassium 3.8 (3.5-5.1) mmol/L Chloride 103 (98-107) mmol/L Carbon Dioxide 23 (22-30) mmol/L BUN 15 (7-17) mg/dL Creatinine 0.65 (0.52-1.04) mg/dL Glucose 147 H (74-99) mg/dL Calcium 8.8 (8.4-10.2) mg/dL AST 39 H (14-36) U/L ALT 52 H (4-34) U/L Alkaline Phosphatase 135 H (38-126) U/L Total Protein 6.9 (6.3-8.2) g/dL Albumin 4.1 (3.5-5.0) g/dL Current Medications Generic Name Dose Route Start Last Admin Trade Name Freq PRN Reason Stop Dose Admin Apixaban 5 mg 02/13/23 21:00 02/13/23 20:05 Apixaban 5 Mg Tab PO 5 mg BID GERALDINE Administration Protocol Bumetanide 1 mg 02/14/23 09:00 Bumetanide 1 Mg Tab PO DAILY PRN Edema Diltiazem HCl 125 mg/ Sodium 125 mls @ 5 mls/hr 02/13/23 08:00 02/14/23 03:17 Chloride IV 10 mg/hr .Q24H GERALDINE 10 mls/hr Infusion 5 MG/HR Sodium Chloride 1,000 mls @ 75 mls/hr 02/13/23 09:00 02/13/23 23:30 Saline 0.9% IV 75 mls/hr .[id number] GERALDINE Administration Metoprolol Succinate 100 mg 02/14/23 09:00 Metoprolol Succinate (Er) 100 Mg Tab.Er.24h PO DAILY GERALDNIE Naloxone HCl 0.2 mg 02/13/23 08:57 Naloxone 0.4 Mg/Ml 1 Ml Vial IV Q2M PRN Opioid Reversal Intake and Output 02/13/23 02/14/23 02/14/23 22:59 06:59 14:59 Intake Total 500 94.667 Balance 500 94.667 Intake: Intake, IV Titration 94.667 Amount Diltiazem 125 mg In 94.667 Sodium Chloride 0.9% 100 ml @ 5 MG/HR 5 mls/hr IV .Q24H [facility] Rx#:[id number] Oral 500 Other: Voiding Method Toilet Toilet # Voids 2 02/13/23 08:09 02/13/23 08:09
--- NOTE | 2023-02-15 06:58 | P.DS ---
Providers Date of admission: 02/13/23 08:57 Expected date of discharge: 02/14/23 Attending physician: Sherley Casillas Consults: 02/13/23 08:57 Consult Physician Routine Consulting Provider: Susan Fuentes Consult Reason/Comments: A-fib rvr Do you want consulting provider notified?: Yes Primary care physician: Juan J Tidwell, DO Hospital Course: Final diagnosis Atrial fibrillation with fast ventricular rate Elevated AST, ALT, bilirubin history of cholecystectomy History of anxiety, depression Obesity with a BMI of 35.5 GI prophylaxis DVT prophylaxis Full code Discharge disposition Patient is being discharged in a stable condition with guarded prognosis to home . Patient will follow-up with Dr. Verito Tidwell in the outpatient setting upon discharge. Patient is to follow-up with cardiology Dr. Dumont as scheduled. Total time taken is greater than 35 minutes. Hospital course This is a 37-year-old female who was recently admitted with atrial fibrillation with RVR and being closely monitored. Patient was started on Cardizem drip with cardiology consult and following. Patient was recently admitted for this a few weeks ago and discussing cardioversion although patient converted. Medications adjusted and patient is currently rate controlled and has been cleared by cardiology. Close outpatient follow-up in the next 1 week as well as with primary care provider. Please refer to cardiology note for further HPI. Currently no reports of chest pain, shortness of breath, or palpitations. Patient is afebrile. No reports of nausea or vomiting and patient is tolerating diet. Patient will be discharged home today. Guarded prognosis, high risk for readmissions given comorbidities. Physical exam: Gen: This is a 37-year-old female who is awake, alert and oriented 3, well- developed, well-nourished, obese HEENT: Head is atraumatic, normocephalic. Pupils equal, round. Sclerae is anicteric. NECK: Supple. No JVD. No lymphadenopathy. No thyromegaly. LUNGS: Clear to auscultation. No wheezes or rhonchi. No intercostal retractions. HEART: S1, S2, muffled, irregular ABDOMEN: Soft. Obese. Bowel sounds are present. No masses. No tenderness. EXTREMITIES: No pedal edema. No calf tenderness. NEUROLOGICAL: Patient is awake, alert and oriented x3. Cranial nerves 2 through 12 are grossly intact. Please refer to medication reconciliation sheet for a list of medications. The impression and plan of care has been dictated by Kaitlyn Katz, Nurse Practitioner as directed. Dr. Vinny MD I have performed a history and examination and MDM of this patient, discussed the same with the dictator, and agree with the dictator's assessment and plan as written ,documented as a scribe. Based on total visit time, I have performed more than 50% of the visit. Patient Condition at Discharge: Stable Plan - Discharge Summary Discharge Rx Participant: No New Discharge Prescriptions: Continue Apixaban [Eliquis] 5 mg PO BID #60 tab SUMAtriptan succinate [Imitrex] 50 mg PO DAILY PRN PRN Reason: Headache Metoprolol Succinate (ER) [Toprol XL] 100 mg PO DAILY dilTIAZem HCL 30 mg PO Q6H PRN PRN Reason: Blood Pressure - High dilTIAZem HCL [dilTIAZem HCL 24Hr ER (Xr)] 240 mg PO DAILY Bumetanide [BUMEX] 1 mg PO DAILY PRN PRN Reason: Edema Discharge Medication List Apixaban [Eliquis] 5 mg PO BID #60 tab 04/03/19 [Rx] SUMAtriptan succinate [Imitrex] 50 mg PO DAILY PRN 02/24/20 [History] Metoprolol Succinate (ER) [Toprol XL] 100 mg PO DAILY 08/31/22 [History] dilTIAZem HCL [dilTIAZem HCL 24Hr ER (Xr)] 240 mg PO DAILY 11/26/22 [History] Bumetanide [BUMEX] 1 mg PO DAILY PRN 02/08/23 [History] dilTIAZem HCL 30 mg PO Q6H PRN 02/08/23 [History] Follow up Appointment(s)/Referral(s): Valentino Dumont MD [STAFF PHYSICIAN] - 02/20/23 2:15 pm (speak with them about your insurance) Juan J Tidwell DO [Primary Care Provider] - 02/20/23 3:15 pm Patient Instructions/Handouts: A-fib (Atrial Fibrillation) (DC) Activity/Diet/Wound Care/Special Instructions: Activity Limited until follow-up Follow-up with primary care provider on discharge follow-up with cardiology Continue taking medications as prescribed Avoid excess caffeine Discharge Disposition: HOME SELF-CARE
== END 2023-02-14 14:34 | disposition home or self-care (01) ==
LOC: EC 07:18 → 6NMEDSUR 08:57 → INTOOBSV 08:57 → 3SCARD 09:35 → UNDODISIN 02-14 14:34
PROVIDERS: ADMIT Hospitalist; ATTEND Hospitalist
DX: I48.0 Paroxysmal atrial fibrillation (principal); I42.2 Other hypertrophic cardiomyopathy; R17 Unspecified jaundice; R74.8 Abnormal levels of other serum enzymes; F41.9 Anxiety disorder, unspecified; F32.A Depression, unspecified; E66.9 Obesity, unspecified; Z68.35 Body mass index [BMI] 35.0-35.9, adult; Z90.49 Acquired absence of other specified parts of digestive tract; Z95.810 Presence of automatic (implantable) cardiac defibrillator; Z79.899 Other long term (current) drug therapy
CPT/HCPCS: 96375; 96376; 96361; 96374; 99291; 36415; 93005; 80053 ×2; 83735; 84484; 85025 ×2; 85610; 85730; G0378 ×2; J2405; 96365; 96366

== ENCOUNTER 2023-07-18 00:27 | Emergency (ER) | payer OTHER ==
[2023-07-18] MEDS ORDERED: KETOROLAC 15 MG/ML 1 ML VIAL IVP STA (00:42)
[2023-07-18] MEDS ORDERED: SODIUM CHLORIDE 0.9% 1,000 ML IV STA (00:42)
[2023-07-18 01:16] LABS: Sodium 136 mmol/L (137-145)
[2023-07-18 01:19] LABS: ALT 46 U/L (4-34); AST 32 U/L (14-36); African American GFR (CKD) >90 (>60 ml/min/1.73 sqM); Albumin 3.9 g/dL (3.5-5.0); Alkaline Phosphatase 126 U/L (38-126); Anion Gap 11 mmol/L; Blood Urea Nitrogen 16 mg/dL (7-17); Calcium 8.8 mg/dL (8.4-10.2); Carbon Dioxide 22 mmol/L (22-30); Chloride 103 mmol/L (98-107); Glucose 116 mg/dL (74-99); Non-African American GFR(CKD) >90 (>60 ml/min/1.73 sqM); Potassium 3.4 mmol/L (3.5-5.1); Total Bilirubin 0.8 mg/dL (0.2-1.3); Total Protein 6.8 g/dL (6.3-8.2)
[2023-07-18 01:37] LABS: HCG,Qualitative Serum Not Detected
[2023-07-18 01:45] LABS: Basophils # (A) 0.1 k/uL (0-0.2); Basophils % (A) 1 %; Eosinophils # (A) 0.1 k/uL (0-0.7); Eosinophils % (A) 1 %; HGB 14.3 gm/dL (11.4-16.0); Lymphocytes # (A) 1.8 k/uL (1.0-4.8); Lymphocytes % (A) 12 %; MCV 94.3 fL (80.0-100.0); Mean Platelet Volume 11.5; Monocytes # (A) 0.9 k/uL (0-1.0); Monocytes % (A) 6 %; Neutrophils # (A) 12.1 k/uL (1.3-7.7); Neutrophils % (A) 80 %; Platelet Count 181 k/uL (150-450); RBC 4.45 m/uL (3.80-5.40); RDW 12.5 % (11.5-15.5); WBC 15.2 k/uL (3.8-10.6)
--- NOTE | 2023-07-18 01:58 | ED ---
Back Pain HPI - General Chief Complaint: Urogenital Stated Complaint: Back Pain Time Seen by Provider: 07/18/23 00:29 Source: patient, EMS, RN notes reviewed Mode of arrival: EMS Limitations: no limitations - History of Present Illness Initial Comments: This is a 38-year-old female who presents to the emergency department for right flank pain. States that this started yesterday evening and has started to wrap around to the right lower quadrant. Denies any nausea or vomiting. Denies any history of kidney stones or similar problems in the past. Denies any concern for STD exposure. Also denies any known injuries. She does not have any changes in urinary or bowel habits. MD Complaint: back pain - Related Data Home Medications Medication Instructions Recorded Confirmed SUMAtriptan succinate [Imitrex] 50 mg PO DAILY PRN 02/24/20 02/13/23 Metoprolol Succinate (ER) [Toprol 100 mg PO DAILY 08/31/22 02/13/23 XL] dilTIAZem HCL [dilTIAZem HCL 24Hr 240 mg PO DAILY 11/26/22 02/13/23 ER (Xr)] Bumetanide [BUMEX] 1 mg PO DAILY PRN 02/08/23 02/13/23 dilTIAZem HCL 30 mg PO Q6H PRN 02/08/23 02/13/23 Previous Rx's Medication Instructions Recorded Apixaban [Eliquis] 5 mg PO BID #60 tab 04/03/19 Ketorolac [Toradol] 10 mg PO Q6HR PRN #15 tab 07/18/23 Sulfamethox-Tmp 800-160Mg [Bactrim 1 tab PO Q12HR 10 Days #20 tab 07/18/23 DS 800-160 mg] Allergies Allergy/AdvReac Type Severity Reaction Status Date / Time egg AdvReac HEADACHE Verified 07/18/23 00:36 Review of Systems ROS Statement: Those systems with pertinent positive or pertinent negative responses have been documented in the HPI. ROS Other: All systems not noted in ROS Statement are negative. Past Medical History Past Medical History: Atrial Fibrillation Additional Past Medical History / Comment(s): See Dr Gottlieb H&P, IBS, Migraines History of Any Multi-Drug Resistant Organisms: None Reported Past Surgical History: Section, Cholecystectomy, Pacemaker Additional Past Surgical History / Comment(s): Section X1. cardiac ablation 02/24/20, [facility] (AUG 2019) Past Anesthesia/Blood Transfusion Reactions: Motion Sickness, Postoperative Nausea & Vomiting (PONV) Type of Cardiac Device: Permanent Pacemaker Device Placement Date:: 08/2019 Past Psychological History: Anxiety, Depression Smoking Status: Never smoker - Past Family History Father Family Medical History: Cancer Additional Family Medical History / Comment(s): . Mother Family Medical History: Cancer Additional Family Medical History / Comment(s): . Sister(s) Additional Family Medical History / Comment(s): "heart problems" General Exam Limitations: no limitations General appearance: alert, in no apparent distress Head exam: Present: atraumatic, normocephalic, normal inspection Respiratory exam: Present: normal lung sounds bilaterally. Absent: respiratory distress, wheezes, rales, rhonchi, stridor Cardiovascular Exam: Present: regular rate, normal rhythm, normal heart sounds. Absent: systolic murmur, diastolic murmur, rubs, gallop, clicks GI/Abdominal exam: Present: soft, normal bowel sounds. Absent: distended, tenderness, guarding, rebound, rigid Back exam: Present: CVA tenderness (R). Absent: CVA tenderness (L) Neurological exam: Present: alert, oriented X3, CN II-XII intact Psychiatric exam: Present: normal affect, normal mood Skin exam: Present: warm, dry, intact, normal color. Absent: rash Course Vital Signs 07/18/23 07/18/23 07/18/23 00:28 02:00 03:00 Temperature 98.6 F Pulse Rate 60 65 69 Respiratory 16 17 17 Rate Blood Pressure 96/63 106/58 104/56 O2 Sat by Pulse 98 97 96 Oximetry Medical Decision Making - Medical Decision Making This is a 38-year-old female who presents to the emergency department for right flank pain. Was pt. sent in by a medical professional or institution? @ -No Did you speak to anyone other than the patient for history? @ -No Did you review nursing and triage notes? @ -Yes, and I agree, it is accurate with regards to the patient's symptoms. Were old charts reviewed? @ -No Differential Diagnosis? @ -Differential Back Pain: Strain, zoster, cauda equina syndrome, epidural abscess, vertebral ost eomyelitis, discitis, fracture, subluxation, disc herniation, DJD, spinal stenosis, dissection, AAA, pancreatitis, peptic ulcer disease, pyelonephritis, kidney stone, this is not meant to be an all-inclusive list. EKG interpreted by me (3pts min.)? @ -Not obtained X-rays interpreted by me (1pt min.)? @ -Not obtained CT interpreted by me (1pt min.)? @ -Computed tomography scan of the abdomen and pelvis obtained. My interpretation identifies no evidence of a ureteral calculus. U/S interpreted by me (1pt. min.)? @ -Not obtained What testing was considered but not performed? (CT, X-rays, U/S, labs)? Why? @ -None What meds were considered but not given? Why? @ -None Did you discuss the management of the patient with other professionals? @ -No Did you reconcile home meds? @ -No Was smoking cessation discussed for >3mins.? @ -No Was critical care preformed (if so, how long)? @ -No Were there social determinants of health that impacted care today? How? (Homelessness, low income, unemployed, alcoholism, drug addiction, transportation, low edu. Level, literacy, decrease access to med. care, custodial, rehab)? @ -No Was there de-escalation of care discussed even if they declined? (Discuss DNR or withdrawal of care, Hospice)? @ -No What co-morbidities impacted this encounter? (DM, HTN, Smoking, COPD, CAD, Cancer, CVA, Hep., AIDS, mental health diagnosis, sleep apnea, morbid obesity)? @ -None Was patient admitted / discharged? @ -Discharged. Lab work obtained revealing leukocytosis and no other actionable findings. Urinalysis is consistent with significant infection. Urine sent for culture. Computed tomography scan of the abdomen and pelvis obtained. This identified no acute findings to account for the patient's symptoms. She was found to have left ovarian cystic lesions, however the patient has no pain to the left pelvic region. Advised to follow-up on this on an outpatient basis. Her symptoms were well controlled in the emergency department. The location of her pain with frankly infected urine and leukocytosis is suggestive of a pyelonephritis. She was given a dose of ceftriaxone in the emergency department. Prescription for Bactrim and Toradol provided with dosing instructions reviewed. She was otherwise discharged home in stable condition with instructions to follow up with her primary care provider. Undiagnosed new problem with uncertain prognosis? @ -None Drug Therapy requiring intensive monitoring for toxicity (Heparin, Nitro, Insulin, Cardizem)? @ -None Were any procedures done? @ -None Diagnosis/symptom? @ -Pyelonephritis Acute, or Chronic, or Acute on Chronic? @ -Acute Uncomplicated (without systemic symptoms) or Complicated (systemic symptoms)? @ -Uncomplicated Side effects of treatment? @ -None Exacerbation, Progression, or Severe Exacerbation] @ -Not applicable Poses a threat to life or bodily function? @ -No Return precautions reviewed in depth, the patient is instructed to return to the emergency department with any new, worsening, or concerning symptoms. Patient verbalized understanding. This case was discussed in detail with the attending ED physician, Dr. Coombs. Presentation, findings, and treatment plan discussed in detail as well. - Lab Data Result diagrams: 07/18/23 00:45 07/18/23 00:45 Lab Results 07/18/23 07/18/23 07/18/23 Range/Units 00:45 00:45 00:45 WBC 15.2 H (3.8-10.6) k/uL RBC 4.45 (3.80-5.40) m/uL Hgb 14.3 (11.4-16.0) gm/dL Hct 42.0 (34.0-46.0) % MCV 94.3 (80.0-100.0) fL MCH 32.0 (25.0-35.0) pg MCHC 34.0 (31.0-37.0) g/dL RDW 12.5 (11.5-15.5) % Plt Count 181 (150-450) k/uL MPV 11.5 Neutrophils % 80 % Lymphocytes % 12 % Monocytes % 6 % Eosinophils % 1 % Basophils % 1 % Neutrophils # 12.1 H (1.3-7.7) k/uL Lymphocytes # 1.8 (1.0-4.8) k/uL Monocytes # 0.9 (0-1.0) k/uL Eosinophils # 0.1 (0-0.7) k/uL Basophils # 0.1 (0-0.2) k/uL Sodium 136 L (137-145) mmol/L Potassium 3.4 L (3.5-5.1) mmol/L Chloride 103 (98-107) mmol/L Carbon Dioxide 22 (22-30) mmol/L Anion Gap 11 mmol/L BUN 16 (7-17) mg/dL Creatinine 0.79 (0.52-1.04) mg/dL Est GFR (CKD-EPI)AfAm >90 (>60 ml/min/1.73 sqM) Est GFR (CKD-EPI)NonAf >90 (>60 ml/min/1.73 sqM) Glucose 116 H (74-99) mg/dL Plasma Lactic Acid Earl (0.7-2.0) mmol/L Calcium 8.8 (8.4-10.2) mg/dL Total Bilirubin 0.8 (0.2-1.3) mg/dL AST 32 (14-36) U/L ALT 46 H (4-34) U/L Alkaline Phosphatase 126 (38-126) U/L Total Protein 6.8 (6.3-8.2) g/dL Albumin 3.9 (3.5-5.0) g/dL HCG, Qual Not Detected Urine Color Yellow Urine Appearance Cloudy H (Clear) Urine pH 5.5 (5.0-8.0) Ur Specific Pollock 1.017 (1.001-1.035) Urine Protein 1+ H (Negative) Urine Glucose (UA) Negative (Negative) Urine Ketones Negative (Negative) Urine Blood Moderate H (Negative) Urine Nitrite Positive H (Negative) Urine Bilirubin Negative (Negative) Urine Urobilinogen <2.0 (<2.0) mg/dL Ur Leukocyte Esterase Large H (Negative) Urine RBC 47 H (0-5) /hpf Urine WBC >182 H (0-5) /hpf Urine WBC Clumps Moderate H (None) /hpf Ur Squamous Epith Cells 5 H (0-4) /hpf Urine Bacteria Many H (None) /hpf Hyaline Casts 10 H (0-2) /lpf Urine Mucus Moderate H (None) /hpf 07/18/23 Range/Units 00:45 WBC (3.8-10.6) k/uL RBC (3.80-5.40) m/uL Hgb (11.4-16.0) gm/dL Hct (34.0-46.0) % MCV (80.0-100.0) fL MCH (25.0-35.0) pg MCHC (31.0-37.0) g/dL RDW (11.5-15.5) % Plt Count (150-450) k/uL MPV Neutrophils % % Lymphocytes % % Monocytes % % Eosinophils % % Basophils % % Neutrophils # (1.3-7.7) k/uL Lymphocytes # (1.0-4.8) k/uL Monocytes # (0-1.0) k/uL Eosinophils # (0-0.7) k/uL Basophils # (0-0.2) k/uL Sodium (137-145) mmol/L Potassium (3.5-5.1) mmol/L Chloride (98-107) mmol/L Carbon Dioxide (22-30) mmol/L Anion Gap mmol/L BUN (7-17) mg/dL Creatinine (0.52-1.04) mg/dL Est GFR (CKD-EPI)AfAm (>60 ml/min/1.73 sqM) Est GFR (CKD-EPI)NonAf (>60 ml/min/1.73 sqM) Glucose (74-99) mg/dL Plasma Lactic Acid Earl 1.6 (0.7-2.0) mmol/L Calcium (8.4-10.2) mg/dL Total Bilirubin (0.2-1.3) mg/dL AST (14-36) U/L ALT (4-34) U/L Alkaline Phosphatase (38-126) U/L Total Protein (6.3-8.2) g/dL Albumin (3.5-5.0) g/dL HCG, Qual Urine Color Urine Appearance (Clear) Urine pH (5.0-8.0) Ur Specific Pollock (1.001-1.035) Urine Protein (Negative) Urine Glucose (UA) (Negative) Urine Ketones (Negative) Urine Blood (Negative) Urine Nitrite (Negative) Urine Bilirubin (Negative) Urine Urobilinogen (<2.0) mg/dL Ur Leukocyte Esterase (Negative) Urine RBC (0-5) /hpf Urine WBC (0-5) /hpf Urine WBC Clumps (None) /hpf Ur Squamous Epith Cells (0-4) /hpf Urine Bacteria (None) /hpf Hyaline Casts (0-2) /lpf Urine Mucus (None) /hpf - Radiology Data Radiology results: report reviewed, image reviewed Disposition Clinical Impression: Pyelonephritis Disposition: HOME SELF-CARE Instructions (If sedation given, give patient instructions): Urinary Tract Infection in Women (ED), Kidney Infection (ED) Additional Instructions: Return to the emergency department with any new, worsening, or concerning symptoms. Take the antibiotic as prescribed for 10 days. Take the Toradol with Tylenol as needed for pain relief. If you choose to take the Toradol, do not take any other anti-inflammatories such as ibuprofen, take one or the other. Follow up with your primary care provider in 1-2 days. Prescriptions: Sulfamethox-Tmp 800-160Mg [Bactrim DS 800-160 mg] 1 tab PO Q12HR 10 Days #20 tab Ketorolac [Toradol] 10 mg PO Q6HR PRN #15 tab PRN Reason: Pain Is patient prescribed a controlled substance at d/c from ED?: No Referrals: Juan J Tidwell DO [Primary Care Provider] - 1-2 days
--- NOTE | 2023-07-18 02:21 | CT ---
EXAM: CT Abdomen and Pelvis Without Intravenous Contrast CLINICAL HISTORY: ITS.REASON CT Reason: Right flank pain TECHNIQUE: Axial computed tomography images of the abdomen and pelvis without intravenous contrast. CTDI is 13.4 mGy and DLP is 815.3 mGy-cm. This CT exam was performed using one or more of the following dose reduction techniques: automated exposure control, adjustment of the mA and/or kV according to patient size, and/or use of iterative reconstruction technique. COMPARISON: No relevant prior studies available. FINDINGS: Lung bases: Unremarkable. No mass. No consolidation. Heart: Cardiomegaly. Pacemaker leads. ABDOMEN: Liver: Unremarkable. No focal hepatic lesion. Gallbladder and bile ducts: Cholecystectomy. No ductal dilation. Pancreas: Unremarkable. No ductal dilation. Spleen: Unremarkable. No splenomegaly. Adrenals: Unremarkable. No mass. Kidneys and ureters: Unremarkable. No hydronephrosis or nephrolithiasis. Stomach and bowel: Unremarkable. No obstruction. No mucosal thickening. PELVIS: Appendix: No findings to suggest acute appendicitis. Bladder: Unremarkable. No stones. Reproductive: Left ovarian cystic lesions measure up to 2.6 x 2.4 cm. The need for pelvic ultrasound should be determined clinically. ABDOMEN and PELVIS: Intraperitoneal space: Unremarkable. No free air. No significant fluid collection. Bones/joints: No acute fracture. No dislocation. Soft tissues: Unremarkable. Vasculature: Unremarkable. No abdominal aortic aneurysm. Lymph nodes: Unremarkable. No enlarged lymph nodes. IMPRESSION: 1. No hydronephrosis or nephrolithiasis. 2. Left ovarian cystic lesions measure up to 2.6 x 2.4 cm. The need for pelvic ultrasound should be determined clinically. 3. Cholecystectomy.
[2023-07-18 02:45] VITALS: RESP 17
[2023-07-18 03:36] LABS: Appearance,Urine Cloudy (Clear); Bacteria,Urine Many /hpf; Bilirubin,Urine Negative (Negative); Blood,Urine Moderate (Negative); Color,Urine Yellow; Glucose,Urine (UA) Negative (Negative); Hyaline Casts,Urine 10 /lpf (0-2); Ketones,Urine Negative (Negative); Leukocyte Esterase,Urine Large (Negative); Mucus,Urine Moderate /hpf; Nitrite,Urine Positive (Negative); PH, Urine 5.5 (5.0-8.0); Protein,Urine 1+ (Negative); RBC,Urine 47 /hpf (0-5); Specific Gravity,Urine 1.017 (1.001-1.035); Squamous Epithelial Cell,Urine 5 /hpf (0-4); Urobilinogen,Urine <2.0 mg/dL (<2.0); WBC,Urine >182 /hpf (0-5)
[2023-07-18] MEDS ORDERED: cefTRIAXone IN SWFI 1,000 MG/10 ML SYRINGE IVP STA (03:45)
[2023-07-18] MEDS ORDERED: ACET/COD 300 MG/30 MG STARTER PACK 6 TAB BTL PO STA (03:48)
[2023-07-18] MEDS ORDERED: SULFAMETH-TMP DS STARTER PACK 2 TAB BTL PO STA (03:48)
[2023-07-18 04:24] VITALS: BP 101/62; PULSE 60; TEMP 97.7
== END 2023-07-18 04:10 | disposition home or self-care (01) ==
LOC: EC 00:27
DX: N83.202 Unspecified ovarian cyst, left side (principal); N12 Tubulo-interstitial nephritis, not specified as acute or chronic; I48.91 Unspecified atrial fibrillation; F41.9 Anxiety disorder, unspecified; F32.A Depression, unspecified; Z79.899 Other long term (current) drug therapy; Z90.49 Acquired absence of other specified parts of digestive tract; Z91.012 Allergy to eggs
CPT/HCPCS: 36415; 80053; 83605; 85025; 81001; 84703; 87086; 74176; 99285; 96374; 96375; 96361; J0696; J1885

== ENCOUNTER 2023-09-19 06:51 | Emergency (ER) | payer OTHER ==
[2023-09-19 06:59] VITALS: RESP 18; TEMP 97.8
[2023-09-19] MEDS ORDERED: ASPIRIN 81 MG PO STA (07:31)
[2023-09-19] MEDS ORDERED: NITROGLYCERIN OINT 1 INCH/GM PACKET TOPICAL STA (07:31)
--- NOTE | 2023-09-19 07:33 | ED ---
General Adult HPI - General Chief complaint: Chest Pain Stated complaint: Upper stomach/chest pain Time Seen by Provider: 09/19/23 07:00 Source: patient, RN notes reviewed, old records reviewed Mode of arrival: ambulatory Limitations: no limitations - History of Present Illness Initial comments: This is a 38-year-old female with past medical history significant for hypertrophic cardiomyopathy as well as a for ablation and she does also have the patient. Patient comes in today because she woke up at 5:00 this morning with left-sided chest pain was from the lower left chest up into the sternal area. Patient also states she is mildly short of breath mildly nauseated. Patient denies any diaphoretic episodes. Patient denies any lightheadedness or dizziness. Patient denies any recent fever chills or cough. Patient denies any abdominal pain patient denies any vomiting or diarrhea. Patient denies any back pain. - Related Data Home Medications Medication Instructions Recorded Confirmed Metoprolol Succinate (ER) [Toprol 100 mg PO DAILY 08/31/22 09/19/23 XL] dilTIAZem HCL [dilTIAZem HCL 24Hr 240 mg PO DAILY 11/26/22 09/19/23 ER (Xr)] Bumetanide [BUMEX] 1 mg PO DAILY PRN 02/08/23 09/19/23 ALPRAZolam [Xanax] 0.5 mg PO BID PRN 09/19/23 09/19/23 Amiodarone [Cordarone] 200 mg PO DAILY 09/19/23 09/19/23 Spironolactone 25 mg PO DAILY 09/19/23 09/19/23 Previous Rx's Medication Instructions Recorded Apixaban [Eliquis] 5 mg PO BID #60 tab 04/03/19 Allergies Allergy/AdvReac Type Severity Reaction Status Date / Time egg AdvReac HEADACHE Verified 09/19/23 11:49 Review of Systems ROS Statement: Those systems with pertinent positive or pertinent negative responses have been documented in the HPI. ROS Other: All systems not noted in ROS Statement are negative. Past Medical History Past Medical History: Atrial Fibrillation Additional Past Medical History / Comment(s): See Dr Gottlieb H&P, IBS, Migraines History of Any Multi-Drug Resistant Organisms: None Reported Past Surgical History: Section, Cholecystectomy, Pacemaker Additional Past Surgical History / Comment(s): Section X1. cardiac ablation 02/24/20, [facility]AK[facility] (AUG 2019) Past Anesthesia/Blood Transfusion Reactions: Motion Sickness, Postoperative Nausea & Vomiting (PONV) Type of Cardiac Device: Permanent Pacemaker Device Placement Date:: 08/2019 Past Psychological History: Anxiety, Depression Smoking Status: Never smoker Past Alcohol Use History: None Reported Past Drug Use History: None Reported - Past Family History Father Family Medical History: Cancer Additional Family Medical History / Comment(s): . Mother Family Medical History: Cancer Additional Family Medical History / Comment(s): . Sister(s) Additional Family Medical History / Comment(s): "heart problems" General Exam - General Exam Comments Initial Comments: GENERAL: Patient is well-developed and well-nourished. Patient is nontoxic and well- hydrated and is in mild distress. ENT: Neck is soft and supple. No significant lymphadenopathy is noted. Oropharynx is clear. Moist mucous membranes. Neck has full range of motion without elici ting any pain. EYES: The sclera were anicteric and conjunctiva were pink and moist. Extraocular m ovements were intact and pupils were equal round and reactive to light. Eyelids were unremarkable. PULMONARY: Unlabored respirations. Good breath sounds bilaterally. No audible rales rhonchi or wheezing was noted. CARDIOVASCULAR: There is a regular rate and rhythm without any murmurs gallops or rubs. ABDOMEN: Soft and nontender with normal bowel sounds. SKIN: Skin is clear with no lesions or rashes and otherwise unremarkable. NEUROLOGIC: Patient is alert and oriented x3. Cranial nerves II through XII are grossly intact. Motor and sensory are also intact. Normal speech, volume and content. Symmetrical smile. MUSCULOSKELETAL: Normal extremities with adequate strength and full range of motion. No lower extremity swelling or edema. No calf tenderness. LYMPHATICS: No significant lymphadenopathy is noted PSYCHIATRIC: Normal psychiatric evaluation. 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 EKG shows a sinus rhythm at 64 bpm VT interval 206 QRS is under 90 QT intervals 435 QTC is 445. Patient's EKG shows inverted T waves in leads 3 and aVF as well as precordial leads V3 through V6. These were seen on her previous EKG. Was pt. sent in by a medical professional or institution (, [facility], [facility], urgent care, hospital, or fci...) When possible be specific @ -No Did you speak to anyone other than the patient for history (EMS, parent, family, police, friend...)? What history was obtained from this source @ -No Did you review nursing and triage notes (agree or disagree)? Why? @ -I reviewed and agree with nursing and triage notes Were old charts reviewed (outside hosp., previous admission, EMS record, old EKG, old radiological studies, urgent care reports/EKG's, fci records)? Report findings @ -I reviewed old charts and old radiological studies Differential Diagnosis (chest pain, altered mental status, abdominal pain women, abdominal pain men, vaginal bleeding, weakness, fever, dyspnea, syncope, headache, dizziness, GI bleed, back pain, seizure, CVA, palpatations, mental health, musculoskeletal)? @ -Differential Chest Pain: Stable Angina, Unstable Angina, STEMI, NSTEMI Aortic Dissection, Pneumothorax, Musculoskeletal, Esophageal Spasm GERD, Cholecystitis, Pancreatitis, Zoster, this is not meant to be an all-inclusive list. EKG interpreted by me (3pts min.). @ -As above X-rays interpreted by me (1pt min.). @ -Chest x-ray showed no acute abnormality CT interpreted by me (1pt min.). @ -CT scan of the chest showed no PE however there was a pancreatic mass in the tail U/S interpreted by me (1pt. min.). @ -None done What testing was considered but not performed or refused? (CT, X-rays, U/S, labs)? Why? @ -None What meds were considered but not given or refused? Why? @ -None Did you discuss the management of the patient with other professionals (professionals i.e. , [facility], [facility], lab, RT, psych nurse, dialysis social worker, admissions assistant, teacher, chief science officer, shelter case manager)? Give summary @ -No Was smoking cessation discussed for >3mins.? @ -No Was critical care preformed (if so, how long)? @ -No Were there social determinants of health that impacted care today? How? (Homelessness, low income, unemployed, alcoholism, drug addiction, transportation, low edu. Level, literacy, decrease access to med. care, longterm, rehab)? @ -No Was there de-escalation of care discussed even if they declined (Discuss DNR or withdrawal of care, Hospice)? DNR status @ -No What co-morbidities impacted this encounter? (DM, HTN, Smoking, COPD, CAD, Cancer, CVA, ARF, Chemo, Hep., AIDS, mental health diagnosis, sleep apnea, morbid obesity)? @ -None Was patient admitted / discharged? Hospital course, mention meds given and route, prescriptions, significant lab abnormalities, going to OR and other pertinent info. @ -Patient's CAT scan showed a pancreatic mass. I spoke with Jocy at oncology she came down and spoke with the patient and set up follow-up for the patient and sent the patient some [place] at the pharmacy. Undiagnosed new problem with uncertain prognosis? @ -No Drug Therapy requiring intensive monitoring for toxicity (Heparin, Nitro, Insulin, Cardizem)? @ -No Were any procedures done? @ -No Diagnosis/symptom? @ -Pancreatic mass Acute, or Chronic, or Acute on Chronic? @ -Acute on chronic Uncomplicated (without systemic symptoms) or Complicated (systemic symptoms)? @ -Complicated Side effects of treatment? @ -No Exacerbation, Progression, or Severe Exacerbation? @ -No Poses a threat to life or bodily function? How? (Chest pain, [place], [place], pneumonia, PE, COPD, DKA, ARF, appy, cholecystitis, CVA, Diverticulitis, Homicidal, Suicidal, threat to staff... and all critical care pts) @ -No - Lab Data Result diagrams: 09/19/23 07:39 09/19/23 07:39 Lab Results 09/19/23 09/19/23 09/19/23 Range/Units 07:39 07:39 07:39 WBC 11.6 H (3.8-10.6) k/uL RBC 4.59 (3.80-5.40) m/uL Hgb 14.4 (11.4-16.0) gm/dL Hct 42.7 (34.0-46.0) % MCV 93.0 (80.0-100.0) fL MCH 31.4 (25.0-35.0) pg MCHC 33.8 (31.0-37.0) g/dL RDW 13.0 (11.5-15.5) % Plt Count 190 (150-450) k/uL MPV 10.2 Neutrophils % 82 % Lymphocytes % 10 % Monocytes % 5 % Eosinophils % 1 % Basophils % 1 % Neutrophils # 9.4 H (1.3-7.7) k/uL Lymphocytes # 1.2 (1.0-4.8) k/uL Monocytes # 0.5 (0-1.0) k/uL Eosinophils # 0.1 (0-0.7) k/uL Basophils # 0.1 (0-0.2) k/uL PT 11.4 (10.0-12.5) sec INR 1.1 (<1.2) APTT 29.0 (22.0-30.0) sec D-Dimer (<0.60) mg/L FEU Sodium 136 L (137-145) mmol/L Potassium 3.9 (3.5-5.1) mmol/L Chloride 106 (98-107) mmol/L Carbon Dioxide 18 L (22-30) mmol/L Anion Gap 12 mmol/L BUN 18 H (7-17) mg/dL Creatinine 0.74 (0.52-1.04) mg/dL Est GFR (CKD-EPI)AfAm >90 (>60 ml/min/1.73 sqM) Est GFR (CKD-EPI)NonAf >90 (>60 ml/min/1.73 sqM) Glucose 126 H (74-99) mg/dL Calcium 9.5 (8.4-10.2) mg/dL Magnesium 1.9 (1.6-2.3) mg/dL Total Bilirubin 0.9 (0.2-1.3) mg/dL AST 33 (14-36) U/L ALT 44 H (4-34) U/L Alkaline Phosphatase 193 H (38-126) U/L Troponin I (0.000-0.034) ng/mL Total Protein 7.6 (6.3-8.2) g/dL Albumin 4.0 (3.5-5.0) g/dL Amylase (30-110) U/L Lipase (23-300) U/L 09/19/23 09/19/23 09/19/23 Range/Units 07:39 07:39 07:49 WBC (3.8-10.6) k/uL RBC (3.80-5.40) m/uL Hgb (11.4-16.0) gm/dL Hct (34.0-46.0) % MCV (80.0-100.0) fL MCH (25.0-35.0) pg MCHC (31.0-37.0) g/dL RDW (11.5-15.5) % Plt Count (150-450) k/uL MPV Neutrophils % % Lymphocytes % % Monocytes % % Eosinophils % % Basophils % % Neutrophils # (1.3-7.7) k/uL Lymphocytes # (1.0-4.8) k/uL Monocytes # (0-1.0) k/uL Eosinophils # (0-0.7) k/uL Basophils # (0-0.2) k/uL PT (10.0-12.5) sec INR (<1.2) APTT (22.0-30.0) sec D-Dimer 3.22 H (<0.60) mg/L FEU Sodium (137-145) mmol/L Potassium (3.5-5.1) mmol/L Chloride (98-107) mmol/L Carbon Dioxide (22-30) mmol/L Anion Gap mmol/L BUN (7-17) mg/dL Creatinine (0.52-1.04) mg/dL Est GFR (CKD-EPI)AfAm (>60 ml/min/1.73 sqM) Est GFR (CKD-EPI)NonAf (>60 ml/min/1.73 sqM) Glucose (74-99) mg/dL Calcium (8.4-10.2) mg/dL Magnesium (1.6-2.3) mg/dL Total Bilirubin (0.2-1.3) mg/dL AST (14-36) U/L ALT (4-34) U/L Alkaline Phosphatase (38-126) U/L Troponin I <0.012 (0.000-0.034) ng/mL Total Protein (6.3-8.2) g/dL Albumin (3.5-5.0) g/dL Amylase 47 (30-110) U/L Lipase 83 (23-300) U/L Disposition Clinical Impression: Pancreatic mass Disposition: HOME SELF-CARE Additional Instructions: Patient should follow-up with oncology Is patient prescribed a controlled substance at d/c from ED?: No Referrals: Juan J Tidwell DO [REFERRING] - 1-2 days Time of Disposition: 13:16
--- NOTE | 2023-09-19 08:02 | XR ---
EXAMINATION TYPE: XR chest 2V DATE OF EXAM: 09/19/2023 7:53 AM CLINICAL INDICATION:Female, 38 years old with history of Chest Pain; [facility] COMPARISON: Chest radiographs from 02/08/2023 TECHNIQUE: XR chest 2V Frontal and lateral views of the chest. FINDINGS: Lungs/Pleura: There is no evidence of pleural effusion, focal consolidation, or pneumothorax. Pulmonary vascularity: Unremarkable. Heart/mediastinum: Cardiomediastinal silhouette is enlarged and stable. Two lead cardiac conduction d evice overlying the left hemithorax with lead tips projecting over the right ventricle and right atri um. Musculoskeletal: No acute osseous pathology. IMPRESSION: No acute cardiopulmonary disease/process.
[2023-09-19 08:05] LABS: Basophils # (A) 0.1 k/uL (0-0.2); Basophils % (A) 1 %; Eosinophils # (A) 0.1 k/uL (0-0.7); Eosinophils % (A) 1 %; HCT 42.7 % (34.0-46.0); HGB 14.4 gm/dL (11.4-16.0); Lymphocytes # (A) 1.2 k/uL (1.0-4.8); Lymphocytes % (A) 10 %; MCH 31.4 pg (25.0-35.0); MCHC 33.8 g/dL (31.0-37.0); Mean Platelet Volume 10.2; Monocytes # (A) 0.5 k/uL (0-1.0); Monocytes % (A) 5 %; Neutrophils # (A) 9.4 k/uL (1.3-7.7); Neutrophils % (A) 82 %; Platelet Count 190 k/uL (150-450); RBC 4.59 m/uL (3.80-5.40); WBC 11.6 k/uL (3.8-10.6)
[2023-09-19 08:18] LABS: INR 1.1 (<1.2); Prothrombin Time 11.4 sec (10.0-12.5)
[2023-09-19 08:32] LABS: ALT 44 U/L (4-34); AST 33 U/L (14-36); African American GFR (CKD) >90 (>60 ml/min/1.73 sqM); Alkaline Phosphatase 193 U/L (38-126); Anion Gap 12 mmol/L; Blood Urea Nitrogen 18 mg/dL (7-17); Calcium 9.5 mg/dL (8.4-10.2); Carbon Dioxide 18 mmol/L (22-30); Chloride 106 mmol/L (98-107); Glucose 126 mg/dL (74-99); Magnesium 1.9 mg/dL (1.6-2.3); Non-African American GFR(CKD) >90 (>60 ml/min/1.73 sqM); Potassium 3.9 mmol/L (3.5-5.1); Sodium 136 mmol/L (137-145); Total Bilirubin 0.9 mg/dL (0.2-1.3); Total Protein 7.6 g/dL (6.3-8.2)
[2023-09-19] MEDS ORDERED: KETOROLAC 15 MG/ML 1 ML VIAL IVP STA (08:49)
--- NOTE | 2023-09-19 10:14 | CT ---
CT CHEST FOR PULMONARY EMBOLISM. EXAMINATION TYPE: CT chest angio for PE DATE OF EXAM: 09/19/2023 INDICATION: Elevated D-dimer, Chest pain CT DLP: 411.1 mGycm, Automated exposure control for dose reduction was used. CONTRAST: Patient injected with 100 ml mL of Isovue 370. COMPARISON: 05/11/[address], abdomen CT 07/18/2023 TECHNIQUE: CT of the chest is performed on a spiral scan at 2 mm thick sections. Study is performed with intravenous contrast timed for evaluation for pulmonary embolism. This will limit additional po rtions of the evaluation. 3-D MIP images reconstructed by the technologist are reviewed on the compu ter in the coronal and sagittal planes. FINDINGS: No persistent filling defects are evident to suggest an acute pulmonary embolism. No mediastinal or hilar adenopathy enlarged by CT criteria is evident. The ascending aorta diameter at the level of the main pulmonary artery is 3.1 cm. The main pulmonary artery diameter at the bifur cation is 2.9 cm. There is a 1.0 cm nodule just above the left diaphragm. This was present previously. Increased lung m arkings within the right middle lobe have improved from comparison. Limited CT section through the upper abdomen. There is an ill-defined mass at the tail of the pancrea s. Scattered calcifications are present. This area is estimated to measure 6.8 x 5.6 cm. IMPRESSION: 1. No acute pulmonary embolism. 2. Irregular 6 cm mass near the splenic hilum appears to lie within the tail of the pancreas. Additio nal workup for neoplasm is recommended.
[2023-09-19 10:58] LABS: Amylase 47 U/L (30-110); Lipase 83 U/L (23-300)
[2023-09-19] MEDS ORDERED: HYDROmorphone 0.5 MG/0.5 ML SYRINGE IVP STA (13:03)
[2023-09-19 13:20] VITALS: BP 118/85; PULSE 62
--- NOTE | 2023-09-19 14:37 | P.CONS ---
History of Present Illness - Reason for Consult Consult date: 09/19/23 Pancreatic mass Requesting physician: Fabian Rodriguez - Chief Complaint abd pain - History of Present Illness Ms. Johnson is a pleasant 38-year-old female we've been asked to see because of unusual findings on CAT scan. Patient presented to the emergency room with complaints of LUQ pain, x 1 week, underneath the left ribs, qualified as sharp and stabbing, associated with some mild nausea, when she eats or drinks the pain worsens, nothing has really seem to help it. She was recently seen at an urgent care, told she was constipated, took stool softeners and felt a little better after a bowel movement but, today the pain persists. She has a history of a pacemaker for hypertrophic cardiomyopathy and cardiac ablation. Reports a history of atrial fibrillation, anxiety and depression. She denies any unintentional weight loss, sweats, fevers, recent illnesses, di fficulty in breathing, swelling in the legs or other pain. Review of Systems 10 point review of systems is negative except as stated in HPI Past Medical History Past Medical History: Atrial Fibrillation Additional Past Medical History / Comment(s): See Dr Gottlieb H&P, IBS, Migraines History of Any Multi-Drug Resistant Organisms: None Reported Past Surgical History: Section, Cholecystectomy, Pacemaker Additional Past Surgical History / Comment(s): Section X1. cardiac ablation 02/24/20, PACEMAK[facility] (AUG 2019) Past Anesthesia/Blood Transfusion Reactions: Motion Sickness, Postoperative Nausea & Vomiting (PONV) Type of Cardiac Device: Permanent Pacemaker Device Placement Date:: 08/2019 Past Psychological History: Anxiety, Depression Smoking Status: Never smoker Past Alcohol Use History: None Reported Past Drug Use History: None Reported - Past Family History Father Family Medical History: Cancer Additional Family Medical History / Comment(s): . Mother Family Medical History: Cancer ( patient was 14 years old) Additional Family Medical History / Comment(s): . Sister(s) Additional Family Medical History / Comment(s): "heart problems" Medications and Allergies Home Medications Medication Instructions Recorded Confirmed Type Apixaban [Eliquis] 5 mg PO BID #60 tab 04/03/19 09/19/23 Rx Metoprolol Succinate (ER) [Toprol 100 mg PO DAILY 08/31/22 09/19/23 History XL] dilTIAZem HCL [dilTIAZem HCL 24Hr 240 mg PO DAILY 11/26/22 09/19/23 History ER (Xr)] Bumetanide [BUMEX] 1 mg PO DAILY PRN 02/08/23 09/19/23 History ALPRAZolam [Xanax] 0.5 mg PO BID PRN 09/19/23 09/19/23 History Amiodarone [Cordarone] 200 mg PO DAILY 09/19/23 09/19/23 History Spironolactone 25 mg PO DAILY 09/19/23 09/19/23 History Allergies Allergy/AdvReac Type Severity Reaction Status Date / Time egg AdvReac HEADACHE Verified 09/19/23 11:49 Physical Exam Vitals: Vital Signs Temp Pulse Pulse Resp BP Pulse Ox 09/19/23 13:10 62 18 118/85 98 09/19/23 11:44 60 18 111/70 98 09/19/23 08:55 60 18 111/82 98 09/19/23 07:34 60 09/19/23 06:53 97.8 F 73 18 131/93 96 Intake and Output 09/18/23 09/19/23 09/19/23 22:59 06:59 14:59 Other: Weight 87.09 kg - Constitutional General appearance: cooperative, no acute distress, obese - EENT Eyes: anicteric sclerae, EOMI ENT: hearing grossly normal, normal oropharynx - Neck Neck: no lymphadenopathy - Respiratory Respiratory: bilateral: CTA - Cardiovascular Heart sounds: normal: S1, S2 Abnormal Heart Sounds: no systolic murmur, no diastolic murmur, no rub, no S3 Gallop, no S4 Gallop, no click, no other leg Peripheral Edema: bilateral: None - Gastrointestinal General gastrointestinal: no absent bowel sounds, decreased bowel sounds, no distended, no hepatomegaly, no hyperactive bowel sounds, no normal bowel sounds, no organomegaly, no rigid, no scaphoid, soft, no splenomegaly, no tenderness, no umbilical hernia, no ventral hernia - Integumentary Integumentary: normal - Neurologic Neurologic: CNII-XII intact - Musculoskeletal Musculoskeletal: strength equal bilaterally - Psychiatric Psychiatric: A&O x's 3, appropriate affect, intact judgment & insight Results CBC & Chem 7: 09/19/23 07:39 09/19/23 07:39 Labs: Abnormal Lab Results - Last 24 Hours (Table) 09/19/23 09/19/23 09/19/23 Range/Units 07:39 07:39 07:49 WBC 11.6 H (3.8-10.6) k/uL Neutrophils # 9.4 H (1.3-7.7) k/uL D-Dimer 3.22 H (<0.60) mg/L FEU Sodium 136 L (137-145) mmol/L Carbon Dioxide 18 L (22-30) mmol/L BUN 18 H (7-17) mg/dL Glucose 126 H (74-99) mg/dL ALT 44 H (4-34) U/L Alkaline Phosphatase 193 H (38-126) U/L Comments: PET CT 09/11/[address] scan - abdomen: report reviewed CT scan - chest: report reviewed Assessment and Plan (1) Pancreatic mass Status: Acute Priority: High Code(s): K86.89 - OTHER SPECIFIED DISEASES OF PANCREAS SNOMED Code(s): 760221678 Plan: Pancreatic mass -CT of the chest was done to evaluate for complaints of chest pain, wanting to rule out a PE. No PE identified. The CTA was compared to CT abd from 07/18/[address] of the chest from 05/11/2020. Ill-defined mass at the tail of the pancreas is measured 6.8 x 5.6 cm. 07/18/23 CT AP without IV contrast was ordered for right flank pain reporting a left ovarian cystic lesion 2.6 x 2.4 cm. PET/CT 09/11/20 reported Shoddy nodes within the mediastinum, no suspicious uptake, soft tissue nodules present along the left hemidiaphragm, present on prior exams and stable, post cholecystectomy, no ascites, no retroperitoneal lymphadenopathy, pancreatic tail foci of low attenuation are noted, no associated hypermetabolic uptake. Uterus and adnexal structures unremarkable. CT chest and abdomen with contrast 03/26/21 (compared to PET/CT 09/11/20) reported borderline enlarged 1 cm precarinal lymph node unchanged, 6 mm left midlung pulmonary nodule unchanged, 1 cm left basilar pulmonary nodule unchanged 2-3 cystic lesions of the pancreatic tail were reported. They are lobulated, measuring up to 4 cm and appear bulkier than previous. Second bilobed cystic lesion at the junction of the pancreatic tail and body measures 3.6 x 1.7 cm versus 3 x 1.3 previously. -Discussed with patient and her the noted changes and imaging. Further workup is needed to further clarify the findings. They verbalized understanding. -Recommend PET scan. Her only done outpatient so, case was discussed case ER Physician. As long as patient is stable, discharge and we will get everything scheduled outpatient as soon as possible. -5 day Rx of pain meds will be sent to [facility] -Oncology office will sched STAT PET scan and contact patient with appointment date and time -Follow-up with Medical Oncologist as soon as possible once imaging results are available. Plans for next steps will be discussed at that time, if needed.
== END 2023-09-19 13:12 | disposition home or self-care (01) ==
LOC: EC 06:51
DX: K86.9 Disease of pancreas, unspecified (principal); F32.A Depression, unspecified; F41.9 Anxiety disorder, unspecified; Z79.899 Other long term (current) drug therapy; Z91.012 Allergy to eggs; Z90.49 Acquired absence of other specified parts of digestive tract
CPT/HCPCS: 99285; 96374; 96375; 36415; 93005; 85379; 80053; 82150; 83690; 83735; 84484; 85025; 85610; 85730; 71046; 71275; J1885; J1170; Q9967

== ENCOUNTER → 2023-09-22 | Outpatient (CLI) | payer OTHER ==
--- NOTE | 2023-09-22 17:21 | PE ---
EXAMINATION TYPE: PET CT fusion skull to thigh DATE OF EXAM: 09/22/2023 COMPARISON: CT chest 09/19/2023, CT abdomen and pelvis 07/18/2023 Prior PET/CT: None at this location HISTORY: Pancreatic cancer TECHNIQUE: Following the intravenous administration of 12.03 mCi of F-18 FDG, whole body images are performed from the skull base to the midthigh. Images are reviewed on the computer in the coronal, a xial, and sagittal planes. Reconstructed rotating images are created on independent workstation and reviewed on the computer. A localization and attenuation correction CT is performed in conjunction with the PET scan. DLP: 742.24 mGycm SCAN: Initial Blood glucose: 91 mg/dL Average Mediastinum SUV: 2.33 Average Liver SUV: 3.25 FINDINGS: NECK: No abnormal uptake THORAX: No abnormal uptake ABDOMEN: There is a punctate focal area of increased uptake within the region of the mass which may b e at the tail of the pancreas, image 118, SUV 9.18 PELVIS: There is some focal uptake in the left adnexa, image 197, SUV 12.19. This may be related to t ransient visualization of ureter. Left ovarian abnormality would be within the differential. OSSEOUS STRUCTURES: No abnormal uptake LOCALIZATION CT: The focus of radiotracer within the tail of the pancreas is significantly smaller th an the masslike area. Masslike area appears to measure approximately 6.5 x 5.2 cm. Focus of radiotrac er is in the denser portion of this mass posterior lateral region near the splenic hilum. COMPARISON: None IMPRESSION: 1. Small focus of radiotracer with elevated SUV suspicious for neoplasm in the posterior lateral mass near the tail of the pancreas. The mass itself is largely without significant radiotracer uptake. 2. Small focus of elevated radiotracer in the left ovary. Differential could include transient visual ization of the ureter or small hypermetabolic mass in the left ovary. 3. Suspicious uptake elsewhere to suggest metastasis is not identified.
== END | disposition home or self-care (01) ==
LOC: RADPETMAIN 14:53
PROVIDERS: ATTEND Internal Medicine
DX: C25.0 Malignant neoplasm of head of pancreas (principal)
CPT/HCPCS: 78815; A9552

== ENCOUNTER 2024-04-06 21:45 | Inpatient (IN) | payer OTHER | END 2024-04-08 18:10 | disposition home or self-care (01) | DRG 201 | LOC: 6NMEDSUR 21:45 | PROVIDERS: ADMIT Internal Medicine; ATTEND Internal Medicine | DX: I48.91 Unspecified atrial fibrillation (principal); I42.2 Other hypertrophic cardiomyopathy; F41.9 Anxiety disorder, unspecified; I21.A1 Myocardial infarction type 2; Z79.899 Other long term (current) drug therapy; Z79.01 Long term (current) use of anticoagulants; Z95.0 Presence of cardiac pacemaker; Z82.49 Family history of ischemic heart disease and other diseases of the circulatory system ==